=== PATIENT | male | born 1950 | race African-American/Black ===

== ENCOUNTER → 2016-10-07 | Outpatient (CLI) | payer MEDICARE, OTHER ==
[2016-10-07 08:43] LABS: Basophils % (A) 1 %; CH 31.9; CHCM 35.4; Eosinophils # (A) 0.2 k/uL (0-0.7); Eosinophils % (A) 3 %; HCT 42.9 % (39.0-53.0); HDW 2.84; Luc # (Auto) 0.21; Luc % (Auto) 4; Lymphocytes # (A) 1.1 k/uL (1.0-4.8); Lymphocytes % (A) 20 %; MCH 31.6 pg (25.0-35.0); MCHC 34.8 g/dL (31.0-37.0); MCV 90.7 fL (80.0-100.0); Mean Platelet Volume 7.1; Monocytes # (A) 0.3 k/uL (0-1.0); Monocytes % (A) 5 %; Neutrophils # (A) 3.7 k/uL (1.3-7.7); Neutrophils % (A) 68 %; RBC 4.73 m/uL (4.30-5.90); RDW 13.3 % (11.5-15.5); WBC 5.5 k/uL (3.8-10.6); WBC (Perox) 5.29
[2016-10-07 08:55] LABS: ALT 118 U/L (21-72); AST 96 U/L (17-59); Alkaline Phosphatase 87 U/L (38-126); Anion Gap 10 mmol/L; Bilirubin, Delta 0.3 mg/dL (0.0-0.2); Blood Urea Nitrogen 13 mg/dL (9-20); Calcium 9.6 mg/dL (8.4-10.2); Carbon Dioxide 25 mmol/L (22-30); Chloride 109 mmol/L (98-107); Glucose 99 mg/dL (74-99); Non-African American GFR(MDRD) >60 (>60 ml/min/1.73 sqM); Potassium 4.4 mmol/L (3.5-5.1); Sodium 144 mmol/L (137-145); Total Bilirubin 0.9 mg/dL (0.2-1.3); Total Protein 7.6 g/dL (6.3-8.2)
[2016-10-10 09:35] LABS: LOG HCV IU/mL 5.79 (<1.08)
== END | disposition home or self-care (01) ==
LOC: RADUSWWP 07:41
DX: B18.2 Chronic viral hepatitis C (principal)
CPT/HCPCS: 36415; 80053; 82105; 82248; 85025; 87522

== ENCOUNTER → 2016-10-27 | Outpatient (CLI) | payer MEDICARE, OTHER ==
--- NOTE | 2016-10-27 08:20 | US ---
EXAMINATION TYPE: US abdomen limited DATE OF EXAM: 10/27/2016 7:30 AM COMPARISON: 10/03/2014 CLINICAL HISTORY: B18.2 HEP C. NPO, no surgeries EXAM MEASUREMENTS: Liver Length: 13.6 cm Gallbladder Wall: 0.2 cm CHD: 0.3 cm Right Kidney: 11.3 x 5.5 x 4.7 cm Pancreas: Obscured by bowel gas Liver: Linear echogenic focus with shadowing in right lobe = 2.2 x 1.6 cm Gallbladder: Fundal echogenic foci seen at wall Evidence for sonographic Banks's sign: neg CHD: wnl Right Kidney: wnl IMPRESSION: 1. Stable linear calcification within the liver. 2. Gallbladder polyp versus adherent gallstone.
== END | disposition home or self-care (01) ==
LOC: RADUSWWP 07:02
DX: K76.89 Other specified diseases of liver (principal); B18.2 Chronic viral hepatitis C
CPT/HCPCS: 76705

== ENCOUNTER → 2016-11-28 | Outpatient (CLI) | payer MEDICARE, OTHER ==
[2016-11-28 16:28] LABS: Hepatitis B Surface Ag Index 0.07
[2016-11-28 16:34] LABS: Hepatitis B Core IgM Index 0.03
[2016-11-28 16:45] LABS: Hepatitis C Virus IgG Ab Reactive (Negative)
== END ==
LOC: LABWHC1 15:13
PROVIDERS: ATTEND Physician Assistant
DX: B18.2 Chronic viral hepatitis C (principal)
CPT/HCPCS: 36415; 80074

== ENCOUNTER → 2017-01-19 | Outpatient (CLI) | payer MEDICARE, OTHER ==
--- NOTE | 2017-01-19 09:24 | CT ---
EXAMINATION TYPE: CT brain wo con DATE OF EXAM: 01/19/2017 COMPARISON: NONE HISTORY: Loss of balance CT DLP: [address] of the brain was performed. The ventricles, basal cisterns and sulci overlying the cerebral convexities demonstrate mild enlargem ent. There is no evidence for intracranial hemorrhage or sulcal effacement. There is decreased attenuation about the periventricular white matter and deep white matter of both c erebral hemispheres, compatible with chronic small vessel ischemia. Differential diagnosis does inclu de demyelination. No mass effects are seen.No midline shift. Osseous calvarium is intact. If symptoms persist consider MRI. IMPRESSION: 1. Age related atrophic and chronic small vessel ischemic change without acute intracranial process s een at this time.
--- NOTE | 2017-01-19 09:36 | US ---
EXAMINATION TYPE: US carotid duplex BILAT DATE OF EXAM: 01/19/2017 COMPARISON: NONE CLINICAL HISTORY: R26.89 loss of balance. Loss of balance EXAM MEASUREMENTS: RIGHT: Peak Systolic Velocity (PSV) cm/sec ----- Right CCA: 73.2 ----- Right ICA: 75.6 ----- Right ECA: 66.0 ICA/CCA ratio: 1.0 RIGHT: End Diastole cm/sec ----- Right CCA: 18.2 ----- Right ICA: 23.2 ----- Right ECA: 8.4 LEFT: Peak Systolic Velocity (PSV) cm/sec ----- Left CCA: 94.7 ----- Left ICA: 97.3 ----- Left ECA: 78.7 ICA/CCA ratio: 1.0 LEFT: End Diastole cm/sec ----- Left CCA: 25.9 ----- Left ICA: 27.2 ----- Left ECA: 9.0 VERTEBRALS (direction of flow): Right Vertebral: Antegrade Left Vertebral: Antegrade Grayscale images show moderate to severe eccentric shadowing hyperechoic plaque at bilateral carotid bulbs. Velocity measurements and ratios however remain within normal limits bilaterally. IMPRESSION: Moderate to severe atherosclerotic change without hemodynamically significant stenosis s een in either internal carotid artery.
== END | disposition home or self-care (01) ==
LOC: RADUSMAIN 08:57
PROVIDERS: ATTEND Family Medicine
DX: I65.23 Occlusion and stenosis of bilateral carotid arteries (principal); G31.1 Senile degeneration of brain, not elsewhere classified; I67.82 Cerebral ischemia
CPT/HCPCS: 70450; 93880

== ENCOUNTER → 2017-02-06 | Outpatient (CLI) | payer MEDICARE, OTHER ==
[2017-02-06 15:35] LABS: Hepatitis B Surface Ag Index 0.06
[2017-02-06 15:41] LABS: Hepatitis B Core IgM Index 0.03
[2017-02-06 15:53] LABS: Hepatitis C Virus IgG Ab Reactive (Negative)
== END | disposition home or self-care (01) ==
LOC: LABWHC1 14:16
PROVIDERS: ATTEND Physician Assistant
DX: B18.2 Chronic viral hepatitis C (principal)
CPT/HCPCS: 36415; 80074

== ENCOUNTER → 2017-02-16 | Outpatient (CLI) | payer MEDICARE, OTHER ==
[2017-02-16 10:57] LABS: Bilirubin, Delta 0.2 mg/dL (0.0-0.2); Total Bilirubin 0.6 mg/dL (0.2-1.3); Total Protein 7.3 g/dL (6.3-8.2)
[2017-02-20 13:21] LABS: Hepatits C Virus RNA, Quant <12 IU/mL (<12); LOG HCV IU/mL <1.08 (<1.08)
== END | disposition home or self-care (01) ==
LOC: LABWHC1 09:56
PROVIDERS: ATTEND Physician Assistant
DX: B18.2 Chronic viral hepatitis C (principal)
CPT/HCPCS: 36415; 80076; 87522

== ENCOUNTER → 2017-09-14 | Outpatient (CLI) | payer MEDICARE, OTHER ==
[2017-09-14 10:16] LABS: Basophils % (A) 0 %; Eosinophils # (A) 0.1 k/uL (0-0.7); Eosinophils % (A) 2 %; HCT 42.6 % (39.0-53.0); HGB 14.9 gm/dL (13.0-17.5); Lymphocytes % (A) 16 %; MCH 30.6 pg (25.0-35.0); MCHC 35.1 g/dL (31.0-37.0); MCV 87.3 fL (80.0-100.0); Mean Platelet Volume 7.1; Monocytes # (A) 0.4 k/uL (0-1.0); Monocytes % (A) 7 %; Neutrophils # (A) 4.8 k/uL (1.3-7.7); Neutrophils % (A) 73 %; Platelet Count 150 k/uL (150-450); RBC 4.88 m/uL (4.30-5.90); RDW 13.2 % (11.5-15.5); WBC 6.6 k/uL (3.8-10.6)
[2017-09-14 10:22] LABS: INR 1.2 (<1.2); Prothrombin Time 11.4 sec (9.0-12.0)
[2017-09-14 10:29] LABS: Albumin 3.9 g/dL (3.5-5.0); Bilirubin, Delta 0.4 mg/dL (0.0-0.2); Bilirubin,Unconjugated 0.1 mg/dL (0.0-1.1); Total Bilirubin 0.5 mg/dL (0.2-1.3)
[2017-09-15 16:20] LABS: Hepatits C Virus RNA Not detected (Not detected); Hepatits C Virus RNA, Quant <12 IU/mL (<12); LOG HCV IU/mL <1.08 (<1.08)
== END | disposition home or self-care (01) ==
LOC: LABWHC1 09:35
PROVIDERS: ATTEND Physician Assistant
DX: B18.2 Chronic viral hepatitis C (principal)
CPT/HCPCS: 36415; 80076; 82105; 85025; 85610; 87522

== ENCOUNTER → 2018-02-14 | Outpatient (CLI) | payer MEDICARE, OTHER ==
[2018-02-14 15:56] LABS: HCT 43.5 % (39.0-53.0); HGB 15.1 gm/dL (13.0-17.5); MCH 30.5 pg (25.0-35.0); MCHC 34.6 g/dL (31.0-37.0); MCV 88.1 fL (80.0-100.0); Platelet Count 134 k/uL (150-450); RBC 4.94 m/uL (4.30-5.90); RDW 12.9 % (11.5-15.5); WBC 6.3 k/uL (3.8-10.6)
[2018-02-14 16:05] LABS: Potassium 4.3 mmol/L (3.5-5.1)
== END | disposition home or self-care (01) ==
LOC: LABPAT 15:28
PROVIDERS: ATTEND Internal Medicine Interventional Cardiology
DX: Z01.812 Encounter for preprocedural laboratory examination (principal); I25.10 Atherosclerotic heart disease of native coronary artery without angina pectoris; I70.213 Atherosclerosis of native arteries of extremities with intermittent claudication, bilateral legs
CPT/HCPCS: 36415; 80051; 82565; 84520; 85027

== ENCOUNTER → 2018-03-13 | Outpatient (CLI) | payer MEDICARE, OTHER ==
[2018-03-13 14:46] LABS: HCT 41.9 % (39.0-53.0); HGB 14.3 gm/dL (13.0-17.5); MCH 30.1 pg (25.0-35.0); MCHC 34.1 g/dL (31.0-37.0); Mean Platelet Volume 6.7; Platelet Count 125 k/uL (150-450); RBC 4.76 m/uL (4.30-5.90); RDW 12.8 % (11.5-15.5); WBC 5.9 k/uL (3.8-10.6)
[2018-03-13 15:08] LABS: Anion Gap 8 mmol/L; Blood Urea Nitrogen 12 mg/dL (9-20); Carbon Dioxide 24 mmol/L (22-30); Chloride 109 mmol/L (98-107); Potassium 3.9 mmol/L (3.5-5.1); Sodium 141 mmol/L (137-145)
== END ==
LOC: LABPAT 13:42
PROVIDERS: ATTEND Internal Medicine Interventional Cardiology
DX: Z01.812 Encounter for preprocedural laboratory examination (principal); I25.10 Atherosclerotic heart disease of native coronary artery without angina pectoris; E78.5 Hyperlipidemia, unspecified; Z95.1 Presence of aortocoronary bypass graft
CPT/HCPCS: 36415; 80051; 82565; 84520; 85027

== ENCOUNTER 2018-03-30 09:25 | Day surgery (SDC) | payer MEDICARE, OTHER ==
[2018-03-21 11:55] VITALS: BMI 25.7
[~2018-03-30 09:25] MED LIST: ALPRAZolam 0.25 MG TAB PO PRN; ASPIRIN 325 MG TAB PO STA; SODIUM CHLORIDE 0.9% 1,000 ML in EMPTY BAG 1 BAG IV ONE
[2018-03-30] MEDS ORDERED: MIDAZOLAM 2 MG/2 ML VIAL IVP ONE (11:17)
[2018-03-30] MEDS ORDERED: LIDOCAINE 1% INJ 10MG/ML (20 ML MDV) SQ ONE (11:18)
[2018-03-30] MEDS ORDERED: HEPARIN SODIUM 1,000 UN/ML (10ML VL) IV ONE (11:23)
[2018-03-30 11:25] LABS: Glucose,Whole Blood 90 mg/dL (75-99)
[2018-03-30 11:33] LABS: Basophils % (A) 1 %; Eosinophils # (A) 0.1 k/uL (0-0.7); Eosinophils % (A) 2 %; HCT 39.5 % (39.0-53.0); Lymphocytes # (A) 1.4 k/uL (1.0-4.8); Lymphocytes % (A) 22 %; MCH 30.7 pg (25.0-35.0); MCHC 35.5 g/dL (31.0-37.0); MCV 86.4 fL (80.0-100.0); Monocytes # (A) 0.3 k/uL (0-1.0); Monocytes % (A) 4 %; Neutrophils # (A) 4.4 k/uL (1.3-7.7); Neutrophils % (A) 69 %; Platelet Count 117 k/uL (150-450); RBC 4.57 m/uL (4.30-5.90); RDW 13.3 % (11.5-15.5); WBC 6.4 k/uL (3.8-10.6)
[2018-03-30 12:03] LABS: Anion Gap 6 mmol/L; Blood Urea Nitrogen 13 mg/dL (9-20); Calcium 9.2 mg/dL (8.4-10.2); Carbon Dioxide 25 mmol/L (22-30); Chloride 110 mmol/L (98-107); Glucose 92 mg/dL (74-99); Potassium 4.3 mmol/L (3.5-5.1); Sodium 141 mmol/L (137-145)
[2018-03-30] MEDS ORDERED: CLOPIDOGREL 75 MG TAB PO ONE (12:41)
[2018-03-30] MEDS ORDERED: [UNRECOGNIZED DRUG - OTHER] PO SCH (13:15)
[2018-03-30] MEDS ORDERED: SODIUM CHLORIDE 0.9% 1,000 ML IV SCH (13:15)
--- NOTE | 2018-03-30 15:05 | LTR ---
DATE OF SERVICE: March 30, 2018. Dear Dr. Hill: Mr. Patel Goodman underwent successful atherectomy and balloon angioplasty of the right common femoral artery as well as successful crossing of chronic total occlusion of the right popliteal with successful stenting of the right popliteal. The procedure was completed without any complication and with an excellent angiographic result by the end. I want to thank you for allowing us to participate with his care and please do not hesitate to call for any questions or concerns. Sincerely, MMGENET / IJN: [id number] /
--- NOTE | 2018-03-30 15:35 | AN ---
ANGIOGRAPHY REPORT DATE OF SERVICE: 03/30/2018. PERFORMING PHYSICIAN: Piyush Short M.D., leather production worker PROCEDURES PERFORMED: 1. Selective right osinu-yvn-fiiv angiogram. 2. Selective right SFA angiogram. 3. Selective right common femoral artery angiogram. 4. Selective left common femoral artery angiogram. 5. Balloon angioplasty and stenting of the right popliteal using a 6 x x 40 mm Zilver PTX drug-coated stent with reduction of stenosis from 100% to 0%. 6. Atherectomy of the right common femoral artery using the TurboHawk device with extraction of significant amount of plaque. 7. Successful balloon angioplasty of the right common femoral artery with reduction of stenosis from 90% to 30% with good flow by the end. INDICATION: This is a pleasant 68-year-old -[place] gentleman with known history of coronary artery disease coronary artery revascularization as well as diabetes, hypertension, dyslipidemia. He was experiencing bilateral lower extremity intermittent claudication. He underwent a peripheral angiogram a few months ago and that revealed occluded left SFA and occluded right popliteal with critical disease involving the right common femoral artery just above the bifurcation into SFA and profunda. He was brought today to undergo a SERVICE TRANSFORMER REPAIR SUPERVISOR of the right leg. APPROACH: Left common femoral artery. COMPLICATIONS: None. LEVEL OF SEDATION: Moderate. Sedation length of 1 hour and 40 minutes. PROCEDURE DESCRIPTION: After obtaining informed consent, the patient was brought to the cardiac lab courier. The left common femoral artery was cannulated using micropuncture technique, and the micropuncture wire passed easily. Then I placed an 11 cm 6-St Helenian sheath in the left common femoral artery. I did select the right SFA using a 5-St Helenian RIM catheter with .035 [place] Advantage wire. After that I exchanged my 11 cm 6-St Helenian for a 70 cm 7-St Helenian sheath using the [place] Advantage wire. The tip of the sheath was positioned in the right external iliac artery. At that point anticoagulation was initiated using heparin. The patient was given 8000 units of heparin IV. After that I did cross the chronic total occlusion of the right popliteal using an .[address] wire with a backup support of .018 CXI catheter. I did after that prove that I was in the true lumen by injecting through the CSI catheter. After that I put the wire back again and I did balloon angioplasty using a 4 mm Chocolate balloon and then a 4 mm drug-coated balloon. There was residual stenosis of about 60% to 70% in the proximal SYSTEM SOFTWARE DEVELOPER cap. Because of that, I decided to stent that. So I deployed a 6 x 40 mm Zilver PTX where the stent was positioned under fluoroscopy guidance and deployed under fluoroscopy guidance before I post dilated the stent using a 6 mm balloon. The following angiogram in the right popliteal showed excellent angiographic results. For the right common femoral artery, I did atherectomy using the TurboHawk device and I did extract significant amount of plaque. After that I did balloon angioplasty using a 6 mm Chocolate balloon which was inflated under 14 atmospheres for 1 minute. The following angiogram showed good results with reduction of stenosis from 90% to about 30% to 40%. At that point, the procedure was completed. I exchanged my 70 cm 7-St Helenian sheath for an 11 cm 7-St Helenian sheath using the .035 [place] Advantage wire. The procedure was completed without any complication after I did selective left common femoral artery angiogram. POST-PROCEDURE MANAGEMENT: 1. Dual anti-platelet therapy. 2. Risk factor modifications. 3. Follow up with the patient. MMODL / IJN: [id number] /
[2018-03-30] MEDS ORDERED: ACETAMINOPHEN TAB 325 MG TAB PO PRN (15:46)
[2018-03-30 17:15] LABS: Glucose,Whole Blood 145 mg/dL (75-99)
--- NOTE | 2018-03-30 17:16 | IR ---
Fluoroscopy HISTORY: Pain in right leg 23.4 minutes fluoroscopy time supplied to the referring clinician. 640 intraoperative C-arm images d ocument the procedure. See dictated report from cardiology.
[2018-03-30 18:38] VITALS: RESP 18
[2018-03-30] MEDS ORDERED: ATORVASTATIN 40 MG TAB PO SCH (21:00)
[2018-03-30] MEDS ORDERED: MELATONIN 5 MG TABLET PO SCH (21:00)
[2018-03-30 21:36] LABS: Glucose,Whole Blood 135 mg/dL (75-99)
[2018-03-30] MEDS: GABAPENTIN 300 MG CAP PO SCH (22:46)
[2018-03-31 04:21] LABS: Hemoglobin A1C 5.8 % (4.0-6.0)
[2018-03-31 06:18] LABS: Glucose,Whole Blood 98 mg/dL (75-99)
[2018-03-31 06:21] LABS: Basophils % (A) 1 %; Eosinophils # (A) 0.1 k/uL (0-0.7); Eosinophils % (A) 2 %; HCT 39.9 % (39.0-53.0); HGB 13.6 gm/dL (13.0-17.5); Lymphocytes # (A) 1.1 k/uL (1.0-4.8); Lymphocytes % (A) 20 %; MCH 30.3 pg (25.0-35.0); MCV 89.1 fL (80.0-100.0); Monocytes # (A) 0.3 k/uL (0-1.0); Monocytes % (A) 6 %; Neutrophils # (A) 3.8 k/uL (1.3-7.7); Neutrophils % (A) 69 %; Platelet Count 114 k/uL (150-450); RBC 4.48 m/uL (4.30-5.90); RDW 13.2 % (11.5-15.5); WBC 5.6 k/uL (3.8-10.6)
[2018-03-31 06:52] LABS: Anion Gap 6 mmol/L; Blood Urea Nitrogen 15 mg/dL (9-20); Calcium 8.8 mg/dL (8.4-10.2); Carbon Dioxide 22 mmol/L (22-30); Chloride 113 mmol/L (98-107); Glucose 94 mg/dL (74-99); Potassium 4.4 mmol/L (3.5-5.1); Sodium 141 mmol/L (137-145)
[2018-03-31] MEDS: GABAPENTIN 300 MG CAP PO SCH (08:54)
[2018-03-31] MEDS ORDERED: CLOPIDOGREL 75 MG TAB PO SCH (09:00)
[2018-03-31] MEDS ORDERED: ASPIRIN 81 MG PO SCH (09:00)
[2018-03-31 09:06] VITALS: BP 108/70; PULSE 77; TEMP 97.3
--- NOTE | 2018-03-31 22:41 | DS ---
DISCHARGE SUMMARY ADMISSION DATE: March 30, 2018 DISCHARGE DATE: March 31, 2018 BRIEF HISTORY: This is a pleasant 68-year-old gentleman who was admitted to the hospital yesterday and underwent successful crossing of chronic total occlusion of the right popliteal artery as well as successful atherectomy and balloon angioplasty of the right femoral artery. The procedure was performed from the left groin. The left groin is soft and nontender and without any bruises. The patient is going to be discharged home today on dual anti-platelet therapy and statin and I will follow up with the patient in a week in the office. MMGENET / IJN: [id number] /
[2018-04-08] MEDS ORDERED: ERGOCALCIFEROL 50,000 UNIT CAP PO SCH (09:00)
== END 2018-03-31 11:26 | disposition home or self-care (01) ==
LOC: CATHCVL 09:25 → 6SEL 13:08 → CATHCVL 03-31 11:26
PROVIDERS: ATTEND Internal Medicine Interventional Cardiology
DX: I70.213 Atherosclerosis of native arteries of extremities with intermittent claudication, bilateral legs (principal); I70.92 Chronic total occlusion of artery of the extremities; I25.10 Atherosclerotic heart disease of native coronary artery without angina pectoris; E11.9 Type 2 diabetes mellitus without complications; E78.5 Hyperlipidemia, unspecified; Z95.1 Presence of aortocoronary bypass graft; F17.210 Nicotine dependence, cigarettes, uncomplicated; Z82.49 Family history of ischemic heart disease and other diseases of the circulatory system; Z79.84 Long term (current) use of oral hypoglycemic drugs; Z79.82 Long term (current) use of aspirin; Z79.899 Other long term (current) drug therapy
CPT/HCPCS: 37227; 85347; 80048 ×2; 85025 ×2; 83036; C1894 ×2; C1725 ×3; C1769 ×4; C1714; C1753; C2623; C1874; J2250; J2001; J1644

== ENCOUNTER 2018-05-23 09:57 | Day surgery (SDC) | payer MEDICARE, OTHER ==
[~2018-05-23 09:57] MED LIST changes: -ALPRAZolam 0.25 MG TAB PO PRN; -ASPIRIN 325 MG TAB PO STA
[2018-05-23 10:50] LABS: Glucose,Whole Blood 100 mg/dL (75-99)
[2018-05-23] MEDS ORDERED: SODIUM CHLORIDE 0.9% 1,000 ML IV ONE (10:51)
[2018-05-23 11:21] LABS: Mean Platelet Volume 6.8; Platelet Count 128 k/uL (150-450)
[2018-05-23] MEDS ORDERED: HYDROcodone/APAP 10-325MG 1 EACH TAB PO ONE (15:47)
[2018-05-23] MEDS ORDERED: HYDROcodone/APAP 10-325MG 1 EACH TAB ONE (15:48)
[2018-05-23] MEDS: fentaNYL (PF) 50 MCG/ML 2 ML AMP IVP ONE ×2 (16:45→17:55)
[2018-05-23] MEDS: MIDAZOLAM 2 MG/2 ML VIAL IVP ONE ×2 (16:45→17:06)
[2018-05-23] MEDS ORDERED: LIDOCAINE 1% (PF) 10MG/ML VIAL SQ ONE (16:50)
[2018-05-23] MEDS ORDERED: HYDROcodone/APAP 10-325MG 1 EACH TAB PO PRN (18:53)
[2018-05-23] MEDS ORDERED: IOPAMIDOL-250 100ML BTL INTRAARTER ONE (18:56)
[2018-05-23] MEDS ORDERED: IOPAMIDOL-250 50ML BTL INTRAARTER ONE (18:57)
[2018-05-23] MEDS ORDERED: [UNRECOGNIZED DRUG - OTHER] PO SCH (19:00)
[2018-05-23] MEDS ORDERED: SODIUM CHLORIDE 0.9% 1,000 ML IV SCH (19:00)
--- NOTE | 2018-05-23 19:45 | LTR ---
May 23, [address] Hill: Mr. Patel Goodman underwent successful atherectomy and balloon angioplasty of the left femoral artery with good angiographic results and without any complication. Thank you again for allowing us to participate in his care and please do not hesitate to call if you have any question or concern. MMODL / IJN: [id number] /
[2018-05-23] MEDS ORDERED: ERGOCALCIFEROL 50,000 UNIT CAP PO SCH (20:00)
[2018-05-23] MEDS ORDERED: GABAPENTIN 300 MG CAP PO SCH (21:00)
[2018-05-23] MEDS ORDERED: MELATONIN 5 MG TABLET PO SCH (21:00)
[2018-05-23] MEDS ORDERED: ATORVASTATIN 40 MG TAB PO SCH (21:00)
[2018-05-23 22:01] VITALS: BMI 25.7
--- NOTE | 2018-05-23 23:06 | AN ---
ANGIOGRAPHY REPORT DATE OF SERVICE: 05/23/2018 PERFORMING PHYSICIAN: Piyush Short MD, supervisor [employer]. PROCEDURES PERFORMED: 1. Selective left tvcov-wgi-qawa angiogram. 2. Selective left popliteal/SFA angiogram. 3. Selective right common femoral artery angiogram. 4. Intravascular ultrasound (IVUS) of the left SFA. 5. Atherectomy of the left SFA using the orbital atherectomy device from [employer]. 6. Successful stenting of the left popliteal and left SFA using Zilver PTX 6.0 x 140 and 7.0 x 140 drug-coated stent with an excellent angiographic result. 7. Successful balloon angioplasty of the mid left SFA using 6 x 80 mm drug-coated balloon with an excellent angiographic result. 8. Gradient measurement across the proximal left SFA. INDICATION: This is a pleasant 68-year-old gentleman who is known to have peripheral arterial disease and was experiencing bilateral lower extremity intermittent claudication. He underwent a peripheral angiogram and that showed occluded bilateral SFA. He underwent a PAIRER INSPECTOR of the right SFA and was brought today to undergo a PAIRER INSPECTOR of the left SFA. APPROACH: Right common femoral artery. COMPLICATIONS: None. LEVEL OF SEDATION: Moderate. Sedation length of 120 minutes. PROCEDURE DESCRIPTION: After obtaining informed consent, the patient was brought to the cardiac labor representative. The right common femoral artery was cannulated using micropuncture technique. The micropuncture wire passed easily. Then I placed a 6-Divehi sheath in the right common femoral artery. After that, anticoagulation was initiated using heparin and the patient was given 8000 units of heparin with continuous ACT throughout the procedure. After that I did select the left SFA using a 5-Divehi RIM catheter with .035 [place] Advantage wire. After that, I did exchange my short sheath for a long sheath, 55 cm Raabe sheath using the .035 [place] Advantage wire. Subsequently I was able to cross the chronic total occlusion of the left SFA using .018 gold tip Glidewire with .018 CXI catheter. After that I did intravascular ultrasound of the left SFA and left popliteal and that showed that in the SFA segment I was in the true lumen and in the popliteal I was in sub space. Because of that, I did atherectomy of the right SFA using the orbital atherectomy device from [employer]. I did that after I exchanged my wire for an .018 ViperWire. After that I did balloon angioplasty using a 6 mm balloon. The following angiogram showed dissection involving the left popliteal and left SFA in the midportion. Because of that, I decided to cover that with a stent, so I deployed 2 Zilver PTX stents. The distal one was 6 x 140 and the proximal one was 7 x 140 mm. After that, for the area proximal to the stents, I did a drug-coated balloon which was 6 x 80 mm balloon. I post dilated the 2 stents using 6 mm balloon. After that, I did a gradient measurement across the proximal left SFA and that came in to be non-significant. The procedure was completed without any complication. After that I did exchange my long sheath for a short sheath and the procedure was completed without any complication. POST-PROCEDURE MANAGEMENT: 1. Dual anti-platelet therapy. 2. Risk factor modifications. 3. Surveillance duplex study. 4. Follow up with the patient. MMODL / IJN: [id number] /
[2018-05-24] MEDS ORDERED: ATROPINE SULFATE 0.1 MG/ML 10ML SYRINGE ONE (01:42)
[2018-05-24 06:02] LABS: Glucose,Whole Blood 91 mg/dL (75-99)
[2018-05-24 07:04] LABS: Basophils % (A) 0 %; Eosinophils # (A) 0.1 k/uL (0-0.7); Eosinophils % (A) 2 %; HCT 36.5 % (39.0-53.0); HGB 13.1 gm/dL (13.0-17.5); Lymphocytes % (A) 22 %; MCH 31.9 pg (25.0-35.0); MCHC 35.9 g/dL (31.0-37.0); MCV 88.7 fL (80.0-100.0); Mean Platelet Volume 7.1; Monocytes # (A) 0.3 k/uL (0-1.0); Monocytes % (A) 6 %; Neutrophils # (A) 3.3 k/uL (1.3-7.7); Neutrophils % (A) 69 %; RBC 4.12 m/uL (4.30-5.90); RDW 12.9 % (11.5-15.5); WBC 4.8 k/uL (3.8-10.6)
[2018-05-24 07:22] LABS: Anion Gap 4 mmol/L; Blood Urea Nitrogen 16 mg/dL (9-20); Calcium 8.4 mg/dL (8.4-10.2); Carbon Dioxide 23 mmol/L (22-30); Chloride 114 mmol/L (98-107); Glucose 85 mg/dL (74-99); Potassium 4.5 mmol/L (3.5-5.1); Sodium 141 mmol/L (137-145)
--- NOTE | 2018-05-24 07:34 | IR ---
EXAMINATION TYPE: IR patrol captain femoral popliteal DATE OF EXAM: 05/23/2018 CLINICAL HISTORY: Peripheral vascular disease TECHNIQUE: Fluoroscopy. COMPARISON: None. FINDINGS: Fluoroscopic guidance was provided during lower extremity angiogram procedure with intrava scular treatment performed by Dr. Short. A total of 39 minutes of fluoroscopic time was utilized duri ng the procedure and multiple cine runs are acquired before and after treatment. Please refer to proc edure note for further details as I was not present nor performed procedure. IMPRESSION: As Above.
[2018-05-24 08:04] LABS: Platelet Count 91 k/uL (150-450)
[2018-05-24 08:27] VITALS: BP 109/59; PULSE 65; RESP 16; TEMP 98.4
[2018-05-24] MEDS ORDERED: ASPIRIN 81 MG PO SCH (09:00)
[2018-05-24] MEDS ORDERED: CLOPIDOGREL 75 MG TAB PO SCH (09:00)
--- NOTE | 2018-05-24 09:10 | DS ---
DISCHARGE SUMMARY ADMISSION DATE: May 23, 2018 DISCHARGE DATE: May 24, 2018 BRIEF HISTORY: This is a pleasant 68-year-old gentleman who was experiencing bilateral lower extremities intermittent claudication and underwent a peripheral angiogram and that revealed occluded bilateral SFA. He underwent a ACTIVITY ASSISTANT of the right SFA a few weeks ago and was brought yesterday to undergo a ACTIVITY ASSISTANT of the left SFA. He underwent successful crossing of chronic total occlusion of the left superficial femoral artery with good angiographic results and without any complication from the right groin approach. The right groin is soft and nontender and without any bruises. The patient is going to be discharged on dual antiplatelet therapy and I will follow up with the patient in a week in the office. MMODL / IJN: [id number] /
== END 2018-05-24 09:35 | disposition home or self-care (01) ==
LOC: CATHCVL 09:57 → 3SCARD 19:07 → CATHCVL 05-24 09:35
PROVIDERS: ATTEND Internal Medicine Interventional Cardiology
DX: I70.213 Atherosclerosis of native arteries of extremities with intermittent claudication, bilateral legs (principal); I25.10 Atherosclerotic heart disease of native coronary artery without angina pectoris; E78.5 Hyperlipidemia, unspecified; Z95.1 Presence of aortocoronary bypass graft; F17.210 Nicotine dependence, cigarettes, uncomplicated; Z82.49 Family history of ischemic heart disease and other diseases of the circulatory system; E11.9 Type 2 diabetes mellitus without complications; Z79.84 Long term (current) use of oral hypoglycemic drugs; Z79.82 Long term (current) use of aspirin; Z79.899 Other long term (current) drug therapy
CPT/HCPCS: 37227; 37252; 80048; 85025; 85049; C1894 ×2; C1714; C1769 ×7; C1725 ×3; C1887; C1753; C2623; C1874; J2250; J3010; J2001; J1644; Q9966 ×2

== ENCOUNTER → 2019-01-21 | Outpatient (CLI) | payer MEDICARE, OTHER ==
--- NOTE | 2019-01-21 14:51 | XR ---
Lumbosacral spine HISTORY: Lumbar disc disease, low back pain 5 views of lumbosacral spine There is multilevel spondylosis. No evident spondylolysis or spondylolisthesis. Lumbar vertebral bodi es show preserved height and bone mineralization. There is loss of disc height especially at L4-5 and L5-S1 with associated vacuum phenomenon. Sclerosis present in the posterior elements. Vascular calci fications within the aorta and noted incidentally. IMPRESSION: Degenerative disc disease and facet arthropathy.
== END | disposition home or self-care (01) ==
LOC: LABWHC1 11:52
PROVIDERS: ATTEND Family Medicine
DX: M51.37 Other intervertebral disc degeneration, lumbosacral region (principal); M46.97 Unspecified inflammatory spondylopathy, lumbosacral region
CPT/HCPCS: 72110

== ENCOUNTER → 2019-03-07 | Outpatient (CLI) | payer MEDICARE, OTHER ==
[2019-03-07 13:15] LABS: African American GFR (CKD) >90 (>60 ml/min/1.73 sqM); Blood Urea Nitrogen 16 mg/dL (9-20)
--- NOTE | 2019-03-07 15:00 | CT ---
EXAMINATION TYPE: CT abdomen pelvis w con DATE OF EXAM: 03/07/2019 COMPARISON: October 25, 2014 HISTORY: 30lb weight loss and appetite loss CT DLP: 1000 mGycm CONTRAST: CT scan of the abdomen and pelvis is performed with Oral Contrast and with IV Contrast, patient injec paty with 100 mL of Isovue 300. FINDINGS: LUNG BASES-: No visible nodule. No infiltrate. Chronic nodular parenchymal scar left lower lobe margaux uring 7 mm unchanged from study. LIVER/GB: No calcified gallstones. No space occupying hepatic lesion. Biliary tree is of normal ca liber. Stable hepatic calcifications. PANCREAS: Pancreatic calcifications noted compatible with chronic pancreatitis. No inflammation. No distinct mass. SPLEEN: No splenic enlargement. No lesion seen. ADRENALS: No nodule. No thickening. KIDNEYS/BLADDER: No hydronephrosis. No nephrolithiasis. No distinct renal mass. Urinary bladder g rossly unremarkable. BOWEL: Normal appendix. Normal bowel caliber. No inflammation. GENITAL ORGANS: Prostate gland enlargement. LYMPH NODES: No greater than 1cm abdominal or pelvic lymph nodes are appreciated. AORTA: No significant abnormality. OSSEOUS STRUCTURES: No significant abnormality is seen. OTHER: No significant additional abnormality is seen. IMPRESSION: 1. Changes of chronic pancreatitis. 2. Mild prostate gland enlargement. 3. Nodular scarring left lung base stable since prior study.
== END | disposition home or self-care (01) ==
LOC: RADCTMAIN 12:23
PROVIDERS: ATTEND Family Medicine
DX: N40.0 Benign prostatic hyperplasia without lower urinary tract symptoms (principal); E11.65 Type 2 diabetes mellitus with hyperglycemia; F17.218 Nicotine dependence, cigarettes, with other nicotine-induced disorders; E78.2 Mixed hyperlipidemia; R63.4 Abnormal weight loss; Z86.19 Personal history of other infectious and parasitic diseases
CPT/HCPCS: 82565; 84520; 74177; 36415; Q9967

== ENCOUNTER 2019-11-28 08:50 | Emergency (ER) | payer MEDICARE, OTHER ==
[2019-11-28] MEDS ORDERED: FUROSEMIDE 10 MG/ML 2 ML VIAL IV STA (09:19)
--- NOTE | 2019-11-28 09:23 | ED ---
General Adult HPI - General Chief complaint: Extremity Problem,Nontraumatic Stated complaint: Swollen feet Time Seen by Provider: 11/28/19 09:00 Source: patient, RN notes reviewed, old records reviewed Mode of arrival: wheelchair Limitations: physical limitation - History of Present Illness Initial comments: This is a 69-year-old male who presents to the emergency department complaining of bilateral leg swelling. Patient states his legs started to swell about 3 weeks ago and they've slowly gotten worse. Patient states there is no calf tenderness. Patient denies any redness. Patient denies any difficulty breathing or shortness of breath. Patient denies any chest pain or palpitations. Patient states she does have a history of open-heart surgery. Patient also has diabetes and high cholesterol. Patient states lately she's been sitting around in a chair a lot more and has not been as mobile. Patient denies any lightheadedness or dizziness. Patient states his only symptom is swelling in the legs. - Related Data Home Medications Medication Instructions Recorded Confirmed Atorvastatin [Lipitor] 40 mg PO HS 10/24/14 11/28/19 Aspirin [Adult Low Dose Aspirin EC] 81 mg PO DAILY 03/21/18 11/28/19 Gabapentin [Neurontin] 300 mg PO BID 03/21/18 11/28/19 Clopidogrel [Plavix] 75 mg PO QAM 05/21/18 11/28/19 metFORMIN HCL [Glucophage] 500 mg PO QAM 05/21/18 11/28/19 HYDROcodone/APAP 10-325MG [[place] 1 tab PO Q6HR PRN 05/23/18 11/28/19 10-325] Tamsulosin HCl [Flomax] 0.4 mg PO HS 11/28/19 11/28/19 Previous Rx's Medication Instructions Recorded Furosemide [Lasix] 20 mg PO DAILY #7 tab 11/28/19 Allergies Allergy/AdvReac Type Severity Reaction Status Date / Time No Known Allergies Allergy Verified 11/28/19 09:59 Review of Systems ROS Statement: Those systems with pertinent positive or pertinent negative responses have been documented in the HPI. ROS Other: All systems not noted in ROS Statement are negative. Past Medical History Past Medical History: Diabetes Mellitus, Hyperlipidemia, Hypertension, Liver Disease Additional Past Medical History / Comment(s): hep C History of Any Multi-Drug Resistant Organisms: None Reported Past Surgical History: Coronary Bypass/CABG Additional Past Surgical History / Comment(s): cyst removed under arm, Past Anesthesia/Blood Transfusion Reactions: No Reported Reaction Past Psychological History: No Psychological Hx Reported Smoking Status: Current every day smoker Past Alcohol Use History: Occasional Past Drug Use History: Heroin, IV Drug Use - Past Family History Father Additional Family Medical History / Comment(s): sclorosis General Exam - General Exam Comments Initial Comments: GENERAL: Patient is well-developed and well-nourished. Patient is nontoxic and well- hydrated and is in no acute distress. ENT: Neck is soft and supple. No significant lymphadenopathy is noted. Oropharynx is clear. Moist mucous membranes. Neck has full range of motion without eliciting any pain. EYES: The sclera were anicteric and conjunctiva were pink and moist. Extraocular movements were intact and pupils were equal round and reactive to light. Eyelids were unremarkable. PULMONARY: Unlabored respirations. Good breath sounds bilaterally. No audible rales rhonchi or wheezing was noted. CARDIOVASCULAR: There is a regular rate and rhythm without any murmurs gallops or rubs. ABDOMEN: Soft and nontender with normal bowel sounds. SKIN: Skin is clear with no lesions or rashes and otherwise unremarkable. NEUROLOGIC: Patient is alert and oriented x3. Cranial nerves II through XII are grossly intact. Motor and sensory are also intact. Normal speech, volume and content. Symmetrical smile. MUSCULOSKELETAL: Normal extremities with adequate strength and full range of motion. Patient has 2+ edema bilaterally LYMPHATICS: No significant lymphadenopathy is noted PSYCHIATRIC: Normal psychiatric evaluation. Limitations: physical limitation Course Vital Signs 11/28/19 09:01 Temperature 98.6 F Pulse Rate 73 Respiratory 18 Rate Blood Pressure 118/80 O2 Sat by Pulse 95 Oximetry Medical Decision Making - Medical Decision Making EKG shows normal sinus rhythm at 65 bpm AK interval 142 QRS is 82 QT intervals 408 QTC is 424. Patient's EKG shows no ST segment elevation or depression. Chest x-ray shows no acute abnormality - Lab Data Result diagrams: 11/28/19 09:35 11/28/19 09:35 Lab Results 11/28/19 11/28/19 11/28/19 Range/Units 09:35 09:35 09:35 WBC 5.5 (3.8-10.6) k/uL RBC 4.72 (4.30-5.90) m/uL Hgb 15.2 (13.0-17.5) gm/dL Hct 44.0 (39.0-53.0) % MCV 93.2 (80.0-100.0) fL MCH 32.2 (25.0-35.0) pg MCHC 34.5 (31.0-37.0) g/dL RDW 12.3 (11.5-15.5) % Plt Count 149 L (150-450) k/uL Neutrophils % 66 % Lymphocytes % 21 % Monocytes % 7 % Eosinophils % 4 % Basophils % 1 % Neutrophils # 3.6 (1.3-7.7) k/uL Lymphocytes # 1.2 (1.0-4.8) k/uL Monocytes # 0.4 (0-1.0) k/uL Eosinophils # 0.2 (0-0.7) k/uL Basophils # 0.0 (0-0.2) k/uL PT 11.0 (9.0-12.0) sec INR 1.1 (<1.2) APTT 25.3 (22.0-30.0) sec Sodium 138 (137-145) mmol/L Potassium 4.1 (3.5-5.1) mmol/L Chloride 107 (98-107) mmol/L Carbon Dioxide 26 (22-30) mmol/L Anion Gap 5 mmol/L BUN 13 (9-20) mg/dL Creatinine 0.86 (0.66-1.25) mg/dL Est GFR (CKD-EPI)AfAm >90 (>60 ml/min/1.73 sqM) Est GFR (CKD-EPI)NonAf 89 (>60 ml/min/1.73 sqM) Glucose 134 H (74-99) mg/dL Calcium 9.2 (8.4-10.2) mg/dL Magnesium 1.8 (1.6-2.3) mg/dL Total Bilirubin 0.7 (0.2-1.3) mg/dL AST 74 H (17-59) U/L ALT 50 H (4-49) U/L Alkaline Phosphatase 108 (38-126) U/L Troponin I (0.000-0.034) ng/mL NT-Pro-B Natriuret Pep pg/mL Total Protein 7.1 (6.3-8.2) g/dL Albumin 3.8 (3.5-5.0) g/dL 11/28/19 11/28/19 Range/Units 09:35 09:35 WBC (3.8-10.6) k/uL RBC (4.30-5.90) m/uL Hgb (13.0-17.5) gm/dL Hct (39.0-53.0) % MCV (80.0-100.0) fL MCH (25.0-35.0) pg MCHC (31.0-37.0) g/dL RDW (11.5-15.5) % Plt Count (150-450) k/uL Neutrophils % % Lymphocytes % % Monocytes % % Eosinophils % % Basophils % % Neutrophils # (1.3-7.7) k/uL Lymphocytes # (1.0-4.8) k/uL Monocytes # (0-1.0) k/uL Eosinophils # (0-0.7) k/uL Basophils # (0-0.2) k/uL PT (9.0-12.0) sec INR (<1.2) APTT (22.0-30.0) sec Sodium (137-145) mmol/L Potassium (3.5-5.1) mmol/L Chloride (98-107) mmol/L Carbon Dioxide (22-30) mmol/L Anion Gap mmol/L BUN (9-20) mg/dL Creatinine (0.66-1.25) mg/dL Est GFR (CKD-EPI)AfAm (>60 ml/min/1.73 sqM) Est GFR (CKD-EPI)NonAf (>60 ml/min/1.73 sqM) Glucose (74-99) mg/dL Calcium (8.4-10.2) mg/dL Magnesium (1.6-2.3) mg/dL Total Bilirubin (0.2-1.3) mg/dL AST (17-59) U/L ALT (4-49) U/L Alkaline Phosphatase (38-126) U/L Troponin I <0.012 (0.000-0.034) ng/mL NT-Pro-B Natriuret Pep 145 pg/mL Total Protein (6.3-8.2) g/dL Albumin (3.5-5.0) g/dL Disposition Clinical Impression: Pedal edema Disposition: HOME SELF-CARE Condition: Good Instructions (If sedation given, give patient instructions): Leg Edema (ED) Additional Instructions: Patient should get some NIKHIL hose. Patient should reduce his salt intake. Patient should take Lasix as prescribed and follow up with primary medical care doctor. Patient returns as any new or worsening symptoms Prescriptions: Furosemide [Lasix] 20 mg PO DAILY #7 tab Is patient prescribed a controlled substance at d/c from ED?: No Referrals: Simran Hill MD [Primary Care Provider] - 1-2 days Time of Disposition: 11:07
[2019-11-28 09:48] LABS: Basophils % (A) 1 %; Eosinophils # (A) 0.2 k/uL (0-0.7); Eosinophils % (A) 4 %; HGB 15.2 gm/dL (13.0-17.5); Lymphocytes # (A) 1.2 k/uL (1.0-4.8); Lymphocytes % (A) 21 %; MCH 32.2 pg (25.0-35.0); MCHC 34.5 g/dL (31.0-37.0); MCV 93.2 fL (80.0-100.0); Mean Platelet Volume 7.4; Monocytes # (A) 0.4 k/uL (0-1.0); Monocytes % (A) 7 %; Neutrophils # (A) 3.6 k/uL (1.3-7.7); Neutrophils % (A) 66 %; Platelet Count 149 k/uL (150-450); RBC 4.72 m/uL (4.30-5.90); RDW 12.3 % (11.5-15.5); WBC 5.5 k/uL (3.8-10.6)
[2019-11-28 09:57] LABS: INR 1.1 (<1.2); Partial Thromboplastin Time 25.3 sec (22.0-30.0)
[2019-11-28 09:59] LABS: ALT 50 U/L (4-49); AST 74 U/L (17-59); African American GFR (CKD) >90 (>60 ml/min/1.73 sqM); Albumin 3.8 g/dL (3.5-5.0); Alkaline Phosphatase 108 U/L (38-126); Anion Gap 5 mmol/L; Blood Urea Nitrogen 13 mg/dL (9-20); Calcium 9.2 mg/dL (8.4-10.2); Carbon Dioxide 26 mmol/L (22-30); Chloride 107 mmol/L (98-107); Glucose 134 mg/dL (74-99); Magnesium 1.8 mg/dL (1.6-2.3); Non-African American GFR(CKD) 89 (>60 ml/min/1.73 sqM); Potassium 4.1 mmol/L (3.5-5.1); Sodium 138 mmol/L (137-145); Total Bilirubin 0.7 mg/dL (0.2-1.3); Total Protein 7.1 g/dL (6.3-8.2)
--- NOTE | 2019-11-28 10:42 | XR ---
EXAMINATION TYPE: XR chest 2V DATE OF EXAM: 11/28/2019 COMPARISON: 10/24/2014 HISTORY: Bilateral lower extremity and chest pain TECHNIQUE: Frontal and lateral views of the chest are obtained. FINDINGS: Biapical opacities are seen however advance costochondral osseous proliferative change is also seen at this location. Remainder the lungs are well aerated. The cardiac silhouette size is sta ble with post CABG change. The osseous structures are intact. IMPRESSION: Biapical opacities appear new from 2014 and most likely represents scarring and degenera tive change of the first ribs rather than pneumonia or atelectasis. Nonemergent follow-up chest CT re commended to exclude nodule.
[2019-11-28 11:34] VITALS: BP 130/76; PULSE 70; RESP 16; TEMP 97.6
== END 2019-11-28 11:34 | disposition home or self-care (01) ==
LOC: EC 08:50
DX: R60.0 Localized edema (principal); E11.9 Type 2 diabetes mellitus without complications; I10 Essential (primary) hypertension; E78.00 Pure hypercholesterolemia, unspecified; E78.5 Hyperlipidemia, unspecified; F17.200 Nicotine dependence, unspecified, uncomplicated; Z79.82 Long term (current) use of aspirin; Z79.02 Long term (current) use of antithrombotics/antiplatelets; Z79.84 Long term (current) use of oral hypoglycemic drugs; Z79.899 Other long term (current) drug therapy; Z95.1 Presence of aortocoronary bypass graft
CPT/HCPCS: 36415; 93005; 83880; 80053; 83735; 84484; 85025; 85610; 85730; 71046; 99284; 96374; J1940

== ENCOUNTER 2020-09-08 10:19 | Inpatient (IN) | payer MEDICARE, OTHER ==
[2020-09-08] MEDS ORDERED: FUROSEMIDE 10 MG/ML 4 ML VIAL IV STA (10:43)
--- NOTE | 2020-09-08 10:46 | ED ---
General Adult HPI - General Stated complaint: bilat lower leg swelling Time Seen by Provider: 09/08/20 10:35 Source: patient, family, EMS Mode of arrival: EMS Limitations: physical limitation - History of Present Illness Initial comments: Patient is a pleasant 70-year-old male presenting to the emergency Department with complaints of leg edema. Patient states symptoms have been occurring for months. Patient states he is supposed to take Lasix however he does not because it makes him urinate. Patient has diffuse chronic pain. Patient has some discomfort of his legs as well. Patient denies any redness. Patient states at times he gets short of breath. Patient is chronically fatigued and does not walk much. - Related Data Home Medications Medication Instructions Recorded Confirmed Aspirin [Adult Low Dose Aspirin EC] 81 mg PO DAILY 03/21/18 09/08/20 Gabapentin [Neurontin] 300 mg PO BID 03/21/18 09/08/20 HYDROcodone/APAP 10-325MG [[place] 1 tab PO Q6HR PRN 05/23/18 09/08/20 10-325] Ergocalciferol [Vitamin D2 (1250 1,250 mcg PO Q14D 09/08/20 09/08/20 Mcg = 31400 Iu)] Melatonin 5 mg PO HS 09/08/20 09/08/20 Allergies Allergy/AdvReac Type Severity Reaction Status Date / Time No Known Allergies Allergy Verified 09/08/20 12:36 Review of Systems ROS Statement: Those systems with pertinent positive or pertinent negative responses have been documented in the HPI. ROS Other: All systems not noted in ROS Statement are negative. Constitutional: Denies: fever Eyes: Denies: eye pain ENT: Denies: ear pain Respiratory: Reports: as per HPI. Denies: cough Cardiovascular: Reports: as per HPI Endocrine: Reports: fatigue Gastrointestinal: Denies: abdominal pain Genitourinary: Reports: other (Family has noticed heather urine). Denies: dysuria Musculoskeletal: Denies: back pain Skin: Denies: rash Neurological: Denies: headache Past Medical History Past Medical History: Heart Failure, Diabetes Mellitus, Hyperlipidemia, Hypertension, Liver Disease Additional Past Medical History / Comment(s): hep C History of Any Multi-Drug Resistant Organisms: None Reported Past Surgical History: Coronary Bypass/CABG Additional Past Surgical History / Comment(s): cyst removed under arm, Past Anesthesia/Blood Transfusion Reactions: No Reported Reaction Past Psychological History: No Psychological Hx Reported Smoking Status: Current every day smoker Past Alcohol Use History: Daily, Heavy Past Drug Use History: Heroin, IV Drug Use - Past Family History Father Additional Family Medical History / Comment(s): sclorosis General Exam Limitations: physical limitation General appearance: alert, in no apparent distress Head exam: Present: normocephalic Eye exam: Present: normal appearance Neck exam: Present: normal inspection Respiratory exam: Present: normal lung sounds bilaterally Cardiovascular Exam: Present: regular rate, normal rhythm GI/Abdominal exam: Present: soft. Absent: tenderness Extremities exam: Present: pedal edema (+3 bilateral). Absent: calf tenderness Neurological exam: Present: alert Psychiatric exam: Present: normal affect, normal mood Skin exam: Present: erythema (Trace erythema bilateral lower legs. No warmth or tenderness.) Course Vital Signs 09/08/20 09/08/20 09/08/20 10:34 11:00 11:20 Temperature 98.4 F Pulse Rate 87 89 76 Respiratory 18 18 18 Rate Blood Pressure 102/66 112/88 112/68 O2 Sat by Pulse 96 95 94 L Oximetry 09/08/20 12:34 Temperature Pulse Rate 96 Respiratory 19 Rate Blood Pressure 108/76 O2 Sat by Pulse 96 Oximetry EKG Findings - EKG Comments: EKG Findings:: Normal sinus rhythm at 85. VT 124. QRS 80. QT 380. QTC 461. Normal axis. Normal QRS. No acute ST change. Medical Decision Making - Medical Decision Making Patient reevaluated and updated. Patient states he was previously treated for hepatitis see several years ago. Case was discussed with Dr. ramirez, who will admit covering for Dr. Altman. - Lab Data Result diagrams: 09/08/20 10:59 09/08/20 10:59 Lab Results 09/08/20 09/08/20 09/08/20 Range/Units 10:59 10:59 10:59 WBC 3.6 L (3.8-10.6) k/uL RBC 3.55 L (4.30-5.90) m/uL Hgb 12.4 L (13.0-17.5) gm/dL Hct 36.3 L (39.0-53.0) % MCV 102.4 H (80.0-100.0) fL MCH 34.9 (25.0-35.0) pg MCHC 34.1 (31.0-37.0) g/dL RDW 16.2 H (11.5-15.5) % Plt Count 80 L (150-450) k/uL MPV 7.5 Neutrophils % 65 % Lymphocytes % 25 % Monocytes % 6 % Eosinophils % 2 % Basophils % 1 % Neutrophils # 2.3 (1.3-7.7) k/uL Lymphocytes # 0.9 L (1.0-4.8) k/uL Monocytes # 0.2 (0-1.0) k/uL Eosinophils # 0.1 (0-0.7) k/uL Basophils # 0.0 (0-0.2) k/uL Manual Slide Review Performed Poikilocytosis (manual Present Anisocytosis Slight Macrocytosis Moderate Target Cells Present PT 15.4 H (9.0-12.0) sec INR 1.5 H (<1.2) APTT 33.4 H (22.0-30.0) sec Sodium (137-145) mmol/L Potassium (3.5-5.1) mmol/L Chloride (98-107) mmol/L Carbon Dioxide (22-30) mmol/L Anion Gap mmol/L BUN (9-20) mg/dL Creatinine (0.66-1.25) mg/dL Est GFR (CKD-EPI)AfAm (>60 ml/min/1.73 sqM) Est GFR (CKD-EPI)NonAf (>60 ml/min/1.73 sqM) Glucose (74-99) mg/dL Plasma Lactic Acid Earl (0.7-2.0) mmol/L Calcium (8.4-10.2) mg/dL Magnesium (1.6-2.3) mg/dL Total Bilirubin (0.2-1.3) mg/dL AST (17-59) U/L ALT (4-49) U/L Alkaline Phosphatase (38-126) U/L Troponin I (0.000-0.034) ng/mL NT-Pro-B Natriuret Pep pg/mL Total Protein (6.3-8.2) g/dL Albumin (3.5-5.0) g/dL Urine Color Yellow Urine Appearance Clear (Clear) Urine pH 5.5 (5.0-8.0) Ur Specific [place] 1.014 (1.001-1.035) Urine Protein Negative (Negative) Urine Glucose (UA) Negative (Negative) Urine Ketones Negative (Negative) Urine Blood Negative (Negative) Urine Nitrite Negative (Negative) Urine Bilirubin 1+ H (Negative) Urine Urobilinogen 8.0 (<2.0) mg/dL Ur Leukocyte Esterase Negative (Negative) 09/08/20 09/08/20 09/08/20 Range/Units 10:59 10:59 10:59 WBC (3.8-10.6) k/uL RBC (4.30-5.90) m/uL Hgb (13.0-17.5) gm/dL Hct (39.0-53.0) % MCV (80.0-100.0) fL MCH (25.0-35.0) pg MCHC (31.0-37.0) g/dL RDW (11.5-15.5) % Plt Count (150-450) k/uL MPV Neutrophils % % Lymphocytes % % Monocytes % % Eosinophils % % Basophils % % Neutrophils # (1.3-7.7) k/uL Lymphocytes # (1.0-4.8) k/uL Monocytes # (0-1.0) k/uL Eosinophils # (0-0.7) k/uL Basophils # (0-0.2) k/uL Manual Slide Review Poikilocytosis (manual Anisocytosis Macrocytosis Target Cells PT (9.0-12.0) sec INR (<1.2) APTT (22.0-30.0) sec Sodium 138 (137-145) mmol/L Potassium 3.6 (3.5-5.1) mmol/L Chloride 105 (98-107) mmol/L Carbon Dioxide 25 (22-30) mmol/L Anion Gap 8 mmol/L BUN 11 (9-20) mg/dL Creatinine 0.81 (0.66-1.25) mg/dL Est GFR (CKD-EPI)AfAm >90 (>60 ml/min/1.73 sqM) Est GFR (CKD-EPI)NonAf >90 (>60 ml/min/1.73 sqM) Glucose 127 H (74-99) mg/dL Plasma Lactic Acid Earl 3.9 H* (0.7-2.0) mmol/L Calcium 8.3 L (8.4-10.2) mg/dL Magnesium 1.5 L (1.6-2.3) mg/dL Total Bilirubin 3.0 H (0.2-1.3) mg/dL AST 309 H (17-59) U/L ALT 136 H (4-49) U/L Alkaline Phosphatase 128 H (38-126) U/L Troponin I <0.012 (0.000-0.034) ng/mL NT-Pro-B Natriuret Pep pg/mL Total Protein 5.5 L (6.3-8.2) g/dL Albumin 2.4 L (3.5-5.0) g/dL Urine Color Urine Appearance (Clear) Urine pH (5.0-8.0) Ur Specific [place] (1.001-1.035) Urine Protein (Negative) Urine Glucose (UA) (Negative) Urine Ketones (Negative) Urine Blood (Negative) Urine Nitrite (Negative) Urine Bilirubin (Negative) Urine Urobilinogen (<2.0) mg/dL Ur Leukocyte Esterase (Negative) 09/08/20 Range/Units 10:59 WBC (3.8-10.6) k/uL RBC (4.30-5.90) m/uL Hgb (13.0-17.5) gm/dL Hct (39.0-53.0) % MCV (80.0-100.0) fL MCH (25.0-35.0) pg MCHC (31.0-37.0) g/dL RDW (11.5-15.5) % Plt Count (150-450) k/uL MPV Neutrophils % % Lymphocytes % % Monocytes % % Eosinophils % % Basophils % % Neutrophils # (1.3-7.7) k/uL Lymphocytes # (1.0-4.8) k/uL Monocytes # (0-1.0) k/uL Eosinophils # (0-0.7) k/uL Basophils # (0-0.2) k/uL Manual Slide Review Poikilocytosis (manual Anisocytosis Macrocytosis Target Cells PT (9.0-12.0) sec INR (<1.2) APTT (22.0-30.0) sec Sodium (137-145) mmol/L Potassium (3.5-5.1) mmol/L Chloride (98-107) mmol/L Carbon Dioxide (22-30) mmol/L Anion Gap mmol/L BUN (9-20) mg/dL Creatinine (0.66-1.25) mg/dL Est GFR (CKD-EPI)AfAm (>60 ml/min/1.73 sqM) Est GFR (CKD-EPI)NonAf (>60 ml/min/1.73 sqM) Glucose (74-99) mg/dL Plasma Lactic Acid Earl (0.7-2.0) mmol/L Calcium (8.4-10.2) mg/dL Magnesium (1.6-2.3) mg/dL Total Bilirubin (0.2-1.3) mg/dL AST (17-59) U/L ALT (4-49) U/L Alkaline Phosphatase (38-126) U/L Troponin I (0.000-0.034) ng/mL NT-Pro-B Natriuret Pep 363 pg/mL Total Protein (6.3-8.2) g/dL Albumin (3.5-5.0) g/dL Urine Color Urine Appearance (Clear) Urine pH (5.0-8.0) Ur Specific [place] (1.001-1.035) Urine Protein (Negative) Urine Glucose (UA) (Negative) Urine Ketones (Negative) Urine Blood (Negative) Urine Nitrite (Negative) Urine Bilirubin (Negative) Urine Urobilinogen (<2.0) mg/dL Ur Leukocyte Esterase (Negative) - Radiology Data Radiology results: report reviewed (Ultrasound negative for DVT. Superficial soft tissue swelling is present.), image reviewed (Two-view chest x-ray shows no acute process) Disposition Clinical Impression: Acute liver failure, Leg edema Disposition: ADMITTED IP TO THIS HOSP Is patient prescribed a controlled substance at d/c from ED?: No Referrals: Simran Hill MD [Primary Care Provider] - 1-2 days Decision Time: 13:06
[2020-09-08 11:14] LABS: Anisocytosis Slight; Basophils % (A) 1 %; Eosinophils # (A) 0.1 k/uL (0-0.7); Eosinophils % (A) 2 %; HCT 36.3 % (39.0-53.0); HGB 12.4 gm/dL (13.0-17.5); Lymphocytes # (A) 0.9 k/uL (1.0-4.8); Lymphocytes % (A) 25 %; MCH 34.9 pg (25.0-35.0); MCHC 34.1 g/dL (31.0-37.0); MCV 102.4 fL (80.0-100.0); Macrocytosis Moderate; Mean Platelet Volume 7.5; Monocytes # (A) 0.2 k/uL (0-1.0); Monocytes % (A) 6 %; Neutrophils # (A) 2.3 k/uL (1.3-7.7); Neutrophils % (A) 65 %; RBC 3.55 m/uL (4.30-5.90); RDW 16.2 % (11.5-15.5); WBC 3.6 k/uL (3.8-10.6)
[2020-09-08 11:18] LABS: ALT 136 U/L (4-49); AST 309 U/L (17-59); African American GFR (CKD) >90 (>60 ml/min/1.73 sqM); Albumin 2.4 g/dL (3.5-5.0); Alkaline Phosphatase 128 U/L (38-126); Anion Gap 8 mmol/L; Blood Urea Nitrogen 11 mg/dL (9-20); Calcium 8.3 mg/dL (8.4-10.2); Carbon Dioxide 25 mmol/L (22-30); Chloride 105 mmol/L (98-107); Glucose 127 mg/dL (74-99); Magnesium 1.5 mg/dL (1.6-2.3); Non-African American GFR(CKD) >90 (>60 ml/min/1.73 sqM); Potassium 3.6 mmol/L (3.5-5.1); Sodium 138 mmol/L (137-145); Total Protein 5.5 g/dL (6.3-8.2)
[2020-09-08 11:19] LABS: Appearance,Urine Clear (Clear); Bilirubin,Urine 1+ (Negative); Blood,Urine Negative (Negative); Color,Urine Yellow; Glucose,Urine (UA) Negative (Negative); Ketones,Urine Negative (Negative); Leukocyte Esterase,Urine Negative (Negative); Nitrite,Urine Negative (Negative); PH, Urine 5.5 (5.0-8.0); Protein,Urine Negative (Negative); Specific Gravity,Urine 1.014 (1.001-1.035)
--- NOTE | 2020-09-08 11:22 | XR ---
EXAMINATION TYPE: XR chest 2V DATE OF EXAM: 09/08/2020 COMPARISON: 11/28/2019 INDICATION: Weakness TECHNIQUE: Frontal and lateral views of the chest are obtained. FINDINGS: The heart size is normal. The pulmonary vasculature is normal. The lungs are clear. Sternotomy wires are present from prior CABG. IMPRESSION: 1. No acute pulmonary process.
[2020-09-08 11:24] LABS: INR 1.5 (<1.2); Partial Thromboplastin Time 33.4 sec (22.0-30.0); Prothrombin Time 15.4 sec (9.0-12.0)
[2020-09-08 11:36] LABS: Poikilocytosis (M) Present; Target Cells Present
[2020-09-08 11:37] LABS: Platelet Count 80 k/uL (150-450)
--- NOTE | 2020-09-08 12:31 | US ---
EXAMINATION TYPE: US venous doppler duplex LE BI DATE OF EXAM: 09/08/2020 12:21 PM COMPARISON: NONE CLINICAL HISTORY: swelling. SIDE PERFORMED: Bilateral TECHNIQUE: The lower extremity deep venous system is examined utilizing real time linear array sonog andi with graded compression, doppler sonography and color-flow sonography. VESSELS IMAGED: Common Femoral Vein Deep Femoral Vein Greater Saphenous Vein * Femoral Vein Popliteal Vein Small Saphenous Vein * Proximal Calf Veins-not seen (* superficial vessels) Excessive pitting edema. Right Leg: Negative for DVT Left Leg: Negative for DVT IMPRESSION: 1. Bilateral lower extremity ultrasound negative for deep venous thrombosis. 2. Superficial soft tissue swelling is evident during the exam. 3. Proximal calf veins were not visualized limiting that portion of the examination
[2020-09-08] MEDS ORDERED: NALOXONE 0.4 MG/ML 1 ML VIAL IV PRN (13:07)
[2020-09-08] MEDS ORDERED: MELATONIN 5 MG TABLET PO PRN (13:14)
[2020-09-08] MEDS: HYDROcodone/APAP 10-325MG 1 EACH TAB PO PRN ×2 (14:35→21:04)
--- NOTE | 2020-09-08 15:57 | CONS ---
CONSULTATION DATE OF DICTATION: 09/08/2020 REASON FOR CONSULTATION: Elevated LFTs, jaundice and lower extremity swelling. HISTORY OF PRESENT ILLNESS: The patient is a 70-year-old white male with history of chronic hepatitis C infection which was treated in the past with Harvoni two years ago and responded to the treatment and history of alcohol abuse, admitted to the hospital with lower extremity swelling for the last 2 months' duration. He states that for the last 2 months, swelling in the legs has been progressively getting worse, to the point that he is not able to walk well. He came into the emergency room and had labs done and was noted to have elevated LFTs as well as jaundice, and hence we are consulted because of this issue. On further questioning, patient states that he was diagnosed with chronic hepatitis C infection in the past because of history of intravenous drug abuse which he quit 7 years ago. He was treated with Harvoni 2 years ago and he responded to the treatment well. He was last seen in the office about a year ago. However, in the last 6 months he started drinking alcohol, almost a pint a day. In the ER labs showed elevated LFTs with an AST of 309, ALT of 136, T-bilirubin of 3 and alkaline phosphatase of 128. Ultrasound of the abdomen is still pending. He reports no abdominal pain. No nausea, no vomiting. No rectal bleeding or melena. PAST MEDICAL HISTORY: Significant for diabetes mellitus, hypertension, hyperlipidemia, cirrhosis of the liver, history of congestive heart failure and history of hepatitis C that was treated with Harvoni 2 years ago. PAST SURGICAL HISTORY: CABG and cyst removed under the arm. MEDICATIONS: Medications at home include aspirin, Neurontin, [place], vitamin D2 and melatonin. ALLERGIES: NONE. SOCIAL HISTORY: Chronic smoker. Alcohol use as mentioned above. Drinks about a pint a day for the last 6 months. FAMILY HISTORY: Father had cirrhosis of the liver. REVIEW OF SYSTEMS: CARDIOPULMONARY: He denies any chest pain or shortness of breath. GENITOURINARY: No dysuria or hematuria. MUSCULOSKELETAL: Chronic back pain and shoulder pain. NEUROLOGY: Unremarkable. PSYCHIATRIC: Unremarkable. ENT/VISION: Unremarkable. CONSTITUTIONAL: No recent weight loss. No fever, chills, night sweats. HEMATOLOGY: Unremarkable. ENDOCRINE: Diabetes mellitus. PHYSICAL EXAMINATION: He appears comfortable. No apparent distress. Vital signs are stable. Blood pressure is 110/67, pulse rate 89, temperature 98. HEENT examination unremarkable. Conjunctivae pink. Sclerae anicteric. Oral cavity no lesions. NECK: No JVD or lymph node enlargement. CHEST: Clear to auscultation. HEART: Regular rate and rhythm. ABDOMEN: Soft. It was non-tender, non-distended. Bowel sounds are positive. No organomegaly. EXTREMITIES: Three plus pedal edema with some blisters and hyperpigmentation of the skin noted on both lower extremities. NEUROLOGIC: Alert and oriented x3. No focal deficits. LABS: Labs done at the time of admission to the hospital: WBC 3.6, hemoglobin 12.4, platelets 80,000. INR is 1.5. T-bilirubin is 3, AST 309, ALT 136, alkaline phosphatase 128. Albumin 2.4. BUN 11, creatinine 0.81. Coronavirus PCR is negative. Plasma lactic acid is 3.9. IMPRESSION: 1. Elevated liver function tests and jaundice in this patient who has underlying chronic liver disease with cirrhosis of the liver diagnosed a few years ago from chronic hepatitis C infection. Currently he has been drinking alcohol heavily on a daily basis, and it appears that elevated LFTs are likely related to superimposed acute alcoholic hepatitis on underlying cirrhosis of the liver. Patient has history of chronic hepatitis C infection, treated in the past by Dr. Friedman with Jose 2 years ago and had sustained virological response. 2. Pancytopenia, probably related to portal hypertension from underlying cirrhosis of the liver. 3. Lower extremity swelling, presently on diuretics. 4. Mild coagulopathy secondary to chronic liver disease. RECOMMENDATIONS: 1. Agree with diuretics. 2. Low-salt diet. 3. Obtain ultrasound of the abdomen. 4. Hepatitis C viral RNA by PCR. 5. Monitor labs closely. 6. Will follow with you. Thank you for this consultation. MMODL / IJN: [id number] /
[2020-09-08] MEDS: NICOTINE 21MG/24HR PATCH TRANSDERM SCH (16:45)
[2020-09-08] MEDS: SODIUM CHLORIDE 0.9% 1,000 ML IV SCH (16:46)
[2020-09-08 20:17] LABS: Glucose,Whole Blood 133 mg/dL (75-99)
[2020-09-08] MEDS: GABAPENTIN 300 MG CAP PO SCH (21:04)
--- NOTE | 2020-09-08 21:29 | P.HPIM ---
History of Present Illness This is a pleasant 70 years old -[place] male with past medical history of chronic heart failure, diabetes mellitus, hyperlipidemia, hypertension, hepatitis C and liver disease, history of IV drug abuse and smoker. Also he has history of peripheral vascular disease status post femoral popliteal revascularization stent by Dr. Rios on 04/2018 at 3 years ago. Patient is somewhat poor historian and information was taken with the help of Daughter Jenise at bedside Patient presents because his daughter Jenise convinced him to come to the hospital after she noticed progressive leg swelling over several month but more pronounced over the last 2 months. 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 He smokes about more than one pack per day, he drinks liquor 1 pack per day. He has history of IV heroin drug abuse but last time was in 2012 Vitas looks stable and he is saturating 96% on room air. Labs showing leukopenia with WBC 3.6K, hemoglobin 12.4 and low platelet count and 18 K. INR is 1.5. Elevated lactic acid at 3.9. The MP is unremarkable. Total bilirubin is elevated at 3.0, AST is high at 309 and ALT is high at 136. Troponin less than 0.012. ProBNP is low at 363. Urine analysis is not suspicious of infection. Venous Doppler of the lower extremity is negative for DVT Chest x-ray: No acute process. EKG showed normal sinus rhythm at [address]-T changes. and emergency room patient received Lasix 40 mg 1. Ultrasound of the liver and acute hepatitis panel are ordered and GI team were consulted Review of Systems CONSTITUTIONAL: No fever, no malaise, no fatigue. HEENT: No recent visual problems or hearing problems. Denied any sore throat. CARDIOVASCULAR: No orthopnea, PND, no palpitations, no syncope. PULMONARY: No shortness of breath, no cough, no hemoptysis. GASTROINTESTINAL: No diarrhea, no nausea, no vomiting, no abdominal pain. Normoactive bowel sounds. NEUROLOGICAL: No headaches, no weakness, no numbness. HEMATOLOGICAL: Denies any bleeding or petechiae. GENITOURINARY: Denies any burning micturition, frequency, or urgency. MUSCULOSKELETAL/RHEUMATOLOGICAL: Denies any joint pain, swelling, or any muscle pain. ENDOCRINE: Denies any polyuria or polydipsia. Past Medical History Past Medical History: Heart Failure, Diabetes Mellitus, Hyperlipidemia, Hypertension, Liver Disease Additional Past Medical History / Comment(s): hep C History of Any Multi-Drug Resistant Organisms: None Reported Past Surgical History: Coronary Bypass/CABG Additional Past Surgical History / Comment(s): cyst removed under arm, Past Anesthesia/Blood Transfusion Reactions: No Reported Reaction Past Psychological History: No Psychological Hx Reported Smoking Status: Current every day smoker Past Alcohol Use History: Daily, Heavy Past Drug Use History: Heroin, IV Drug Use - Past Family History Father Additional Family Medical History / Comment(s): sclorosis Medications and Allergies Home Medications Medication Instructions Recorded Confirmed Type RX: Aspirin [Adult Low Dose 81 mg PO DAILY 03/21/18 09/08/20 History Aspirin EC] RX: Gabapentin [Neurontin] 300 mg PO BID 03/21/18 09/08/20 History RX: HYDROcodone/APAP 10-325MG 1 tab PO Q6HR PRN 05/23/18 09/08/20 History [[place] 10-325] Ergocalciferol [Vitamin D2 (1250 1,250 mcg PO Q14D 09/08/20 09/08/20 History Mcg = 74389 Iu)] Furosemide [Lasix] 20 mg PO DAILY 09/08/20 09/08/20 History RX: Melatonin 5 mg PO HS 09/08/20 09/08/20 History RX: metFORMIN HCL [Glucophage] 500 mg PO DAILY 09/08/20 09/08/20 History Allergies Allergy/AdvReac Type Severity Reaction Status Date / Time No Known Allergies Allergy Verified 09/08/20 12:36 Physical Exam Vitals: Vital Signs Temp Pulse Resp BP Pulse Ox 09/08/20 12:34 96 19 108/76 96 09/08/20 11:20 76 18 112/68 94 L 09/08/20 11:00 89 18 112/88 95 09/08/20 10:34 98.4 F 87 18 102/66 96 Intake and Output 09/07/20 09/08/20 09/08/20 22:59 06:59 14:59 Output Total 1300 Balance -1300 Output: Urine 1300 Other: Weight 95.254 kg GENERAL: The patient is alert and oriented x3, not in any acute distress. Well developed, well nourished. HEENT: Pupils are round and equally reacting to light. EOMI. No scleral icterus. No conjunctival pallor. Normocephalic, atraumatic. No pharyngeal erythema. No thyromegaly. CARDIOVASCULAR: S1 and S2 present. No murmurs, rubs, or gallops. PULMONARY: Chest is clear to auscultation, no wheezing or crackles. ABDOMEN: Soft, nontender, nondistended, normoactive bowel sounds. No palpable organomegaly. MUSCULOSKELETAL: No joint swelling or deformity. -EXTREMITIES: No cyanosis, clubbing, bilateral leg edema with induration -NEUROLOGICAL: Cranial nerves are grossly intact. strength in upper extremities 5/5 and sensation intact all lower extremity. Patient has difficulty flexing his both knees. Meningeal signs are absent SKIN: No rashes. No petechiae Results CBC & Chem 7: 09/08/20 10:59 09/08/20 10:59 Labs: Abnormal Lab Results - Last 24 Hours (Table) 09/08/20 09/08/20 09/08/20 Range/Units 10:59 10:59 10:59 WBC 3.6 L (3.8-10.6) k/uL RBC 3.55 L (4.30-5.90) m/uL Hgb 12.4 L (13.0-17.5) gm/dL Hct 36.3 L (39.0-53.0) % MCV 102.4 H (80.0-100.0) fL RDW 16.2 H (11.5-15.5) % Plt Count 80 L (150-450) k/uL Lymphocytes # 0.9 L (1.0-4.8) k/uL PT 15.4 H (9.0-12.0) sec INR 1.5 H (<1.2) APTT 33.4 H (22.0-30.0) sec Glucose (74-99) mg/dL Plasma Lactic Acid Earl (0.7-2.0) mmol/L Calcium (8.4-10.2) mg/dL Magnesium (1.6-2.3) mg/dL Total Bilirubin (0.2-1.3) mg/dL AST (17-59) U/L ALT (4-49) U/L Alkaline Phosphatase (38-126) U/L Total Protein (6.3-8.2) g/dL Albumin (3.5-5.0) g/dL Urine Bilirubin 1+ H (Negative) 09/08/20 09/08/20 Range/Units 10:59 10:59 WBC (3.8-10.6) k/uL RBC (4.30-5.90) m/uL Hgb (13.0-17.5) gm/dL Hct (39.0-53.0) % MCV (80.0-100.0) fL RDW (11.5-15.5) % Plt Count (150-450) k/uL Lymphocytes # (1.0-4.8) k/uL PT (9.0-12.0) sec INR (<1.2) APTT (22.0-30.0) sec Glucose 127 H (74-99) mg/dL Plasma Lactic Acid Earl 3.9 H* (0.7-2.0) mmol/L Calcium 8.3 L (8.4-10.2) mg/dL Magnesium 1.5 L (1.6-2.3) mg/dL Total Bilirubin 3.0 H (0.2-1.3) mg/dL AST 309 H (17-59) U/L ALT 136 H (4-49) U/L Alkaline Phosphatase 128 H (38-126) U/L Total Protein 5.5 L (6.3-8.2) g/dL Albumin 2.4 L (3.5-5.0) g/dL Urine Bilirubin (Negative) Assessment and Plan Assessment: acute on chronic Bilateral leg edema Frequent falling secondary to above mild pancytopenia Transaminitis with history of hepatitis C, Mostly secondary to alcoholic transam initis with AST more than ALT Cirrhosis of the liver secondary to chronic hepatitis C infection and superimposed alcoholic liver injury chronic gait abnormality With difficulty ambulation , mostly related to 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 Check a procalcitonin. Start the patient on Lasix 40 mg twice daily. Follow- up ultrasound of the liver and GI team recommendation . Follow-up acute hepatitis panel, hepatitis C RNA. put pt on ciwa protocol and thiamin check vitamin B-12 &folate, hemoglobin A1c, check procalcitonin and blood culture Labs and medication were reviewed.. Continue same treatment. Continue with symptomatic treatment. Resume home medication. Monitor lytes and vitals. DVT and GI prophylaxis. Further recommendations depends on the clinical course of the patient DVT prophylaxis: Subcutaneous heparin GI Prophylaxis: Pepcid PT/OT: Pending. as per daughter and pt they are willing for pt to go to rehab if qualify Prognosis is guarded
[2020-09-08] MEDS: HEPARIN SODIUM,PORCINE 5,000 UNIT/ML 1 ML VIAL SQ SCH (23:04)
[2020-09-08] MEDS: FUROSEMIDE 10 MG/ML 4 ML VIAL IV SCH (23:05)
[2020-09-08] MEDS: THIAMINE 100 MG/ML 2 ML VIAL IVP SCH (23:05)
[2020-09-09 05:05] LABS: Folate, Serum 3.1 ng/mL
[2020-09-09 05:17] LABS: Protein, Total 5.2 g/dL (6.2-8.2)
[2020-09-09 06:28] LABS: INR 1.5 (<1.2); Prothrombin Time 14.8 sec (9.0-12.0)
[2020-09-09 06:31] LABS: ALT 143 U/L (4-49); AST 357 U/L (17-59); African American GFR (CKD) >90 (>60 ml/min/1.73 sqM); Albumin 2.7 g/dL (3.5-5.0); Albumin/Globulin Ratio 0.8; Alkaline Phosphatase 141 U/L (38-126); Anion Gap 6 mmol/L; Blood Urea Nitrogen 10 mg/dL (9-20); Calcium 8.7 mg/dL (8.4-10.2); Carbon Dioxide 28 mmol/L (22-30); Chloride 103 mmol/L (98-107); Globulin 3.6 g/dL; Glucose 124 mg/dL (74-99); Non-African American GFR(CKD) >90 (>60 ml/min/1.73 sqM); Potassium 3.7 mmol/L (3.5-5.1); Sodium 137 mmol/L (137-145); Total Bilirubin 4.7 mg/dL (0.2-1.3); Total Protein 6.3 g/dL (6.3-8.2)
[2020-09-09 07:03] LABS: Glucose,Whole Blood 126 mg/dL (75-99)
[2020-09-09 07:11] LABS: Procalcitonin 0.45 ng/mL (0.02-0.09)
[2020-09-09] MEDS: INSULIN ASPART (NovoLOG) 100 UNIT/ML VIAL SQ SCH ×4 (07:36→20:32)
[2020-09-09] MEDS: ASPIRIN 81 MG PO SCH (07:47)
[2020-09-09] MEDS: HYDROcodone/APAP 10-325MG 1 EACH TAB PO PRN ×2 (07:47→16:56)
[2020-09-09] MEDS: GABAPENTIN 300 MG CAP PO SCH ×2 (07:47→20:32)
[2020-09-09] MEDS: THIAMINE 100 MG/ML 2 ML VIAL IVP SCH (07:47)
[2020-09-09] MEDS: FUROSEMIDE 10 MG/ML 4 ML VIAL IV SCH ×2 (07:50→20:26)
[2020-09-09] MEDS: HEPARIN SODIUM,PORCINE 5,000 UNIT/ML 1 ML VIAL SQ SCH ×2 (07:50→20:31)
[2020-09-09] MEDS: NICOTINE 21MG/24HR PATCH TRANSDERM SCH (07:51)
[2020-09-09] MEDS ORDERED: TAMSULOSIN 0.4 MG CAP.ER.24H PO STA (08:48)
[2020-09-09] MEDS ORDERED: FAMOTIDINE 20 MG/2 ML VIAL IV SCH (09:00)
--- NOTE | 2020-09-09 09:03 | US ---
EXAMINATION TYPE: US abdomen complete DATE OF EXAM: 09/09/2020 COMPARISON: NONE CLINICAL HISTORY: elevated LFTs, hx of hepatitis C. Elevated liver enzymes. Exam limitations due to b karson habitus and over lying bowel gas. EXAM MEASUREMENTS: Liver Length: 16.7 cm Gallbladder Wall: .2 cm CBD: 1.0 cm. Normal less than 0.7 cm. Spleen: 10.9 cm Right Kidney: 9.7 x 4.0 x 4.1 cm Left Kidney: 9.9 x 4.9 x 4.2 cm Pancreas: Obscured by bowel gas Liver: Increased attenuation Gallbladder: Folded no stones seen. Evidence for sonographic Banks's sign: No CBD: Dilated Spleen: wnl Right Kidney: No hydronephrosis or masses seen Left Kidney: No hydronephrosis or masses seen Upper IVC: Limited Abd Aorta: Limited IMPRESSION: 1. Dilated common bile duct. 2. Hepatomegaly
[2020-09-09 09:12] LABS: HCT 35.3 % (39.6-50.0); HGB 12.3 g/dL (13.0-17.0); MCHC 34.8 g/dL (32.0-37.0); MCV 97.5 fL (80.0-97.0); Mean Platelet Volume 10.7 fL (9.5-12.2); Platelet Count 82 X 10*3/uL (140-440); RBC 3.62 X 10*6/uL (4.40-5.60); RDW 16.2 % (11.5-14.5); WBC 4.38 X 10*3/uL (4.50-10.00)
[2020-09-09 09:30] LABS: Folate, Serum 7.2 ng/mL
[2020-09-09 11:24] LABS: Glucose,Whole Blood 214 mg/dL (75-99)
--- NOTE | 2020-09-09 13:43 | P.PN ---
Subjective Progress Note Date: 09/09/20 Principal diagnosis: Elevated LFTs, jaundice and lower extremity swelling This patient is a 70-year-old -[place]ames[place] male with a history of chronic hepatitis C infection which was treated in the past with Harvoni 2 years ago and stated responded to the treatment. He has a past history of heroin abuse, first used in several years. He currently has history of alcohol abuse, and admitted to drinking 1 pint per day. Over the last 2 months he's noticed increased swelling in his bilateral lower extremities which have been progressively getting worse to the point he could not walk so he came to the emergency department for further evaluation. Admitting labs were noted to have elevation in LFTs as well as jaundice. Patient was last seen in the gastroenterology office about a year ago. Today he has seen and evaluated, he denies any abdominal pain, nausea, or vomiting. He was started on Lasix 40 mg IV twice a day. Demerol ultrasound completed this morning with a CBD of 1.0 cm, noted is dilated common bile duct, and hepatomegaly. Objective - Vital Signs Vital signs: Vital Signs Temp 98.1 F 09/09/20 11:44 Pulse 87 09/09/20 11:44 Resp 17 09/09/20 11:44 BP 102/68 09/09/20 11:44 Pulse Ox 97 09/09/20 11:44 Intake & Output 09/08/20 09/09/20 09/09/20 18:59 06:59 18:59 Output Total 1800 Balance -1800 Weight 95.254 kg Output: Urine 1800 Other: Voiding Method Urinal # Voids 1 4 - Exam General appearance: The patient is alert, oriented, appears in no acute distress. HET: Head is normocephalic and atraumatic. Conjunctiva pink. Sclera anicteric. Neck: Supple without lymphadenopathy. Abdomen: Soft, nontender, nondistended with bowel sounds. No guarding or rigidity. Extremities: Normal skin color and turgor. Bilateral lower extremity edema with blisters and hypopigmentation Skin: No rashes, no jaundice Neurological: No focal deficits. Alert and oriented 3. - Labs CBC & Chem 7: 09/09/20 05:19 09/09/20 05:19 Labs: Abnormal Lab Results - Last 24 Hours (Table) 03/16/21 03/16/21 03/16/21 Range/Units 10:59 10:59 13:43 WBC (4.50-10.00) X 10*3/uL RBC (4.40-5.60) X 10*6/uL Hgb (13.0-17.0) g/dL Hct (39.6-50.0) % MCV (80.0-97.0) fL MCH (27.0-32.0) pg RDW (11.5-14.5) % Plt Count (140-440) X 10*3/uL Absolute Nucleated RBC (0.00-0.00) X 10*3/uL NRBC/100 WBC Diff (0.0-0.0) /100 WBCS PT (9.0-12.0) sec INR (<1.2) Glucose (74-99) mg/dL POC Glucose (mg/dL) (75-99) mg/dL Plasma Lactic Acid Earl 3.7 H* (0.7-2.0) mmol/L Total Bilirubin (0.2-1.3) mg/dL AST (17-59) U/L ALT (4-49) U/L Alkaline Phosphatase (38-126) U/L Total Protein (PEP) 5.2 L (6.2-8.2) g/dL Albumin (3.5-5.0) g/dL Vitamin B12 1409.0 H (200.0-944.0) pg/mL Procalcitonin 0.45 H (0.02-0.09) ng/mL 09/08/20 09/08/20 09/08/20 Range/Units 18:20 20:16 21:19 WBC (4.50-10.00) X 10*3/uL RBC (4.40-5.60) X 10*6/uL Hgb (13.0-17.0) g/dL Hct (39.6-50.0) % MCV (80.0-97.0) fL MCH (27.0-32.0) pg RDW (11.5-14.5) % Plt Count (140-440) X 10*3/uL Absolute Nucleated RBC (0.00-0.00) X 10*3/uL NRBC/100 WBC Diff (0.0-0.0) /100 WBCS PT (9.0-12.0) sec INR (<1.2) Glucose (74-99) mg/dL POC Glucose (mg/dL) 133 H (75-99) mg/dL Plasma Lactic Acid Earl 3.3 H* 2.8 H* (0.7-2.0) mmol/L Total Bilirubin (0.2-1.3) mg/dL AST (17-59) U/L ALT (4-49) U/L Alkaline Phosphatase (38-126) U/L Total Protein (PEP) (6.2-8.2) g/dL Albumin (3.5-5.0) g/dL Vitamin B12 (200.0-944.0) pg/mL Procalcitonin (0.02-0.09) ng/mL 09/09/20 09/09/20 09/09/20 Range/Units 05:19 05:19 05:19 WBC 4.38 L (4.50-10.00) X 10*3/uL RBC 3.62 L (4.40-5.60) X 10*6/uL Hgb 12.3 L (13.0-17.0) g/dL Hct 35.3 L (39.6-50.0) % MCV 97.5 H (80.0-97.0) fL MCH 34.0 H (27.0-32.0) pg RDW 16.2 H (11.5-14.5) % Plt Count 82 L (140-440) X 10*3/uL Absolute Nucleated RBC 0.02 H (0.00-0.00) X 10*3/uL NRBC/100 WBC Diff 0.5 H (0.0-0.0) /100 WBCS PT 14.8 H (9.0-12.0) sec INR 1.5 H (<1.2) Glucose 124 H (74-99) mg/dL POC Glucose (mg/dL) (75-99) mg/dL Plasma Lactic Acid Earl (0.7-2.0) mmol/L Total Bilirubin 4.7 H (0.2-1.3) mg/dL AST 357 H (17-59) U/L ALT 143 H (4-49) U/L Alkaline Phosphatase 141 H (38-126) U/L Total Protein (PEP) (6.2-8.2) g/dL Albumin 2.7 L (3.5-5.0) g/dL Vitamin B12 (200.0-944.0) pg/mL Procalcitonin (0.02-0.09) ng/mL 09/09/20 09/09/20 Range/Units 07:02 11:23 WBC (4.50-10.00) X 10*3/uL RBC (4.40-5.60) X 10*6/uL Hgb (13.0-17.0) g/dL Hct (39.6-50.0) % MCV (80.0-97.0) fL MCH (27.0-32.0) pg RDW (11.5-14.5) % Plt Count (140-440) X 10*3/uL Absolute Nucleated RBC (0.00-0.00) X 10*3/uL NRBC/100 WBC Diff (0.0-0.0) /100 WBCS PT (9.0-12.0) sec INR (<1.2) Glucose (74-99) mg/dL POC Glucose (mg/dL) 126 H 214 H (75-99) mg/dL Plasma Lactic Acid Earl (0.7-2.0) mmol/L Total Bilirubin (0.2-1.3) mg/dL AST (17-59) U/L ALT (4-49) U/L Alkaline Phosphatase (38-126) U/L Total Protein (PEP) (6.2-8.2) g/dL Albumin (3.5-5.0) g/dL Vitamin B12 (200.0-944.0) pg/mL Procalcitonin (0.02-0.09) ng/mL Assessment and Plan (1) Elevated liver function tests Narrative/Plan: This is 70-year-old gentleman who presented with elevated liver function tests and jaundice with underlying chronic liver disease with cirrhosis of the liver diagnosed a few years ago from chronic hepatitis C infection. He is also currently been drinking a pint a day. Likely elevated LFTs are related to superimposed acute alcoholic hepatitis on underlying cirrhosis of liver. Patient has a history of chronic hepatitis C infection, treated in the past by Dr. Friedman with Har[facility] 2 years ago and sustained virological response. Current Visit: Yes Status: Acute Code(s): R79.89 - OTHER SPECIFIED ABNORMAL FINDINGS OF BLOOD CHEMISTRY SNOMED Code(s): 396477769 (2) Pancytopenia Narrative/Plan: Pancytopenia likely related to portal hypertension from underlying cirrhosis of the liver Current Visit: Yes Status: Acute Code(s): D61.818 - OTHER PANCYTOPENIA SNOMED Code(s): 053721900 (3) Leg edema Narrative/Plan: Lower extremity swelling, patient was started on diuretics. He is currently on Lasix 40 mg IV twice a day Current Visit: Yes Status: Acute Code(s): R60.0 - LOCALIZED EDEMA SNOMED Code(s): 601059810 Plan: 1. Supportive care 2. Continue with IV Lasix as ordered 3. Low-sodium diet 4. Abdominal ultrasound ordered and reviewed 5. Hepatitis C viral RNA by PCR ordered, pending results 6. Continue to monitor labs this closely 7. Discussed with patient importance of alcohol cessation Thank you for this consultation, we will continue to follow Dr. Glenroy Gonzalez I agree with the dictator's note, documented as a scribe by Gaviota Lane.
[2020-09-09 15:35] LABS: Albumin 2.39 g/dL (3.80-4.90); Gamma Globulin 1.45 g/dL (0.70-1.50)
--- NOTE | 2020-09-09 16:20 | P.PN ---
Subjective This is a pleasant 70 years old -[place] male with past medical history of chronic heart failure, diabetes mellitus, hyperlipidemia, hypertension, hepatitis C and liver disease, history of IV drug abuse and smoker. Also he has history of peripheral vascular disease status post femoral popliteal revascularization stent by Dr. Rios on 04/2018 at 3 years ago. Patient is somewhat poor historian and information was taken with the help of Daughter Jenise at bedside Patient presents because his daughter Jenise convinced him to come to the [facility] after she noticed progressive leg swelling over several month but more pronounced over the last 2 months. 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 He smokes about more than one pack per day, he drinks liquor 1 pack per day. He has history of IV heroin drug abuse but last time was in 2012 Vitas looks stable and he is saturating 96% on room air. Labs showing leukopenia with WBC 3.6K, hemoglobin 12.4 and low platelet count and 18 K. INR is 1.5. Elevated lactic acid at 3.9. The MP is unremarkable. Total bilirubin is elevated at 3.0, AST is high at 309 and ALT is high at 136. Troponin less than 0.012. ProBNP is low at 363. Urine analysis is not suspicious of infection. Venous Doppler of the lower extremity is negative for DVT Chest x-ray: No acute process. EKG showed normal sinus rhythm at [address]-T changes. and emergency room patient received Lasix 40 mg 1. Ultrasound of the liver and acute hepatitis panel are ordered and GI team were consulted 09/09/2020 Patient today has less leg swelling, he is happy with the improvement in his legs although they are still significantly swollen he can move his legs more today and they are less indurated. No other complaints like no chest pain or dyspnea, no abdominal pain CBC is a stable with stable pancytopenia. BMP is a stable as well. Liver enzymes slightly elevated. A procalcitonin is elevated at 0.45. Vitamin B12 is high at 1409, low folate at 3.1 his been replaced We will add Unasyn for possible cellulitis of the lower extremities . Abdominal ultrasound showing dilated common bile duct and hepatomegaly. Hep C virus RNA is not detected. Hepatitis panel was pending Review of Systems CONSTITUTIONAL: No fever, no malaise, no fatigue. HEENT: No recent visual problems or hearing problems. Denied any sore throat. CARDIOVASCULAR: No orthopnea, PND, no palpitations, no syncope. PULMONARY: No shortness of breath, no cough, no hemoptysis. GASTROINTESTINAL: No diarrhea, no nausea, no vomiting, no abdominal pain. Normoactive bowel sounds. NEUROLOGICAL: No headaches, no weakness, no numbness. Active Medications Generic Name Dose Route Start Last Admin Trade Name Freq PRN Reason Stop Dose Admin Hydrocodone Bitart/Acetaminophen 1 each 09/08/20 13:14 09/09/20 07:47 Hydrocodone/Apap 10-325mg 1 Each Tab PO 1 each Q6HR PRN Administration Pain Aspirin 81 mg 09/09/20 09:00 09/09/20 07:47 Aspirin 81 Mg PO 81 mg DAILY VALERIE Administration Ergocalciferol 1,250 mcg 09/17/20 09:00 Ergocalciferol 1,250 Mcg (50,000 Iu) Capsule PO Q14D VALERIE Famotidine 20 mg 09/09/20 21:00 Famotidine 20 Mg Tab PO Q12HR VALERIE Furosemide 40 mg 09/08/20 21:15 09/09/20 07:50 Furosemide 10 Mg/Ml 4 Ml Vial IV 40 mg Q12HR VALERIE Administration Gabapentin 300 mg 09/08/20 21:00 09/09/20 07:47 Gabapentin 300 Mg Cap PO 300 mg BID VALERIE Administration Heparin Sodium (Porcine) 5,000 unit 09/08/20 21:30 09/09/20 07:50 Heparin Sodium,Porcine 5,000 Unit/Ml 1 Ml Vial SQ 5,000 unit Q12HR VALERIE Administration Sodium Chloride 1,000 mls @ 20 mls/hr 09/08/20 13:15 09/08/20 16:46 Saline 0.9% IV 20 mls/hr .Q24H VALERIE Administration Insulin Aspart 0 unit 09/09/20 07:30 09/09/20 11:52 Insulin Aspart (Novolog) 100 Unit/Ml Vial SQ 3 unit ACHS VALERIE Administration Protocol Melatonin 5 mg 09/08/20 13:14 09/08/20 21:05 Melatonin 5 Mg Tablet PO 5 mg HS PRN Administration Insomnia Naloxone HCl 0.2 mg 09/08/20 13:07 Naloxone 0.4 Mg/Ml 1 Ml Vial IV Q2M PRN Opioid Reversal Nicotine 1 patch 09/08/20 16:15 09/09/20 07:51 Nicotine 21mg/24hr Patch TRANSDERM 1 patch DAILY VALERIE Administration Tamsulosin HCl 0.8 mg 09/10/20 21:00 Tamsulosin 0.4 Mg Cap.Er.24h PO HS VALERIE Thiamine HCl 100 mg 09/08/20 21:30 09/09/20 07:47 Thiamine 100 Mg/Ml 2 Ml Vial IVP 100 mg DAILY VALERIE Administration Objective - Vital Signs Vital signs: Vital Signs Temp 98.1 F 09/09/20 11:44 Pulse 87 09/09/20 11:44 Resp 17 09/09/20 11:44 BP 102/68 09/09/20 11:44 Pulse Ox 97 09/09/20 11:44 Intake & Output 09/08/20 09/09/20 09/09/20 18:59 06:59 18:59 Output Total 1800 Balance -1800 Weight 95.254 kg Output: Urine 1800 Other: Voiding Method Urinal Urinal # Voids 1 4 - Exam GENERAL: The patient is alert and oriented x3, not in any acute distress. Well developed, well nourished. HEENT: Pupils are round and equally reacting to light. EOMI. No scleral icterus. No conjunctival pallor. Normocephalic, atraumatic. No pharyngeal erythema. No thyromegaly. CARDIOVASCULAR: S1 and S2 present. No murmurs, rubs, or gallops. PULMONARY: Chest is clear to auscultation, no wheezing or crackles. ABDOMEN: Soft, nontender, nondistended, normoactive bowel sounds. No palpable organomegaly. MUSCULOSKELETAL: No joint swelling or deformity. -EXTREMITIES: No cyanosis, clubbing, improving bilateral leg pitting edema with significantly less induration -NEUROLOGICAL: Cranial nerves are grossly intact. strength in upper extremities 5/5 and sensation intact all lower extremity. Patient has difficulty flexing his both knees. Meningeal signs are absent SKIN: No rashes. No petechiae - Labs CBC & Chem 7: 09/09/20 05:19 09/09/20 05:19 Labs: Abnormal Lab Results - Last 24 Hours (Table) 09/08/20 09/08/20 09/08/20 Range/Units 10:59 10:59 18:20 WBC (4.50-10.00) X 10*3/uL RBC (4.40-5.60) X 10*6/uL Hgb (13.0-17.0) g/dL Hct (39.6-50.0) % MCV (80.0-97.0) fL MCH (27.0-32.0) pg RDW (11.5-14.5) % Plt Count (140-440) X 10*3/uL Absolute Nucleated RBC (0.00-0.00) X 10*3/uL NRBC/100 WBC Diff (0.0-0.0) /100 WBCS PT (9.0-12.0) sec INR (<1.2) Glucose (74-99) mg/dL POC Glucose (mg/dL) (75-99) mg/dL Plasma Lactic Acid Earl 3.3 H* (0.7-2.0) mmol/L Total Bilirubin (0.2-1.3) mg/dL AST (17-59) U/L ALT (4-49) U/L Alkaline Phosphatase (38-126) U/L Total Protein (PEP) 5.2 L (6.2-8.2) g/dL Albumin (3.5-5.0) g/dL Albumin (PEP) 2.39 L (3.80-4.90) g/dL Brugk-5-Xxglqiybo 0.50 L (0.60-1.00) g/dL Beta Globulins 0.57 L (0.60-1.30) g/dL Vitamin B12 1409.0 H (200.0-944.0) pg/mL Procalcitonin 0.45 H (0.02-0.09) ng/mL 09/08/20 09/08/20 09/09/20 Range/Units 20:16 21:19 05:19 WBC 4.38 L (4.50-10.00) X 10*3/uL RBC 3.62 L (4.40-5.60) X 10*6/uL Hgb 12.3 L (13.0-17.0) g/dL Hct 35.3 L (39.6-50.0) % MCV 97.5 H (80.0-97.0) fL MCH 34.0 H (27.0-32.0) pg RDW 16.2 H (11.5-14.5) % Plt Count 82 L (140-440) X 10*3/uL Absolute Nucleated RBC 0.02 H (0.00-0.00) X 10*3/uL NRBC/100 WBC Diff 0.5 H (0.0-0.0) /100 WBCS PT (9.0-12.0) sec INR (<1.2) Glucose (74-99) mg/dL POC Glucose (mg/dL) 133 H (75-99) mg/dL Plasma Lactic Acid Earl 2.8 H* (0.7-2.0) mmol/L Total Bilirubin (0.2-1.3) mg/dL AST (17-59) U/L ALT (4-49) U/L Alkaline Phosphatase (38-126) U/L Total Protein (PEP) (6.2-8.2) g/dL Albumin (3.5-5.0) g/dL Albumin (PEP) (3.80-4.90) g/dL Eeqli-4-Afkjtjoxg (0.60-1.00) g/dL Beta Globulins (0.60-1.30) g/dL Vitamin B12 (200.0-944.0) pg/mL Procalcitonin (0.02-0.09) ng/mL 09/09/20 09/09/20 09/09/20 Range/Units 05:19 05:19 07:02 WBC (4.50-10.00) X 10*3/uL RBC (4.40-5.60) X 10*6/uL Hgb (13.0-17.0) g/dL Hct (39.6-50.0) % MCV (80.0-97.0) fL MCH (27.0-32.0) pg RDW (11.5-14.5) % Plt Count (140-440) X 10*3/uL Absolute Nucleated RBC (0.00-0.00) X 10*3/uL NRBC/100 WBC Diff (0.0-0.0) /100 WBCS PT 14.8 H (9.0-12.0) sec INR 1.5 H (<1.2) Glucose 124 H (74-99) mg/dL POC Glucose (mg/dL) 126 H (75-99) mg/dL Plasma Lactic Acid Earl (0.7-2.0) mmol/L Total Bilirubin 4.7 H (0.2-1.3) mg/dL AST 357 H (17-59) U/L ALT 143 H (4-49) U/L Alkaline Phosphatase 141 H (38-126) U/L Total Protein (PEP) (6.2-8.2) g/dL Albumin 2.7 L (3.5-5.0) g/dL Albumin (PEP) (3.80-4.90) g/dL Rmrbu-3-Wsqfviigv (0.60-1.00) g/dL Beta Globulins (0.60-1.30) g/dL Vitamin B12 (200.0-944.0) pg/mL Procalcitonin (0.02-0.09) ng/mL 09/09/20 Range/Units 11:23 WBC (4.50-10.00) X 10*3/uL RBC (4.40-5.60) X 10*6/uL Hgb (13.0-17.0) g/dL Hct (39.6-50.0) % MCV (80.0-97.0) fL MCH (27.0-32.0) pg RDW (11.5-14.5) % Plt Count (140-440) X 10*3/uL Absolute Nucleated RBC (0.00-0.00) X 10*3/uL NRBC/100 WBC Diff (0.0-0.0) /100 WBCS PT (9.0-12.0) sec INR (<1.2) Glucose (74-99) mg/dL POC Glucose (mg/dL) 214 H (75-99) mg/dL Plasma Lactic Acid Earl (0.7-2.0) mmol/L Total Bilirubin (0.2-1.3) mg/dL AST (17-59) U/L ALT (4-49) U/L Alkaline Phosphatase (38-126) U/L Total Protein (PEP) (6.2-8.2) g/dL Albumin (3.5-5.0) g/dL Albumin (PEP) (3.80-4.90) g/dL Cvbfe-8-Riienlnrx (0.60-1.00) g/dL Beta Globulins (0.60-1.30) g/dL Vitamin B12 (200.0-944.0) pg/mL Procalcitonin (0.02-0.09) ng/mL Microbiology - Last 24 Hours (Table) 09/08/20 12:25 Blood Culture - Preliminary Blood No Growth after 24 hours 09/08/20 11:35 Blood Culture - Preliminary Blood No Growth after 24 hours Assessment and Plan Assessment: acute on chronic Bilateral leg edema possible bilateral lower extremity cellulitis Frequent falling secondary to above mild pancytopenia Transaminitis with history of hepatitis C, Mostly secondary to alcoholic transaminitis with AST more than ALT Cirrhosis of the liver secondary to chronic hepatitis C infection and superimposed alcoholic liver injury chronic gait abnormality With difficulty ambulation , mostly related to alcohol neuropathy . Improving Mostly alcoholic and diabetic peripheral neuropathy Peripheral vascular disease Elevated lactic acid Noncompliant with lasix treatment Nicotine dependence Alcohol abuse at-risk of alcohol withdrawal Type 2 diabetes mellitus Hyperlipidemia Hypertension Chronic heart failure chronic back pain for many years with no recent worsening Plan: This is a pleasant 70 years old male who presents with bilateral leg swelling . Continue with on Lasix 40 mg twice daily. Follow-up GI team recommendation . Continue with Unasyn, start folate put pt on ciwa protocol and thiamin Labs and medication were reviewed.. Continue same treatment. Continue with symptomatic treatment. Resume home medication. Monitor lytes and vitals. DVT and GI prophylaxis. Further recommendations depends on the clinical course of the patient DVT prophylaxis: Subcutaneous heparin GI Prophylaxis: Pepcid PT/OT: Pending. as per daughter and pt they are willing for pt to go to rehab if qualify Prognosis is guarded
[2020-09-09] MEDS: FOLIC ACID 1 MG TAB PO SCH (16:53)
[2020-09-09] MEDS: AMPICILLIN-SULBACTAM 3 GM in SODIUM CHLORIDE 0.9% 100 ML IVPB SCH ×2 (16:54→23:16)
[2020-09-09 17:01] LABS: Glucose,Whole Blood 147 mg/dL (75-99)
[2020-09-09] MEDS: SODIUM CHLORIDE 0.9% 1,000 ML IV SCH (17:17)
[2020-09-09 19:51] LABS: Glucose,Whole Blood 165 mg/dL (75-99)
[2020-09-09] MEDS: FAMOTIDINE 20 MG TAB PO SCH (20:31)
[2020-09-10] MEDS: HYDROcodone/APAP 10-325MG 1 EACH TAB PO PRN ×4 (04:58→23:14)
[2020-09-10 07:29] LABS: Glucose,Whole Blood 133 mg/dL (75-99)
[2020-09-10] MEDS: FAMOTIDINE 20 MG TAB PO SCH ×2 (07:48→20:46)
[2020-09-10] MEDS: THIAMINE 100 MG/ML 2 ML VIAL IVP SCH (07:48)
[2020-09-10] MEDS: HEPARIN SODIUM,PORCINE 5,000 UNIT/ML 1 ML VIAL SQ SCH ×2 (07:48→20:46)
[2020-09-10] MEDS: FOLIC ACID 1 MG TAB PO SCH (07:48)
[2020-09-10] MEDS: AMPICILLIN-SULBACTAM 3 GM in SODIUM CHLORIDE 0.9% 100 ML IVPB SCH ×3 (07:48→23:14)
[2020-09-10] MEDS: ASPIRIN 81 MG PO SCH (07:48)
[2020-09-10] MEDS: NICOTINE 21MG/24HR PATCH TRANSDERM SCH (07:48)
[2020-09-10] MEDS: INSULIN ASPART (NovoLOG) 100 UNIT/ML VIAL SQ SCH ×4 (07:49→20:47)
[2020-09-10] MEDS: FUROSEMIDE 10 MG/ML 4 ML VIAL IV SCH ×2 (07:49→20:47)
[2020-09-10] MEDS: GABAPENTIN 300 MG CAP PO SCH ×2 (08:00→20:46)
--- NOTE | 2020-09-10 10:26 | P.PN ---
Subjective Progress Note Date: 09/10/20 Principal diagnosis: Elevated LFTs, jaundice and lower extremity swelling This patient is a 70-year-old -[place] male with a history of chronic hepatitis C infection which was treated in the past with [facility] 2 years ago and stated responded to the treatment. He has a past history of heroin abuse, first used in several years. He currently has history of alcohol abuse, and admitted to drinking 1 pint per day. Over the last 2 months he's noticed increased swelling in his bilateral lower extremities which have been progressively getting worse to the point he could not walk so he came to the emergency department for further evaluation. Admitting labs were noted to have elevation in LFTs as well as jaundice. Patient was last seen in the gastroenterology office about a year ago. Today he has seen and evaluated, he denies any abdominal pain, nausea, or vomiting. He was started on Lasix 40 mg IV twice a day with notable decrease in lower extremity swelling. Objective - Vital Signs Vital signs: Vital Signs Temp 98.4 F 09/10/20 05:00 Pulse 89 09/10/20 07:46 Resp 16 09/10/20 05:00 BP 117/69 09/10/20 07:46 Pulse Ox 97 09/10/20 07:46 Intake & Output 09/09/20 09/10/20 09/10/20 18:59 06:59 18:59 Intake Total 100 590 Output Total 300 Balance 100 290 Weight 91.5 kg Intake: Intake, IV Titration 100 Amount Ampicillin-Sulbactam 3 gm 100 In Sodium Chloride 0.9% 100 ml @ 200 mls/hr IVPB Q8HR [facility] Rx#:[id number] Oral 590 Output: Urine 300 Other: Voiding Method Urinal Urinal Urinal - Exam General appearance: The patient is alert, oriented, appears in no acute distress. HET: Head is normocephalic and atraumatic. Conjunctiva pink. Sclera anicteric. Neck: Supple without lymphadenopathy. Abdomen: Soft, nontender, nondistended with bowel sounds. No guarding or rigidity. Extremities: Normal skin color and turgor. Bilateral lower extremity edema with blisters and hypopigmentation Skin: No rashes, no jaundice Neurological: No focal deficits. Alert and oriented 3. - Labs CBC & Chem 7: 09/09/20 05:19 03/17/21 05:19 Labs: Abnormal Lab Results - Last 24 Hours (Table) 09/08/20 09/09/20 09/09/20 Range/Units 10:59 11:23 16:59 POC Glucose (mg/dL) 214 H 147 H (75-99) mg/dL Albumin (PEP) 2.39 L (3.80-4.90) g/dL Yudvw-0-Qidvsyssr 0.50 L (0.60-1.00) g/dL Beta Globulins 0.57 L (0.60-1.30) g/dL 09/09/20 09/10/20 Range/Units 19:50 07:28 POC Glucose (mg/dL) 165 H 133 H (75-99) mg/dL Albumin (PEP) (3.80-4.90) g/dL Qvstx-2-Pnwmbvodj (0.60-1.00) g/dL Beta Globulins (0.60-1.30) g/dL Microbiology - Last 24 Hours (Table) 09/08/20 12:25 Blood Culture - Preliminary Blood No Growth after 24 hours 09/08/20 11:35 Blood Culture - Preliminary Blood No Growth after 24 hours Assessment and Plan (1) Elevated liver function tests Narrative/Plan: This is 70-year-old gentleman who presented with elevated liver function tests and jaundice with underlying chronic liver disease with cirrhosis of the liver diagnosed a few years ago from chronic hepatitis C infection. He is also currently been drinking a pint a day. Likely elevated LFTs are related to superimposed acute alcoholic hepatitis on underlying cirrhosis of liver. Patient has a history of chronic hepatitis C infection, treated in the past by Dr. Friedman with [facility] 2 years ago and sustained virological response. Current Visit: Yes Status: Acute Code(s): R79.89 - OTHER SPECIFIED ABNORMAL FINDINGS OF BLOOD CHEMISTRY SNOMED Code(s): 233112790 (2) Pancytopenia Narrative/Plan: Pancytopenia likely related to portal hypertension from underlying cirrhosis of the liver Current Visit: Yes Status: Acute Code(s): D61.818 - OTHER PANCYTOPENIA SNOMED Code(s): 320868407 (3) Leg edema Narrative/Plan: Lower extremity swelling, patient was started on diuretics. He is currently on Lasix 40 mg IV twice a day Current Visit: Yes Status: Acute Code(s): R60.0 - LOCALIZED EDEMA SNOMED Code(s): 899082656 Plan: 1. Supportive care 2. Continue with IV Lasix as ordered 3. Low-sodium diet 4. Abdominal ultrasound ordered and reviewed 5. Hepatitis C viral RNA by PCR ordered, not detected 6. Continue to monitor labs this closely 7. Discussed with patient importance of alcohol cessation Thank you for this consultation, patient may discharged home with close follow- up with gastroenterology once medically cleared Dr. Glenroy Gonzalez I agree with the dictator's note, documented as a scribe by Gaviota Lane.
--- NOTE | 2020-09-10 11:43 | P.PN ---
Subjective This is a pleasant 70 years old -[place] male with past medical history of chronic heart failure, diabetes mellitus, hyperlipidemia, hypertension, hepatitis C and liver disease, history of IV drug abuse and smoker. Also he has history of peripheral vascular disease status post femoral popliteal revascularization stent by Dr. Rios on 04/2018 at 3 years ago. Patient is somewhat poor historian and information was taken with the help of Daughter Jenise at bedside Patient presents because his daughter Jenise convinced him to come to the [facility] after she noticed progressive leg swelling over several month but more pronounced over the last 2 months. 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 He smokes about more than one pack per day, he drinks liquor 1 pack per day. He has history of IV heroin drug abuse but last time was in 2012 Vitas looks stable and he is saturating 96% on room air. Labs showing leukopenia with WBC 3.6K, hemoglobin 12.4 and low platelet count and 18 K. INR is 1.5. Elevated lactic acid at 3.9. The MP is unremarkable. Total bilirubin is elevated at 3.0, AST is high at 309 and ALT is high at 136. Troponin less than 0.012. ProBNP is low at 363. Urine analysis is not suspicious of infection. Venous Doppler of the lower extremity is negative for DVT Chest x-ray: No acute process. EKG showed normal sinus rhythm at [address]-T changes. and emergency room patient received Lasix 40 mg 1. Ultrasound of the liver and acute hepatitis panel are ordered and GI team were consulted 09/09/2020 Patient today has less leg swelling, he is happy with the improvement in his legs although they are still significantly swollen he can move his legs more today and they are less indurated. No other complaints like no chest pain or dyspnea, no abdominal pain CBC is a stable with stable pancytopenia. BMP is a stable as well. Liver enzymes slightly elevated. A procalcitonin is elevated at 0.45. Vitamin B12 is high at 1409, low folate at 3.1 his been replaced We will add Unasyn for possible cellulitis of the lower extremities . Abdominal ultrasound showing dilated common bile duct and hepatomegaly. Hep C virus RNA is not detected. Hepatitis panel was pending 09/10/2020 Patient was alcoholic liver cirrhosis, alcohol abuse and smoker presents with bilateral leg swelling and redness especially on the right lower leg, was treated with IV Lasix and antibiotic Unasyn, his leg swelling is improving s ignificantly, no leg pain, he has weakness mostly related to his diabetic and alcoholic peripheral neuropathy complicated by leg swelling and infection, its improving and patient is happy with the progress he is making, states that his weakness is back to his baseline, today he was able to use a walker to go to the restroom with the help of aides. Physical therapy is ordered and is pending. Patient denies headache, no acute back pain, he has chronic low back pain for many years which is stable. No urine or bowel incontinence, no saddle anesthesia. No signs of active peripheral vascular disease Low folate is replaced Hemoglobin A1c is ordered and is pending, acute hepatitis panel is ordered and is pending as well He has mild pancytopenia, but with nucleated RBCs, and abdominal protein el ectrophoresis. 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 Consult hematologic disease He is also on CIWA protocol and vitamin. Objective - Vital Signs Vital signs: Vital Signs Temp 98.4 F 09/10/20 05:00 Pulse 89 09/10/20 07:46 Resp 16 09/10/20 05:00 BP 117/69 09/10/20 07:46 Pulse Ox 97 09/10/20 07:46 Intake & Output 09/09/20 09/10/20 09/10/20 18:59 06:59 18:59 Intake Total 100 590 Output Total 300 Balance 100 290 Weight 91.5 kg Intake: Intake, IV Titration 100 Amount Ampicillin-Sulbactam 3 gm 100 In Sodium Chloride 0.9% 100 ml @ 200 mls/hr IVPB Q8HR [facility] Rx#:[id number] Oral 590 Output: Urine 300 Other: Voiding Method Urinal Urinal Urinal - Exam GENERAL: The patient is alert and oriented x3, not in any acute distress. Well developed, well nourished. HEENT: Pupils are round and equally reacting to light. EOMI. No scleral icterus. No conjunctival pallor. Normocephalic, atraumatic. No pharyngeal erythema. No thyromegaly. CARDIOVASCULAR: S1 and S2 present. No murmurs, rubs, or gallops. PULMONARY: Chest is clear to auscultation, no wheezing or crackles. ABDOMEN: Soft, nontender, nondistended, normoactive bowel sounds. No palpable organomegaly. MUSCULOSKELETAL: No joint swelling or deformity. -EXTREMITIES: No cyanosis, clubbing, improving bilateral leg pitting edema with significantly less induration -NEUROLOGICAL: Cranial nerves are grossly intact. strength in upper extremities 5/5 and sensation intact all lower extremity. Patient has difficulty flexing h is both knees. Meningeal signs are absent SKIN: No rashes. No petechiae - Labs CBC & Chem 7: 09/09/20 05:19 09/09/20 05:19 Labs: Abnormal Lab Results - Last 24 Hours (Table) 09/08/20 09/09/20 09/09/20 Range/Units 10:59 16:59 19:50 POC Glucose (mg/dL) 147 H 165 H (75-99) mg/dL Albumin (PEP) 2.39 L (3.80-4.90) g/dL Gwcnc-0-Snjmghrsh 0.50 L (0.60-1.00) g/dL Beta Globulins 0.57 L (0.60-1.30) g/dL 09/10/20 Range/Units 07:28 POC Glucose (mg/dL) 133 H (75-99) mg/dL Albumin (PEP) (3.80-4.90) g/dL Mowjq-0-Qgnexhutx (0.60-1.00) g/dL Beta Globulins (0.60-1.30) g/dL Microbiology - Last 24 Hours (Table) 09/08/20 12:25 Blood Culture - Preliminary Blood No Growth after 24 hours 09/08/20 11:35 Blood Culture - Preliminary Blood No Growth after 24 hours Assessment and Plan Assessment: acute on chronic Bilateral leg edema possible bilateral lower extremity cellulitis Mild pancytopenia with nucleated RBCs Frequent falling secondary to above Transaminitis with history of hepatitis C, Mostly secondary to alcoholic transaminitis with AST more than ALT Cirrhosis of the liver secondary to chronic hepatitis C infection and superimposed alcoholic liver injury chronic gait abnormality With difficulty ambulation , mostly related to alcohol neuropathy . Improving Mostly alcoholic and diabetic peripheral neuropathy Peripheral vascular disease Elevated lactic acid Noncompliant with lasix treatment Nicotine dependence Alcohol abuse at-risk of alcohol withdrawal Type 2 diabetes mellitus Hyperlipidemia Hypertension Chronic heart failure chronic back pain for many years with no recent worsening Plan: This is a pleasant 70 years old male who presents with bilateral leg swelling . Continue with on Lasix 40 mg twice daily. Follow-up GI team recommendation . Continue with Unasyn, start folate put pt on ciwa protocol and thiamin Consult hematology service for mild pancytopenia and abnormal protein electrophoresis Labs and medication were reviewed.. Continue same treatment. Continue with symptomatic treatment. Resume home medication. Monitor lytes and vitals. DVT and GI prophylaxis. Further recommendations depends on the clinical course of the patient DVT prophylaxis: Subcutaneous heparin GI Prophylaxis: Pepcid PT/OT: Pending. as per daughter and pt they are willing for pt to go to rehab if qualify Prognosis is guarded
[2020-09-10 11:55] LABS: Glucose,Whole Blood 240 mg/dL (75-99)
[2020-09-10 12:16] LABS: African American GFR (CKD) 100.6 (60.0-200.0); Albumin/Globulin Ratio 0.94 (1.60-3.17); Anion Gap 9.2 mmol/L (4.00-12.00); BUN/Creat Ratio 12.22 Ratio (12.00-20.00); Calcium 9.1 mg/dL (8.7-10.3); Carbon Dioxide 28.8 mmol/L (21.6-31.8); Globulin 3.2 g/dL (1.6-3.3); Non-African American GFR(CKD) 86.8 (60.0-200.0); Potassium 3.4 mmol/L (3.5-5.5); Total Bilirubin 3.4 mg/dL (0.2-1.2); Total Protein 6.2 g/dL (6.2-8.2)
[2020-09-10 13:01] LABS: Basophils # (A) 0.02 X 10*3/uL (0.00-0.10); Basophils % (A) 0.5 %; Eosinophils # (A) 0.09 X 10*3/uL (0.04-0.35); Eosinophils % (A) 2.4 %; HCT 36.8 % (39.6-50.0); HGB 12.6 g/dL (13.0-17.0); Lymphocytes # (A) 1.03 X 10*3/uL (0.90-5.00); Lymphocytes % (A) 27.5 %; MCH 34.1 pg (27.0-32.0); MCHC 34.2 g/dL (32.0-37.0); MCV 99.5 fL (80.0-97.0); Monocytes # (A) 0.34 X 10*3/uL (0.20-1.00); Monocytes % (A) 9.1 %; Neutrophils # (A) 2.24 X 10*3/uL (1.80-7.70); Platelet Count 85 X 10*3/uL (140-440); RDW 16.3 % (11.5-14.5); Target Cells 2+; WBC 3.74 X 10*3/uL (4.50-10.00)
[2020-09-10] MEDS ORDERED: Potassium Replacement Protocol 1 EACH MISC MISCELLANE PRN (14:15)
[2020-09-10] MEDS: POTASSIUM CHLORIDE ER 20 MEQ TAB.ER PO SCH (15:13)
[2020-09-10] MEDS: SODIUM CHLORIDE 0.9% 1,000 ML IV SCH (16:59)
[2020-09-10 17:01] LABS: Glucose,Whole Blood 130 mg/dL (75-99)
[2020-09-10 17:20] LABS: Hemoglobin A1C 5.3 % (4.0-6.0)
[2020-09-10 20:05] LABS: Glucose,Whole Blood 152 mg/dL (75-99)
[2020-09-10] MEDS ORDERED: TAMSULOSIN 0.4 MG CAP.ER.24H PO SCH (21:00)
--- NOTE | 2020-09-10 23:14 | P.CONS ---
History of Present Illness - Reason for Consult Consult date: 09/10/20 Pancytopenia - History of Present Illness The pt is a 70 yr old AAM, with multiple medical problems, including regular ETOH use, h/o Hep C, liver cirrhosis. The patient was brought into the hospital at the urging of his daughter, because of progressive lower extremity swelling over the past 2-3 weeks. Patient had not been taking his Lasix, because of frequent urination. On admission he was noted to have marked elevation of liver enzymes. Patient also had mild pancytopenia, With hemoglobin of the 12 range, WBC 3.74 with normal differential, and platelets in the 80,000 range. Consult was therefore placed for further evaluation and recommendations. Patient denied any obvious bleeding (Other than mild, transient small amounts of red blood in the stool, Post constipation,consistent with hemorrhoids) or frequent infections. Review of his labs indicate presence of mild cytopenias, at least intermittently, since 2017. Plt counts were in the low 100 range previously, though He has a known history of hepatitis C, and states that he had a full course of Harvoni completing that about 3+ years ago. He states that he was in complete remission on follow-up. However he has not had follow-up now for 2 years plus. He states that his last colonoscopy was also about 3 or 4 years ago. Last EGD was more than 10 years ago. He denied any knowledge of having esophageal varices. He continues to drink alcohol regularly, at least a 6 pack per day Review of Systems Constitutional: Reports chronic pain, Reports fatigue, Reports weakness Eyes: denies blurred vision, denies pain Ears: deny: decreased hearing, ear discharge, earache, tinnitus Ears, nose, mouth and throat: Denies headache, Denies sore throat Cardiovascular: Reports dyspnea on exertion, Reports leg edema Respiratory: Denies cough Gastrointestinal: Reports bloating, Reports constipation Genitourinary: Reports as per HPI Musculoskeletal: Reports as per HPI, Reports muscle weakness Integumentary: Reports foot/leg ulcers (Scattered mild blisters and superficial ulcers on both lower extremities) Neurological: Reports memory loss, Reports paresthesias (Bilateral distal lower extremities), Reports weakness Psychiatric: Reports difficulty concentrating, Reports memory loss Endocrine: Reports fatigue Hematologic/Lymphatic: Reports as per HPI Past Medical History Past Medical History: Heart Failure, Diabetes Mellitus, Hyperlipidemia, Hypertension, Liver Disease Additional Past Medical History / Comment(s): hep C History of Any Multi-Drug Resistant Organisms: None Reported Past Surgical History: Coronary Bypass/CABG Additional Past Surgical History / Comment(s): cyst removed under arm, Past Anesthesia/Blood Transfusion Reactions: No Reported Reaction Past Psychological History: No Psychological Hx Reported Smoking Status: Current every day smoker Past Alcohol Use History: Daily, Heavy Past Drug Use History: Heroin, IV Drug Use - Past Family History Father Additional Family Medical History / Comment(s): sclorosis Medications and Allergies Home Medications Medication Instructions Recorded Confirmed Type Aspirin [Adult Low Dose Aspirin EC] 81 mg PO DAILY 03/21/18 09/08/20 History Gabapentin [Neurontin] 300 mg PO BID 03/21/18 09/08/20 History HYDROcodone/APAP 10-325MG [[place] 1 tab PO Q6HR PRN 05/23/18 09/08/20 History 10-325] Ergocalciferol [Vitamin D2 (1250 1,250 mcg PO Q14D 09/08/20 09/08/20 History Mcg = [id number] Iu)] Furosemide [Lasix] 20 mg PO DAILY 09/08/20 09/08/20 History Melatonin 5 mg PO HS 09/08/20 09/08/20 History metFORMIN HCL [Glucophage] 500 mg PO DAILY 09/08/20 09/08/20 History Allergies Allergy/AdvReac Type Severity Reaction Status Date / Time No Known Allergies Allergy Verified 09/08/20 12:36 Physical Exam Vitals: Vital Signs Temp Pulse Resp BP Pulse Ox 09/10/20 20:34 98.4 F 76 18 106/66 96 09/10/20 12:05 98 F 79 17 111/64 96 09/10/20 07:46 89 117/69 97 09/10/20 05:00 98.4 F 79 16 109/70 94 L Intake and Output 09/10/20 09/10/20 09/10/20 06:59 14:59 22:59 Intake Total 590 540 Output Total 300 1400 Balance 290 -860 Intake: Oral 590 540 Output: Urine 300 1400 Other: Voiding Method Urinal Weight 91.5 kg - Constitutional General appearance: no acute distress - EENT Eyes: EOMI, PERRLA ENT: hearing grossly normal, normal oropharynx - Neck Neck: no lymphadenopathy Thyroid: bilateral: normal size - Respiratory Respiratory: bilateral: CTA - Cardiovascular Rhythm: regular Heart sounds: normal: S1, S2 - Gastrointestinal General gastrointestinal: normal bowel sounds, soft - Integumentary Scattered small blisters and a few shallow ulcers bilateral distal lower extremities - Neurologic Neurologic: CNII-XII intact - Musculoskeletal Bilateral to-3+ lower extremity edema below-knee Musculoskeletal: generalized weakness, strength equal bilaterally - Psychiatric Diminished recall Psychiatric: A&O x's 3, appropriate affect Results CBC & Chem 7: 09/10/20 06:01 09/10/20 06:01 Labs: Abnormal Lab Results - Last 24 Hours (Table) 09/10/20 09/10/20 09/10/20 Range/Units 06:01 06:01 07:28 WBC 3.74 L (4.50-10.00) X 10*3/uL RBC 3.70 L (4.40-5.60) X 10*6/uL Hgb 12.6 L (13.0-17.0) g/dL Hct 36.8 L (39.6-50.0) % MCV 99.5 H (80.0-97.0) fL MCH 34.1 H (27.0-32.0) pg RDW 16.3 H (11.5-14.5) % Plt Count 85 L (140-440) X 10*3/uL Plt Count Comment DECREASED A Absolute Nucleated RBC 0.02 H (0.00-0.00) X 10*3/uL NRBC/100 WBC Diff 0.5 H (0.0-0.0) /100 WBCS Potassium 3.4 L (3.5-5.5) mmol/L Glucose 117 H (70-110) mg/dL POC Glucose (mg/dL) 133 H (75-99) mg/dL Total Bilirubin 3.4 H (0.2-1.2) mg/dL AST 277 H (14-35) U/L ALT 138 H (10-49) U/L Alkaline Phosphatase 157 H (41-126) U/L Albumin 3.00 L (3.80-4.90) g/dL Albumin/Globulin Ratio 0.94 L (1.60-3.17) g/dL 09/10/20 09/10/20 09/10/20 Range/Units 11:54 17:00 20:04 WBC (4.50-10.00) X 10*3/uL RBC (4.40-5.60) X 10*6/uL Hgb (13.0-17.0) g/dL Hct (39.6-50.0) % MCV (80.0-97.0) fL MCH (27.0-32.0) pg RDW (11.5-14.5) % Plt Count (140-440) X 10*3/uL Plt Count Comment Absolute Nucleated RBC (0.00-0.00) X 10*3/uL NRBC/100 WBC Diff (0.0-0.0) /100 WBCS Potassium (3.5-5.5) mmol/L Glucose (70-110) mg/dL POC Glucose (mg/dL) 240 H 130 H 152 H (75-99) mg/dL Total Bilirubin (0.2-1.2) mg/dL AST (14-35) U/L ALT (10-49) U/L Alkaline Phosphatase (41-126) U/L Albumin (3.80-4.90) g/dL Albumin/Globulin Ratio (1.60-3.17) g/dL Microbiology - Last 24 Hours (Table) 09/08/20 12:25 Blood Culture - Preliminary Blood No Growth after 48 hours 09/08/20 11:35 Blood Culture - Preliminary Blood No Growth after 48 hours Chest x-ray: report reviewed CT scan - abdomen: report reviewed CT scan - pelvis: report reviewed US - abdomen: report reviewed Venous US: report reviewed Assessment and Plan (1) Pancytopenia Narrative/Plan: The patient has mild pancytopenia, and is chronic and has been present mostly the same degree, since at least 2016. Counts are well within a safe range, and hemoglobin and WBC are mostly stable. Platelet counts are somewhat lower than baseline, but still well within a safe range at 80-90,000. - Cause for this mild persistent pancytopenia is most likely chronic ongoing alcohol use causing marrow suppression, as well as history of chronic liver disease with known cirrhosis documented on CT scan in 03/14. In addition to di minished marrow function, there may also be an element of Splenic sequestration from portal hypertension. - Progressive drop in platelet counts could be to to ongoing alcohol use and/or progressive cirrhosis. Increased splenic congestion from fluid retention is also possibility - Check labs rule out other etiologies, especially deficiency states. If this workup is negative, patient can be followed with observation, as counts are well within a safe range. Current Visit: Yes Status: Acute Code(s): D61.818 - OTHER PANCYTOPENIA SNOMED Code(s): 886954132 Plan: Defer to the admitting service for management of his other medical problems
[2020-09-11 05:03] VITALS: RESP 16
[2020-09-11 07:10] LABS: Glucose,Whole Blood 137 mg/dL (75-99)
[2020-09-11] MEDS: AMPICILLIN-SULBACTAM 3 GM in SODIUM CHLORIDE 0.9% 100 ML IVPB SCH (08:09)
[2020-09-11] MEDS: ASPIRIN 81 MG PO SCH (08:10)
[2020-09-11] MEDS: FUROSEMIDE 10 MG/ML 4 ML VIAL IV SCH (08:10)
[2020-09-11] MEDS: HEPARIN SODIUM,PORCINE 5,000 UNIT/ML 1 ML VIAL SQ SCH (08:10)
[2020-09-11] MEDS: GABAPENTIN 300 MG CAP PO SCH (08:10)
[2020-09-11] MEDS: FOLIC ACID 1 MG TAB PO SCH (08:10)
[2020-09-11] MEDS: FAMOTIDINE 20 MG TAB PO SCH (08:10)
[2020-09-11] MEDS: THIAMINE 100 MG/ML 2 ML VIAL IVP SCH (08:10)
[2020-09-11] MEDS: NICOTINE 21MG/24HR PATCH TRANSDERM SCH (08:10)
[2020-09-11] MEDS: INSULIN ASPART (NovoLOG) 100 UNIT/ML VIAL SQ SCH ×2 (08:11→13:01)
[2020-09-11] MEDS: HYDROcodone/APAP 10-325MG 1 EACH TAB PO PRN (08:14)
[2020-09-11 11:26] LABS: Anisocytosis Slight; Basophils % (A) 1 %; Eosinophils # (A) 0.1 k/uL (0-0.7); Eosinophils % (A) 2 %; HCT 38.8 % (39.0-53.0); HGB 12.8 gm/dL (13.0-17.5); Lymphocytes % (A) 24 %; MCHC 32.9 g/dL (31.0-37.0); MCV 103.3 fL (80.0-100.0); Macrocytosis Moderate; Mean Platelet Volume 8.5; Monocytes # (A) 0.3 k/uL (0-1.0); Monocytes % (A) 7 %; Neutrophils # (A) 2.5 k/uL (1.3-7.7); Neutrophils % (A) 63 %; RBC 3.76 m/uL (4.30-5.90); RDW 16.8 % (11.5-15.5)
[2020-09-11 11:39] LABS: Platelet Count 89 k/uL (150-450)
[2020-09-11 11:41] LABS: Glucose,Whole Blood 170 mg/dL (75-99)
[2020-09-11 11:41] LABS: ALT 108 U/L (4-49); AST 218 U/L (17-59); African American GFR (CKD) >90 (>60 ml/min/1.73 sqM); Albumin/Globulin Ratio 0.8; Alkaline Phosphatase 137 U/L (38-126); Anion Gap 5 mmol/L; Blood Urea Nitrogen 10 mg/dL (9-20); Calcium 8.8 mg/dL (8.4-10.2); Carbon Dioxide 29 mmol/L (22-30); Chloride 102 mmol/L (98-107); Globulin 3.6 g/dL; Glucose 160 mg/dL (74-99); Non-African American GFR(CKD) 89 (>60 ml/min/1.73 sqM); Sodium 136 mmol/L (137-145); Total Bilirubin 2.8 mg/dL (0.2-1.3); Total Protein 6.6 g/dL (6.3-8.2)
[2020-09-11 11:55] LABS: Potassium 3.3 mmol/L (3.5-5.1)
[2020-09-11 11:59] VITALS: BP 115/74; PULSE 77; TEMP 97.7
[2020-09-11] MEDS: POTASSIUM CHLORIDE ER 20 MEQ TAB.ER PO SCH ×2 (13:01→14:04)
--- NOTE | 2020-09-11 13:20 | P.PN ---
Subjective Progress Note Date: 09/11/20 Principal diagnosis: Elevated LFTs, jaundice and lower extremity swelling This patient is a 70-year-old -Citizen Of [place] male with a history of chronic hepatitis C infection which was treated in the past with Harvoni 2 years ago and stated responded to the treatment. He has a past history of heroin abuse, first used in several years. He currently has history of alcohol abuse, and admitted to drinking 1 pint per day. Over the last 2 months he's noticed increased swelling in his bilateral lower extremities which have been progressively getting worse to the point he could not walk so he came to the emergency department for further evaluation. Admitting labs were noted to have elevation in LFTs as well as jaundice. Patient was last seen in the gastroenterology office about a year ago. He is seen and examined In his recliner. He still has lower extremity edema, b ut slightly improved. Hematology is now on consult. He denies any changes through the night. He denies any abdominal pain, nausea, or vomiting. Objective - Vital Signs Vital signs: Vital Signs Temp 98.2 F 09/11/20 05:00 Pulse 82 09/11/20 05:00 Resp 16 09/11/20 05:00 BP 142/82 09/11/20 05:00 Pulse Ox 96 09/11/20 05:00 Intake & Output 09/10/20 09/11/20 09/11/20 18:59 06:59 18:59 Intake Total 540 Output Total 1400 900 Balance -860 -900 Weight 93.1 kg Intake: Oral 540 Output: Urine 1400 900 Other: Voiding Method Urinal Urinal Urinal - Exam General appearance: The patient is alert, oriented, appears in no acute distress. HET: Head is normocephalic and atraumatic. Conjunctiva pink. Sclera anicteric. Neck: Supple without lymphadenopathy. Abdomen: Soft, nontender, nondistended with bowel sounds. No guarding or rigidity. Extremities: Normal skin color and turgor. Bilateral lower extremity edema with blisters and hypopigmentation Skin: No rashes, no jaundice Neurological: No focal deficits. Alert and oriented 3. - Labs CBC & Chem 7: 09/11/20 10:37 09/11/20 10:37 Labs: Abnormal Lab Results - Last 24 Hours (Table) 09/10/20 09/10/20 09/10/20 Range/Units 06:01 06:01 11:54 WBC 3.74 L (4.50-10.00) X 10*3/uL RBC 3.70 L (4.40-5.60) X 10*6/uL Hgb 12.6 L (13.0-17.0) g/dL Hct 36.8 L (39.6-50.0) % MCV 99.5 H (80.0-97.0) fL MCH 34.1 H (27.0-32.0) pg RDW 16.3 H (11.5-14.5) % Plt Count 85 L (140-440) X 10*3/uL Plt Count Comment DECREASED A Absolute Nucleated RBC 0.02 H (0.00-0.00) X 10*3/uL NRBC/100 WBC Diff 0.5 H (0.0-0.0) /100 WBCS Potassium 3.4 L (3.5-5.5) mmol/L Glucose 117 H (70-110) mg/dL POC Glucose (mg/dL) 240 H (75-99) mg/dL Total Bilirubin 3.4 H (0.2-1.2) mg/dL AST 277 H (14-35) U/L ALT 138 H (10-49) U/L Alkaline Phosphatase 157 H (41-126) U/L Albumin 3.00 L (3.80-4.90) g/dL Albumin/Globulin Ratio 0.94 L (1.60-3.17) g/dL 09/10/20 09/10/20 09/11/20 Range/Units 17:00 20:04 07:02 WBC (4.50-10.00) X 10*3/uL RBC (4.40-5.60) X 10*6/uL Hgb (13.0-17.0) g/dL Hct (39.6-50.0) % MCV (80.0-97.0) fL MCH (27.0-32.0) pg RDW (11.5-14.5) % Plt Count (140-440) X 10*3/uL Plt Count Comment Absolute Nucleated RBC (0.00-0.00) X 10*3/uL NRBC/100 WBC Diff (0.0-0.0) /100 WBCS Potassium (3.5-5.5) mmol/L Glucose (70-110) mg/dL POC Glucose (mg/dL) 130 H 152 H 137 H (75-99) mg/dL Total Bilirubin (0.2-1.2) mg/dL AST (14-35) U/L ALT (10-49) U/L Alkaline Phosphatase (41-126) U/L Albumin (3.80-4.90) g/dL Albumin/Globulin Ratio (1.60-3.17) g/dL Microbiology - Last 24 Hours (Table) 09/08/20 12:25 Blood Culture - Preliminary Blood No Growth after 48 hours 09/08/20 11:35 Blood Culture - Preliminary Blood No Growth after 48 hours Assessment and Plan (1) Elevated liver function tests Narrative/Plan: This is 70-year-old gentleman who presented with elevated liver function tests and jaundice with underlying chronic liver disease with cirrhosis of the liver diagnosed a few years ago from chronic hepatitis C infection. He is also currently been drinking a pint a day. Likely elevated LFTs are related to superimposed acute alcoholic hepatitis on underlying cirrhosis of liver. Patient has a history of chronic hepatitis C infection, treated in the past by Dr. Friedman with Jose 2 years ago and sustained virological response. Repeat LFTs are trending down Current Visit: Yes Status: Acute Code(s): R79.89 - OTHER SPECIFIED ABNORMAL FINDINGS OF BLOOD CHEMISTRY SNOMED Code(s): 699266022 (2) Pancytopenia Narrative/Plan: Pancytopenia likely related to portal hypertension from underlying cirrhosis of the liver Current Visit: Yes Status: Acute Code(s): D61.818 - OTHER PANCYTOPENIA SNOMED Code(s): 774154547 (3) Leg edema Narrative/Plan: Lower extremity swelling, patient was started on diuretics. He is currently on Lasix 40 mg IV twice a day Current Visit: Yes Status: Acute Code(s): R60.0 - LOCALIZED EDEMA SNOMED Code(s): 592872229 Plan: 1. Supportive care 2. Continue with IV Lasix as ordered 3. Low-sodium diet 4. Abdominal ultrasound ordered and reviewed 5. Hepatitis C viral RNA by PCR ordered, not detected 6. Continue to monitor labs this closely 7. Discussed with patient importance of alcohol cessation Thank you for this consultation, patient may discharged home with close follow- up with gastroenterology once medically cleared Dr. Glenroy Gonzalez I agree with the dictator's note, documented as a scribe by Gaviota Lane.
[2020-09-11 16:38] LABS: Ferritin 1506.5 ng/mL (22.0-322.0)
--- NOTE | 2020-09-11 18:15 | P.PN ---
Subjective Progress Note Date: 09/11/20 Dr. Laguerre has seen and evaluated and feeling ok, plan for discharge today Objective - Vital Signs Vital signs: Vital Signs Temp 97.7 F 09/11/20 11:25 Pulse 77 09/11/20 11:25 Resp 16 09/11/20 11:25 BP 115/74 09/11/20 11:25 Pulse Ox 94 L 09/11/20 11:25 Intake & Output 09/10/20 09/11/20 09/11/20 18:59 06:59 18:59 Intake Total 540 660 Output Total 1400 900 650 Balance -860 -900 10 Weight 93.1 kg Intake: Oral 540 660 Output: Urine 1400 900 650 Other: Voiding Method Urinal Urinal Urinal - Exam - Constitutional General appearance: no acute distress - EENT Eyes: EOMI, PERRLA ENT: hearing grossly normal, normal oropharynx - Neck Neck: no lymphadenopathy Thyroid: bilateral: normal size - Respiratory Respiratory: bilateral: CTA - Cardiovascular Rhythm: regular Heart sounds: normal: S1, S2 - Gastrointestinal General gastrointestinal: normal bowel sounds, soft - Integumentary Scattered small blisters and a few shallow ulcers bilateral distal lower extremities - Neurologic Neurologic: CNII-XII intact - Musculoskeletal Bilateral to-3+ lower extremity edema below-knee Musculoskeletal: generalized weakness, strength equal bilaterally - Psychiatric Diminished recall Psychiatric: A&O x's 3, appropriate affect - Labs CBC & Chem 7: 09/11/20 10:37 09/11/20 10:37 Labs: Abnormal Lab Results - Last 24 Hours (Table) 09/10/20 09/11/20 09/11/20 Range/Units 20:04 07:02 10:37 RBC (4.30-5.90) m/uL Hgb (13.0-17.5) gm/dL Hct (39.0-53.0) % MCV (80.0-100.0) fL RDW (11.5-15.5) % Plt Count (150-450) k/uL Retic Count 4.0 H (0.5-2.0) % Sodium (137-145) mmol/L Potassium (3.5-5.1) mmol/L Glucose (74-99) mg/dL POC Glucose (mg/dL) 152 H 137 H (75-99) mg/dL Ferritin (22.0-322.0) ng/mL Total Bilirubin (0.2-1.3) mg/dL AST (17-59) U/L ALT (4-49) U/L Alkaline Phosphatase (38-126) U/L Albumin (3.5-5.0) g/dL Vitamin B12 (200.0-944.0) pg/mL 09/11/20 09/11/20 09/11/20 Range/Units 10:37 10:37 10:37 RBC 3.76 L (4.30-5.90) m/uL Hgb 12.8 L (13.0-17.5) gm/dL Hct 38.8 L (39.0-53.0) % MCV 103.3 H (80.0-100.0) fL RDW 16.8 H (11.5-15.5) % Plt Count 89 L (150-450) k/uL Retic Count (0.5-2.0) % Sodium 136 L (137-145) mmol/L Potassium 3.3 L (3.5-5.1) mmol/L Glucose 160 H (74-99) mg/dL POC Glucose (mg/dL) (75-99) mg/dL Ferritin 1506.5 H (22.0-322.0) ng/mL Total Bilirubin 2.8 H (0.2-1.3) mg/dL AST 218 H (17-59) U/L ALT 108 H (4-49) U/L Alkaline Phosphatase 137 H (38-126) U/L Albumin 3.0 L (3.5-5.0) g/dL Vitamin B12 1505.0 H (200.0-944.0) pg/mL 09/11/20 Range/Units 11:28 RBC (4.30-5.90) m/uL Hgb (13.0-17.5) gm/dL Hct (39.0-53.0) % MCV (80.0-100.0) fL RDW (11.5-15.5) % Plt Count (150-450) k/uL Retic Count (0.5-2.0) % Sodium (137-145) mmol/L Potassium (3.5-5.1) mmol/L Glucose (74-99) mg/dL POC Glucose (mg/dL) 170 H (75-99) mg/dL Ferritin (22.0-322.0) ng/mL Total Bilirubin (0.2-1.3) mg/dL AST (17-59) U/L ALT (4-49) U/L Alkaline Phosphatase (38-126) U/L Albumin (3.5-5.0) g/dL Vitamin B12 (200.0-944.0) pg/mL Microbiology - Last 24 Hours (Table) 09/08/20 12:25 Blood Culture - Preliminary Blood No Growth after 72 hours 09/08/20 11:35 Blood Culture - Preliminary Blood No Growth after 72 hours Assessment and Plan Plan: Chest x-ray: report reviewed CT scan - abdomen: report reviewed CT scan - pelvis: report reviewed US - abdomen: report reviewed Venous US: report reviewed Assessment and Plan (1) Pancytopenia Narrative/Plan: The patient has mild pancytopenia, and is chronic and has been present mostly the same degree, since at least 2016. Counts are well within a safe range, and hemoglobin and WBC are mostly stable. Platelet counts are somewhat lower than b aseline, but still well within a safe range at 80-90,000. - Cause for this mild persistent pancytopenia is most likely chronic ongoing alcohol use causing marrow suppression, as well as history of chronic liver disease with known cirrhosis documented on CT scan in 03/14. In addition to diminished marrow function, there may also be an element of Splenic sequestration from portal hypertension. - Progressive drop in platelet counts could be to to ongoing alcohol use and/or progressive cirrhosis. Increased splenic congestion from fluid retention is also possibility - Check labs rule out other etiologies, especially deficiency states. If this workup is negative, patient can be followed with observation, as counts are well within a safe range. Current Visit: Yes Status: Acute Code(s): D61.818 - OTHER PANCYTOPENIA SNOMED Code(s): 038228718 Plan: follow-up in office to monitor counts Physician attest: I have completed the full histpory and physical and agree with above dictation, dictated as a scribe
[2020-09-11 19:19] LABS: % Iron Saturation 71.14 (15.00-50.00)
[2020-09-11 20:41] LABS: Protein, Total 6.3 g/dL (6.2-8.2)
[2020-09-14 12:18] LABS: Free Kappa Lt Chain Qnt, Serum 3.85 mg/dL (0.33-1.94)
[2020-09-14 13:20] LABS: Albumin 2.86 g/dL (3.80-4.90); Gamma Globulin 1.66 g/dL (0.70-1.50)
[2020-09-15 06:40] LABS: Methylmalonic Acid 0.18 umol/L (<0.40)
[2020-09-17] MEDS ORDERED: ERGOCALCIFEROL 1,250 MCG (50,000 IU) CAPSULE PO SCH (09:00)
== END 2020-09-11 16:45 | disposition home health service (06) | DRG 442 ==
LOC: EC 10:19 → 5NMEDONC 13:07
PROVIDERS: ADMIT Internal Medicine; ATTEND Internal Medicine
DX: K72.00 Acute and subacute hepatic failure without coma (principal); K76.6 Portal hypertension; L03.116 Cellulitis of left lower limb; L03.115 Cellulitis of right lower limb; D61.818 Other pancytopenia; D68.4 Acquired coagulation factor deficiency; K70.30 Alcoholic cirrhosis of liver without ascites; K83.8 Other specified diseases of biliary tract; R29.6 Repeated falls; Z86.19 Personal history of other infectious and parasitic diseases; E11.42 Type 2 diabetes mellitus with diabetic polyneuropathy; E11.51 Type 2 diabetes mellitus with diabetic peripheral angiopathy without gangrene; E78.5 Hyperlipidemia, unspecified; F10.10 Alcohol abuse, uncomplicated; F11.11 Opioid abuse, in remission; F17.210 Nicotine dependence, cigarettes, uncomplicated; G62.1 Alcoholic polyneuropathy; R26.9 Unspecified abnormalities of gait and mobility; G89.29 Other chronic pain; I11.0 Hypertensive heart disease with heart failure; I25.10 Atherosclerotic heart disease of native coronary artery without angina pectoris; I50.9 Heart failure, unspecified; K59.00 Constipation, unspecified; K64.9 Unspecified hemorrhoids; K70.10 Alcoholic hepatitis without ascites; Z79.82 Long term (current) use of aspirin; Z79.84 Long term (current) use of oral hypoglycemic drugs; Z79.899 Other long term (current) drug therapy; T50.1X6A Underdosing of loop [high-ceiling] diuretics, initial encounter; Z91.128 Patient's intentional underdosing of medication regimen for other reason; Z95.1 Presence of aortocoronary bypass graft; Z20.822 Contact with and (suspected) exposure to COVID-19
CPT/HCPCS: 36415; 71046; 76700; 80053; 81003; 82607; 82728; 82746; 82747; 83036; 83540; 83550; 83605; 83735; 83880; 83883; 83921; 84145; 84165; 84484; 85025; 85027; 85045; 85610; 85730; 86038; 86334; 86431; 87040; 87522; 87635; 93005; 93970; 99285

== ENCOUNTER 2020-11-07 22:08 | Inpatient (IN) | payer MEDICARE, OTHER ==
[2020-11-07 23:40] LABS: Basophils % (A) 0 %; Eosinophils # (A) 0.1 k/uL (0-0.7); Eosinophils % (A) 2 %; HCT 40.8 % (39.0-53.0); HGB 14.4 gm/dL (13.0-17.5); Lymphocytes % (A) 23 %; MCH 33.3 pg (25.0-35.0); MCHC 35.4 g/dL (31.0-37.0); Monocytes # (A) 0.3 k/uL (0-1.0); Monocytes % (A) 6 %; Neutrophils # (A) 2.8 k/uL (1.3-7.7); Neutrophils % (A) 67 %; Platelet Count 115 k/uL (150-450); RBC 4.33 m/uL (4.30-5.90); RDW 13.1 % (11.5-15.5); WBC 4.3 k/uL (3.8-10.6)
[2020-11-07 23:48] LABS: MCV 94.2 fL (80.0-100.0)
[2020-11-07 23:53] LABS: INR 1.4 (<1.2); Partial Thromboplastin Time 30.2 sec (22.0-30.0); Prothrombin Time 13.8 sec (9.0-12.0)
--- NOTE | 2020-11-08 | CT ---
EXAMINATION TYPE: CT brain wo con DATE OF EXAM: 11/07/2020 COMPARISON: 01/19/2017 HISTORY: Weakness CT DLP: 1099.4 mGycm Automated exposure control for dose reduction was used. Ventricles have normal size. There is no mass effect nor midline shift. There is no sign of intracran ial hemorrhage. The calvarium is intact. There is no evidence of cerebral edema. Skull base is intact . IMPRESSION: Negative unenhanced head CT scan. No change.
--- NOTE | 2020-11-08 00:01 | XR ---
EXAMINATION TYPE: XR KUB DATE OF EXAM: 11/07/2020 COMPARISON: NONE HISTORY: Constipation TECHNIQUE: 2 views supine FINDINGS: There is no sign of intestinal obstruction or pneumoperitoneum. Fecal pattern is normal. Soraya ng bases appear clear. There are no definite calcifications over the kidneys. There is some vascular calcification. IMPRESSION: Nonacute abdomen.
[2020-11-08 00:02] LABS: ALT 143 U/L (4-49); AST 302 U/L (17-59); African American GFR (CKD) >90 (>60 ml/min/1.73 sqM); Albumin 3.9 g/dL (3.5-5.0); Alkaline Phosphatase 146 U/L (38-126); Anion Gap 11 mmol/L; Blood Urea Nitrogen 14 mg/dL (9-20); Calcium 9.2 mg/dL (8.4-10.2); Carbon Dioxide 24 mmol/L (22-30); Chloride 106 mmol/L (98-107); Glucose 136 mg/dL (74-99); Magnesium 1.7 mg/dL (1.6-2.3); Non-African American GFR(CKD) >90 (>60 ml/min/1.73 sqM); Sodium 141 mmol/L (137-145); Total Bilirubin 0.8 mg/dL (0.2-1.3); Total Protein 7.6 g/dL (6.3-8.2)
--- NOTE | 2020-11-08 00:03 | XR ---
EXAMINATION TYPE: XR chest 2V DATE OF EXAM: 11/07/2020 COMPARISON: 09/08/2020 HISTORY: Weakness TECHNIQUE: Single view FINDINGS: Heart size is normal. There are sternal wires. There are chest leads. There is no gross hea rt failure. There is some coarsening of interstitial markings. I see no pleural effusion. IMPRESSION: Mild pulmonary fibrosis. No heart failure seen. No change compared to old exam.
[2020-11-08 00:06] LABS: Alcohol 197 mg/dL
[2020-11-08] MEDS ORDERED: SODIUM CHLORIDE 0.9% 500 ML 500 ML IV ONE (00:20)
[2020-11-08] MEDS ORDERED: SODIUM CHLORIDE 0.9% 1,000 ML IV ONE (00:38)
--- NOTE | 2020-11-08 01:00 | ED ---
Weakness HPI - General Chief complaint: Weakness Stated complaint: Constipation, cellulitis Time Seen by Provider: 11/07/20 22:13 Source: patient, EMS Mode of arrival: EMS Limitations: altered mental status, physical limitation - History of Present Illness Initial comments: 70-year-old male with extensive past medical history presenting today for chief complaint of bilateral lower extremity redness and swelling, generalized weakness, constipation and alcohol intoxication. Patient states he's felt weak for the past few days he states his nose is legs are red and swollen. He denies fevers chills general malaise. Patient states he feels slightly weak he was unable to get off the toilet today. Patient states he has been going to the bathroom a lot and attempt to have a bowel movement he states he is very cost pain with hard stools he states he noticed a slight amount of bright red blood on the toilet paper after straining to have a bowel movement. He denies dark bloody stools or large amounts of blood in the stools. Patient denies any blo karson vomit nausea vomiting diarrhea. Patient states that he has been passing gas. Patient states he decided to drink small cough is coming to the hospital. Patient denies any chest pain shortness of breath fevers cough congestion headaches vision changes localized weakness or sensation deficits. Upon arrival patient appears nontoxic in no acute distress, smells of alcohol - Related Data Home Medications Medication Instructions Recorded Confirmed Aspirin [Adult Low Dose Aspirin EC] 81 mg PO DAILY 03/21/18 09/08/20 Gabapentin [Neurontin] 300 mg PO BID 03/21/18 09/08/20 HYDROcodone/APAP 10-325MG [[place] 1 tab PO Q6HR PRN 05/23/18 09/08/20 10-325] Ergocalciferol [Vitamin D2 (1250 1,250 mcg PO Q14D 09/08/20 09/08/20 Mcg = [id number] Iu)] Melatonin 5 mg PO HS 09/08/20 09/08/20 metFORMIN HCL [Glucophage] 500 mg PO DAILY 09/08/20 09/08/20 Previous Rx's Medication Instructions Recorded Amoxicillin/Potassium Clav 1 tab PO Q12HR 1 Days #14 tab 09/11/20 [Augmentin 875-125 Tablet] Folic Acid 1 mg PO DAILY tab 09/11/20 Furosemide [Lasix] 40 mg PO BID #60 tablet 09/11/20 Tamsulosin [Flomax] 0.8 mg PO HS #30 cap.er.24h 09/11/20 Thiamine [Vitamin B-1] 100 mg PO DAILY #30 tablet 09/11/20 Allergies Allergy/AdvReac Type Severity Reaction Status Date / Time No Known Allergies Allergy Verified 11/07/20 22:29 Review of Systems ROS Statement: Those systems with pertinent positive or pertinent negative responses have been documented in the HPI. ROS Other: All systems not noted in ROS Statement are negative. Past Medical History Past Medical History: Heart Failure, Diabetes Mellitus, Hyperlipidemia, Hypertension, Liver Disease Additional Past Medical History / Comment(s): hep C History of Any Multi-Drug Resistant Organisms: None Reported Past Surgical History: Coronary Bypass/CABG Additional Past Surgical History / Comment(s): cyst removed under arm, Past Anesthesia/Blood Transfusion Reactions: No Reported Reaction Past Psychological History: No Psychological Hx Reported Smoking Status: Current every day smoker Past Alcohol Use History: Daily, Heavy Past Drug Use History: Heroin, IV Drug Use - Past Family History Father Additional Family Medical History / Comment(s): sclorosis General Exam - General Exam Comments Initial Comments: General: The patient is awake and alert, in no distress, and does not appear acutely ill. Eye: Pupils are equal, round and reactive to light, extra-ocular movements are intact. No nystagmus. There is normal conjunctiva bilaterally. No signs of icterus. Ears, nose, mouth and throat: There are moist mucous membranes and no oral lesions. Neck: The neck is supple, there is no tenderness or JVD. Cardiovascular: There is a regular rate and rhythm. No murmur, rub or gallop is appreciated. Respiratory: Lungs are clear to auscultation, respirations are non-labored, breath sounds are equal. No wheezes, stridor, rales, or rhonchi. Gastrointestinal: Soft, non-distended, non-tender abdomen without masses or organomegaly noted. There is no rebound or guarding present. : there is hard stool in rectum, no bright red stool or dark stool, scant blood on rectal Musculoskeletal: Normal ROM, no tenderness. Strength 5/5. Sensation intact. Radial and DP pulses equal bilaterally 2+. Neurological: A&O x 3. CN II-XII intact, There are no obvious motor or sensory deficits. Coordination appears grossly intact. Speech is normal. Skin: Skin is warm and dry and no rashes. Scaling of LE anteriorly b/l, there is redness and warmth to palpation b/l. No drainage/crepitus. Psychiatric: Cooperative, appropriate mood & affect, normal judgment. Limitations: altered mental status, physical limitation Course Vital Signs 11/07/20 11/08/20 22:26 00:00 Temperature 98.2 F Pulse Rate 106 H 78 Respiratory 18 18 Rate Blood Pressure 155/93 131/81 O2 Sat by Pulse 97 95 Oximetry Medical Decision Making - Medical Decision Making Lab reveal alcohol intoxication, lactic acidosis. clinically pt has cellulitis. overall pt is failing to thrive--not very mobile. legs swollen making it difficult for patient to ambulate. CT/CXR within acceptable lmits. pt treated with iv ABX. placed on CIWA will be admitted for iv abx and hopefully social work consultation/PT. [employer] [facility] accepted the admission on behalf of the [facility] group. Dr Linn agreeable to care plan. - Lab Data Result diagrams: 11/07/20 23:30 11/07/20 23:30 Lab Results 11/07/20 11/07/20 11/07/20 Range/Units 23:30 23:30 23:30 WBC 4.3 (3.8-10.6) k/uL RBC 4.33 (4.30-5.90) m/uL Hgb 14.4 (13.0-17.5) gm/dL Hct 40.8 (39.0-53.0) % MCV 94.2 D (80.0-100.0) fL MCH 33.3 (25.0-35.0) pg MCHC 35.4 (31.0-37.0) g/dL RDW 13.1 (11.5-15.5) % Plt Count 115 L (150-450) k/uL MPV 7.0 Neutrophils % 67 % Lymphocytes % 23 % Monocytes % 6 % Eosinophils % 2 % Basophils % 0 % Neutrophils # 2.8 (1.3-7.7) k/uL Lymphocytes # 1.0 (1.0-4.8) k/uL Monocytes # 0.3 (0-1.0) k/uL Eosinophils # 0.1 (0-0.7) k/uL Basophils # 0.0 (0-0.2) k/uL PT 13.8 H (9.0-12.0) sec INR 1.4 H (<1.2) APTT 30.2 H (22.0-30.0) sec Sodium 141 (137-145) mmol/L Chloride 106 (98-107) mmol/L Carbon Dioxide 24 (22-30) mmol/L Anion Gap 11 mmol/L BUN 14 (9-20) mg/dL Creatinine 0.59 L (0.66-1.25) mg/dL Est GFR (CKD-EPI)AfAm >90 (>60 ml/min/1.73 sqM) Est GFR (CKD-EPI)NonAf >90 (>60 ml/min/1.73 sqM) Glucose 136 H (74-99) mg/dL Plasma Lactic Acid Earl (0.7-2.0) mmol/L Calcium 9.2 (8.4-10.2) mg/dL Magnesium 1.7 (1.6-2.3) mg/dL Total Bilirubin 0.8 (0.2-1.3) mg/dL AST 302 H (17-59) U/L ALT 143 H (4-49) U/L Alkaline Phosphatase 146 H (38-126) U/L Troponin I (0.000-0.034) ng/mL NT-Pro-B Natriuret Pep pg/mL Total Protein 7.6 (6.3-8.2) g/dL Albumin 3.9 (3.5-5.0) g/dL TSH 1.440 (0.465-4.680) mIU/L Serum Alcohol 197 mg/dL 11/07/20 11/07/20 11/07/20 Range/Units 23:30 23:30 23:30 WBC (3.8-10.6) k/uL RBC (4.30-5.90) m/uL Hgb (13.0-17.5) gm/dL Hct (39.0-53.0) % MCV (80.0-100.0) fL MCH (25.0-35.0) pg MCHC (31.0-37.0) g/dL RDW (11.5-15.5) % Plt Count (150-450) k/uL MPV Neutrophils % % Lymphocytes % % Monocytes % % Eosinophils % % Basophils % % Neutrophils # (1.3-7.7) k/uL Lymphocytes # (1.0-4.8) k/uL Monocytes # (0-1.0) k/uL Eosinophils # (0-0.7) k/uL Basophils # (0-0.2) k/uL PT (9.0-12.0) sec INR (<1.2) APTT (22.0-30.0) sec Sodium (137-145) mmol/L Chloride (98-107) mmol/L Carbon Dioxide (22-30) mmol/L Anion Gap mmol/L BUN (9-20) mg/dL Creatinine (0.66-1.25) mg/dL Est GFR (CKD-EPI)AfAm (>60 ml/min/1.73 sqM) Est GFR (CKD-EPI)NonAf (>60 ml/min/1.73 sqM) Glucose (74-99) mg/dL Plasma Lactic Acid Earl 3.8 H* (0.7-2.0) mmol/L Calcium (8.4-10.2) mg/dL Magnesium (1.6-2.3) mg/dL Total Bilirubin (0.2-1.3) mg/dL AST (17-59) U/L ALT (4-49) U/L Alkaline Phosphatase (38-126) U/L Troponin I <0.012 (0.000-0.034) ng/mL NT-Pro-B Natriuret Pep 92 pg/mL Total Protein (6.3-8.2) g/dL Albumin (3.5-5.0) g/dL TSH (0.465-4.680) mIU/L Serum Alcohol mg/dL Disposition Clinical Impression: Weakness, Lower extremity cellulitis, Constipation, Alcohol intoxication Disposition: ADMITTED IP TO THIS [facility] Condition: Stable Is patient prescribed a controlled substance at d/c from ED?: No Referrals: Simran Hill MD [Primary Care Provider] - 1-2 days Time of Disposition: 01:13 Decision to Admit Reason: Admit from EC Decision Date: 11/08/20 Decision Time: 01:13
[2020-11-08] MEDS ORDERED: LORazepam 2 MG/ML INJ IV PRN ×2 (01:05)
[2020-11-08] MEDS ORDERED: THIAMINE 100 MG/ML 2 ML VIAL IM STA (01:05)
[2020-11-08] MEDS ORDERED: NALOXONE 0.4 MG/ML 1 ML VIAL IV PRN (01:13)
[2020-11-08 02:05] LABS: Appearance,Urine Clear (Clear); Bilirubin,Urine 1+ (Negative); Blood,Urine Negative (Negative); Color,Urine Yellow; Glucose,Urine (UA) Negative (Negative); Ketones,Urine Trace (Negative); Leukocyte Esterase,Urine Negative (Negative); Mucus,Urine Rare /hpf; Nitrite,Urine Negative (Negative); Protein,Urine 1+ (Negative); RBC,Urine <1 /hpf (0-5); Specific Gravity,Urine 1.035 (1.001-1.035); WBC,Urine <1 /hpf (0-5)
[2020-11-08 02:30] LABS: Potassium 3.7 mmol/L (3.5-5.1)
[2020-11-08] MEDS: SODIUM CHLORIDE 0.9% 1,000 ML IV SCH ×3 (04:00→16:44)
[2020-11-08] MEDS: GABAPENTIN 300 MG CAP PO SCH ×2 (11:55→20:12)
[2020-11-08] MEDS: HYDROcodone/APAP 10-325MG 1 EACH TAB PO PRN (11:55)
[2020-11-08] MEDS: POTASSIUM CHLORIDE ER 10 MEQ TAB.ER.PRT PO SCH (11:56)
[2020-11-08] MEDS ORDERED: ERGOCALCIFEROL 1,250 MCG (50,000 IU) CAPSULE PO SCH (12:00)
[2020-11-08] MEDS: LORazepam 2 MG/ML INJ IV PRN ×2 (12:20→18:13)
[2020-11-08] MEDS ORDERED: TEMAZEPAM 15 MG CAP PO PRN (13:54)
--- NOTE | 2020-11-08 14:40 | HP ---
HISTORY AND PHYSICAL DATE OF SERVICE: 11/08/2020. CHIEF COMPLAINT: Weakness, change in mental status, constipation, cellulitis. HISTORY OF PRESENT ILLNESS: This 70-year-old gentleman with a past medical history of multiple medical problems including CHF, diabetes, hypertension, hyperlipidemia, hepatitis C, history of CAD, CABG being followed by Dr. Simran Hill in the outpatient setting was admitted to [facility] with multiple complaints. The patient has some constipation, abdominal distention. The patient was apparently mildly confused. The patient had been taking 1 pint of alcohol a day. The patient was feeling weak for the past few days and appears to be swollen at this time. Because of multiple complex medical issues, the patient admitted for further evaluation and treatment. There is no history of fever, rigors, chills at this time. Lactic acid was found to be elevated up to 2.8 and INR was 1.4, glucose 136. AST was 302 and ALT was 143. UA was noted. Serum alcohol was 197, Covid-[address] of the brain which I reviewed personally showed no acute changes. The chest x-ray showed mild pulmonary fibrosis, interstitial shadows. KUB showed nonacute abdomen. Patient being closely monitored at this time. PAST MEDICAL HISTORY: History of CHF, diabetes type 2, hypertension, hyperlipidemia, history of liver disease, hepatitis. MEDICATIONS: Prior to admission, home medications are: Flomax, K-Dur, melatonin, [place] 10 mg, Neurontin, Lasix and vitamin D2. ALLERGIES: None. FAMILY HISTORY: History of scoliosis in the family. SOCIAL HISTORY: History of smoking and alcohol intake. REVIEW OF SYSTEMS: ENT: Diminished vision. Diminished hearing. CARDIOVASCULAR as mentioned earlier. RESPIRATORY: As mentioned earlier. GI: No nausea or vomiting. : No dysuria. NERVOUS SYSTEM: As mentioned earlier. ALLERGY/IMMUNOLOGY: As mentioned earlier. MUSCULOSKELETAL: As mentioned earlier. HEMATOLOGY/ONCOLOGY: No history of anemia. ENDOCRINE: No history of diabetes or hypothyroidism. CONSTITUTIONAL: As mentioned earlier. DERMATOLOGY: Negative. RHEUMATOLOGY: Negative. PSYCHIATRY: As mentioned earlier. PHYSICAL EXAMINATION: Alert and oriented times three. Pulse 76, blood pressure 150/96, respirations 16, temperature 98.1, pulse ox 95 percent on room air. HEENT: Conjunctivae normal. Oral mucosa moist. NECK is no jugular venous distention. No carotid bruit. No lymph node enlargement. CARDIOVASCULAR: S1, S2 muffled. RESPIRATION: Breath sounds diminished in the bases. A few scattered rhonchi. No crackles. ABDOMEN: Soft, nontender. LEGS: Some erythema present. NERVOUS SYSTEM: Higher functions as mentioned earlier. Moves all four limbs. No focal deficits. LYMPHATICS: No lymph nodes palpable in the neck, axillae or groin. SKIN: No ulcer, no rash and no bleeding. JOINTS: No active deforming arthropathy. LABS: WBC 4.3, platelets 159. INR is 1.4 and lactic acid is 3.8 and 2.8. AST and ALT noted. ASSESSMENT: 1. Acute alcohol intoxication and acute withdrawal and delirium tremens. 2. Rule out congestive heart failure, or pneumonia. 3. Cellulitis possibly. 4. Elevated lactic acid, possibly secondary to alcohol intoxication, rule out sepsis. 5. Elevated AST/ALT, alcoholic hepatitis. 6. Thrombocytopenia. 7. History of congestive heart failure. 8. Diabetes mellitus type 2. 9. Hypertension. 10.Hyperlipidemia. 11.History of chronic liver disease. 12.History of hepatitis C. 13.History of coronary artery disease/ coronary artery bypass grafting. 14.History of nicotine dependence. 15.History of IV heroin abuse. 16.History of ETOH. 17.FULL CODE. RECOMMENDATIONS AND DISCUSSION: In this 70-year-old gentleman who presented with multiple complex medical issues, we will monitor the patient closely, continue the current medications, management and symptomatic treatment. Otherwise, recommend empiric antibiotics also to be added to the current regimen. The patient is started on Rocephin. I would also recommend cultures, 2D echo with Doppler, cardiac workup. DVT prophylaxis. Ativan protocol for alcohol cessation. Resume the home medications. Guarded prognosis because of multiple complex medical issues. Further recommendations to follow. A copy of dictation being forwarded to Dr. Simran Hill who is the primary physician. MMODL / IJN: [id number] / [facility]
[2020-11-08 14:49] LABS: ALT 113 U/L (4-49); AST 263 U/L (17-59); African American GFR (CKD) >90 (>60 ml/min/1.73 sqM); Albumin 3.5 g/dL (3.5-5.0); Albumin/Globulin Ratio 1.2; Alkaline Phosphatase 116 U/L (38-126); Anion Gap 40 mmol/L; Blood Urea Nitrogen 7 mg/dL (9-20); C Reactive Protein 0.8 mg/dL (<1.0); Carbon Dioxide 17 mmol/L (22-30); Chloride 89 mmol/L (98-107); Glucose 112 mg/dL (74-99); Non-African American GFR(CKD) >90 (>60 ml/min/1.73 sqM); Potassium 3.6 mmol/L (3.5-5.1); Sodium 146 mmol/L (137-145); Total Bilirubin 1.3 mg/dL (0.2-1.3); Total Protein 6.5 g/dL (6.3-8.2)
[2020-11-08 14:51] LABS: Calcium 5.2 mg/dL (8.4-10.2)
[2020-11-08] MEDS: PANTOPRAZOLE 40 MG/10 ML VIAL IVP SCH (15:16)
[2020-11-08] MEDS: FUROSEMIDE 20 MG TAB PO SCH (15:17)
[2020-11-08 16:06] LABS: African American GFR (CKD) >90 (>60 ml/min/1.73 sqM); Anion Gap 5 mmol/L; Blood Urea Nitrogen 9 mg/dL (9-20); Calcium 8.9 mg/dL (8.4-10.2); Carbon Dioxide 28 mmol/L (22-30); Chloride 105 mmol/L (98-107); Glucose 154 mg/dL (74-99); Non-African American GFR(CKD) >90 (>60 ml/min/1.73 sqM); Potassium 3.6 mmol/L (3.5-5.1); Sodium 138 mmol/L (137-145)
--- NOTE | 2020-11-08 17:21 | CT ---
EXAMINATION TYPE: CT angio chest DATE OF EXAM: 11/08/2020 COMPARISON: None HISTORY: Patient poor historian. CT DLP: 330.4 mGycm Automated exposure control for dose reduction was used. CONTRAST: Performed with IV Contrast, patient injected with 100 mL of Isovue 370. There are 3-D post processed images. Images obtained from the thoracic inlet to the diaphragm with IV contrast. There is bullous pulmonary emphysema. There is bilateral bronchiectasis. There is peribronchial thick ening. There is some mild increased interstitial density in the posterior right upper lobe. There is no pleural effusion. There is no pericardial effusion. Heart size is normal. There are sternal wires. There is fatty infiltration of the liver. There is no mediastinal adenopathy. There are no hilar masses. The thoracic aorta is intact. There is no aneurysm or dissection. The ascending aorta measures 3.5 cm. There is some coronary artery calcif ication. There is normal contrast opacification of the pulmonary arteries. There are no filling defects. Bony thorax is intact. There is no compression fracture. IMPRESSION: No evidence of pulmonary embolism. Pulmonary emphysema. Bronchiectasis and peribronchial thickening consistent with chronic bronchitis. No suspicious pulmonary mass. Fatty infiltration of the liver.
[2020-11-08] MEDS: THIAMINE 100 MG TAB PO SCH (18:13)
[2020-11-08] MEDS: MELATONIN 5 MG TABLET PO SCH (20:12)
[2020-11-08] MEDS: TAMSULOSIN 0.4 MG CAP.ER.24H PO SCH (20:12)
[2020-11-09] MEDS: SODIUM CHLORIDE 0.9% 1,000 ML IV SCH ×2 (01:48→08:13)
[2020-11-09 04:12] LABS: Appearance,Urine Clear (Clear); Bilirubin,Urine Negative (Negative); Blood,Urine Negative (Negative); Color,Urine Yellow; Glucose,Urine (UA) Negative (Negative); Ketones,Urine Negative (Negative); Leukocyte Esterase,Urine Negative (Negative); Nitrite,Urine Negative (Negative); Protein,Urine Negative (Negative)
[2020-11-09 04:24] LABS: Specific Gravity,Urine 1.046 (1.001-1.035)
[2020-11-09 04:25] LABS: Amphetamine Screen,Urine Not Detected (NotDetected); Barbiturate Screen,Urine Not Detected (NotDetected); Benzodiazepines Screen,Urine Detected (NotDetected); Cocaine Screen,Urine Not Detected (NotDetected); Methadone Screen, Urine Not Detected (NotDetected); Opiate Screen,Urine Detected (NotDetected); Oxycodone Screen, Urine Not Detected (NotDetected); Phencyclidine Screen,Urine Not Detected (NotDetected); Tricyclic Antidepressant,Urine Not Detected (NotDetected); Urn Cannabinoid Scrn Not Detected (NotDetected)
[2020-11-09] MEDS: POTASSIUM CHLORIDE ER 10 MEQ TAB.ER.PRT PO SCH (08:13)
[2020-11-09] MEDS: FUROSEMIDE 20 MG TAB PO SCH (08:13)
[2020-11-09] MEDS: PANTOPRAZOLE 40 MG/10 ML VIAL IVP SCH (08:13)
[2020-11-09] MEDS: GABAPENTIN 300 MG CAP PO SCH ×2 (08:13→20:04)
[2020-11-09] MEDS: THIAMINE 100 MG TAB PO SCH ×2 (08:13→17:02)
[2020-11-09 08:52] LABS: Basophils # (A) 0.03 X 10*3/uL (0.00-0.10); Basophils % (A) 0.7 %; Eosinophils # (A) 0.13 X 10*3/uL (0.04-0.35); Eosinophils % (A) 2.8 %; HCT 39.9 % (39.6-50.0); HGB 13.7 g/dL (13.0-17.0); Lymphocytes # (A) 1.22 X 10*3/uL (0.90-5.00); Lymphocytes % (A) 26.6 %; MCH 32.6 pg (27.0-32.0); MCHC 34.3 g/dL (32.0-37.0); Mean Platelet Volume 10.5 fL (9.5-12.2); Monocytes # (A) 0.32 X 10*3/uL (0.20-1.00); Neutrophils # (A) 2.87 X 10*3/uL (1.80-7.70); Neutrophils % (A) 62.7 %; Platelet Count 104 X 10*3/uL (140-440); RDW 12.9 % (11.5-14.5); WBC 4.58 X 10*3/uL (4.50-10.00)
[2020-11-09] MEDS: ASPIRIN 81 MG PO SCH (09:12)
[2020-11-09] MEDS: ATORVASTATIN 40 MG TAB PO SCH (09:12)
[2020-11-09] MEDS: METOPROLOL TARTRATE 25 MG TAB PO SCH (09:12)
[2020-11-09] MEDS: metOLazone 2.5 MG TAB PO SCH (09:12)
--- NOTE | 2020-11-09 09:45 | P.CRDCN ---
History of Present Illness History of present illness: HISTORY OF PRESENTING ILLNESS This is a pleasant 70-year-old male past medical history significant for peripheral artery disease status post stenting, coronary artery disease status post CABG, hypertension, dyslipidemia, nicotine dependence, alcohol dependence. He used to follow in the office with Dr. Short, last seen in 2018. We have been asked to see in consultation for concern for congestive heart failure. Patient presents to the emergency department with complaints of constipation, abdominal distention, right lower extremity redness and swelling. Patient does drink 1 pint of alcohol a day. He also complains of left foot pain that makes it difficult to walk. On admission, patient was confused. Ethanol level CXCVII. CT brain was negative for any acute intracranial abnormality. KUB revealed no acute findings. Chest x-ray revealed mild pulmonary fibrosis, heart size is n ormal and stable. Chest CT negative for PE, revealed pulmonary emphysema, bilateral bronchial ectasis, mild increased interstitial density in the posterior right upper lobe, fatty infiltration of the liver. EKG revealed sinus rhythm, heart rate 83 no significant STT wave abnormalities. Most recent echocardiogram 10/2017- in the office revealed EF is 55%, no wall motion abnormalities. In 10/2017 Lexiscan stress test was normal. Patient seen and examined at bedside, denies chest pain, palpitations, shortness of breath, dizziness, lightheadedness. Patient's constipation is resolved, and is having bowel movements. He does complain of left foot pain with ambulation. He has not been taking his Lasix at home as prescribed. Laboratory reviewed, sodium 138, potassium 3.6, serum creatinine 0.53, BUNs 9, troponin negative 1, BNP 92, TSH within normal limits, WBC 4.8, hemoglobin 13.7, platelets 104, urine tox screen positive for opiates and benzos. COVID-19 was negative. Current home cardiac medications include Lasix 20 mg daily, potassium chloride 10 mEq daily. Denies history of diabetes (Patient has hade normal hemoglobin A1C documented in the chart). REVIEW OF SYSTEMS At the time of my exam: CONSTITUTIONAL: Denies fever or chills. CARDIOVASCULAR: +bilateral lower extremity edema Denies chest pain, shortness of breath, orthopnea, PND or palpitations. RESPIRATORY: Denies cough. GASTROINTESTINAL: + abdominal pain, + constipation, Denies nausea or vomiting. MUSCULOSKELETAL: Denies myalgias. NEUROLOGIC: Denies numbness, tingling, headacbe or weakness. ENDOCRINE: Denies fatigue, weight change, polydipsia or polyurina. GENITOURINARY: Denies burning, hematuria or urgency with micturation. HEMATOLOGIC: Denies history of anemia or bleeding. PHYSICAL EXAMINATION Blood pressure 132/83 heart rate 85 afebrile and maintaining oxygen saturation 95% on room air CONSTITUTIONAL: No apparent distress. HEENT: Head is normocephalic. Pupils are equal, round. Sclerae anicteric. Mucous membranes of the mouth are moist. No JVD. No carotid bruit. CHEST EXAMINATION: Lungs are clear to auscultation. No chest wall tenderness is noted on palpation or with deep breathing. HEART EXAMINATION: Regular rate and rhythm. S1, S2 heard. No murmurs, gallops or rub. ABDOMEN: Soft, nontender. Positive bowel sounds. EXTREMITIES: Right [place] with open wound, Redness, 2+ Bilateral lower extremity swelling, 2+ peripheral pulses NEUROLOGIC EXAMINATION: Patient is awake, alert and oriented x3. ASSESSMENT Constipation, resolved Bilateral lower extremity swelling and redness, Patient has been non-compliant with his lasix and is currently being treated for cellulitis. Patient does not appear to be in heart failure. Peripheral artery disease status post stenting Coronary artery disease status post CABG Hypertension Dyslipidemia Polysubstance abuse- prior Heroin use Nicotine dependence Current ever day drinker PLAN -2D echocardiogram ordered and reviewed- EF 50-55%, basal inferior septal LV wall motion is hypokinetic, trace mitral regurgitation, no pericardial effusion. -Recommend increasing patient's Lasix to 40mg daily, and add metolazone -Start aspirin 81mg daily, and statin -From cardiology perspective no further cardiac testing or workup indicated. We will follow the patient as needed. -When medically stable for discharge patient should follow up with Dr. Short Nurse Practitioner note has been reviewed, I agree with a documented findings and plan of care. Patient was seen and examined. Past Medical History Past Medical History: Heart Failure, Diabetes Mellitus, Hyperlipidemia, Hypertension, Liver Disease Additional Past Medical History / Comment(s): hep C History of Any Multi-Drug Resistant Organisms: None Reported Past Surgical History: Coronary Bypass/CABG Additional Past Surgical History / Comment(s): cyst removed under arm, Past Anesthesia/Blood Transfusion Reactions: No Reported Reaction Past Psychological History: No Psychological Hx Reported Smoking Status: Current every day smoker Past Alcohol Use History: Daily, Heavy Past Drug Use History: Heroin, IV Drug Use - Past Family History Father Additional Family Medical History / Comment(s): sclorosis Medications and Allergies Home Medications Medication Instructions Recorded Confirmed Type Gabapentin [Neurontin] 300 mg PO BID 03/21/18 11/08/20 History HYDROcodone/APAP 10-325MG [[place]ion 1 tab PO Q6H PRN 05/23/18 11/08/20 History 10-325] Ergocalciferol [Vitamin D2 (1250 1,250 mcg PO Q14D 09/08/20 11/08/20 History Mcg = 77060 Iu)] Melatonin 5 mg PO HS 09/08/20 11/08/20 History Tamsulosin [Flomax] 0.8 mg PO HS #30 cap.er.24h 09/11/20 11/08/20 Rx Furosemide [Lasix] 20 mg PO DAILY 11/08/20 11/08/20 History Potassium Chloride ER [K-Dur 10] 10 meq PO DAILY 11/08/20 11/08/20 History Allergies Allergy/AdvReac Type Severity Reaction Status Date / Time No Known Allergies Allergy Verified 11/08/20 09:34 Physical Exam Vitals: Vital Signs Temp Pulse Resp BP Pulse Ox 11/09/20 07:54 95 11/09/20 07:00 98.3 F 85 16 132/83 95 11/09/20 01:56 98.5 F 75 18 114/73 98 11/08/20 20:12 93 18 11/08/20 19:22 98.6 F 93 18 117/80 96 11/08/20 15:00 98.4 F 78 16 151/68 94 L Intake and Output 11/08/20 11/09/20 11/09/20 22:59 06:59 14:59 Output Total 100 300 Balance -100 -300 Output: Urine 100 300 Other: Voiding Method Urinal Urinal Diaper Diaper # Voids 1 1 # Bowel Movements 2 Results 11/09/20 04:36 11/08/20 15:44 Cardiac Enzymes 11/08/20 Range/Units 14:01 AST 263 H (17-59) U/L CBC 11/09/20 Range/Units 04:36 WBC 4.58 (4.50-10.00) X 10*3/uL RBC 4.20 L (4.40-5.60) X 10*6/uL Hgb 13.7 (13.0-17.0) g/dL Hct 39.9 (39.6-50.0) % Plt Count 104 L (140-440) X 10*3/uL Comprehensive Metabolic Panel 11/08/20 11/08/20 Range/Units 14:01 15:44 Sodium 146 H 138 (137-145) mmol/L Potassium 3.6 3.6 (3.5-5.1) mmol/L Chloride 89 L 105 (98-107) mmol/L Carbon Dioxide 17 L 28 (22-30) mmol/L BUN 7 L 9 (9-20) mg/dL Creatinine 0.38 L 0.53 L (0.66-1.25) mg/dL Glucose 112 H 154 H (74-99) mg/dL Calcium 5.2 L* 8.9 (8.4-10.2) mg/dL AST 263 H (17-59) U/L ALT 113 H (4-49) U/L Alkaline Phosphatase 116 (38-126) U/L Total Protein 6.5 (6.3-8.2) g/dL Albumin 3.5 (3.5-5.0) g/dL Current Medications Generic Name Dose Route Start Last Admin Trade Name Freq PRN Reason Stop Dose Admin Hydrocodone Bitart/Acetaminophen 1 each 11/08/20 11:12 11/08/20 11:55 Hydrocodone/Apap 10-325mg 1 Each Tab PO 1 each Q6H PRN Administration Pain Aspirin 81 mg 11/09/20 09:00 11/09/20 09:12 Aspirin 81 Mg PO 81 mg DAILY VALERIE Administration Atorvastatin Calcium 40 mg 11/09/20 09:00 11/09/20 09:12 Atorvastatin 40 Mg Tab PO 40 mg DAILY VALERIE Administration Ergocalciferol 1,250 mcg 11/08/20 12:00 11/08/20 15:17 Ergocalciferol 1,250 Mcg (50,000 Iu) Capsule PO 1,250 mcg Q14D VALERIE Administration Furosemide 40 mg 11/10/20 09:00 Furosemide 40 Mg Tab PO DAILY VALERIE Gabapentin 300 mg 11/08/20 11:30 11/09/20 08:13 Gabapentin 300 Mg Cap PO 300 mg BID VALERIE Administration Sodium Chloride 1,000 mls @ 130 mls/hr 11/08/20 00:45 11/09/20 08:13 Saline 0.9% IV 20 mls/hr .Q7H42M VALERIE Administration Lorazepam 1 mg 11/08/20 01:05 11/08/20 18:13 Lorazepam 2 Mg/Ml Inj IV 1 mg Q2HR PRN Administration CIWA 8 or 9 Lorazepam 1 mg 11/08/20 01:05 Lorazepam 2 Mg/Ml Inj IV Q1HR PRN CIWA 10 to 15 Lorazepam 2 mg 11/08/20 01:05 Lorazepam 2 Mg/Ml Inj IV 11/10/20 01:05 Q10M PRN CIWA 16 or higher Melatonin 5 mg 11/08/20 21:00 11/08/20 20:12 Melatonin 5 Mg Tablet PO 5 mg HS VALERIE Administration Metolazone 2.5 mg 11/09/20 09:00 11/09/20 09:12 Metolazone 2.5 Mg Tab PO 2.5 mg DAILY VALERIE Administration Metoprolol Tartrate 25 mg 11/09/20 09:00 11/09/20 09:12 Metoprolol Tartrate 25 Mg Tab PO 25 mg DAILY VALERIE Administration Naloxone HCl 0.2 mg 11/08/20 01:13 Naloxone 0.4 Mg/Ml 1 Ml Vial IV Q2M PRN Opioid Reversal Pantoprazole Sodium 40 mg 11/08/20 14:15 11/09/20 08:13 Pantoprazole 40 Mg/10 Ml Vial IVP 40 mg DAILY VALERIE Administration Potassium Chloride 10 meq 11/08/20 11:30 11/09/20 08:13 Potassium Chloride Er 10 Meq Tab.Er.Prt PO 10 meq DAILY VALERIE Administration Tamsulosin HCl 0.8 mg 11/08/20 21:00 11/08/20 20:12 Tamsulosin 0.4 Mg Cap.Er.24h PO 0.8 mg HS VALERIE Administration Temazepam 15 mg 11/08/20 13:54 Temazepam 15 Mg Cap PO HS PRN Insomnia Thiamine HCl 100 mg 11/08/20 17:30 11/09/20 08:13 Thiamine 100 Mg Tab PO 100 mg BID-W/MEALS VALERIE Administration Intake and Output 11/08/20 11/09/20 11/09/20 22:59 06:59 14:59 Output Total 100 300 Balance -100 -300 Output: Urine 100 300 Other: Voiding Method Urinal Urinal Diaper Diaper # Voids 1 1 # Bowel Movements 2 11/09/20 04:36 11/08/20 15:44
--- NOTE | 2020-11-09 12:45 | ECHOF ---
Referral Reason:chf MEASUREMENTS -------- HEIGHT: 182.9 cm WEIGHT: 108.9 kg BP: 114/73 RVIDd: 3.2 cm (< 3.3) IVSd: 1.2 cm (0.6 - 1.1) LVIDd: 3.9 cm (3.9 - 5.3) LVPWd: 1.2 cm (0.6 - 1.1) IVSs: 1.8 cm LVIDs: 2.7 cm LVPWs: 1.5 cm LA Diam: 3.5 cm (2.7 - 3.8) Ao Diam: 3.3 cm (2.0 - 3.7) AV Cusp: 2.0 cm (1.5 - 2.6) MV EXCURSION: 18.395 mm (> 18.000) MV EF SLOPE: 74 mm/s (70 - 150) EPSS: 0.4 cm MV E Nathaniel: 0.82 m/s MV DecT: 275 ms MV A Nathaniel: 0.81 m/s MV E/A Ratio: 1.01 FINDINGS -------- Sinus rhythm. This was a technically adequate study. The left ventricular size is normal. There is borderline concentric left ventricular hypertrophy. Overall left ventricular systolic function is low-normal with, an EF between 50 - 55 %. Basal infe roseptal LV wall motion is hypokinetic. The right ventricle is normal in size. The left atrium is normal in size. The right atrium is normal in size. Aortic valve is trileaflet and is mildly thickened. Mild mitral annular calcification present. There is trace mitral regurgitation. The tricuspid valve appears structurally normal. Unable to estimate RVSP due to inadequate TR jet s pectral doppler profile. The pulmonic valve was not well visualized. The aortic root size is normal. There is no pericardial effusion. CONCLUSIONS -------- 1. The left ventricular size is normal. 2. There is borderline concentric left ventricular hypertrophy. 3. Overall left ventricular systolic function is low-normal with, an EF between 50 - 55 %. 4. Basal inferoseptal LV wall motion is hypokinetic. 5. Aortic valve is trileaflet and is mildly thickened. 6. Mild mitral annular calcification present. 7. There is trace mitral regurgitation. 8. There is no pericardial effusion. CART PUSHER: Iqra Rae RDCS
[2020-11-09] MEDS: HYDROcodone/APAP 10-325MG 1 EACH TAB PO PRN ×2 (13:06→20:04)
--- NOTE | 2020-11-09 15:46 | PN ---
PROGRESS NOTE DATE OF SERVICE: 11/09/2020 This 70-year-old gentleman admitted with weakness, change in mental status, constipation and bilateral leg cellulitis. The patient has acute alcohol intoxication. Patient also had history of CHF. The D-dimer was elevated to 1.79 and CTA was done yesterday which was personally reviewed by me showed no evidence of pulmonary embolism and emphysema and bronchiectasis also noted. No suspicious pulmonary masses noted. Cardiology seen the patient. Two-D echo with Doppler was reported as showing ejection fraction about 50% to 55% with minimal basal inferoseptal wall motion hypokinesis. Medication being adjusted at this time. The patient is complaining of generalized tiredness, weakness. PAST MEDICAL HISTORY: Reviewed. REVIEW OF SYSTEMS: CARDIOVASCULAR SYSTEM: As mentioned earlier. RESPIRATORY SYSTEM: As mentioned earlier. GI: As mentioned earlier. : No dysuria. NERVOUS SYSTEM: Diffuse weakness. CURRENT MEDICATIONS: Current medications are reviewed and include [place], aspirin, Lipitor, cefazolin, Lasix Neurontin, Ativan, Protonix. Doses are reviewed. PHYSICAL EXAMINATION: Patient is alert and oriented x3. Pulse 85, blood pressure 132/83, respiration 16, temperature 98.2, pulse ox 95% on room air. HEENT: Conjunctivae normal. NECK: No jugular venous distention. CARDIOVASCULAR: S1, S2 muffled. RESPIRATORY: Breath sounds diminished at the bases. A few scattered rhonchi. ABDOMEN: Soft, nontender. LEGS: Bilateral leg edema and bilateral leg cellulitis also present. NERVOUS SYSTEM: No focal deficits. LABS: WBC 4.58, hemoglobin 13.7. Sodium 146. Calcium is improved 8.9. Lactic acid is 1.7. UA noted. Drug screen is opiates. COVID-19 is negative. ASSESSMENT: 1. Acute alcohol intoxication, acute withdrawal and delirium tremens. 2. Congestive heart failure with chronic systolic dysfunction, ejection fraction 50% to 55%. with mild systolic dysfunction. 3. Bilateral leg cellulitis. 4. Elevated lactic acid, possibly secondary to alcohol intoxication. 5. Elevated AST, alcoholic hepatitis. 6. Change in mental status, metabolic encephalopathy secondary to delirium tremens. 7. Thrombocytopenia. 8. History of congestive heart failure. 9. Diabetes mellitus type 2. 10.Hypertension. 11.Hyperlipidemia. 12.History of chronic liver disease. 13.History of hepatitis C. 14.History of coronary artery disease, coronary artery bypass grafting. 15.History of nicotine dependence. 16.History of IV heroin abuse. 17.History of EtOH. 18.FULL CODE. RECOMMENDATIONS AND DISCUSSION: In this 70-year-old gentleman with presented with multiple complex medical issues, we will monitor the patient closely. Continue the current medications and symptomatic treatment. Otherwise at this time I recommend to add Kefzol IV to the current regimen. Follow the cultures. Otherwise WA protocol. Vitamin supplementation. Repeat labs. PT/OT evaluation. Evaluate for possible ECF rehab. The patient is complaining of extreme weakness and shakiness and features of DTs. Lactic acid has normalized. Prognosis guarded because of the multiple complex medical issues. Further recommendations to follow. This patient requires more than 48 hours hospital admission to diagnose, elucidate and treat the above mentioned multiple complex medical issues. The prognosis extremely guarded. Further recommendations to follow. MMHALLIEL / PETEYN: [id number] /
[2020-11-09] MEDS: MELATONIN 5 MG TABLET PO SCH (20:04)
[2020-11-09] MEDS: TAMSULOSIN 0.4 MG CAP.ER.24H PO SCH (20:04)
[2020-11-09] MEDS: IBUPROFEN 400 MG TAB PO PRN (23:27)
[2020-11-09] MEDS: NICOTINE 14MG/24HR PATCH TRANSDERM SCH (23:28)
[2020-11-10] MEDS: FUROSEMIDE 40 MG TAB PO SCH (08:24)
[2020-11-10] MEDS: THIAMINE 100 MG TAB PO SCH ×2 (08:24→17:54)
[2020-11-10] MEDS: GABAPENTIN 300 MG CAP PO SCH ×2 (08:24→20:31)
[2020-11-10] MEDS: PANTOPRAZOLE 40 MG TABLET PO SCH (08:24)
[2020-11-10] MEDS: METOPROLOL TARTRATE 25 MG TAB PO SCH (08:24)
[2020-11-10] MEDS: POTASSIUM CHLORIDE ER 10 MEQ TAB.ER.PRT PO SCH (08:24)
[2020-11-10] MEDS: metOLazone 2.5 MG TAB PO SCH (08:25)
[2020-11-10] MEDS: NICOTINE 14MG/24HR PATCH TRANSDERM SCH (08:25)
[2020-11-10] MEDS: HYDROcodone/APAP 10-325MG 1 EACH TAB PO PRN ×3 (08:33→20:32)
[2020-11-10] MEDS: ATORVASTATIN 40 MG TAB PO SCH (08:34)
[2020-11-10] MEDS: ASPIRIN 81 MG PO SCH (08:34)
[2020-11-10 09:43] LABS: Basophils # (A) 0.02 X 10*3/uL (0.00-0.10); Basophils % (A) 0.5 %; Eosinophils # (A) 0.18 X 10*3/uL (0.04-0.35); Eosinophils % (A) 4.5 %; HGB 13.1 g/dL (13.0-17.0); Lymphocytes # (A) 1.33 X 10*3/uL (0.90-5.00); Lymphocytes % (A) 33.1 %; MCHC 33.6 g/dL (32.0-37.0); MCV 95.1 fL (80.0-97.0); Mean Platelet Volume 10.3 fL (9.5-12.2); Monocytes # (A) 0.33 X 10*3/uL (0.20-1.00); Monocytes % (A) 8.2 %; Neutrophils # (A) 2.14 X 10*3/uL (1.80-7.70); Neutrophils % (A) 53.2 %; Platelet Count 98 X 10*3/uL (140-440); RDW 12.7 % (11.5-14.5); WBC 4.02 X 10*3/uL (4.50-10.00)
[2020-11-10 13:31] LABS: African American GFR (CKD) 105.6 (60.0-200.0); Anion Gap 8.1 mmol/L (4.00-12.00); BUN/Creat Ratio 13.75 Ratio (12.00-20.00); Calcium 9.6 mg/dL (8.7-10.3); Carbon Dioxide 25.9 mmol/L (21.6-31.8); Non-African American GFR(CKD) 91.1 (60.0-200.0); Potassium 3.2 mmol/L (3.5-5.5)
[2020-11-10] MEDS ORDERED: POTASSIUM CHLORIDE ER 20 MEQ TAB.ER PO STA (16:38)
--- NOTE | 2020-11-10 19:04 | P.PN ---
Subjective This is a pleasant 70 years old -[place] male with alcohol abuse was admitted for bilateral leg weakness, generalized weakness bilateral leg swelling, his altered mental status on admission is improved currently, he drinks about 1 pint of liquor every day, however his CIWA score is 1 persistently. Patient denies chest pain or dyspnea, no GI or urinary symptoms. He denies fever. However he looks complaining of from weak lower extremities. Also complaining of from back pain and he follows up with pain clinic, and short of her recent worsening. Patient admits to occasional feeling sadness but he denies hopelessness/hopelessness, he denies overt signs symptoms of depression. He denies suicidal ideation. Vitals are stable. Platelets slightly low at 98, liver enzymes slightly elevated. Patient was on cefazolin, however because with no fever or leukocytosis were going to switch him to Keflex. Both legs look swollen, somewhat indurated and thick skin in the distal part of both legs symmetrically. They looked darker than the upper part however there is no warmth. Cardiology team evaluated the patient and the recommended continue current management. Objective - Vital Signs Vital signs: Vital Signs Temp 97.6 F 11/10/20 07:00 Pulse 66 11/10/20 07:00 Resp 16 11/10/20 08:00 BP 147/82 11/10/20 07:00 Pulse Ox 96 11/10/20 07:53 Intake & Output 11/09/20 11/10/20 11/10/20 18:59 06:59 18:59 Intake Total 120 Output Total 301 200 540 Balance -181 -200 -540 Intake: IV 120 Sodium Chloride 0.9% 1, 120 000 ml @ 130 mls/hr IV . Q7H42M [facility] Rx#:[id number] Output: Urine 300 200 540 Stool 1 Other: Voiding Method Urinal Urinal Urinal Diaper Diaper Diaper Incontinent # Voids 1 3 2 - Exam GENERAL: The patient is alert and oriented x3, not in any acute distress. Well developed, well nourished. HEENT: Pupils are round and equally reacting to light. EOMI. No scleral icterus. No conjunctival pallor. Normocephalic, atraumatic. No pharyngeal erythema. No thyromegaly. CARDIOVASCULAR: S1 and S2 present. No murmurs, rubs, or gallops. PULMONARY: Chest is clear to auscultation, no wheezing or crackles. ABDOMEN: Soft, nontender, nondistended, normoactive bowel sounds. No palpable organomegaly. MUSCULOSKELETAL: No joint swelling or deformity. EXTREMITIES: No cyanosis, clubbing, or pedal edema. -NEUROLOGICAL: Gross neurological examination did not reveal any focal deficits. Weakness in both legs SKIN: No rashes. no petechiae. 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 Alcohol abuse with minimal alcohol withdrawal Possible bilateral leg cellulitis, mild Significant chronic lower back pain, r orthopedic team consulted Plan: This is a pleasant 70 years old male with bilateral leg cellulitis/weakness. He is alcoholic with mildly elevated liver enzymes. Continue with CIWA score and thiamine. Continue with antibiotics as well as to oral Keflex. Cardiology team recommended medical management and outpatient follow-up With the consult orthopedics for significant low back pain. And neurology service for bilateral leg weakness Labs and medication were reviewed.. Continue same treatment. Continue with symptomatic treatment. Resume home medication. Monitor lytes and vitals. DVT and GI prophylaxis. Further recommendationsas per clinical course of the patient DVT prophylaxis: Subcutaneous heparin GI Prophylaxis: Ppi PT/OT: Subacute rehab Prognosis is guarded
[2020-11-10] MEDS: TAMSULOSIN 0.4 MG CAP.ER.24H PO SCH (20:31)
[2020-11-10] MEDS: MELATONIN 5 MG TABLET PO SCH (20:31)
[2020-11-10] MEDS: IBUPROFEN 400 MG TAB PO PRN (20:32)
[2020-11-10] MEDS: HEPARIN SODIUM,PORCINE/PF 5,000 UNIT/0.5 ML SYRINGE SQ SCH (20:33)
[2020-11-10] MEDS ORDERED: CEPHALEXIN 500 MG CAP PO SCH (21:00)
--- NOTE | 2020-11-10 22:00 | US ---
EXAMINATION TYPE: US venous doppler duplex LE DATE OF EXAM: 11/10/2020 9:02 PM COMPARISON: US CLINICAL HISTORY: Rule out DVT. R/O DVT. Patient on Heparin. SIDE PERFORMED: Bilateral TECHNIQUE: The lower extremity deep venous system is examined utilizing real time linear array sonog andi with graded compression, doppler sonography and color-flow sonography. VESSELS IMAGED: Common Femoral Vein Deep Femoral Vein Greater Saphenous Vein * Femoral Vein Popliteal Vein Small Saphenous Vein * Proximal Calf Veins (* superficial vessels) Limited due to edema. Right Leg: No evidence of DVT in veins imaged at this time. Left Leg: No evidence of DVT in veins imaged at this time. Hypoechoic area with hyperechoic center s een within the left groin: 2.4 x 2.1 x 0.7, consistent with lymph node and likely reactive. IMPRESSION: No acute bilateral lower extremity DVT.
[2020-11-11] MEDS: IBUPROFEN 400 MG TAB PO PRN ×3 (03:29→19:43)
[2020-11-11] MEDS: AMPICILLIN-SULBACTAM 3 GM in SODIUM CHLORIDE 0.9% 100 ML IVPB SCH ×3 (08:16→23:47)
[2020-11-11] MEDS: THIAMINE 100 MG TAB PO SCH ×2 (08:17→17:47)
[2020-11-11] MEDS: POTASSIUM CHLORIDE ER 10 MEQ TAB.ER.PRT PO SCH (08:17)
[2020-11-11] MEDS: PANTOPRAZOLE 40 MG TABLET PO SCH (08:17)
[2020-11-11] MEDS: METOPROLOL TARTRATE 25 MG TAB PO SCH (08:17)
[2020-11-11] MEDS: GABAPENTIN 300 MG CAP PO SCH ×2 (08:17→19:43)
[2020-11-11] MEDS: HEPARIN SODIUM,PORCINE/PF 5,000 UNIT/0.5 ML SYRINGE SQ SCH ×2 (08:17→19:43)
[2020-11-11] MEDS: ASPIRIN 81 MG PO SCH (08:17)
[2020-11-11] MEDS: FUROSEMIDE 40 MG TAB PO SCH (08:17)
[2020-11-11] MEDS: ATORVASTATIN 40 MG TAB PO SCH (08:17)
[2020-11-11] MEDS: NICOTINE 14MG/24HR PATCH TRANSDERM SCH (08:18)
[2020-11-11] MEDS: metOLazone 2.5 MG TAB PO SCH (08:18)
--- NOTE | 2020-11-11 08:44 | P.CNOR ---
History of Present Illness - [facility] Consult date: 11/11/20 Consult reason: low back pain History of present illness: Patient is 70-year-old male who is admitted in regards to EtOH history and leg swelling. He has a long history of chronic low back pain. He is complaining of back pain and leg pain yesterday and we are counseled in this regard. This morning he says that his back pain has been present for years and years and he sees pain management for this. He denies any new change in his low back. He says that his legs feel very swollen for him and this is difficult for him in terms of his legs. He denies any new numbness or tingling in his lower extremities denies any new weakness or changes in his lower extremity is. He denies any new injury to his low back. The patient has long history of degenerative disc disease and low back pain and denies any new change. Review of Systems Denies new back pain. Admits to chronic low back pain. Denies any changes lower extremities denies any new weakness in his lower extremity. Denies any changes in bowel bladder function. He admits to significant increase in swelling in his bilateral lower extremities particularly on the right side. He says he has chronic problems with his circulation his lower extremity. Past Medical History Past Medical History: Heart Failure, Diabetes Mellitus, Hyperlipidemia, Hypertension, Liver Disease Additional Past Medical History / Comment(s): Chronic low back pain, history of alcohol abuse, hep C History of Any Multi-Drug Resistant Organisms: None Reported Past Surgical History: Coronary Bypass/CABG Additional Past Surgical History / Comment(s): cyst removed under arm, Past Anesthesia/Blood Transfusion Reactions: No Reported Reaction Past Psychological History: No Psychological Hx Reported Smoking Status: Current every day smoker Past Alcohol Use History: Daily, Heavy Past Drug Use History: Heroin, IV Drug Use - Past Family History Father Additional Family Medical History / Comment(s): sclorosis Medications and Allergies Home Medications Medication Instructions Recorded Confirmed Type Gabapentin [Neurontin] 300 mg PO BID 03/21/18 11/08/20 History HYDROcodone/APAP 10-325MG [[place] 1 tab PO Q6H PRN 05/23/18 11/08/20 History 10-325] Ergocalciferol [Vitamin D2 (1250 1,250 mcg PO Q14D 09/08/20 11/08/20 History Mcg = 17160 Iu)] Melatonin 5 mg PO HS 09/08/20 11/08/20 History Tamsulosin [Flomax] 0.8 mg PO HS #30 cap.er.24h 09/11/20 11/08/20 Rx Furosemide [Lasix] 20 mg PO DAILY 11/08/20 11/08/20 History Potassium Chloride ER [K-Dur 10] 10 meq PO DAILY 11/08/20 11/08/20 History Allergies Allergy/AdvReac Type Severity Reaction Status Date / Time No Known Allergies Allergy Verified 11/08/20 09:34 Physical Examination Osteopathic Statement: *. No significant issues noted on an osteopathic structural exam other than those noted in the History and Physical/Consult. - L Spine: dermatomal strength & reflexes bilateral Strength: hip flexion: 5/5 (His back is nontender to palpation. He has some mild paravertebral spasm but he needs adequately. He has no tenderness to percussion. His lower extremities have good strength with hip flexion the extension dorsal flexion plantarflexion. He has significant swelling of the bilateral lower extremit) Strength: hip extension: 5/5 (He has chronic swelling in his bilateral lower extremity is with skin changes from chronic vascular insufficiency.) Results - Labs Labs: Abnormal Lab Results - Last 24 Hours (Table) 11/10/20 11/10/20 Range/Units 05:30 05:30 WBC 4.02 L (4.50-10.00) X 10*3/uL RBC 4.10 L (4.40-5.60) X 10*6/uL Hct 39.0 L (39.6-50.0) % Plt Count 98 L (140-440) X 10*3/uL Potassium 3.2 L (3.5-5.5) mmol/L Glucose 135 H (70-110) mg/dL Microbiology - Last 24 Hours (Table) 11/09/20 10:59 Blood Culture - Preliminary Blood No Growth after 24 hours H & H 11/07/20 11/09/20 11/10/20 Range/Units 23:30 04:36 05:30 Hgb 14.4 13.7 13.1 (13.0-17.5) gm/dL Hct 40.8 39.9 39.0 L (39.0-53.0) % Coagulation 11/07/20 Range/Units 23:30 INR 1.4 H (<1.2) Result Diagrams: 11/10/20 05:30 11/10/20 05:30 Assessment and Plan Assessment: Chronic low back pain without new acute change Lower extremity swelling without neurologic loss Plan: Chronic low back pain without new acute change Lower extremity swelling without neurologic loss The patient does not appear to have new changes lumbar spine. I discussed this with him and he has no interest in pursuing any new treatment for his low back. He has a chronic pain management physician and he will continue with them. He is not complaining of any new pain in his low back today and is not if she didn't further imaging in his low back area I think that is okay as he does not have any new or logic changes lower extremity is. His prior imaging from 2019 is reviewed and this shows some spondylosis and degenerative disc disease at L4 5 and L5-S1 with some chronic changes particularly at the lower lumbar spine. He has occasional flareups of his lower back which would be expected with given his degenerative change and should continue management conservative with his pain management physician. I do not have plans for further intervention or imaging for his lumbar spine at this point. He can follow-up on an as-needed basis.
[2020-11-11 10:23] LABS: African American GFR (CKD) 105.6 (60.0-200.0); Anion Gap 6.6 mmol/L (4.00-12.00); Calcium 9.4 mg/dL (8.7-10.3); Carbon Dioxide 29.4 mmol/L (21.6-31.8); Magnesium 1.5 mg/dL (1.5-2.4); Non-African American GFR(CKD) 91.1 (60.0-200.0); Potassium 3.5 mmol/L (3.5-5.5)
[2020-11-11] MEDS: HYDROcodone/APAP 10-325MG 1 EACH TAB PO PRN ×2 (10:34→19:44)
[2020-11-11] MEDS ORDERED: SENNOSIDES 8.6 MG TAB PO PRN (14:18)
[2020-11-11] MEDS ORDERED: POTASSIUM CHLORIDE ER 20 MEQ TAB.ER PO STA (14:55)
[2020-11-11] MEDS ORDERED: MAGNESIUM SULFATE-D5W PMX 1 GM in DEXTROSE/WATER 1 100ML.BAG IVPB ONE (14:55)
[2020-11-11] MEDS ORDERED: FUROSEMIDE 10 MG/ML 4 ML VIAL IV STA (14:58)
--- NOTE | 2020-11-11 15:04 | P.PN ---
Subjective This is a pleasant 70 years old -Gabones[place] male with alcohol abuse was admitted for bilateral leg weakness, generalized weakness bilateral leg swelling, his altered mental status on admission is improved currently, he drinks about 1 pint of liquor every day, however his CIWA score is 1 persistently. Patient denies chest pain or dyspnea, no GI or urinary symptoms. He denies fever. However he looks complaining of from weak lower extremities. Also complaining of from back pain and he follows up with pain clinic, and short of her recent worsening. Patient admits to occasional feeling sadness but he denies hopelessness/hopelessness, he denies overt signs symptoms of depression. He denies suicidal ideation. Vitals are stable. Platelets slightly low at 98, liver enzymes slightly elevated. Patient was on cefazolin, however because with no fever or leukocytosis were going to switch him to Keflex. Both legs look swollen, somewhat indurated and thick skin in the distal part of both legs symmetrically. They looked darker than the upper part however there is no warmth. Cardiology team evaluated the patient and the recommended continue current management. 11/11/2020 Patient still complaining of from significant feet pain especially on the left side, bilateral leg swelling and induration especially in the distal part. Most likely his symptoms are due to fluid overload and cellulitis, which changed his antibiotics from cefazolin to Unasyn, we sent culture from superficial wound in his right anterior leg. We gave 1 dose of IV Lasix 40 mg. Echocardiogram showed ejection fraction of 50-55% however patient alcoholic with t hrombocytopenia which might contribute to alcoholic liver disease and fluid overload blood secondary to his illness. Also we will put the patient on fluid restriction. Neurology consult for his bilateral leg weakness. Objective - Vital Signs Vital signs: Vital Signs Temp 97.8 F 11/11/20 14:55 Pulse 76 11/11/20 14:55 Resp 16 11/11/20 14:55 BP 124/72 11/11/20 14:55 Pulse Ox 98 11/11/20 14:55 Intake & Output 11/10/20 11/11/20 11/11/20 18:59 06:59 18:59 Intake Total 100 200 Output Total 1100 500 601 Balance -1000 -500 -401 Intake: IV 100 ceFAZolin 1,000 mg In 100 Sodium Chloride 0.9% 50 ml @ 100 mls/hr IVPB Q8HR [facility] Rx#:[id number] Oral 200 Output: Urine 1100 500 600 Stool 1 Other: Voiding Method Urinal Urinal Urinal Diaper Diaper Diaper Incontinent Incontinent Incontinent # Voids 2 1 1 - Exam GENERAL: The patient is alert and oriented x3, not in any acute distress. Well d eveloped, well nourished. HEENT: Pupils are round and equally reacting to light. EOMI. No scleral icterus. No conjunctival pallor. Normocephalic, atraumatic. No pharyngeal erythema. No thyromegaly. CARDIOVASCULAR: S1 and S2 present. No murmurs, rubs, or gallops. PULMONARY: Chest is clear to auscultation, no wheezing or crackles. ABDOMEN: Soft, nontender, nondistended, normoactive bowel sounds. No palpable organomegaly. MUSCULOSKELETAL: No joint swelling or deformity. EXTREMITIES: No cyanosis, clubbing, or pedal edema. -NEUROLOGICAL: Gross neurological examination did not reveal any focal deficits. Weakness in both legs SKIN: No rashes. no petechiae. 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 Bilateral leg swelling with negative DVT. Most likely secondary to cellulitis and possible fluid overload secondary to alcoholic liver disease Alcohol abuse with minimal alcohol withdrawal Possible bilateral leg cellulitis, mild chronic lower back pain Plan: This is a pleasant 70 years old male with bilateral leg cellulitis/weakness. He is alcoholic with mildly elevated liver enzymes. Continue with CIWA score and thiamine. Continue with antibiotics as well as to Unasyn. Cardiology team recommended medical management and outpatient follow-up. Follow-up neurology and infectious disease. Follow-up wound culture Labs and medication were reviewed.. Continue same treatment. Continue with symptomatic treatment. Resume home medication. Monitor lytes and vitals. DVT and GI prophylaxis. Further recommendationsas per clinical course of the patient DVT prophylaxis: Subcutaneous heparin GI Prophylaxis: Ppi PT/OT: Subacute rehab Prognosis is guarded
[2020-11-11] MEDS: TAMSULOSIN 0.4 MG CAP.ER.24H PO SCH (19:43)
[2020-11-11] MEDS: MELATONIN 5 MG TABLET PO SCH (19:43)
[2020-11-12] MEDS: HYDROcodone/APAP 10-325MG 1 EACH TAB PO PRN (01:48)
[2020-11-12 07:38] VITALS: RESP 16
[2020-11-12] MEDS: HEPARIN SODIUM,PORCINE/PF 5,000 UNIT/0.5 ML SYRINGE SQ SCH (07:48)
[2020-11-12] MEDS: POTASSIUM CHLORIDE ER 10 MEQ TAB.ER.PRT PO SCH (07:48)
[2020-11-12] MEDS: METOPROLOL TARTRATE 25 MG TAB PO SCH (07:48)
[2020-11-12] MEDS: AMPICILLIN-SULBACTAM 3 GM in SODIUM CHLORIDE 0.9% 100 ML IVPB SCH (07:48)
[2020-11-12] MEDS: metOLazone 2.5 MG TAB PO SCH (07:48)
[2020-11-12] MEDS: FUROSEMIDE 40 MG TAB PO SCH (07:49)
[2020-11-12] MEDS: THIAMINE 100 MG TAB PO SCH (07:49)
[2020-11-12] MEDS: PANTOPRAZOLE 40 MG TABLET PO SCH (07:49)
[2020-11-12] MEDS: ATORVASTATIN 40 MG TAB PO SCH (07:49)
[2020-11-12] MEDS: ASPIRIN 81 MG PO SCH (07:49)
[2020-11-12] MEDS: GABAPENTIN 300 MG CAP PO SCH (07:49)
--- NOTE | 2020-11-12 08:43 | US ---
EXAMINATION TYPE: US liver DATE OF EXAM: 11/12/2020 COMPARISON: CT03/07/2019 ultrasound abdomen 09/09/2020 CLINICAL HISTORY: possible cirrhosis. No pain. NPO. EXAM MEASUREMENTS: Liver Length: 16.0 cm Gallbladder Wall: 0.1 cm CBD: 1.6 cm Right Kidney: 10.9 x 4.9 x 4.3 cm Pancreas: Obscured by bowel gas Liver: Diffuse parenchymal heterogeneity. There is a echogenic structure suggestive of calcification within the right lobe liver measuring 1.6 cm. There is contour irregularity to the surface contour o f the liver which may represent an element of cirrhosis. A CT or MRI using liver protocol would be he lpful for further evaluation. There is mild central intrahepatic biliary dilatation. Gallbladder: The gallbladder appears mildly distended measuring up to 10.5 cm in length with a fold. Gallbladder wall measures 1.4 mm without thickening or pericholecystic fluid Evidence for sonographic Banks's sign: Negative CBD: Dilated, measuring up to 1.6 cm, which is enlarged. Limited due to overlying bowel gas Right Kidney: No hydronephrosis or masses seen IMPRESSION: 1. Contour irregularity and heterogeneity of the liver. Consider cirrhosis. A CT or MRI using liver p rotocol is recommended. 2. Mild central intrahepatic biliary dilatation as well as 1.6 cm dilated common duct. MRCP may be he lpful for further evaluation. Obstructing lesion or calculus is not excluded. 3. The gallbladder is mildly distended measuring up to 10.5 cm in length. 4. The pancreas is obscured by overlying bowel gas.
[2020-11-12] MEDS ORDERED: SPIRONOLACTONE 25 MG TAB PO STA (10:37)
[2020-11-12] MEDS ORDERED: FUROSEMIDE 10 MG/ML 4 ML VIAL IV SCH (10:45)
--- NOTE | 2020-11-12 10:47 | P.CNNES ---
History of Present Illness Consult date: 11/11/20 Requesting physician: Ronnie E Sheet Reason for Consult: Leg weakness, alcoholism History of Present Illness: Patient is a 70-year-old male came to the hospital by ambulance on 11/07/2020 came to the hospital for bilateral lower ex mainly redness and swelling, generalized weakness, constipation and alcohol intoxication. He has been feeling weak for the past few days. He denies any fever or chills. He was unable to get off the toilet. Patient states that he is living in a senior housing facility, and he believes that it isn't listed by bed bugs. He points to the blisters on his legs and believes it from the bed bugs. He is noticing increasing swelling in the legs for last 20 half to 3 months. He also complains of weakness in the legs, complains of gout in the bottom of the feet. He feels better when he is sitting in the chair as compared to when he is laying in the bed. Patient does have history of chronic low back pain. It is mainly localized, severe for which he see in follow-up with the pain management. It hurts and it has compromise his walking ability. He has been suffering from the back pain for last 20 years. He was recommended surgery but he has declined, as his 10 years younger brother had a back surgery and he cannot walk after the surgery, very painful and is worse than how he is. Patient states that if he is not taking medication the low back pain is > 10. However with medication it is down to 6-7/10. The low back pain sometimes radiates to the right knee and the calf but does not remember if it goes down to the foot. He has urgency of urination, but also attributes to prostate issues for which he takes tamsulosin. He admits to having some numbness in the left lateral side of the leg but is intermittent. CT head negative, chest x-ray showed mild pulmonary fibrosis. No heart failure. KUB negative. CTA of the chest negative for pulmonary embolism. 2-D echo showed normal left-ventricular size. Borderline concentric LVH. EF is 50-55%. Basal inferior septal LV wall motion is hypokinetic. Aortic valve is trileaflet and is mildly thickened. Mild mitral annular calcification. EKG shows normal sinus rhythm, possible left atrial enlargement. Venous Doppler no acute bilateral lower ex symmetry DVT. Patient's initial CBC was normal, PTT 30.2, INR 1.4, electrolytes normal, renal functions normal. AST 302, ALT 143. Troponin negative. TSH normal UA negative, blood alcohol level was 197. Meléndez virus PCR negative. Urine drug screen was positive for opiate and benzodiazepine. Rheumatoid factor negative, SILAS negative. Immune fixation revealed difficult to exclude from artifact a Triplett paraprotein in the gamma region. Patient's blood test with WBC 4.0, hemoglobin 13.1, platelets 98. B12 1505, methylmalonic acid 0.18, folate is borderline 7.2. RBC folate normal. TSH normal. Patient had an MRI of lumbar spine on 08/07/2014 which revealed fairly marked multilevel central canal stenosis with multilevel lateral recess and foraminal stenosis. On my review, there is severe spinal stenosis at L3 4 and L4 5 and mo derate at L2-3 levels. Patient has history of diabetes since 2010. He has smoked more than one pack per day since out of long-term in 2013. He has been smoking since age 15 years of age. He was in long-term for 8 months. He has done cocaine, heroine since 89, quit in 2013. Patient also has history of hepatitis C, for which she was treated with Harvoni. Review of Systems As mentioned above in detail in HPI. All other review of systems noncontributory. Past Medical History Past Medical History: Heart Failure, Diabetes Mellitus, Hyperlipidemia, Hypertension, Liver Disease Additional Past Medical History / Comment(s): Chronic low back pain, history of alcohol abuse, hep C History of Any Multi-Drug Resistant Organisms: None Reported Past Surgical History: Coronary Bypass/CABG Additional Past Surgical History / Comment(s): cyst removed under arm, Past Anesthesia/Blood Transfusion Reactions: No Reported Reaction Past Psychological History: No Psychological Hx Reported Smoking Status: Current every day smoker Past Alcohol Use History: Daily, Heavy Past Drug Use History: Heroin, IV Drug Use - Past Family History Father Additional Family Medical History / Comment(s): sclorosis Medications and Allergies Home Medications Medication Instructions Recorded Confirmed Type Gabapentin [Neurontin] 300 mg PO BID 03/21/18 11/08/20 History HYDROcodone/APAP 10-325MG [[place] 1 tab PO Q6H PRN 05/23/18 11/08/20 History 10-325] Ergocalciferol [Vitamin D2 (1250 1,250 mcg PO Q14D 09/08/20 11/08/20 History Mcg = 47213 Iu)] Melatonin 5 mg PO HS 09/08/20 11/08/20 History Tamsulosin [Flomax] 0.8 mg PO HS #30 cap.er.24h 09/11/20 11/08/20 Rx Furosemide [Lasix] 20 mg PO DAILY 11/08/20 11/08/20 History Potassium Chloride ER [K-Dur 10] 10 meq PO DAILY 11/08/20 11/08/20 History Allergies Allergy/AdvReac Type Severity Reaction Status Date / Time No Known Allergies Allergy Verified 11/08/20 09:34 Physical Examination - Vital Signs Vital Signs: Vital Signs Temp Pulse Resp BP Pulse Ox 11/11/20 08:00 76 16 11/11/20 07:00 97.8 F 76 16 124/72 11/11/20 02:00 98.3 F 66 17 109/67 98 11/10/20 20:00 97.8 F 71 17 157/52 98 11/10/20 15:00 98.1 F 63 18 115/82 98 11/10/20 14:00 18 Intake and Output 11/10/20 11/11/20 11/11/20 22:59 06:59 14:59 Intake Total 100 Output Total 600 100 601 Balance -500 -100 -601 Intake: IV 100 ceFAZolin 1,000 mg In 100 Sodium Chloride 0.9% 50 ml @ 100 mls/hr IVPB Q8HR [facility] Rx#:[id number] Output: Urine 600 100 600 Stool 1 Other: Voiding Method Urinal Urinal Diaper Diaper Incontinent Incontinent # Voids 2 1 1 Patient is an elderly Afro-[place] male, very pleasant, in no acute distress. Patient is alert awake oriented to time place and person. Speech and language functions are normal. Attention, concentration and fund of knowledge is adequate. On cranial examination, pupils are equal, round and reacting to light, visual mckinley are full on confrontation, extraocular muscles are intact with no nystagmus. Face is symmetric, tongue protrudes to the midline. Palatal elevation and sensation normal, hearing and shoulder shrug normal, facial sensation normal. Shoulder shrug normal. On muscle strength testing, the strength is normal in both upper limbs. In the lower limbs hip flexion is 5, hip adduction 5, hip abduction 4+, knee extension 5, ankle dorsiflexion 4. There is no pronator drift. Deep tendon reflexes are 2+ to 3 in the upper extremities, 3 at both knees, 0 ankles and plantar is up on the right, flat on the left. Sensory to touch is equal with no neglect. Cerebellar function showed ataxia for [id number] testing bilaterally, left more than right. No dysdiadochokinesia. [id number] cannot be tested because of edema. Tone and bulk of muscles normal. Gait deferred. On general examination, there is no carotid bruit or murmur, S1-S2 audible. Abdomen is soft nontender. Chest is clear. Peripheral pulses are not palpable due to edema. Patient has at least moderate peripheral edema bilaterally. He has chronic skin changes with some blisters in the distal lower extremities. Results - Laboratory Findings CBC and BMP: 11/10/20 05:30 11/11/20 05:44 Abnormal Lab Findings: Abnormal Labs 11/07/20 11/07/20 11/07/20 23:30 23:30 23:30 WBC RBC Hct MCH Plt Count 115 L PT 13.8 H INR 1.4 H APTT 30.2 H D-Dimer Sodium Potassium Chloride Carbon Dioxide BUN Creatinine 0.59 L Glucose 136 H Plasma Lactic Acid Earl Calcium AST 302 H ALT 143 H Alkaline Phosphatase 146 H Ur Specific [place] Urine Protein Urine Ketones Urine Bilirubin Urine Mucus Urine Opiates Screen U Benzodiazepines Scrn 11/07/20 11/08/20 11/08/20 23:30 01:54 02:47 WBC RBC Hct MCH Plt Count PT INR APTT D-Dimer Sodium Potassium Chloride Carbon Dioxide BUN Creatinine Glucose Plasma Lactic Acid Earl 3.8 H* 2.9 H* Calcium AST ALT Alkaline Phosphatase Ur Specific [place] Urine Protein 1+ H Urine Ketones Trace H Urine Bilirubin 1+ H Urine Mucus Rare H Urine Opiates Screen U Benzodiazepines Scrn 11/08/20 11/08/20 11/08/20 05:56 09:50 12:40 WBC RBC Hct MCH Plt Count PT INR APTT D-Dimer Sodium Potassium Chloride Carbon Dioxide BUN Creatinine Glucose Plasma Lactic Acid Earl 3.1 H* 3.6 H* 2.8 H* Calcium AST ALT Alkaline Phosphatase Ur Specific [place] Urine Protein Urine Ketones Urine Bilirubin Urine Mucus Urine Opiates Screen U Benzodiazepines Scrn 0511/08/20 11/08/20 14:01 14:53 15:44 WBC RBC Hct MCH Plt Count PT INR APTT D-Dimer 1.79 H Sodium 146 H Potassium Chloride 89 L Carbon Dioxide 17 L BUN 7 L Creatinine 0.38 L 0.53 L Glucose 112 H 154 H Plasma Lactic Acid Earl Calcium 5.2 L* AST 263 H ALT 113 H Alkaline Phosphatase Ur Specific [place] Urine Protein Urine Ketones Urine Bilirubin Urine Mucus Urine Opiates Screen U Benzodiazepines Scrn 11/09/20 11/09/20 11/10/20 03:45 04:36 05:30 WBC 4.02 L RBC 4.20 L 4.10 L Hct 39.0 L MCH 32.6 H Plt Count 104 L 98 L PT INR APTT D-Dimer Sodium Potassium Chloride Carbon Dioxide BUN Creatinine Glucose Plasma Lactic Acid Earl Calcium AST ALT Alkaline Phosphatase Ur Specific [place] 1.046 H Urine Protein Urine Ketones Urine Bilirubin Urine Mucus Urine Opiates Screen Detected H U Benzodiazepines Scrn Detected H 11/10/20 11/11/20 05:30 05:44 WBC RBC Hct MCH Plt Count PT INR APTT D-Dimer Sodium Potassium 3.2 L Chloride Carbon Dioxide BUN Creatinine Glucose 135 H 174 H Plasma Lactic Acid Earl Calcium AST ALT Alkaline Phosphatase Ur Specific [place] Urine Protein Urine Ketones Urine Bilirubin Urine Mucus Urine Opiates Screen U Benzodiazepines Scrn Assessment and Plan Assessment: * Chronic back pain, severe, with evidence of severe spinal stenosis particularly at L3-4 and L4-5 levels, with moderate stenosis at L2-3 (as per MRI from 08/07/2014). Patient has declined lumbar surgery in the past. * Severe peripheral edema, with secondary skin changes in the lower legs, possible cellulitis * Diabetes * Alcoholism * History of substance use * Tobacco use * History of hepatitis C treated with Harvoni. Plan: * Patient has chronic low back pain, with some radicular symptoms intermittently to the right leg. Patient's previous MRI of the lumbar spine from 08/07/2014 revealed severe spinal stenosis at multiple levels. Over time I suspect it may have further progressed. Patient is however completely declining any surgery at this time. He follows up with the pain specialist. Orthopedic spi ne also has seen the patient, input appreciated. * Suggest continued medical management as per patient request. Patient follows up with pain management. * Patient's B12 is 530, methylmalonic acid 0.18, folate is slightly low 7.2 Will start replacement. TSH normal. Hemoglobin A1c is normal 5.0. * Immunofixation electrophoresis revealed difficult to exclude from artifact a Triplett Paraprotein in the gamma region. Suggest hematology consultation to rule out paraproteinemia, if not performed in the recent past (or outpatient). * Patient is currently on gabapentin 300 mg twice a day. We further increase the dose as tolerated. Alternatively Lyrica could also be considered although slight risk of peripheral edema from Lyrica as well. * Please feel free to contact neurology if any other further concerns.
[2020-11-12] MEDS: NICOTINE 14MG/24HR PATCH TRANSDERM SCH (11:13)
[2020-11-12] MEDS: IBUPROFEN 400 MG TAB PO PRN (11:19)
--- NOTE | 2020-11-12 15:09 | P.DS ---
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 Bilateral leg swelling with negative DVT. Most likely secondary to cellulitis and possible fluid overload secondary to alcoholic liver disease Alcohol abuse with minimal alcohol withdrawal Possible bilateral leg cellulitis, mild chronic lower back pain Discharge disposition Patient is being discharged in a stable condition with guarded prognosis to [facility]. Patient will follow-up with Dr. Hill in the outpatient setting upon discharge. Patient is to also follow-up with GI and pain management outpatient as scheduled. Total time taken is greater than 35 minutes. Hospital course This is a pleasant 70 years old -[place]yp[place] male with alcohol abuse was admitted for bilateral leg weakness, generalized weakness bilateral leg swelling, his altered mental status on admission is improved currently, he drinks about 1 pint of liquor every day, however his CIWA score is 1 persistently. Patient denies chest pain or dyspnea, no GI or urinary symptoms. He denies fever. However he looks complaining of from weak lower extremities. Also complaining of from back pain and he follows up with pain clinic, and short of her recent worsening. Patient admits to occasional feeling sadness but he denies hopelessness/hopelessness, he denies overt signs symptoms of depression. He denies suicidal ideation. Vitals are stable. Platelets slightly low at 98, liver enzymes slightly elevated. Patient was on cefazolin, however because with no fever or leukocytosis were going to switch him to Keflex. Both legs look swollen, somewhat indurated and thick skin in the distal part of both legs symmetrically. They looked darker than the upper part however there is no warmth. Cardiology team evaluated the patient and the recommended continue current management. 11/11/2020 Patient still complaining of from significant feet pain especially on the left side, bilateral leg swelling and induration especially in the distal part. Most likely his symptoms are due to fluid overload and cellulitis, which changed his antibiotics from cefazolin to Unasyn, we sent culture from superficial wound in his right anterior leg. We gave 1 dose of IV Lasix 40 mg. Echocardiogram showed ejection fraction of 50-55% however patient alcoholic with thrombocytop enia which might contribute to alcoholic liver disease and fluid overload blood secondary to his illness. Also we will put the patient on fluid restriction. Neurology consult for his bilateral leg weakness. 11/12/2020 Patient was seen and evaluated and follow-up and was being followed by multiple medical consultations. Infectious disease recommending no further antibiotics on discharge. Patient also to follow-up with Dr. Beth along with orthopedics outpatient. Patient did have an ultrasound of the liver during hospitalization and recommending CT/MRI of the liver and will follow-up closely with GI in the outpatient setting along with primary care provider to have further testing done. Patient's Lasix was increased to 40 mg twice daily and Aldactone added and recommending close monitoring and repeat electrolytes every 2-3 days while on diuretics. Currently no reports of chest pain, shortness of breath, or palpitations. Patient is afebrile. No reports of nausea or vomiting and pat ient is tolerating diet. Patient will be going to [facility] on the [place] today On exam vital signs are stable. Cardio S1, S2 are muffled. Respiratory system shows diminished breath sounds at the bases with no wheezing or rhonchi noted. Abdomen is soft and obese, and nontender. Nervous system shows diffuse weakness. Please refer to medication reconciliation sheet for a list of medications. Patient Condition at Discharge: Stable Plan - Discharge Summary Discharge Rx Participant: No New Discharge Prescriptions: New Atorvastatin [Lipitor] 40 mg PO DAILY tab Metoprolol Tartrate [Lopressor] 25 mg PO DAILY tab Ibuprofen [Motrin] 400 mg PO TID PRN 3 Days tab PRN Reason: pain Sennosides [Senokot] 8.6 mg PO BID PRN tab PRN Reason: Constipation Thiamine [Vitamin B-1] 100 mg PO BID-W/MEALS tab Spironolactone [Aldactone] 25 mg PO DAILY #30 tablet Aspirin 81 mg PO DAILY chew Nicotine 14Mg/24Hr Patch [Habitrol] 1 patch TRANSDERM DAILY patch Heparin Sodium,Porcine [Heparin Sodium] 5,000 unit SQ Q12HR #1 vial Furosemide [Lasix] 40 mg PO BID #60 tablet Continue Ergocalciferol [Vitamin D2 (1250 Mcg = 99112 Iu)] 1,250 mcg PO Q14D Melatonin 5 mg PO HS Tamsulosin [Flomax] 0.8 mg PO HS #30 cap.er.24h Potassium Chloride ER [K-Dur 10] 10 meq PO DAILY Changed Gabapentin [Neurontin] 300 mg PO TID #0 HYDROcodone/APAP 10-325MG [[place] 10-325] 1 tab PO Q8H PRN 2 Days #6 PRN Reason: Pain Discontinued Furosemide [Lasix] 20 mg PO DAILY Discharge Medication List Ergocalciferol [Vitamin D2 (1250 Mcg = 13511 Iu)] 1,250 mcg PO Q14D 09/08/20 [History] Melatonin 5 mg PO HS 09/08/20 [History] Tamsulosin [Flomax] 0.8 mg PO HS #30 cap.er.24h 09/11/20 [Rx] Potassium Chloride ER [K-Dur 10] 10 meq PO DAILY 11/08/20 [History] Aspirin 81 mg PO DAILY chew 11/12/20 [Rx] Atorvastatin [Lipitor] 40 mg PO DAILY tab 11/12/20 [Rx] Furosemide [Lasix] 40 mg PO BID #60 tablet 11/12/20 [Rx] Gabapentin [Neurontin] 300 mg PO TID #0 11/12/20 [Rx] HYDROcodone/APAP 10-325MG [Par[place]ise 10-325] 1 tab PO Q8H PRN 2 Days #6 11/12/20 [Rx] Heparin Sodium,Porcine [Heparin Sodium] 5,000 unit SQ Q12HR #1 vial 11/12/20 [Rx] Ibuprofen [Motrin] 400 mg PO TID PRN 3 Days tab 11/12/20 [Rx] Metoprolol Tartrate [Lopressor] 25 mg PO DAILY tab 11/12/20 [Rx] Nicotine 14Mg/24Hr Patch [Habitrol] 1 patch TRANSDERM DAILY patch 11/12/20 [Rx] Sennosides [Senokot] 8.6 mg PO BID PRN tab 11/12/20 [Rx] Spironolactone [Aldactone] 25 mg PO DAILY #30 tablet 11/12/20 [Rx] Thiamine [Vitamin B-1] 100 mg PO BID-W/MEALS tab 11/12/20 [Rx] Follow up Appointment(s)/Referral(s): Royce Laguerre MD [STAFF PHYSICIAN] - 3 Weeks (to rule out paraproteinemia) Piyush Short MD [STAFF PHYSICIAN] - 2 Weeks Eliana Gonzalez MD [STAFF PHYSICIAN] - 11/18/20 2:45 pm (Liver cirrhosis, we recommend MRI/CAT scan with liver protocol as an outpatient) Simran Hill MD [Primary Care Provider] - 11/24/20 11:00 am Activity/Diet/Wound Care/Special Instructions: Patient needs appointments made with GI prior to discharge Patient is going to [facility] Activity as tolerated Continue current diet Will need outpatient follow-up of CT/MRI of the liver along with close follow-up with GI and primary care provider Please continue to monitor electrolytes closely every 2-3 days while on diuretics Recommended BMP every 2-3 days Patient will also follow-up with Dr. Beth outpatient Discharge Disposition: TRANSFER TO SNF/ECF <Asha,Ronnie E - Last Filed: 11/13/20 00:43> Providers Date of admission: 11/09/20 10:13 Attending physician: Raciel Genao Consults: 11/08/20 13:53 Consult Physician Routine Consulting Provider: Elena Plunkett Consult Reason/Comments: chf Do you want consulting provider notified?: Yes 11/10/20 13:24 Consult Physician Urgent Consulting Provider: Jalyn Frankel Consult Reason/Comments: back pain, leg pain Do you want consulting provider notified?: Yes 11/10/20 18:55 Consult Physician Routine Consulting Provider: Carloz Arguello Consult Reason/Comments: leg weaknessin alcoholic pt Do you want consulting provider notified?: Yes 11/11/20 10:29 Consult Physician Urgent Consulting Provider: Jeyson Coulter Consult Reason/Comments: b/l leg cellulitis Do you want consulting provider notified?: Yes Primary care physician: Simran Hill [facility] Course: I have discussed the plan and I have reviewed the notes with BISI Blackwell and I agree with it except was mentioned below Patient is seen and examined by me at bedside Patient was admitted initially for bilateral lower extremity cellulitis, however his symptoms does not improve with antibiotic and upon consulted infectious disease, antibiotics can be safely discontinued Because cellulitis has been efficiently treated or patient did not have cellulitis. When examined the patient he has no acute tenderness, warmth, redness however his legs are significantly swollen and indurated and he has chronic feet pain and numbness secondary to alcoholic neuropathy and gabapentin was increased for him. After starting IV diuretics his leg swelling started coming down with induration improving, his Lasix increased from 20 mg by mouth d aily up to 40 mg by mouth twice daily and Aldactone was added as well as fluid restriction 4032-5810 mL per day, patient informed and agrees. Also recommended to check BMP every 2-3 days while on diuretics. Doppler ultrasound showing nodularity suspicious for cirrhosis however computed tomography scan and MRI of the liver protocol is recommended, patient was referred for GI and PCP close follow-up as an outpatient, appointments were made for the patient with GI, Dr. Gonzalez on 11/[address] jha on 11/24 and patient agrees. Also I called Dr. jha and I discussed the case with her included the flaquita mmendation to do CT/MRI liver protocol as an outpatient and she kindly took note of these. Patient is aware for the need to do further imaging of the liver with CT/MRI. Minimal alcohol withdrawal upon discharge, CIWA score is 1 Problems and management plan were discussed with the patient and he verbalized understanding and acceptance Time spent more than 35 minutes
[2020-11-12 15:12] VITALS: BP 125/74; PULSE 68; TEMP 97.6
--- NOTE | 2020-11-12 15:42 | P.PN ---
Subjective Progress Note Date: 11/12/20 Patient offers no new complaints. Patient states both feet hurt bad. He rates 02/02. He also has low back pain but states is used to that, 12/03 now. Objective - Vital Signs Vital signs: Vital Signs Temp 97.6 F 11/12/20 15:00 Pulse 68 11/12/20 15:00 Resp 16 11/12/20 15:00 BP 125/74 11/12/20 15:00 Pulse Ox 97 11/12/20 15:00 Intake & Output 11/11/20 11/12/20 11/12/20 18:59 06:59 18:59 Intake Total 500 918 Output Total 6276 082 4793 Balance -1101 -825 -507 Intake: Oral 500 918 Output: Urine 8945 029 8100 Stool 1 Other: Voiding Method Urinal Urinal Urinal Diaper Diaper Diaper Incontinent # Voids 1 - Exam Patient's mental status, speech and language functions are normal. Cranial nerves are normal. - Labs CBC & Chem 7: 11/10/20 05:30 11/11/20 05:44 Labs: Microbiology - Last 24 Hours (Table) 11/09/20 10:59 Blood Culture - Preliminary Blood No Growth after 72 hours 11/11/20 11:16 Gram Stain - Preliminary Leg - Right Wound Culture - Preliminary 11/11/20 11:16 Anaerobic Culture - Preliminary Leg - Right Assessment and Plan Assessment: * Chronic back pain, severe, with evidence of severe spinal stenosis particularly at L3-4 and L4-5 levels, with moderate stenosis at L2-3 (as per MRI from 08/07/2014). Patient has declined lumbar surgery in the past. * Severe peripheral edema, with secondary skin changes in the lower legs, possible cellulitis * Diabetes * Alcoholism * History of substance use * Tobacco use * History of hepatitis C treated with Harvoni. Plan: * Patient has chronic low back pain, with some radicular symptoms intermittently to the right leg. Patient's previous MRI of the lumbar spine from 08/07/2014 revealed severe spinal stenosis at multiple levels. Over time I suspect it may have further progressed. Patient is however completely declining any surgery at this time. He follows up with the pain specialist. Orthopedic spine also has seen the patient, input appreciated. * Suggest continued medical management as per patient request. Patient follows up with pain management. * Patient's B12 is 530, methylmalonic acid 0.18, folate is slightly low 7.2 Will start replacement. TSH normal. Hemoglobin A1c is normal 5.0. * Immunofixation electrophoresis revealed difficult to exclude from artifact a [place] Paraprotein in the gamma region. Suggest hematology consultation to rule out paraproteinemia, if not performed in the recent past (or outpatient). * Patient is currently on gabapentin 300 mg twice a day. We further increase gabapentin to 300 mg 3 times a day. May further increase the dose as tolerated. Alternatively Lyrica could also be considered although slight risk of peripheral edema from Lyrica as well. * Please feel free to contact neurology if any other further concerns.
[2020-11-12] MEDS ORDERED: FOLIC ACID 1 MG TAB PO SCH (15:45)
[2020-11-12] MEDS ORDERED: GABAPENTIN 300 MG CAP PO SCH (16:00)
--- NOTE | 2020-11-12 20:40 | CONS ---
CONSULTATION DATE OF SERVICE: 11/12/2020 REASON FOR CONSULTATION: Bilateral lower extremity swelling and a question of cellulitis. HISTORY OF PRESENT ILLNESS: The patient is a 70-year-old -[place]og[place] male presenting to the ER at [facility] about 5 days ago on November 07. This patient did have symptoms of bilateral lower extremity redness and swelling, generalized weakness, constipation and alcohol intoxication. The patient has been complaining of significant swelling to the lower extremities. The patient was complaining of feeling weak, unable to get off the toilet today. He noticed having significant pain when he was having a bowel movement, and the patient did have hard stools and noticed some blood on the toilet paper. With these symptoms, the patient was evaluated by the ER physician. On arrival in the ER, the patient was afebrile, and no fever has been recorded during this hospital stay. The patient did have a normal white count. His hemoglobin has been stable. Creatinine was normal. Procalcitonin is 0.16. The patient did have a CT angiogram of the chest that was negative for PE but did show pulmonary emphysema and peribronchial thickening consistent with bronchitis. No suspicious pulmonary mass. The patient has been treated with Unasyn that was started yesterday. With concern for possible lower extremity cellulitis, Infectious Disease was consulted for further management of antibiotic therapy. Patient has been on Lasix for his underlying congestive heart failure, managed by cardiology team. REVIEW OF SYSTEMS: Positive points have been mentioned in the HPI. Rest of the systems are negative. PAST MEDICAL HISTORY: Heart failure, diabetes mellitus, hypertension, hyperlipidemia, chronic hepatitis C. PAST SURGICAL HISTORY: Coronary artery bypass grafting. SOCIAL HISTORY: Current everyday smoker. Did have heavy drinking. Did have a history of IV drug use. FAMILY HISTORY: Father with history of sclerosis. ALLERGIES: NO KNOWN DRUG ALLERGIES. MEDICATIONS: The patient is currently on Restoril, Flomax, Senokot, K-Dur, Protonix, nicotine patch, Narcan, Lopressor, Zaroxolyn, Ativan, heparin subcutaneously, Lasix, Lipitor, aspirin, Unasyn and [place]. PHYSICAL EXAMINATION: Blood pressure 120/77 with a pulse of 76, temperature 98. He is 98% on room air. General description is an elderly male up in the chair in no distress. No tachypnea or accessory muscle of respiration use. HEENT: Examination shows no pallor or scleral icterus. Oral mucous membrane is dry. NECK: Trachea is central. No thyromegaly. LUNGS: Unlabored breathing. Decreased intensity of breath sounds. No wheeze. HEART: S1, S2. Regular rate and rhythm. ABDOMEN: Soft. No tenderness. EXTREMITIES: Diffuse swelling in bilateral lower extremities. There is no warmth. No significant ulceration or abscess formation. No redness or any drainage. Neurologically the patient is awake, alert, oriented x3. Mood and affect normal. LABS: Hemoglobin 13.1, white count 4.02. BUN of 12, creatinine 0.8. Electrolytes have been normal. DIAGNOSTIC IMPRESSION AND PLAN: Patient with bilateral lower extremity swelling in this patient who does have a history of chronic hepatitis C, also with history of congestive heart failure, likely secondary to fluid overload. The patient clinically is not behaving as cellulitis, with no fever or elevated white count, and there was no evidence of any redness to the legs. PLAN: 1. Antibiotic can be safely discontinued. 2. Continue with diuretics. Patient may benefit from Espinoza wrap to the legs from below the knees. 3. Will follow clinical condition and adjust medication further if needed. Thank you for this consultation. Will follow this patient along with you. MMODL / IJN: [id number] /
== END 2020-11-12 16:21 | DRG 602 ==
LOC: EC 22:08 → 6NMEDSUR 11-08 00:54 → OBSVTOIN 11-09 10:13
PROVIDERS: ADMIT Hospitalist; ATTEND Hospitalist
DX: L03.116 Cellulitis of left lower limb (principal); G93.41 Metabolic encephalopathy; F10.221 Alcohol dependence with intoxication delirium; F10.231 Alcohol dependence with withdrawal delirium; E87.2 Acidosis; I50.22 Chronic systolic (congestive) heart failure; D69.6 Thrombocytopenia, unspecified; R62.7 Adult failure to thrive; G62.1 Alcoholic polyneuropathy; E11.51 Type 2 diabetes mellitus with diabetic peripheral angiopathy without gangrene; I11.0 Hypertensive heart disease with heart failure; K74.60 Unspecified cirrhosis of liver; L03.115 Cellulitis of right lower limb; J43.9 Emphysema, unspecified; B18.2 Chronic viral hepatitis C; Z20.822 Contact with and (suspected) exposure to COVID-19; K70.10 Alcoholic hepatitis without ascites; I25.10 Atherosclerotic heart disease of native coronary artery without angina pectoris; E78.5 Hyperlipidemia, unspecified; M48.061 Spinal stenosis, lumbar region without neurogenic claudication; M10.9 Gout, unspecified; G89.29 Other chronic pain; K59.00 Constipation, unspecified; Y90.6 Blood alcohol level of 120-199 mg/100 ml; T50.1X6A Underdosing of loop [high-ceiling] diuretics, initial encounter; R32 Unspecified urinary incontinence; F17.210 Nicotine dependence, cigarettes, uncomplicated; Z71.6 Tobacco abuse counseling; E66.9 Obesity, unspecified; Z68.32 Body mass index [BMI] 32.0-32.9, adult; Z79.84 Long term (current) use of oral hypoglycemic drugs; Z79.899 Other long term (current) drug therapy; Z95.1 Presence of aortocoronary bypass graft; Z87.2 Personal history of diseases of the skin and subcutaneous tissue; Z98.890 Other specified postprocedural states
CPT/HCPCS: 36415; 70450; 71046; 71275; 74018; 76705; 80048; 80053; 80306; 80320; 81001; 81003; 82607; 83036; 83605; 83735; 83880; 84145; 84443; 84484; 85025; 85379; 85610; 85730; 86140; 87040; 87070; 87075; 87077; 87186; 87205; 87635; 93005; 93306; 93970; 94760; 99285

== ENCOUNTER 2020-12-30 10:33 | Inpatient (IN) | payer MEDICARE, OTHER ==
[2020-12-30] MEDS ORDERED: SODIUM CHLORIDE 0.9% 500 ML 500 ML IV STA (10:56)
--- NOTE | 2020-12-30 11:14 | ED ---
Weakness HPI <Gurdeep Cruz - Last Filed: 12/30/20 13:04> - General Source: patient, EMS Mode of arrival: EMS Limitations: no limitations <Rachel Bahena - Last Filed: 12/30/20 13:31> - General Chief complaint: Weakness Stated complaint: Weakness Time Seen by Provider: 12/30/20 10:36 - History of Present Illness Initial comments: Patient is a 70-year-old male with history of heart failure, hypertension, diabetes, alcohol abuse, presenting to the emergency department via EMS with increased weakness over the last 1-2 weeks. Per EMS, he lives with his brothers who normally help him get around the house. His brother has been gone over the past weeks patient has been laying in bed most the time, not eating or drinking. He is an alcohol abuser, he has been drinking a lot eaten every day including today. He states he's also been using cocaine, last use was yesterday. He states he can't even get up to walk anymore today. Other than feeling extreme weakness, he has no complaints of pain, no chest pain or shortness of breath, no abdominal pain. He is having some soreness on his bottom secondary to be in bed all week. He denies any recent fever or chills. No recent falls. He has no further complaints at this time. Upon arrival to the ER, his vital signs are stable. (Rachel Bahena) - Related Data Previous Rx's Medication Instructions Recorded Tamsulosin [Flomax] 0.8 mg PO HS #30 cap.er.24h 09/11/20 Aspirin 81 mg PO DAILY chew 11/12/20 Gabapentin [Neurontin] 300 mg PO TID #0 11/12/20 HYDROcodone/APAP 10-325MG [[place] 1 tab PO Q8H PRN 2 Days #6 11/12/20 10-325] Allergies Allergy/AdvReac Type Severity Reaction Status Date / Time No Known Allergies Allergy Verified 12/30/20 12:25 Review of Systems ROS Other: All systems not noted in ROS Statement are negative. <Gurdeep Cruz - Last Filed: 12/30/20 13:04> ROS Other: All systems not noted in ROS Statement are negative. <Rachel Bahena - Last Filed: 12/30/20 13:31> ROS Statement: Those systems with pertinent positive or pertinent negative responses have been documented in the HPI. Past Medical History Past Medical History: Heart Failure, Diabetes Mellitus, Hyperlipidemia, Hypertension, Liver Disease Additional Past Medical History / Comment(s): Chronic low back pain, history of alcohol abuse, hep C History of Any Multi-Drug Resistant Organisms: None Reported Past Surgical History: Coronary Bypass/CABG Additional Past Surgical History / Comment(s): cyst removed under arm, Past Anesthesia/Blood Transfusion Reactions: No Reported Reaction Past Psychological History: No Psychological Hx Reported Smoking Status: Current every day smoker Past Alcohol Use History: Daily, Heavy Past Drug Use History: Cocaine, Heroin, IV Drug Use - Past Family History Father Additional Family Medical History / Comment(s): sclorosis <Rachel Bahena - Last Filed: 12/30/20 13:31> General Exam Limitations: no limitations <Rachel Bahena - Last Filed: 12/30/20 13:31> - General Exam Comments Initial Comments: GENERAL: Patient is nontoxic and in no acute distress, smells of alcohol. HEAD: Atraumatic, normocephalic. There are no hematoma. EYES: Pupils equal round and reactive to light, extraocular movements intact, sclera anicteric, conjunctiva are normal. Eyelids were unremarkable. ENT: TMs normal, nares patent, oropharynx clear without exudates. Dry mucous membranes. NECK: Normal range of motion, supple without lymphadenopathy or JVD. LUNGS: Unlabored respirations. Breath sounds clear to auscultation bilaterally and equal. No wheezes rales or rhonchi. HEART: Regular rate and rhythm without murmurs, rubs or gallops. ABDOMEN: Soft, nontender, normoactive bowel sounds. No guarding, no rebound. No masses appreciated. : Deferred MUSCULOSKELETAL: Patient has normal range of motion of extremities however he is having a hard time lifting his legs off the bed bilaterally, secondary to weakness. No pitting or edema. No clubbing or cyanosis. NEUROLOGICAL: Patient is alert and oriented x 3. Motor and sensory are also intact. Cranial nerves II through XII grossly intact. Symmetrical smile. Normal speech. PSYCH: Normal mood, normal affect. SKIN: Warm, Dry, normal turgor. Patient has superficial decubitus ulcers on the buttocks, just breaking through the skin. (Rachel Bahena) Course <Gurdeep Cruz - Last Filed: 12/30/20 13:04> Vital Signs 12/30/20 10:47 Temperature 98.6 F Pulse Rate 93 Respiratory 18 Rate Blood Pressure 109/79 O2 Sat by Pulse 95 Oximetry - Reevaluation(s) Reevaluation #1: 12/30/20 13:04 ERMELINDA supervision: I personally evaluate this case patient does present with complaints of generalized weakness he has a history of alcoholism he is going to thrive. He does demonstrate poor decision-making capacity. He will be admitted for inpatient evaluation treatment I do agree with the assessment and plan. (AnthonyGurdeep) EKG Findings - EKG Comments: EKG Findings:: Normal sinus rhythm, possible left atrial Marge Mente, similar to previous EKG on 11/07/2020. No signs of acute ST segment elevation. Ventricular rate 91, NM interval 120, QTC 384. <Rachel Bahena - Last Filed: 12/30/20 13:31> Medical Decision Making - Lab Data Result diagrams: 12/30/20 11:32 12/30/20 11:32 <AnthonyGurdeep - Last Filed: 12/30/20 13:04> - Lab Data Result diagrams: 12/30/20 11:32 12/30/20 11:32 <Rachel Bahena - Last Filed: 12/30/20 13:31> - Medical Decision Making Patient is a 70-year-old male with history of alcohol abuse, hypertension, presenting via EMS for weakness over the past week. He has no specific complaints of pain just generalized weakness, can no longer ambulate. He does smell of alcohol today, admits to cocaine use yesterday. His vital signs are stable upon arrival, EKG shows no acute process. CBC is within normal limits, lactic acid is 3.6, kidney function is stable, slight elevation in liver enzymes, troponin 0.016, serum alcohol is 88 today. Urinalysis and urine drug screen are pending. Chest x-ray shows severe emphysematous changes, there may be superimposed infectious inflammatory process. Patient's vital signs remained stable here in the ER. He was given a total of 2 L of fluids here in the ER. Patient will be admitted for weakness, unable to ambulate, chronic alcohol abuse, bedsores. Patient accepted by Dr. quinteros, with consult to wound care and social work. Patient discussed with Dr. Cruz (Rachel Bahena) - Lab Data Lab Results 12/30/20 12/30/20 12/30/20 Range/Units 11:32 11:32 11:32 WBC 8.5 (3.8-10.6) k/uL RBC 5.09 (4.30-5.90) m/uL Hgb 15.8 (13.0-17.5) gm/dL Hct 46.1 (39.0-53.0) % MCV 90.5 (80.0-100.0) fL MCH 31.1 (25.0-35.0) pg MCHC 34.4 (31.0-37.0) g/dL RDW 15.3 (11.5-15.5) % Plt Count 168 (150-450) k/uL MPV 7.2 Neutrophils % 78 % Lymphocytes % 12 % Monocytes % 6 % Eosinophils % 1 % Basophils % 1 % Neutrophils # 6.6 (1.3-7.7) k/uL Lymphocytes # 1.0 (1.0-4.8) k/uL Monocytes # 0.5 (0-1.0) k/uL Eosinophils # 0.1 (0-0.7) k/uL Basophils # 0.1 (0-0.2) k/uL PT 11.0 (9.0-12.0) sec INR 1.0 (<1.2) APTT 22.7 (22.0-30.0) sec Sodium 143 (137-145) mmol/L Potassium 3.4 L (3.5-5.1) mmol/L Chloride 106 (98-107) mmol/L Carbon Dioxide 20 L (22-30) mmol/L Anion Gap 17 mmol/L BUN 16 (9-20) mg/dL Creatinine 0.69 (0.66-1.25) mg/dL Est GFR (CKD-EPI)AfAm >90 (>60 ml/min/1.73 sqM) Est GFR (CKD-EPI)NonAf >90 (>60 ml/min/1.73 sqM) Glucose 112 H (74-99) mg/dL Plasma Lactic Acid Earl (0.7-2.0) mmol/L Calcium 9.4 (8.4-10.2) mg/dL Phosphorus 3.8 (2.5-4.5) mg/dL Magnesium 1.7 (1.6-2.3) mg/dL Total Bilirubin 1.1 (0.2-1.3) mg/dL AST 132 H (17-59) U/L ALT 91 H (4-49) U/L Alkaline Phosphatase 113 (38-126) U/L Creatine Kinase 100 (55-170) U/L Troponin I (0.000-0.034) ng/mL NT-Pro-B Natriuret Pep pg/mL Total Protein 7.0 (6.3-8.2) g/dL Albumin 3.8 (3.5-5.0) g/dL Serum Alcohol 88 mg/dL 12/30/20 12/30/20 12/30/20 Range/Units 11:32 11:32 11:32 WBC (3.8-10.6) k/uL RBC (4.30-5.90) m/uL Hgb (13.0-17.5) gm/dL Hct (39.0-53.0) % MCV (80.0-100.0) fL MCH (25.0-35.0) pg MCHC (31.0-37.0) g/dL RDW (11.5-15.5) % Plt Count (150-450) k/uL MPV Neutrophils % % Lymphocytes % % Monocytes % % Eosinophils % % Basophils % % Neutrophils # (1.3-7.7) k/uL Lymphocytes # (1.0-4.8) k/uL Monocytes # (0-1.0) k/uL Eosinophils # (0-0.7) k/uL Basophils # (0-0.2) k/uL PT (9.0-12.0) sec INR (<1.2) APTT (22.0-30.0) sec Sodium (137-145) mmol/L Potassium (3.5-5.1) mmol/L Chloride (98-107) mmol/L Carbon Dioxide (22-30) mmol/L Anion Gap mmol/L BUN (9-20) mg/dL Creatinine (0.66-1.25) mg/dL Est GFR (CKD-EPI)AfAm (>60 ml/min/1.73 sqM) Est GFR (CKD-EPI)NonAf (>60 ml/min/1.73 sqM) Glucose (74-99) mg/dL Plasma Lactic Acid Earl 3.6 H* (0.7-2.0) mmol/L Calcium (8.4-10.2) mg/dL Phosphorus (2.5-4.5) mg/dL Magnesium (1.6-2.3) mg/dL Total Bilirubin (0.2-1.3) mg/dL AST (17-59) U/L ALT (4-49) U/L Alkaline Phosphatase (38-126) U/L Creatine Kinase (55-170) U/L Troponin I 0.016 (0.000-0.034) ng/mL NT-Pro-B Natriuret Pep 67 pg/mL Total Protein (6.3-8.2) g/dL Albumin (3.5-5.0) g/dL Serum Alcohol mg/dL Disposition <Gurdeep Cruz - Last Filed: 12/30/20 13:04> Decision Date: 12/30/20 Decision Time: 13:30 <Rachel Bahena - Last Filed: 12/30/20 13:31> Clinical Impression: Weakness, Unable to ambulate, Decubitus ulcer, Alcohol abuse Disposition: ADMITTED IP TO THIS HOSP Condition: Stable Referrals: Simran Hill MD [Primary Care Provider] - 1-2 days
--- NOTE | 2020-12-30 11:40 | XR ---
EXAMINATION TYPE: XR chest 2V DATE OF EXAM: 12/30/2020 COMPARISON: 11/07/2020 HISTORY: Complaints of weakness. Patient is easily winded TECHNIQUE: Frontal and lateral views of the chest are obtained. FINDINGS: Status post median sternotomy with multiple surgical clips. Multiple overlying leads. Hear t size is within normal limits. Atherosclerotic aorta. Emphysematous changes. Hyperaeration of the holly ngs and flattening of the diaphragms. Patchy airspace opacity left upper lobe may represent superimpo sed infectious/inflammatory processes. No pleural effusion or pneumothorax. Osteopenia and degenerati ve changes of the thoracic spine. IMPRESSION: 1. Severe emphysematous changes. Coarse interstitial markings at the upper lobes are chronic. There m ay be mild superimposed infectious/inflammatory processes. Continued follow-up is recommended.
[2020-12-30 12:06] LABS: ALT 91 U/L (4-49); AST 132 U/L (17-59); African American GFR (CKD) >90 (>60 ml/min/1.73 sqM); Albumin 3.8 g/dL (3.5-5.0); Alkaline Phosphatase 113 U/L (38-126); Anion Gap 17 mmol/L; Blood Urea Nitrogen 16 mg/dL (9-20); Calcium 9.4 mg/dL (8.4-10.2); Carbon Dioxide 20 mmol/L (22-30); Chloride 106 mmol/L (98-107); Creatine Kinase 100 U/L (55-170); Glucose 112 mg/dL (74-99); Magnesium 1.7 mg/dL (1.6-2.3); Non-African American GFR(CKD) >90 (>60 ml/min/1.73 sqM); Phosphorus 3.8 mg/dL (2.5-4.5); Potassium 3.4 mmol/L (3.5-5.1); Sodium 143 mmol/L (137-145); Total Bilirubin 1.1 mg/dL (0.2-1.3)
[2020-12-30 12:13] LABS: Basophils # (A) 0.1 k/uL (0-0.2); Basophils % (A) 1 %; Eosinophils # (A) 0.1 k/uL (0-0.7); Eosinophils % (A) 1 %; HCT 46.1 % (39.0-53.0); HGB 15.8 gm/dL (13.0-17.5); Lymphocytes % (A) 12 %; MCH 31.1 pg (25.0-35.0); MCHC 34.4 g/dL (31.0-37.0); MCV 90.5 fL (80.0-100.0); Mean Platelet Volume 7.2; Monocytes # (A) 0.5 k/uL (0-1.0); Monocytes % (A) 6 %; Neutrophils # (A) 6.6 k/uL (1.3-7.7); Neutrophils % (A) 78 %; Platelet Count 168 k/uL (150-450); RBC 5.09 m/uL (4.30-5.90); RDW 15.3 % (11.5-15.5); WBC 8.5 k/uL (3.8-10.6)
[2020-12-30 12:14] LABS: Alcohol 88 mg/dL
[2020-12-30 12:16] LABS: Partial Thromboplastin Time 22.7 sec (22.0-30.0)
[2020-12-30] MEDS ORDERED: SODIUM CHLORIDE 0.9% 1,000 ML IV STA (12:24)
[2020-12-30] MEDS ORDERED: ONDANSETRON 4 MG/2 ML VIAL IVP PRN (13:23)
[2020-12-30] MEDS ORDERED: NALOXONE 0.4 MG/ML 1 ML VIAL IV PRN (13:23)
[2020-12-30] MEDS ORDERED: LORazepam 2 MG/ML INJ IV PRN ×3 (13:24)
[2020-12-30] MEDS ORDERED: THIAMINE 100 MG/ML 2 ML VIAL IM STA (13:24)
[2020-12-30 13:54] LABS: Appearance,Urine Cloudy (Clear); Bacteria,Urine Many /hpf; Bilirubin,Urine Negative (Negative); Blood,Urine Large (Negative); Color,Urine Light Orange; Glucose,Urine (UA) Negative (Negative); Ketones,Urine 2+ (Negative); Leukocyte Esterase,Urine Large (Negative); Mucus,Urine Many /hpf; Nitrite,Urine Positive (Negative); Protein,Urine 1+ (Negative); RBC,Urine 67 /hpf (0-5); Specific Gravity,Urine 1.027 (1.001-1.035); WBC,Urine 153 /hpf (0-5)
[2020-12-30 14:02] LABS: Amphetamine Screen,Urine Not Detected (NotDetected); Barbiturate Screen,Urine Not Detected (NotDetected); Benzodiazepines Screen,Urine Not Detected (NotDetected); Cocaine Screen,Urine Detected (NotDetected); Methadone Screen, Urine Not Detected (NotDetected); Opiate Screen,Urine Not Detected (NotDetected); Oxycodone Screen, Urine Not Detected (NotDetected); Phencyclidine Screen,Urine Not Detected (NotDetected); Tricyclic Antidepressant,Urine Not Detected (NotDetected); Urn Cannabinoid Scrn Not Detected (NotDetected)
[2020-12-30] MEDS: SODIUM CHLORIDE 0.9% 1,000 ML IV SCH (16:58)
[2020-12-30] MEDS: ACETAMINOPHEN TAB 325 MG TAB PO PRN (19:30)
[2020-12-30] MEDS: THIAMINE 100 MG TAB PO SCH (20:41)
[2020-12-30] MEDS: NICOTINE 14MG/24HR PATCH TRANSDERM SCH (21:35)
[2020-12-30] MEDS: TAMSULOSIN 0.4 MG CAP.ER.24H PO SCH (21:35)
[2020-12-30] MEDS: GABAPENTIN 300 MG CAP PO SCH (21:36)
[2020-12-30] MEDS: MELATONIN 5 MG TABLET PO SCH (21:36)
[2020-12-30] MEDS: HEPARIN SODIUM,PORCINE/PF 5,000 UNIT/0.5 ML SYRINGE SQ SCH (23:05)
--- NOTE | 2020-12-30 23:15 | P.HPIM ---
History of Present Illness H&P Date: 12/30/20 Patient is a 70-year-old male with a known history of hypertension, hyperlipidemia, diabetes type 2 currently not on any medications, history of CABG, daily alcohol use and cocaine heroine and IV drug abuse and history of hepatitis C presents to ER with complaints of generalized weakness for the past 1 to 2 weeks. Patient is apparently lives with his brothers who normally help him around the house. His brother has been gone over the past few weeks and the patient has been laying in bed most of the time. Has not been eating well. He continues to be drinking every day. Patient is also using cocaine last night. Patient also feeling weak and unable to walk anymore. He started having bedso res. Patient states that he stopped drinking alcohol yesterday and was planning to come to hospital today. Patient states that he did drink this morning to get cardiac to come to the hospital. Denies any complaints of chest pain or shortness of breath. Patient does have nausea. No episodes of vomiting. No diarrhea. No fever no chills. No cough or sputum production. Chest x-ray showed severe emphysematous changes. Coarse interstitial markings at the lung upper lobes are chronic. There will be superoinferior infectious inflammatory process. EKG showed normal sinus rhythm Laboratory data showed WBC 8.5 hemoglobin 15.8 and platelets 168 Sodium 143 potassium 3.4 chloride 106 bicarb is 20 BUN 16 and creatinine 0.69 and lactic acid 3.6 AST 132 ALT 91 alk phos 113 proBNP 67 urinalysis showed 2+ glucose large blood nitrite positive and large leukocyte esterase with elevated RBCs and WBCs. UDS is positive for cocaine. Serum alcohol level 88 Review of Systems Complete review of systems could not be obtained from the patient except as per HPI. Past Medical History Past Medical History: Heart Failure, Diabetes Mellitus, Hyperlipidemia, Hypertension, Liver Disease Additional Past Medical History / Comment(s): Chronic low back pain, history of alcohol abuse, hep C History of Any Multi-Drug Resistant Organisms: None Reported Past Surgical History: Coronary Bypass/CABG Additional Past Surgical History / Comment(s): cyst removed under arm, Past Anesthesia/Blood Transfusion Reactions: No Reported Reaction Past Psychological History: No Psychological Hx Reported Smoking Status: Current every day smoker Past Alcohol Use History: Daily, Heavy Past Drug Use History: Cocaine, Heroin, IV Drug Use - Past Family History Father Additional Family Medical History / Comment(s): sclorosis Medications and Allergies Home Medications Medication Instructions Recorded Confirmed Type Tamsulosin [Flomax] 0.8 mg PO HS #30 cap.er.24h 09/11/20 12/30/20 Rx Aspirin 81 mg PO DAILY chew 11/12/20 12/30/20 Rx Gabapentin [Neurontin] 300 mg PO TID #0 11/12/20 12/30/20 Rx HYDROcodone/APAP 10-325MG [[place] 1 tab PO Q8H PRN 2 Days #6 11/12/20 12/30/20 Rx 10-325] Allergies Allergy/AdvReac Type Severity Reaction Status Date / Time No Known Allergies Allergy Verified 12/30/20 12:25 Physical Exam Vitals: Vital Signs Temp Pulse Resp BP Pulse Ox 12/30/20 13:49 98.8 F 73 16 156/80 96 12/30/20 10:47 98.6 F 93 18 109/79 95 Intake and Output 12/30/20 12/30/20 12/30/20 06:59 14:59 22:59 Other: Weight 83.915 kg PHYSICAL EXAMINATION: Patient is lying in the bed comfortably, no acute distress, awake alert and oriented. anxious. HEENT: Normocephalic. Neck is supple. Pupils reactive. Nostrils clear. Oral cavity is moist. Ears reveal no drainage. Neck reveals no JVD, carotid bruits, or thyromegaly. CHEST EXAMINATION: Trachea is central. Symmetrical expansion. Lung mckinley clear to auscultation and percussion. CARDIAC: Normal S1, S2 with no gallops. No murmurs ABDOMEN: Soft. Bowel sounds normal. No organomegaly. No abdominal bruits. Stage I sacral decubitus ulcers. Extremities: reveal no edema. No clubbing or cyanosis Neurologically awake, alert, oriented x3 with well-coordinated movements. No focal deficits noted Skin: No rash or skin lesions. Psychiatric: Coperative. Nonsuicidal Musculoskeletal: No joint swelling or deformity. Normal range of motion. Results CBC & Chem 7: 12/30/20 11:32 12/30/20 11:32 Labs: Abnormal Lab Results - Last 24 Hours (Table) 12/30/20 12/30/20 12/30/20 Range/Units 11:32 11:32 11:32 Potassium 3.4 L (3.5-5.1) mmol/L Carbon Dioxide 20 L (22-30) mmol/L Glucose 112 H (74-99) mg/dL Plasma Lactic Acid Earl 3.6 H* (0.7-2.0) mmol/L AST 132 H (17-59) U/L ALT 91 H (4-49) U/L Urine Protein 1+ H (Negative) Urine Ketones 2+ H (Negative) Urine Blood Large H (Negative) Ur Leukocyte Esterase Large H (Negative) Urine RBC 67 H (0-5) /hpf Urine WBC 153 H (0-5) /hpf Urine Bacteria Many H (None) /hpf Urine Mucus Many H (None) /hpf Urine Cocaine Screen (NotDetected) 12/30/20 Range/Units 11:32 Potassium (3.5-5.1) mmol/L Carbon Dioxide (22-30) mmol/L Glucose (74-99) mg/dL Plasma Lactic Acid Earl (0.7-2.0) mmol/L AST (17-59) U/L ALT (4-49) U/L Urine Protein (Negative) Urine Ketones (Negative) Urine Blood (Negative) Ur Leukocyte Esterase (Negative) Urine RBC (0-5) /hpf Urine WBC (0-5) /hpf Urine Bacteria (None) /hpf Urine Mucus (None) /hpf Urine Cocaine Screen Detected H (NotDetected) Thrombosis Risk Factor Assmnt - DVT/VTE Prophylaxis DVT/VTE Prophylaxis: Pharmacologic Prophylaxis ordered Assessment and Plan Assessment: Acute alcohol intoxication Acute urinary tract infection Severe alcohol abuse Generalized weakness due to poor oral intake and volume depletion Lactic acidosis likely due to volume depletion Hypokalemia DVT prophylaxis with heparin subcu Plan: Patient will be continued IV hydration with normal saline. Antibiotics in the form of ceftriaxone and follow-up urine culture report. Continue with thiamine multivitamins and GI prophylaxis. Monitor for alcohol withdrawal symptoms. Replace electrolytes. Frequent change of position due to bedsores. Continue to follow closely. Time with Patient: Greater than 30
[2020-12-31] MEDS: SODIUM CHLORIDE 0.9% 1,000 ML IV SCH ×3 (03:32→20:27)
[2020-12-31] MEDS: ASPIRIN 81 MG PO SCH (08:46)
[2020-12-31] MEDS: NICOTINE 14MG/24HR PATCH TRANSDERM SCH (08:46)
[2020-12-31] MEDS: GABAPENTIN 300 MG CAP PO SCH ×3 (08:46→20:26)
[2020-12-31] MEDS: HEPARIN SODIUM,PORCINE/PF 5,000 UNIT/0.5 ML SYRINGE SQ SCH ×3 (08:46→23:01)
[2020-12-31] MEDS: THIAMINE 100 MG TAB PO SCH ×2 (08:46→16:57)
[2020-12-31 09:45] LABS: African American GFR (CKD) 111.6 (60.0-200.0); Albumin 3.4 g/dL (3.80-4.90); Albumin/Globulin Ratio 1.36 (1.60-3.17); Calcium 8.8 mg/dL (8.7-10.3); Globulin 2.5 g/dL (1.6-3.3); Non-African American GFR(CKD) 96.3 (60.0-200.0); Potassium 3.4 mmol/L (3.5-5.5); Total Protein 5.9 g/dL (6.2-8.2)
--- NOTE | 2020-12-31 10:12 | P.CONS ---
History of Present Illness - Reason for Consult Consult date: 12/31/20 wound care - History of Present Illness this is a 70-year-old -[place] patient being seen by the wound cer on [address]. for a nonhealing ulceration to the sacrum. Patient states that the ulceration has been there for a few months now. He states that it was getting better however over the last few weeks as progressively got worse. Patient spends the majority of his time lying in bed. He has history of EtOH and drug abuse. patient's past medical history significant for heart failure, diabetes, hyperlipidemia, hypertension, hepatitis C, and liver disease. ulceration to the right buttocks is a cluster of 2 ulcerations measuring approximately 2 x 2 x 0.1 cm metasis granulation seen within the wound bed with Sl and nonviable tissue. The periw. The left gluteus is a cluster of 2 ulcerations with Limited to skin breakdown measuring approximately 1 x 1 x 0.1 cm granulation and slough noted within the wound bed. There is no tunneling or undermining noted. Wound edges are attached to the wound base. The area wound shows maceration. Review Of Systems: Constitutional: No fever, no chills, no night sweats. No weight change. No weakness, fatigue or lethargy. No daytime sleepiness. Integumentary:reports wounds, no lesions. No rash or pruritus. No unusual bruising. No change in hair or nails. Physical exam: General Appearance: Alert, cooperative, no distress, appears stated age. Skin: See HPI all other Skin color, texture, tugor normal, no rashes or lesions. Neurologic: Alert oriented x3 Assessment/plan: 1. Stage II pressure ulcer sacrum. Apply zinc barrier cream to the site and a sacral border foam to the site. Change daily. Utilizing a air-filled wall focal cushn while sitting. Turn patient every 2 hours. Patient to continue with dressings upon discharge. 2. Diabetes with skin ulceration 3. Nicotine dependence Thank you for the consultation any questions please contact the wound care center. DNP note has been reviewed and discussed with Dr. Petersen and the impression and plan of care has been directed as dictated. Past Medical History Past Medical History: Heart Failure, Diabetes Mellitus, Hyperlipidemia, Hypertension, Liver Disease Additional Past Medical History / Comment(s): Chronic low back pain, history of alcohol abuse, hep C History of Any Multi-Drug Resistant Organisms: None Reported Past Surgical History: Coronary Bypass/CABG Additional Past Surgical History / Comment(s): cyst removed under arm, Past Anesthesia/Blood Transfusion Reactions: No Reported Reaction Past Psychological History: No Psychological Hx Reported Smoking Status: Current every day smoker Past Alcohol Use History: Daily, Heavy Past Drug Use History: Cocaine, Heroin, IV Drug Use - Past Family History Father Additional Family Medical History / Comment(s): sclorosis Medications and Allergies Home Medications Medication Instructions Recorded Confirmed Type Tamsulosin [Flomax] 0.8 mg PO HS #30 cap.er.24h 09/11/20 12/30/20 Rx Aspirin 81 mg PO DAILY chew 11/12/20 12/30/20 Rx Gabapentin [Neurontin] 300 mg PO TID #0 11/12/20 12/30/20 Rx HYDROcodone/APAP 10-325MG [[place] 1 tab PO Q8H PRN 2 Days #6 11/12/20 12/30/20 Rx 10-325] Allergies Allergy/AdvReac Type Severity Reaction Status Date / Time No Known Allergies Allergy Verified 12/30/20 12:25 Physical Exam Vitals: Vital Signs Temp Pulse Pulse Resp BP BP Pulse Ox 12/31/20 04:38 97.5 F L 80 16 135/75 96 12/30/20 19:46 98.6 F 82 16 125/79 99 12/30/20 18:00 98.4 F 82 16 138/82 94 L 12/30/20 13:49 98.8 F 73 16 156/80 96 12/30/20 10:47 98.6 F 93 18 109/79 95 Intake and Output 12/30/20 12/31/20 12/31/20 22:59 06:59 14:59 Other: Voiding Method Diaper Incontinent # Voids 1 3 Results CBC & Chem 7: 12/30/20 11:32 12/31/20 04:56 Labs: Abnormal Lab Results - Last 24 Hours (Table) 12/30/20 12/30/20 12/30/20 Range/Units 11:32 11:32 11:32 Potassium 3.4 L (3.5-5.1) mmol/L Chloride (96-109) mmol/L Carbon Dioxide 20 L (22-30) mmol/L Glucose 112 H (74-99) mg/dL Plasma Lactic Acid Earl 3.6 H* (0.7-2.0) mmol/L AST 132 H (17-59) U/L ALT 91 H (4-49) U/L Total Protein (6.2-8.2) g/dL Albumin (3.80-4.90) g/dL Albumin/Globulin Ratio (1.60-3.17) g/dL Urine Protein 1+ H (Negative) Urine Ketones 2+ H (Negative) Urine Blood Large H (Negative) Ur Leukocyte Esterase Large H (Negative) Urine RBC 67 H (0-5) /hpf Urine WBC 153 H (0-5) /hpf Urine Bacteria Many H (None) /hpf Urine Mucus Many H (None) /hpf Urine Cocaine Screen (NotDetected) 12/30/20 12/31/20 Range/Units 11:32 04:56 Potassium 3.4 L (3.5-5.1) mmol/L Chloride 111 H (96-109) mmol/L Carbon Dioxide (22-30) mmol/L Glucose 183 H (74-99) mg/dL Plasma Lactic Acid Earl (0.7-2.0) mmol/L AST 86 H (17-59) U/L ALT 73 H (4-49) U/L Total Protein 5.9 L (6.2-8.2) g/dL Albumin 3.40 L (3.80-4.90) g/dL Albumin/Globulin Ratio 1.36 L (1.60-3.17) g/dL Urine Protein (Negative) Urine Ketones (Negative) Urine Blood (Negative) Ur Leukocyte Esterase (Negative) Urine RBC (0-5) /hpf Urine WBC (0-5) /hpf Urine Bacteria (None) /hpf Urine Mucus (None) /hpf Urine Cocaine Screen Detected H (NotDetected) Microbiology - Last 24 Hours (Table) 12/30/20 11:32 Urine Culture - Preliminary Urine,Voided Assessment and Plan (1) Pressure ulcer of left buttock, stage 2 Current Visit: Yes Status: Acute Code(s): L89.322 - PRESSURE ULCER OF LEFT BUTTOCK, STAGE 2 SNOMED Code(s): 11132009806163311 (2) Pressure ulcer of right buttock, stage 2 Current Visit: Yes Status: Acute Code(s): L89.312 - PRESSURE ULCER OF RIGHT BUTTOCK, STAGE 2 SNOMED Code(s): 77223788354677934 (3) Diabetes with skin ulcer Current Visit: Yes Status: Acute Code(s): E11.622 - TYPE 2 DIABETES MELLITUS WITH OTHER SKIN ULCER; L98.499 - NON-PRESSURE CHRONIC ULCER OF SKIN OF SITES W UNSP SEVERITY SNOMED Code(s): 42369898 (4) Nicotine dependence Current Visit: Yes Status: Acute Code(s): F17.200 - NICOTINE DEPENDENCE, UNSPECIFIED, UNCOMPLICATED SNOMED Code(s): 60289830
[2020-12-31] MEDS: MAGNESIUM SULFATE-D5W PMX 1 GM in DEXTROSE/WATER 1 100ML.BAG IVPB SCH ×2 (12:07→13:22)
[2020-12-31] MEDS: POTASSIUM CHLORIDE ER 20 MEQ TAB.ER PO SCH ×2 (12:08→20:26)
[2020-12-31] MEDS: ACETAMINOPHEN TAB 325 MG TAB PO PRN (14:23)
[2020-12-31 15:03] VITALS: BMI 25.7
[2020-12-31] MEDS: HYDROcodone/APAP 10-325MG 1 EACH TAB PO PRN (16:59)
[2020-12-31] MEDS: TAMSULOSIN 0.4 MG CAP.ER.24H PO SCH (20:22)
[2020-12-31] MEDS: MELATONIN 5 MG TABLET PO SCH (20:22)
--- NOTE | 2021-01-01 00:33 | P.PN ---
Subjective Progress Note Date: 12/31/20 Patient is a 70-year-old male with a known history of hypertension, hyperlipidemia, diabetes type 2 currently not on any medications, history of CABG, daily alcohol use and cocaine heroine and IV drug abuse and history of hepatitis C presents to ER with complaints of generalized weakness for the past 1 to 2 weeks. Patient is apparently lives with his brothers who normally help him around the house. His brother has been gone over the past few weeks and the patient has been laying in bed most of the time. Has not been eating well. He continues to be drinking every day. Patient is also using cocaine last night. Patient also feeling weak and unable to walk anymore. He started having bedsores. Patient states that he stopped drinking alcohol yesterday and was planning to come to hospital today. Patient states that he did drink this morning to get cardiac to come to the hospital. Denies any complaints of chest pain or shortness of breath. Patient does have nausea. No episodes of vomiting. No diarrhea. No fever no chills. No cough or sputum production. Chest x-ray showed severe emphysematous changes. Coarse interstitial markings at the lung upper lobes are chronic. There will be superoinferior infectious inflammatory process. EKG showed normal sinus rhythm Laboratory data showed WBC 8.5 hemoglobin 15.8 and platelets 168 Sodium 143 potassium 3.4 chloride 106 bicarb is 20 BUN 16 and creatinine 0.69 and lactic acid 3.6 AST 132 ALT 91 alk phos 113 proBNP 67 urinalysis showed 2+ glucose large blood nitrite positive and large leukocyte esterase with elevated RBCs and WBCs. UDS is positive for cocaine. Serum alcohol level 88 12/31/2020 Patient is currently resting in the bed comfortably. Awake alert. Anxious and slightly confused. No complaints of chest pain or shortness of breath. Patient has been afebrile. And saturating at 97% on room air. Patient was seen by wound care for decub ulcers. Continued on alcohol withdrawal symptoms protocol. Laboratory data showed sodium 144 potassium 3.4 BUN 14 and creatinine 0.7 liver enzymes trending down slowly. Urine culture showed gram-negative bacilli Patient has been afebrile. Tolerating oral diet. Denied any abdominal pain. No nausea vomiting or diarrhea. PT OT was consulted. Current medications reviewed. Objective - Vital Signs Vital signs: Vital Signs Temp 98.2 F 12/31/20 12:03 Pulse 67 12/31/20 12:03 Resp 17 12/31/20 12:03 BP 171/91 12/31/20 12:03 Pulse Ox 97 12/31/20 12:03 Intake & Output 12/30/20 12/31/20 12/31/20 18:59 06:59 18:59 Weight 83.915 kg 83.915 kg Other: Voiding Method Diaper Urinal Incontinent # Voids 3 - Exam PHYSICAL EXAMINATION: Patient is lying in the bed comfortably, no acute distress, awake alert and oriented. anxious. HEENT: Normocephalic. Neck is supple. Pupils reactive. Nostrils clear. Oral cavity is moist. Ears reveal no drainage. Neck reveals no JVD, carotid bruits, or thyromegaly. CHEST EXAMINATION: Trachea is central. Symmetrical expansion. Lung mckinley clear to auscultation and percussion. CARDIAC: Normal S1, S2 with no gallops. No murmurs ABDOMEN: Soft. Bowel sounds normal. No organomegaly. No abdominal bruits. Stage Ii sacral decubitus ulcers. Extremities: reveal no edema. No clubbing or cyanosis Neurologically awake, alert, oriented x3 with well-coordinated movements. No focal deficits noted Skin: No rash or skin lesions. Psychiatric: Coperative. Nonsuicidal Musculoskeletal: No joint swelling or deformity. Normal range of motion. - Labs CBC & Chem 7: 12/30/20 11:32 12/31/20 04:56 Labs: Abnormal Lab Results - Last 24 Hours (Table) 12/31/20 Range/Units 04:56 Potassium 3.4 L (3.5-5.5) mmol/L Chloride 111 H (96-109) mmol/L Glucose 183 H (70-110) mg/dL AST 86 H (14-35) U/L ALT 73 H (10-49) U/L Total Protein 5.9 L (6.2-8.2) g/dL Albumin 3.40 L (3.80-4.90) g/dL Albumin/Globulin Ratio 1.36 L (1.60-3.17) g/dL Microbiology - Last 24 Hours (Table) 12/30/20 11:32 Urine Culture - Preliminary Urine,Voided Gram Neg Bacilli Assessment and Plan Assessment: Acute alcohol intoxication Acute urinary tract infection Severe alcohol abuse Generalized weakness due to poor oral intake and volume depletion Lactic acidosis likely due to volume depletion Hypokalemia DVT prophylaxis with heparin subcu Plan: Patient will be continued IV hydration with normal saline. Antibiotics in the form of ceftriaxone and follow-up urine culture report. Continue with thiamine multivitamins and GI prophylaxis. Monitor for alcohol withdrawal symptoms. Replace electrolytes. Frequent change of position due to bedsores. Continue to follow closely. Time with Patient: Greater than 30
[2021-01-01] MEDS: HYDROcodone/APAP 10-325MG 1 EACH TAB PO PRN ×3 (04:14→22:58)
[2021-01-01] MEDS: SODIUM CHLORIDE 0.9% 1,000 ML IV SCH ×3 (04:15→22:58)
[2021-01-01 05:06] LABS: Basophils % (A) 1 %; Eosinophils # (A) 0.1 k/uL (0-0.7); Eosinophils % (A) 2 %; HCT 41.9 % (39.0-53.0); HGB 14.8 gm/dL (13.0-17.5); Lymphocytes # (A) 1.1 k/uL (1.0-4.8); Lymphocytes % (A) 18 %; MCH 31.5 pg (25.0-35.0); MCHC 35.2 g/dL (31.0-37.0); MCV 89.4 fL (80.0-100.0); Mean Platelet Volume 7.3; Monocytes # (A) 0.3 k/uL (0-1.0); Monocytes % (A) 5 %; Neutrophils # (A) 4.4 k/uL (1.3-7.7); Neutrophils % (A) 74 %; Platelet Count 121 k/uL (150-450); RBC 4.69 m/uL (4.30-5.90); RDW 14.6 % (11.5-15.5)
[2021-01-01] MEDS: GABAPENTIN 300 MG CAP PO SCH ×3 (09:13→22:58)
[2021-01-01] MEDS: ASPIRIN 81 MG PO SCH (09:13)
[2021-01-01] MEDS: THIAMINE 100 MG TAB PO SCH ×2 (09:13→16:13)
[2021-01-01] MEDS: HEPARIN SODIUM,PORCINE/PF 5,000 UNIT/0.5 ML SYRINGE SQ SCH ×3 (09:14→22:59)
[2021-01-01] MEDS: NICOTINE 14MG/24HR PATCH TRANSDERM SCH (09:14)
[2021-01-01 10:14] LABS: African American GFR (CKD) 111.6 (60.0-200.0); Anion Gap 10.5 mmol/L (4.00-12.00); BUN/Creat Ratio 15.71 Ratio (12.00-20.00); Calcium 8.6 mg/dL (8.7-10.3); Carbon Dioxide 21.5 mmol/L (21.6-31.8); Non-African American GFR(CKD) 96.3 (60.0-200.0); Potassium 3.6 mmol/L (3.5-5.5)
[2021-01-01] MEDS: ACETAMINOPHEN TAB 325 MG TAB PO PRN (10:38)
[2021-01-01] MEDS: MELATONIN 5 MG TABLET PO SCH (22:58)
[2021-01-01] MEDS: TAMSULOSIN 0.4 MG CAP.ER.24H PO SCH (22:59)
[2021-01-02] MEDS: NICOTINE 14MG/24HR PATCH TRANSDERM SCH (09:06)
[2021-01-02] MEDS: THIAMINE 100 MG TAB PO SCH ×2 (09:06→17:14)
[2021-01-02] MEDS: HEPARIN SODIUM,PORCINE/PF 5,000 UNIT/0.5 ML SYRINGE SQ SCH ×3 (09:06→21:44)
[2021-01-02] MEDS: ASPIRIN 81 MG PO SCH (09:06)
[2021-01-02] MEDS: GABAPENTIN 300 MG CAP PO SCH ×3 (09:06→21:44)
[2021-01-02] MEDS: HYDROcodone/APAP 10-325MG 1 EACH TAB PO PRN ×2 (09:25→21:44)
[2021-01-02] MEDS: SODIUM CHLORIDE 0.9% 1,000 ML IV SCH ×3 (15:30→21:43)
[2021-01-02 20:42] LABS: Glucose,Whole Blood 170 mg/dL (75-99)
[2021-01-02] MEDS: TAMSULOSIN 0.4 MG CAP.ER.24H PO SCH (21:44)
[2021-01-02] MEDS: MELATONIN 5 MG TABLET PO SCH (21:44)
[2021-01-03 07:03] LABS: Glucose,Whole Blood 132 mg/dL (75-99)
[2021-01-03] MEDS: THIAMINE 100 MG TAB PO SCH ×2 (08:51→17:25)
[2021-01-03] MEDS: GABAPENTIN 300 MG CAP PO SCH ×3 (08:51→20:56)
[2021-01-03] MEDS: NICOTINE 14MG/24HR PATCH TRANSDERM SCH (08:52)
[2021-01-03] MEDS: HEPARIN SODIUM,PORCINE/PF 5,000 UNIT/0.5 ML SYRINGE SQ SCH ×2 (08:52→17:26)
[2021-01-03] MEDS: HYDROcodone/APAP 10-325MG 1 EACH TAB PO PRN ×2 (08:52→17:25)
[2021-01-03] MEDS: ASPIRIN 81 MG PO SCH (08:52)
[2021-01-03 11:26] LABS: Glucose,Whole Blood 152 mg/dL (75-99)
[2021-01-03] MEDS: SODIUM CHLORIDE 0.9% 1,000 ML IV SCH ×2 (17:26→17:31)
[2021-01-03 17:32] LABS: Glucose,Whole Blood 109 mg/dL (75-99)
--- NOTE | 2021-01-03 19:35 | P.PN ---
Subjective Progress Note Date: 01/01/21 Principal diagnosis: Acute alcohol intoxication Acute urinary tract infection Severe alcohol abuse Generalized weakness due to poor oral intake and volume depletion 70-year-old male with a known history of hypertension, hyperlipidemia, diabetes type 2 currently not on any medications, history of CABG, daily alcohol use and cocaine heroine and IV drug abuse and history of hepatitis C presents to ER with complaints of generalized weakness for the past 1 to 2 weeks. Patient is apparently lives with his brothers who normally help him around the house. His brother has been gone over the past few weeks and the patient has been laying in bed most of the time. Has not been eating well. He continues to be drinking every day. Patient is also using cocaine last night. Patient also feeling weak and unable to walk anymore. He started having bedsores. Patient states that he stopped drinking alcohol yesterday and was planning to come to hospital today. Patient states that he did drink this morning to get cardiac to come to the hospital. Denies any complaints of chest pain or shortness of breath. Patient does have nausea. No episodes of vomiting. No diarrhea. No fever no chills. No cough or sputum production. Chest x-ray showed severe emphysematous changes. Coarse interstitial markings at the lung upper lobes are chronic. There will be superoinferior infectious inflammatory process. EKG showed normal sinus rhythm Objective - Vital Signs Vital signs: Vital Signs Temp 97.7 F 01/01/21 13:00 Pulse 76 01/01/21 13:00 Resp 17 01/01/21 13:00 BP 159/92 01/01/21 13:00 Pulse Ox 98 01/01/21 13:00 Intake & Output 12/31/20 01/01/21 01/01/21 18:59 06:59 18:59 Intake Total 1350 Output Total 200 Balance -200 1350 Weight 83.915 kg 83.915 kg Intake: Intake, IV Titration 1000 Amount Sodium Chloride 0.9% 1, 1000 000 ml @ 100 mls/hr IV . Q10H [facility] Rx#:[id number] Oral 350 Output: Urine 200 Other: Voiding Method Urinal Urinal - Exam Patient is lying in the bed comfortably, no acute distress, awake alert and oriented. anxious. HEENT: Normocephalic. Neck is supple. Pupils reactive. Nostrils clear. Oral cavity is moist. Ears reveal no drainage. Neck reveals no JVD, carotid bruits, or thyromegaly. CHEST EXAMINATION: Trachea is central. Symmetrical expansion. Lung mckinley clear to auscultation and percussion. CARDIAC: Normal S1, S2 with no gallops. No murmurs ABDOMEN: Soft. Bowel sounds normal. No organomegaly. No abdominal bruits. Stage Ii sacral decubitus ulcers. Extremities: reveal no edema. No clubbing or cyanosis Neurologically awake, alert, oriented x3 with well-coordinated movements. No f ocal deficits noted Skin: No rash or skin lesions. Psychiatric: Coperative. Nonsuicidal Musculoskeletal: No joint swelling or deformity. Normal range of motion. - Labs CBC & Chem 7: 01/01/21 04:30 01/01/21 04:30 Labs: Abnormal Lab Results - Last 24 Hours (Table) 01/01/21 01/01/21 Range/Units 04:30 04:30 Plt Count 121 L (150-450) k/uL Chloride 110 H (96-109) mmol/L Carbon Dioxide 21.5 L (21.6-31.8) mmol/L Glucose 132 H (70-110) mg/dL Calcium 8.6 L (8.7-10.3) mg/dL Microbiology - Last 24 Hours (Table) 12/30/20 11:32 Urine Culture - Final Urine,Voided Escherichia coli Assessment and Plan Assessment: Acute alcohol intoxication Acute urinary tract infection Severe alcohol abuse Generalized weakness due to poor oral intake and volume depletion Lactic acidosis likely due to volume depletion Hypokalemia DVT prophylaxis with heparin subcu Plan: Patient will be continued IV hydration with normal saline. Antibiotics in the form of ceftriaxone and follow-up urine culture report. Continue with thiamine multivitamins and GI prophylaxis. Monitor for alcohol withdrawal symptoms. Replace electrolytes. Frequent change of position due to bedsores. Continue to follow closely.
--- NOTE | 2021-01-03 19:40 | P.PN ---
Subjective Progress Note Date: 01/02/21 Principal diagnosis: Acute alcohol intoxication Acute urinary tract infection Severe alcohol abuse Generalized weakness due to poor oral intake and volume depletion 70-year-old male with a known history of hypertension, hyperlipidemia, diabetes type 2 currently not on any medications, history of CABG, daily alcohol use and cocaine heroine and IV drug abuse and history of hepatitis C presents to ER with complaints of generalized weakness for the past 1 to 2 weeks. Patient is apparently lives with his brothers who normally help him around the house. His brother has been gone over the past few weeks and the patient has been laying in bed most of the time. Has not been eating well. He continues to be drinking every day. Patient is also using cocaine last night. Patient also feeling weak and unable to walk anymore. He started having bedsores. Patient states that he stopped drinking alcohol yesterday and was planning to come to hospital today. Patient states that he did drink this morning to get cardiac to come to the hospital. Denies any complaints of chest pain or shortness of breath. Patient does have nausea. No episodes of vomiting. No diarrhea. No fever no chills. No cough or sputum production. Chest x-ray showed severe emphysematous changes. Coarse interstitial markings at the lung upper lobes are chronic. There will be superoinferior infectious inflammatory process. EKG showed normal sinus rhythm 01/02/2021 Patient is seen and evaluated sitting up in bedside chair; continues to be somewhat weak and shaky Vital signs are reviewed and reveal temperature of 98.4, pulse 61, respirations 16 and blood pressure 150/83 and SpO2 of 96% on room air Patient remains on IV fluid hydration and IV antibiotics in form of ceftriaxone 1 g IV daily Wound care on board for his stage II sacral pressure ulcer; continue with zinc barrier cream with daily dressing changes Objective - Vital Signs Vital signs: Vital Signs Temp 97.6 F 01/02/21 11:37 Pulse 85 01/02/21 11:37 Resp 16 01/02/21 11:37 BP 107/82 01/02/21 11:37 Pulse Ox 97 01/02/21 11:37 Intake & Output 01/01/21 01/02/21 01/02/21 18:59 06:59 18:59 Intake Total 2290 Output Total 800 Balance 2290 -800 Weight 83.915 kg Intake: Intake, IV Titration 850 Amount Sodium Chloride 0.9% 1, 800 000 ml @ 100 mls/hr IV . Q10H [facility] Rx#:[id number] cefTRIAXone 1 gm In 50 Sodium Chloride 0.9% 50 ml @ 100 mls/hr IVPB Q24H [facility] Rx#:[id number] Oral 1440 Output: Urine 800 Other: Voiding Method Urinal Urinal Diaper Diaper Incontinent # Voids 5 3 - Exam Patient is lying in the bed comfortably, no acute distress, awake alert and oriented. anxious. HEENT: Normocephalic. Neck is supple. Pupils reactive. Nostrils clear. Oral cavity is moist. Ears reveal no drainage. Neck reveals no JVD, carotid bruits, or thyromegaly. CHEST EXAMINATION: Trachea is central. Symmetrical expansion. Lung mckinley clear to auscultation and percussion. CARDIAC: Normal S1, S2 with no gallops. No murmurs ABDOMEN: Soft. Bowel sounds normal. No organomegaly. No abdominal bruits. Stage Ii sacral decubitus ulcers. Extremities: reveal no edema. No clubbing or cyanosis Neurologically awake, alert, oriented x3 with well-coordinated movements. No focal deficits noted Skin: No rash or skin lesions. Psychiatric: Coperative. Nonsuicidal Musculoskeletal: No joint swelling or deformity. Normal range of motion. - Labs CBC & Chem 7: 01/01/21 04:30 01/01/21 04:30 Assessment and Plan Assessment: Acute alcohol intoxication Acute urinary tract infection Severe alcohol abuse Generalized weakness due to poor oral intake and volume depletion Lactic acidosis likely due to volume depletion Hypokalemia DVT prophylaxis with heparin subcu Plan: Patient will be continued IV hydration with normal saline. Antibiotics in the form of ceftriaxone and follow-up urine culture report. Continue with thiamine multivitamins and GI prophylaxis. Monitor for alcohol withdrawal symptoms. Replace electrolytes. Frequent change of position due to bedsores. Continue to follow closely.
--- NOTE | 2021-01-03 19:44 | P.PN ---
Subjective Progress Note Date: 01/03/21 Principal diagnosis: Acute alcohol intoxication Acute urinary tract infection Severe alcohol abuse Generalized weakness due to poor oral intake and volume depletion 70-year-old male with a known history of hypertension, hyperlipidemia, diabetes type 2 currently not on any medications, history of CABG, daily alcohol use and cocaine heroine and IV drug abuse and history of hepatitis C presents to ER with complaints of generalized weakness for the past 1 to 2 weeks. Patient is apparently lives with his brothers who normally help him around the house. His brother has been gone over the past few weeks and the patient has been laying in bed most of the time. Has not been eating well. He continues to be drinking every day. Patient is also using cocaine last night. Patient also feeling weak and unable to walk anymore. He started having bedsores. Patient states that he stopped drinking alcohol yesterday and was planning to come to hospital today. Patient states that he did drink this morning to get cardiac to come to the hospital. Denies any complaints of chest pain or shortness of breath. Patient does have nausea. No episodes of vomiting. No diarrhea. No fever no chills. No cough or sputum production. Chest x-ray showed severe emphysematous changes. Coarse interstitial markings at the lung upper lobes are chronic. There will be superoinferior infectious inflammatory process. EKG showed normal sinus rhythm 01/02/2021 Patient is seen and evaluated sitting up in bedside chair; continues to be somewhat weak and shaky Vital signs are reviewed and reveal temperature of 98.4, pulse 61, respirations 16 and blood pressure 150/83 and SpO2 of 96% on room air Patient remains on IV fluid hydration and IV antibiotics in form of ceftriaxone 1 g IV daily Wound care on board for his stage II sacral pressure ulcer; continue with zinc barrier cream with daily dressing changes 01/03/2021 Patient is seen and evaluated sitting up in bedside chair; wants pain medication increased; does not seem to be in any distress; vital signs are reviewed and stable with a temperature of 97.6, pulse 60, respirations 16 and blood pressure 156/88 and SpO2 of 96% on room air Wound care remains on board for ulceration to the right buttocks is a cluster of 2 ulcerations measuring approximately 2 x 2 x 0.1 cm metasis granulation seen within the wound bed with Sl and nonviable tissue. The periw. The left gluteus is a cluster of 2 ulcerations with Limited to skin breakdown measuring approxima tely 1 x 1 x 0.1 cm granulation and slough noted within the wound bed. There is no tunneling or undermining noted. Wound edges are attached to the wound base. Urine culture growing greater than 100,000 E. coli which is sensitive to Rocephin; we will monitor CBC and pro-calcitonin with plans to switch to oral antibiotics if stable; patient to be transferred to skilled rehab once arrangements are made; possible discharge 01/04/2021 Objective - Vital Signs Vital signs: Vital Signs Temp 97.6 F 01/03/21 11:08 Pulse 60 01/03/21 11:08 Resp 16 01/03/21 11:08 BP 156/88 01/03/21 11:08 Pulse Ox 96 01/03/21 11:08 Intake & Output 01/02/21 01/03/21 01/03/21 18:59 06:59 18:59 Intake Total 240 Output Total 600 Balance -360 Intake: Oral 240 Output: Urine 600 Other: Voiding Method Diaper Diaper Diaper Incontinent Incontinent Incontinent - Exam Patient is lying in the bed comfortably, no acute distress, awake alert and orie nted. anxious. HEENT: Normocephalic. Neck is supple. Pupils reactive. Nostrils clear. Oral cavity is moist. Ears reveal no drainage. Neck reveals no JVD, carotid bruits, or thyromegaly. CHEST EXAMINATION: Trachea is central. Symmetrical expansion. Lung mckinley clear to auscultation and percussion. CARDIAC: Normal S1, S2 with no gallops. No murmurs ABDOMEN: Soft. Bowel sounds normal. No organomegaly. No abdominal bruits. Stage Ii sacral decubitus ulcers. Extremities: reveal no edema. No clubbing or cyanosis Neurologically awake, alert, oriented x3 with well-coordinated movements. No focal deficits noted Skin: No rash or skin lesions. Psychiatric: Coperative. Nonsuicidal Musculoskeletal: No joint swelling or deformity. Normal range of motion. - Labs CBC & Chem 7: 01/01/21 04:30 01/01/21 04:30 Labs: Abnormal Lab Results - Last 24 Hours (Table) 01/02/21 01/03/21 01/03/21 Range/Units 20:41 07:01 11:10 POC Glucose (mg/dL) 170 H 132 H 152 H (75-99) mg/dL Assessment and Plan Assessment: Acute alcohol intoxication Acute urinary tract infection Severe alcohol abuse Generalized weakness due to poor oral intake and volume depletion Lactic acidosis likely due to volume depletion Hypokalemia DVT prophylaxis with heparin subcu Plan: Patient will be continued IV hydration with normal saline. Antibiotics in the form of ceftriaxone and follow-up urine culture report. Continue with thiamine multivitamins and GI prophylaxis. Monitor for alcohol withdrawal symptoms. Replace electrolytes. Frequent change of position due to bedsores. Continue to follow closely.
[2021-01-03 20:53] LABS: Glucose,Whole Blood 154 mg/dL (75-99)
[2021-01-03] MEDS: MELATONIN 5 MG TABLET PO SCH (20:56)
[2021-01-03] MEDS: TAMSULOSIN 0.4 MG CAP.ER.24H PO SCH (20:56)
[2021-01-04] MEDS: HEPARIN SODIUM,PORCINE/PF 5,000 UNIT/0.5 ML SYRINGE SQ SCH ×2 (01:22→09:18)
[2021-01-04] MEDS: HYDROcodone/APAP 10-325MG 1 EACH TAB PO PRN ×2 (06:11→13:29)
[2021-01-04 07:10] LABS: Basophils % (A) 1 %; Eosinophils # (A) 0.1 k/uL (0-0.7); Eosinophils % (A) 2 %; HCT 42.6 % (39.0-53.0); HGB 14.8 gm/dL (13.0-17.5); Lymphocytes # (A) 1.2 k/uL (1.0-4.8); Lymphocytes % (A) 22 %; MCH 31.4 pg (25.0-35.0); MCHC 34.8 g/dL (31.0-37.0); MCV 90.3 fL (80.0-100.0); Mean Platelet Volume 8.3; Monocytes # (A) 0.3 k/uL (0-1.0); Monocytes % (A) 6 %; Neutrophils # (A) 3.9 k/uL (1.3-7.7); Neutrophils % (A) 69 %; Platelet Count 124 k/uL (150-450); RBC 4.71 m/uL (4.30-5.90); RDW 14.9 % (11.5-15.5); WBC 5.7 k/uL (3.8-10.6)
[2021-01-04 07:12] LABS: Glucose,Whole Blood 139 mg/dL (75-99)
[2021-01-04 07:38] LABS: African American GFR (CKD) >90 (>60 ml/min/1.73 sqM); Anion Gap 7 mmol/L; Blood Urea Nitrogen 11 mg/dL (9-20); Calcium 9.5 mg/dL (8.4-10.2); Carbon Dioxide 25 mmol/L (22-30); Chloride 109 mmol/L (98-107); Glucose 135 mg/dL (74-99); Non-African American GFR(CKD) >90 (>60 ml/min/1.73 sqM); Potassium 3.8 mmol/L (3.5-5.1); Sodium 141 mmol/L (137-145)
[2021-01-04] MEDS: ASPIRIN 81 MG PO SCH (09:18)
[2021-01-04] MEDS: GABAPENTIN 300 MG CAP PO SCH ×2 (09:18→14:44)
[2021-01-04] MEDS: NICOTINE 14MG/24HR PATCH TRANSDERM SCH (09:18)
[2021-01-04] MEDS: THIAMINE 100 MG TAB PO SCH (09:18)
[2021-01-04 12:15] VITALS: BP 168/87; PULSE 69; RESP 14; TEMP 97.7
--- NOTE | 2021-01-04 12:15 | CT ---
EXAMINATION TYPE: CT brain wo con DATE OF EXAM: 01/04/2021 COMPARISON: None HISTORY: weakness CT DLP: 988.[address] of the brain was performed. The ventricles, basal cisterns and sulci overlying the cerebral convexities demonstrate mild enlargem ent. There is no evidence for intracranial hemorrhage or sulcal effacement. There is decreased attenuation about the periventricular white matter and deep white matter of both c erebral hemispheres, compatible with chronic small vessel ischemia. Differential diagnosis does inclu de demyelination. No mass effects are seen.No midline shift. Osseous calvarium is intact. If symptoms persist consider MRI. IMPRESSION: 1. Age related atrophic and chronic small vessel ischemic change without acute intracranial process s een at this time.
[2021-01-04 12:34] LABS: Glucose,Whole Blood 121 mg/dL (75-99)
--- NOTE | 2021-01-04 12:44 | P.DS ---
Providers Date of admission: 12/31/20 16:45 Expected date of discharge: 01/04/21 Attending physician: Lilian Sousa Primary care physician: Simran Hill Hospital Course: Final diagnosis Acute alcohol intoxication Acute urinary tract infection with culture showing E. coli Severe alcohol abuse Generalized weakness due to poor oral intake and volume depletion Lactic acidosis likely due to volume depletion Hypokalemia DVT prophylaxis Full code Discharge disposition Patient is being discharged in a stable condition with guarded prognosis to [facility] for continued PT/OT therapy. Patient will follow-up with Dr. Hill in the outpatient setting upon discharge. Patient is to continue with oral antibiotics in the form of Ceftin 500 mg twice daily for the next 4 days and then may discontinue. Total time taken is greater than 35 minutes. Hospital course This is a 71-year-old male who was recently admitted with generalized weakness that had been worsening over the last 1-2 weeks and was being closely monitored. She was found to have an acute urinary tract infection with acute alcohol intoxication and generalized weakness with poor oral intake. Patient also found to have bedsores to the coccyx sacral area and will continue with local wound care as instructed. Patient needs physical therapy as he was evaluated recommending subacute rehab for PT/OT therapy and strengthen mobility. Patient was started on IV antibiotics in the form of ceftriaxone and urine cultures finalized showing E. coli and we'll transition to Ceftin 500 mg twice daily for the next 4 days and then may discontinue. Patient states he did receive 1 dose of COVID-19 vaccine and discuss with him about asking for his second dose or also possibly following up with primary care provider to discuss this. Patient had CT of the brain done which shows age-related atrophic and chronic small vessel ischemic changes without any acute intracranial process seen. Currently no reports of chest pain, shortness of breath, or palpitations. Patient is afebrile. No reports of nausea or vomiting and patient is tolerating diet. Patient will be going to [facility] today. On exam vital signs are stable. Cardio S1, S2 are muffled. Respiratory system shows diminished breath sounds at the bases with no wheezing or rhonchi noted. Abdomen is soft and obese, and nontender. Nervous system shows diffuse weakness. Please refer to medication reconciliation sheet for a list of medications. Patient Condition at Discharge: Stable Plan - Discharge Summary New Discharge Prescriptions: New Acetaminophen Tab [Tylenol] 650 mg PO Q6HR PRN tab PRN Reason: Mild Pain Or Fever > 100.5 Cefuroxime Axetil [Ceftin] 500 mg PO BID 4 Days #8 tab Nicotine 14Mg/24Hr Patch [Habitrol] 1 patch TRANSDERM DAILY patch Melatonin 5 mg PO HS tablet Thiamine [Vitamin B-1] 100 mg PO BID-W/MEALS tab Continue Tamsulosin [Flomax] 0.8 mg PO HS #30 cap.er.24h Aspirin 81 mg PO DAILY chew Gabapentin [Neurontin] 300 mg PO TID #12 cap HYDROcodone/APAP 10-325MG [[place] 10-325] 1 tab PO Q8H PRN 2 Days #6 tab PRN Reason: Pain Discharge Medication List Tamsulosin [Flomax] 0.8 mg PO HS #30 cap.er.24h 09/11/20 [Rx] Aspirin 81 mg PO DAILY chew 11/12/20 [Rx] Acetaminophen Tab [Tylenol] 650 mg PO Q6HR PRN tab 01/04/21 [Rx] Cefuroxime Axetil [Ceftin] 500 mg PO BID 4 Days #8 tab 01/04/21 [Rx] Gabapentin [Neurontin] 300 mg PO TID #12 cap 01/04/21 [Rx] HYDROcodone/APAP 10-325MG [[place] 10-325] 1 tab PO Q8H PRN 2 Days #6 tab 01/04/21 [Rx] Melatonin 5 mg PO HS tablet 01/04/21 [Rx] Nicotine 14Mg/24Hr Patch [Habitrol] 1 patch TRANSDERM DAILY patch 01/04/21 [Rx] Thiamine [Vitamin B-1] 100 mg PO BID-W/MEALS tab 01/04/21 [Rx] Follow up Appointment(s)/Referral(s): Simran Hill MD [Primary Care Provider] - 1-2 days Activity/Diet/Wound Care/Special Instructions: Awaiting CT brain with results prior to discharge Patient is going to [facility] Activity as tolerated continue antibiotics for the next 4 days and then may discontinue Continue with consistent carb dysphasia chopped level III diet Continue with local wound care daily to the coccyx sacrum area by applying zinc barrier cream and sacrum border foam daily and as needed if area becomes soiled Inquire with ECF about receiving second dose of Covid vaccine follow up with primary care provider upon discharge Discharge Disposition: TRANSFER TO SNF/ECF
== END 2021-01-04 15:26 | DRG 897 ==
LOC: EC 10:33 → 4SSUR 13:02 → 5NMEDONC 17:31 → OBSVTOIN 12-31 16:45 → 5NMEDONC 01-03 22:41
PROVIDERS: ADMIT Internal Medicine; ATTEND Internal Medicine
DX: F10.129 Alcohol abuse with intoxication, unspecified (principal); E87.2 Acidosis; N39.0 Urinary tract infection, site not specified; F11.20 Opioid dependence, uncomplicated; F14.20 Cocaine dependence, uncomplicated; E66.9 Obesity, unspecified; E78.5 Hyperlipidemia, unspecified; E86.9 Volume depletion, unspecified; E87.6 Hypokalemia; F17.210 Nicotine dependence, cigarettes, uncomplicated; R53.1 Weakness; I11.0 Hypertensive heart disease with heart failure; E11.622 Type 2 diabetes mellitus with other skin ulcer; Z68.25 Body mass index [BMI] 25.0-25.9, adult; G31.89 Other specified degenerative diseases of nervous system; B96.20 Unspecified Escherichia coli [E. coli] as the cause of diseases classified elsewhere; B18.2 Chronic viral hepatitis C; G89.29 Other chronic pain; M54.5 Low back pain; K76.9 Liver disease, unspecified; I50.9 Heart failure, unspecified; L89.152 Pressure ulcer of sacral region, stage 2; L89.322 Pressure ulcer of left buttock, stage 2; L89.312 Pressure ulcer of right buttock, stage 2; Y90.4 Blood alcohol level of 80-99 mg/100 ml; Z79.82 Long term (current) use of aspirin; Z79.899 Other long term (current) drug therapy; Z95.1 Presence of aortocoronary bypass graft; Z79.891 Long term (current) use of opiate analgesic; Z79.84 Long term (current) use of oral hypoglycemic drugs; Z86.19 Personal history of other infectious and parasitic diseases
CPT/HCPCS: 36415; 70450; 71046; 80048; 80053; 80306; 80320; 81001; 82550; 83605; 83735; 83880; 84100; 84484; 85025; 85610; 85730; 87077; 87086; 87186; 93005; 96372; 99285

== ENCOUNTER 2021-05-06 07:06 | Inpatient (IN) | payer MEDICARE, MEDICAID ==
--- NOTE | 2021-05-06 07:35 | ED ---
General Adult HPI - General Chief complaint: Psychiatric Symptoms Stated complaint: Cellulitis Left Foot Time Seen by Provider: 05/06/21 07:10 Source: patient, RN notes reviewed, old records reviewed Mode of arrival: wheelchair Limitations: no limitations - History of Present Illness Initial comments: This is a 71-year-old male who presents emergency department with past medical history significant for diabetes and alcoholism and drug abuse high cholesterol and bypass surgery in the past. Patient comes in today because he states he has chronic leg problems he can barely walk and he has severe neuropathy. Patient states he can't deal with it and so he has become suicidal. Patient states he did use crack cocaine last night about 9:00. Patient states he told his brother that he wanted to kill himself. His brother brought him to the emergency department. Patient states he hasn't drank since last night about 9:00. Patient denies any chest pain difficult breathing shortest breath fever chills or cough. Patient denies headache patient has numbness weakness. Patient denies lightheadedness or dizziness. Patient denies abdominal pain patient denies nausea vomiting diarrhea. - Related Data Home Medications Medication Instructions Recorded Confirmed Acetaminophen [Tylenol 8 Hour] 650 mg PO Q8H PRN 05/06/21 05/06/21 Atorvastatin [Lipitor] 40 mg PO HS 05/06/21 05/06/21 Clopidogrel [Plavix] 75 mg PO DAILY 05/06/21 05/06/21 Cyanocobalamin [Vitamin B-12] 500 mcg PO DAILY 05/06/21 05/06/21 Finasteride [Proscar] 5 mg PO DAILY 05/06/21 05/06/21 Folic Acid 1 mg PO DAILY 05/06/21 05/06/21 HYDROcodone/APAP 10-325MG [[place] 1 tab PO Q6H PRN 05/06/21 05/06/21 10-325] Melatonin 3 mg PO HS PRN 05/06/21 05/06/21 Sennosides [Senna] 8.6 mg PO BID PRN 05/06/21 05/06/21 Tamsulosin [Flomax] 0.4 mg PO DAILY 05/06/21 05/06/21 Thiamine [Vitamin B-1] 100 mg PO DAILY 05/06/21 05/06/21 metFORMIN HCL 500 mg PO W/BRKFST 05/06/21 05/06/21 traMADol HCL 50 mg PO Q6H PRN 05/06/21 05/06/21 Previous Rx's Medication Instructions Recorded Aspirin 81 mg PO DAILY chew 11/12/20 Gabapentin [Neurontin] 300 mg PO TID #12 cap 01/04/21 Allergies Allergy/AdvReac Type Severity Reaction Status Date / Time No Known Allergies Allergy Verified 05/06/21 09:36 Review of Systems ROS Statement: Those systems with pertinent positive or pertinent negative responses have been documented in the HPI. ROS Other: All systems not noted in ROS Statement are negative. Past Medical History Past Medical History: Heart Failure, Diabetes Mellitus, Hyperlipidemia, Hypertension, Liver Disease Additional Past Medical History / Comment(s): Chronic low back pain, history of alcohol abuse, hep C History of Any Multi-Drug Resistant Organisms: None Reported Past Surgical History: Coronary Bypass/CABG Additional Past Surgical History / Comment(s): cyst removed under arm, Past Anesthesia/Blood Transfusion Reactions: No Reported Reaction Past Psychological History: No Psychological Hx Reported Smoking Status: Current every day smoker Past Alcohol Use History: Daily, Heavy Past Drug Use History: Cocaine, Heroin, IV Drug Use - Past Family History Father Additional Family Medical History / Comment(s): sclorosis General Exam - General Exam Comments Initial Comments: GENERAL: Patient is well-developed and well-nourished. Patient is nontoxic and well- hydrated and is in no acute distress. ENT: Neck is soft and supple. No significant lymphadenopathy is noted. Oropharynx is clear. Moist mucous membranes. Neck has full range of motion without eliciting any pain. EYES: The sclera were anicteric and conjunctiva were pink and moist. Extraocular movements were intact and pupils were equal round and reactive to light. Eyelids were unremarkable. PULMONARY: Unlabored respirations. Good breath sounds bilaterally. No audible rales rhonchi or wheezing was noted. CARDIOVASCULAR: There is a regular rate and rhythm without any murmurs gallops or rubs. ABDOMEN: Soft and nontender with normal bowel sounds. SKIN: Skin is clear with no lesions or rashes and otherwise unremarkable. NEUROLOGIC: Patient is alert and oriented x3. Cranial nerves II through XII are grossly intact. Motor and sensory are also intact. Normal speech, volume and content. Symmetrical smile. MUSCULOSKELETAL: Patient has significant weakness of his legs bilaterally he is able to move them equally but very weak. Patient states this is CHRONIC.. No lower extremity swelling or edema. No calf tenderness. LYMPHATICS: No significant lymphadenopathy is noted PSYCHIATRIC: Patient states he is suicidal. Patient has no specific plan. Limitations: no limitations Course Vital Signs 05/06/21 07:15 Temperature 98.8 F Pulse Rate 103 H Respiratory 20 Rate Blood Pressure 158/89 O2 Sat by Pulse 100 Oximetry Medical Decision Making - Medical Decision Making EKG shows normal sinus rhythm at 92 bpm VT interval 218 QRS is 80 QT interval 360 QTC is 455 per patient's EKG shows no ST segment elevation or depression. EPS evaluated the patient and determined the patient needed to be admitted. - Lab Data Result diagrams: 05/06/21 07:57 05/06/21 07:57 Lab Results 05/06/21 05/06/21 05/06/21 Range/Units 07:57 07:57 07:57 WBC 7.1 (3.8-10.6) k/uL RBC 4.87 (4.30-5.90) m/uL Hgb 15.4 (13.0-17.5) gm/dL Hct 43.7 (39.0-53.0) % MCV 89.7 (80.0-100.0) fL MCH 31.6 (25.0-35.0) pg MCHC 35.2 (31.0-37.0) g/dL RDW 12.2 (11.5-15.5) % Plt Count 170 (150-450) k/uL MPV 7.0 Neutrophils % 76 % Lymphocytes % 15 % Monocytes % 5 % Eosinophils % 3 % Basophils % 1 % Neutrophils # 5.4 (1.3-7.7) k/uL Lymphocytes # 1.0 (1.0-4.8) k/uL Monocytes # 0.3 (0-1.0) k/uL Eosinophils # 0.2 (0-0.7) k/uL Basophils # 0.1 (0-0.2) k/uL Sodium 141 (137-145) mmol/L Potassium 4.0 (3.5-5.1) mmol/L Chloride 105 (98-107) mmol/L Carbon Dioxide 27 (22-30) mmol/L Anion Gap 9 mmol/L BUN 12 (9-20) mg/dL Creatinine 0.62 L (0.66-1.25) mg/dL Est GFR (CKD-EPI)AfAm >90 (>60 ml/min/1.73 sqM) Est GFR (CKD-EPI)NonAf >90 (>60 ml/min/1.73 sqM) Glucose 123 H (74-99) mg/dL Calcium 10.3 H (8.4-10.2) mg/dL Magnesium 1.7 (1.6-2.3) mg/dL Total Bilirubin 1.1 (0.2-1.3) mg/dL AST 34 (17-59) U/L ALT 36 (4-49) U/L Alkaline Phosphatase 126 (38-126) U/L Troponin I <0.012 (0.000-0.034) ng/mL Total Protein 8.0 (6.3-8.2) g/dL Albumin 4.2 (3.5-5.0) g/dL Disposition Clinical Impression: Depression, Suicidal ideation, Cocaine abuse Disposition: ADMITTED IP TO THIS HOSP Referrals: Simran Hill MD [Primary Care Provider] - 1-2 days Time of Disposition: 10:29
[2021-05-06] MEDS ORDERED: GABAPENTIN 300 MG CAP PO STA (08:07)
[2021-05-06 08:09] LABS: Basophils # (A) 0.1 k/uL (0-0.2); Basophils % (A) 1 %; Eosinophils # (A) 0.2 k/uL (0-0.7); Eosinophils % (A) 3 %; HCT 43.7 % (39.0-53.0); HGB 15.4 gm/dL (13.0-17.5); Lymphocytes % (A) 15 %; MCH 31.6 pg (25.0-35.0); MCHC 35.2 g/dL (31.0-37.0); MCV 89.7 fL (80.0-100.0); Monocytes # (A) 0.3 k/uL (0-1.0); Monocytes % (A) 5 %; Neutrophils # (A) 5.4 k/uL (1.3-7.7); Neutrophils % (A) 76 %; Platelet Count 170 k/uL (150-450); RBC 4.87 m/uL (4.30-5.90); RDW 12.2 % (11.5-15.5); WBC 7.1 k/uL (3.8-10.6)
[2021-05-06 08:22] LABS: ALT 36 U/L (4-49); AST 34 U/L (17-59); African American GFR (CKD) >90 (>60 ml/min/1.73 sqM); Albumin 4.2 g/dL (3.5-5.0); Alkaline Phosphatase 126 U/L (38-126); Anion Gap 9 mmol/L; Blood Urea Nitrogen 12 mg/dL (9-20); Calcium 10.3 mg/dL (8.4-10.2); Carbon Dioxide 27 mmol/L (22-30); Chloride 105 mmol/L (98-107); Glucose 123 mg/dL (74-99); Magnesium 1.7 mg/dL (1.6-2.3); Non-African American GFR(CKD) >90 (>60 ml/min/1.73 sqM); Sodium 141 mmol/L (137-145); Total Bilirubin 1.1 mg/dL (0.2-1.3)
--- NOTE | 2021-05-06 08:25 | XR ---
EXAMINATION TYPE: XR chest 1V portable DATE OF EXAM: 05/06/2021 COMPARISON: 12/30/2020 INDICATION: Short of breath TECHNIQUE: Single frontal view of the chest is obtained. FINDINGS: The heart size is normal. There is a prior CABG. The pulmonary vasculature is normal. Appearance to the lungs appears stable. Subtle basilar infiltrate may be developing. IMPRESSION: 1. There is some minimal subtle basilar infiltrate developing. Continued follow-up is recommended.
[2021-05-06] MEDS ORDERED: MAGNESIUM HYDROXIDE 2,400 MG/10 ML CUP PO PRN (14:31)
[2021-05-06] MEDS ORDERED: MAG HYDROX/AL HYDROX/SIMETH 30 ML CUP PO PRN (14:31)
[2021-05-06] MEDS ORDERED: ACETAMINOPHEN TAB 325 MG TAB PO PRN (14:31)
[2021-05-06] MEDS ORDERED: MELATONIN 3 MG TABLET PO PRN (14:41)
[2021-05-06] MEDS ORDERED: haloperidoL 1 MG TAB PO PRN (14:49)
[2021-05-06] MEDS ORDERED: hydrOXYzine pamoate 25 MG CAP PO PRN (14:51)
[2021-05-06] MEDS ORDERED: HYDROcodone/APAP 5-325MG 1 EACH TAB PO PRN (14:52)
[2021-05-06] MEDS: GABAPENTIN 300 MG CAP PO SCH ×2 (16:07→20:44)
[2021-05-06 17:40] LABS: Glucose,Whole Blood 122 mg/dL (75-99)
[2021-05-06 20:42] LABS: Glucose,Whole Blood 113 mg/dL (75-99)
[2021-05-06] MEDS ORDERED: MELATONIN 5 MG TABLET PO PRN (20:50)
[2021-05-06] MEDS ORDERED: traZODone HCL 50 MG TAB PO PRN (20:50)
[2021-05-06] MEDS ORDERED: ATORVASTATIN 40 MG TAB PO SCH (21:00)
[2021-05-07 02:56] VITALS: TEMP 97.2
[2021-05-07] MEDS ORDERED: metFORMIN 500 MG TAB PO SCH (07:30)
[2021-05-07 07:58] LABS: Glucose,Whole Blood 127 mg/dL (75-99)
[2021-05-07] MEDS: GABAPENTIN 300 MG CAP PO SCH (07:59)
[2021-05-07 08:11] VITALS: BP 114/65; PULSE 76; RESP 20
[2021-05-07] MEDS ORDERED: NICOTINE 14MG/24HR PATCH TRANSDERM SCH (09:00)
[2021-05-07] MEDS ORDERED: ASPIRIN 81 MG PO SCH (09:00)
[2021-05-07] MEDS ORDERED: THIAMINE 100 MG TAB PO SCH (09:00)
[2021-05-07] MEDS ORDERED: CYANOCOBALAMIN 500 MCG TAB PO SCH (09:00)
[2021-05-07] MEDS ORDERED: FOLIC ACID 1 MG TAB PO SCH (09:00)
[2021-05-07] MEDS ORDERED: CLOPIDOGREL 75 MG TAB PO SCH (09:00)
[2021-05-07] MEDS ORDERED: TAMSULOSIN 0.4 MG CAP.ER.24H PO SCH (09:00)
[2021-05-07] MEDS ORDERED: FINASTERIDE 5 MG TAB PO SCH (09:00)
--- NOTE | 2021-05-07 12:17 | P.HP ---
Psychiatric H&P - . H&P Date: 05/07/21 History & Physical: Allergies Allergy/AdvReac Type Severity Reaction Status Date / Time No Known Allergies Allergy Verified 05/06/21 09:36 Vital Signs Temp 97.2 F L 05/07/21 02:55 Pulse 76 05/07/21 08:10 Resp 20 05/07/21 08:10 BP 114/65 05/07/21 08:10 Pulse Ox 95 05/07/21 02:55 Intake & Output 05/06/21 05/07/21 05/07/21 18:59 06:59 18:59 Weight 83.915 kg Other: Voiding Method Bedside Commode Diaper Laboratory Last Values WBC 7.1 k/uL (3.8-10.6) 05/06/21 07:57 RBC 4.87 m/uL (4.30-5.90) 05/06/21 07:57 Hgb 15.4 gm/dL (13.0-17.5) 05/06/21 07:57 Hct 43.7 % (39.0-53.0) 05/06/21 07:57 MCV 89.7 fL (80.0-100.0) 05/06/21 07:57 MCH 31.6 pg (25.0-35.0) 05/06/21 07:57 MCHC 35.2 g/dL (31.0-37.0) 05/06/21 07:57 RDW 12.2 % (11.5-15.5) 05/06/21 07:57 Plt Count 170 k/uL (150-450) 05/06/21 07:57 MPV 7.0 05/06/21 07:57 Neutrophils % 76 % 05/06/21 07:57 Lymphocytes % 15 % 05/06/21 07:57 Monocytes % 5 % 05/06/21 07:57 Eosinophils % 3 % 05/06/21 07:57 Basophils % 1 % 05/06/21 07:57 Neutrophils # 5.4 k/uL (1.3-7.7) 05/06/21 07:57 Lymphocytes # 1.0 k/uL (1.0-4.8) 05/06/21 07:57 Monocytes # 0.3 k/uL (0-1.0) 05/06/21 07:57 Eosinophils # 0.2 k/uL (0-0.7) 05/06/21 07:57 Basophils # 0.1 k/uL (0-0.2) 05/06/21 07:57 Sodium 141 mmol/L (137-145) 05/06/21 07:57 Potassium 4.0 mmol/L (3.5-5.1) 05/06/21 07:57 Chloride 105 mmol/L (98-107) 05/06/21 07:57 Carbon Dioxide 27 mmol/L (22-30) 05/06/21 07:57 Anion Gap 9 mmol/L 05/06/21 07:57 BUN 12 mg/dL (9-20) 05/06/21 07:57 Creatinine 0.62 mg/dL (0.66-1.25) L 05/06/21 07:57 Est GFR (CKD-EPI)AfAm >90 (>60 ml/min/1.73 sqM) 05/06/21 07:57 Est GFR (CKD-EPI)NonAf >90 (>60 ml/min/1.73 sqM) 05/06/21 07:57 Glucose 123 mg/dL (74-99) H 05/06/21 07:57 POC Glucose (mg/dL) 127 mg/dL (75-99) H 05/07/21 07:56 POC Glu Client Application Support Engineer Iglesia Stout 05/07/21 07:56 Calcium 10.3 mg/dL (8.4-10.2) H 05/06/21 07:57 Magnesium 1.7 mg/dL (1.6-2.3) 05/06/21 07:57 Total Bilirubin 1.1 mg/dL (0.2-1.3) 05/06/21 07:57 AST 34 U/L (17-59) 05/06/21 07:57 ALT 36 U/L (4-49) 05/06/21 07:57 Alkaline Phosphatase 126 U/L (38-126) 05/06/21 07:57 Troponin I <0.012 ng/mL (0.000-0.034) 05/06/21 07:57 Total Protein 8.0 g/dL (6.3-8.2) 05/06/21 07:57 Albumin 4.2 g/dL (3.5-5.0) 05/06/21 07:57 Coronavirus (PCR) Not Detected (Not Detectd) 05/06/21 11:02 05/07/21 12:17 IDENTIFYING DATA: Patient is a , on Social Security, 71-year-old -[place] male who presented to the emergency department for suicidal ideation HPI: Patient presented to the hospital on 05/06/2021, brought into the emergency department by his brother after endorsing suicidal ideation after relapsing and using crack cocaine and alcohol. The patient informed the EPS nurse that he was sober from drugs when he was released from [facility] in 2012. He began using crack cocaine this past Monday and again used it on Monday. The patient then reported he began feeling frustrated and had thoughts of being hit by a semi truck while in his wheelchair. He reported having these thoughts 3-4 times this past week. Upon evaluation on the psychiatric unit, the patient is currently not reporting any suicidal or homicidal ideation, intention, and/or plan. He is currently not reporting any significant symptoms of depression at this time. He denies any anhedonia, changes in sleep, changes in appetite, or hopelessness or helplessness. The patient stresses that he is just feeling extreme guilt from his relapse into substance use. He reports that he just did not want to go home because of his substance use and that is why he contact his brother to bring him to the hospital. He states that "I said what I needed to say in order to not go home." He states he has never attempted suicide before. He expresses a strong desire to live. He reports no auditory or visual hallucinations. He reports no significant history of psychosis or bruno. The patient does admit that he has been increasingly frustrated with his living situation and that he does not like where he is living. He currently lives with a manager android named Kamini. PAST PSYCHIATRIC HISTORY: Patient states that he has never been treated for or diagnosed with any mental illness in the past. The patient denies being on any psychiatric medications. Patient denies any previous psychiatric hospitalizations. Patient denies any psychiatric outpatient follow-up. Patient denies any history of suicide attempts in the past. PMH: Past Medical History: Heart Failure, Diabetes Mellitus, Hyperlipidemia, Hypertension, Liver Disease Additional Past Medical History / Comment(s): Chronic low back pain, history of alcohol abuse, hep C History of Any Multi-Drug Resistant Organisms: None Reported Past Surgical History: Coronary Bypass/CABG Additional Past Surgical History / Comment(s): cyst removed under arm, Past Anesthesia/Blood Transfusion Reactions: No Reported Reaction Past Psychological History: No Psychological Hx Reported Smoking Status: Current every day smoker Past Alcohol Use History: Daily, Heavy Past Drug Use History: Cocaine, Heroin, IV Drug Use ALLERGIES: NO KNOWN DRUG ALLERGIES CHEMICAL DEPENDENCY HISTORY: Patient reports a history of cocaine, heroin, and IV drug use. He reports that he last used crack cocaine this past Monday. He reports he was also drinking heavily at the time. He does report he drinks approximately 2 shots of liquor per day. He reports 1 PPD of tobacco. Prior to relapsing, the patient reports he was not using substances since he was released from [facility] in 2012. FAMILY PSYCHIATRIC/SUBSTANCE USE HISTORY: Patient reports his "whole family uses something, drugs, alcohol, marijuana." SOCIAL HISTORY: Patient was born and raised in [place], [place]. He reports he lives with his manager android Kamini. He states he is close with his family. He has been from his since 2006. He has 2 adult children. He reports he has spent a total of 17 years in incarceration. He states he was last released from [facility] in after spending 8 months incarecerated. He reports no current legal problems. He reports a [employer]. MENTAL STATUS EXAM: General Appearance: Patient appears to be stated age is alert, directable, and attempts to cooperate. Patient appears to have fair hygiene and grooming. Behavior: Patient is seated without any agitated behavior. Eye contact is appropriate. Patient has significant weakness and is unable to ambulate without assistance. Speech: Patient's speech is fluent and nonpressured. Mood/Affect: Patient reports their mood is "I just feel guilty." affect is constricted but euthymic. Suicidality/Homicidality: Patient denies having any homicidal ideation intent or plan. Denies any suicidal ideations intent or plan Perceptions: Patient denies any visual hallucinations and denies any auditory hallucinations Though content/process: There is no evidence of any delusional thought content and thought process is linear and goal-directed. Memory and concentration: AOX3, grossly intact for the purposes of this session. Can spell "WORLD" backwards Judgment and insight: poor STRENGTHS/WEAKNESSES: Strength is that the patient reports numerous social supports. Weakness is the patient's polysubstance abuse. INTELLECT: average IMPRESSIONS: Depressive Disorder, secondary to general medical condition and substance abuse Cocaine Use Disorder Nicotine Dependence Alcohol Use Disorder PLAN: -Patient is admitted under voluntary status to [facility]HU for stabilization of psychiatric symptoms and safety. Patient signed adult voluntary form and medication consent and is placed in patient's chart. -Medications : We will not start any medications at this time. The patient is not presenting with any acute psychiatric pathology and reports endorsing suicidal ideation due to his feeling of guilt of relapse and his desire not to return home. He is vehemently denying any suicidal or homicidal ideation, intention, and/or plan. -Patient was counselled on substance abuse and desired to cut back on use. He is not open to going to inpatient rehabilitation at this time. -As patient is not presenting with criteria for inpatient psychiatric hospitalization, the patient is subsequently discharged. 05/07/21 12:17
--- NOTE | 2021-05-07 12:24 | P.DS ---
Providers Date of admission: 05/06/21 13:27 Expected date of discharge: 05/07/21 Attending physician: Anthony Sands MD Consults: 05/06/21 14:31 Consult Physician Routine Consulting Provider: Raciel Genao Consult Reason/Comments: H & P Do you want consulting provider notified?: Yes Primary care physician: Simran Hill - Discharge Diagnosis(es) (1) Depression Current Visit: Yes Status: Acute Priority: High (2) Cocaine use disorder Current Visit: Yes Status: Chronic Priority: Medium (3) Alcohol use disorder Current Visit: Yes Status: Chronic Priority: Medium (4) Nicotine dependence Current Visit: No Status: Chronic Priority: Medium Hospital Course: Admission HPI: Patient is a , on Social Security, 71-year-old -Martiniquais male who presented to the emergency department for suicidal ideation Patient presented to the hospital on 05/06/2021, brought into the emergency department by his brother after endorsing suicidal ideation after relapsing and using crack cocaine and alcohol. The patient informed the EPS nurse that he was sober from drugs when he was released from detention in 2012. He began using crack cocaine this past Monday and again used it on Monday. The patient then reported he began feeling frustrated and had thoughts of being hit by a semi truck while in his wheelchair. He reported having these thoughts 3-4 times this past week. Upon evaluation on the psychiatric unit, the patient is currently not reporting any suicidal or homicidal ideation, intention, and/or plan. He is currently not reporting any significant symptoms of depression at this time. He denies any anhedonia, changes in sleep, changes in appetite, or hopelessness or helplessness. The patient stresses that he is just feeling extreme guilt from his relapse into substance use. He reports that he just did not want to go home because of his substance use and that is why he contact his brother to bring him to the hospital. He states that "I said what I needed to say in order to not go home." He states he has never attempted suicide before. He expresses a strong desire to live. He reports no auditory or visual hallucinations. He reports no significant history of psychosis or bruno. The patient does admit that he has been increasingly frustrated with his living situation and that he does not like where he is living. He currently lives with a operating room assistant named Kamini. Patient states that he has never been treated for or diagnosed with any mental illness in the past. The patient denies being on any psychiatric medications. Patient denies any previous psychiatric hospitalizations. Patient denies any psychiatric outpatient follow-up. Patient denies any history of suicide attempts in the past. Hospital course: Upon admission to the unit patient was initially presenting well with no endorsement of depression, bipolar disorder, or psychosis. He initially reported to the EPS nurse suicidal ideation with a plan but upon presentation to the psychiatric unit, the patient expresses no suicidal ideation and reports no prior attempts at suicide. He informs this provider, "I said what I had to say in order to not go home." The patient was evaluated by PT/OT due to his lack of ability to address his ADLs and they recommended subacute rehabilitation. Social work contacted the patient's home supports who confirm that the patient is safe to return home. As the patient has displayed no criteria for inpatient hospitalization, he is subsequently discharged. This provider discussed at length with the patient on the importance of abstaining from drugs of abuse as they negatively impact his mental health, his relationships, and his general health. Patient acknowledged understanding however declined inpatient rehabilitation for substance abuse. Mental status exam: General Appearance: Patient appears to be stated age is alert, directable, and attempts to cooperate. Patient appears to have fair hygiene and grooming. Behavior: Patient is seated without any agitated behavior. Eye contact is appropriate. Patient has significant weakness and is unable to ambulate without assistance. Speech: Patient's speech is fluent and nonpressured. Mood/Affect: Patient reports their mood is "I just feel guilty." affect is constricted but euthymic. Suicidality/Homicidality: Patient denies having any homicidal ideation intent or plan. Denies any suicidal ideations intent or plan Perceptions: Patient denies any visual hallucinations and denies any auditory hallucinations Though content/process: There is no evidence of any delusional thought content and thought process is linear and goal-directed. Memory and concentration: AOX3, grossly intact for the purposes of this session. Can spell "WORLD" backwards Judgment and insight: poor at baseline. Vital Signs Temp 97.2 F L 05/07/21 02:55 Pulse 76 05/07/21 08:10 Resp 20 05/07/21 08:10 BP 114/65 05/07/21 08:10 Pulse Ox 95 05/07/21 02:55 Intake & Output 05/06/21 05/07/21 05/07/21 18:59 06:59 18:59 Weight 83.915 kg Other: Voiding Method Bedside Commode Diaper Impression: Depressive Disorder, secondary to general medical condition and substance abuse Cocaine Use Disorder Nicotine Dependence Alcohol Use Disorder Plan: -Continue with discharge today as patient has improved and stabilized psychiatrically and is not currently an imminent threat to himself and/or others. Patient will remain at chronically elevated risk for self harm compared to the general population due to his substance abuse. -We will discharge with no medications added. Recommend limiting tramadol given that the patient does abuse cocaine placing him at increased risk for psychosis. -Order placed for PT/OT evaluation in the outpatient setting to assess for subacute rehabilitation. -Safety planning including discussion on utilizing crisis numbers, going to the hospital were discussed with the patient. Laboratory Results WBC 7.1 k/uL (3.8-10.6) 05/06/21 07:57 RBC 4.87 m/uL (4.30-5.90) 05/06/21 07:57 Hgb 15.4 gm/dL (13.0-17.5) 05/06/21 07:57 Hct 43.7 % (39.0-53.0) 05/06/21 07:57 MCV 89.7 fL (80.0-100.0) 05/06/21 07:57 MCH 31.6 pg (25.0-35.0) 05/06/21 07:57 MCHC 35.2 g/dL (31.0-37.0) 05/06/21 07:57 RDW 12.2 % (11.5-15.5) 05/06/21 07:57 Plt Count 170 k/uL (150-450) 05/06/21 07:57 MPV 7.0 05/06/21 07:57 Neutrophils % 76 % 05/06/21 07:57 Lymphocytes % 15 % 05/06/21 07:57 Monocytes % 5 % 05/06/21 07:57 Eosinophils % 3 % 05/06/21 07:57 Basophils % 1 % 05/06/21 07:57 Neutrophils # 5.4 k/uL (1.3-7.7) 05/06/21 07:57 Lymphocytes # 1.0 k/uL (1.0-4.8) 05/06/21 07:57 Monocytes # 0.3 k/uL (0-1.0) 05/06/21 07:57 Eosinophils # 0.2 k/uL (0-0.7) 05/06/21 07:57 Basophils # 0.1 k/uL (0-0.2) 05/06/21 07:57 Sodium 141 mmol/L (137-145) 05/06/21 07:57 Potassium 4.0 mmol/L (3.5-5.1) 05/06/21 07:57 Chloride 105 mmol/L (98-107) 05/06/21 07:57 Carbon Dioxide 27 mmol/L (22-30) 05/06/21 07:57 Anion Gap 9 mmol/L 05/06/21 07:57 BUN 12 mg/dL (9-20) 05/06/21 07:57 Creatinine 0.62 mg/dL (0.66-1.25) L 05/06/21 07:57 Est GFR (CKD-EPI)AfAm >90 (>60 ml/min/1.73 sqM) 05/06/21 07:57 Est GFR (CKD-EPI)NonAf >90 (>60 ml/min/1.73 sqM) 05/06/21 07:57 Glucose 123 mg/dL (74-99) H 05/06/21 07:57 POC Glucose (mg/dL) 127 mg/dL (75-99) H 05/07/21 07:56 POC Glu Security Analyst ID Walker, Iglesia 05/07/21 07:56 Calcium 10.3 mg/dL (8.4-10.2) H 05/06/21 07:57 Magnesium 1.7 mg/dL (1.6-2.3) 05/06/21 07:57 Total Bilirubin 1.1 mg/dL (0.2-1.3) 05/06/21 07:57 AST 34 U/L (17-59) 05/06/21 07:57 ALT 36 U/L (4-49) 05/06/21 07:57 Alkaline Phosphatase 126 U/L (38-126) 05/06/21 07:57 Troponin I <0.012 ng/mL (0.000-0.034) 05/06/21 07:57 Total Protein 8.0 g/dL (6.3-8.2) 05/06/21 07:57 Albumin 4.2 g/dL (3.5-5.0) 05/06/21 07:57 Coronavirus (PCR) Not Detected (Not Detectd) 05/06/21 11:02 Laboratory Results - Last 24 Hours 05/06/21 05/06/21 05/07/21 17:37 20:41 07:56 POC Glucose (mg/dL) 122 H 113 H 127 H POC Glu Security Analyst JOSEPH Robison, Meron Reed, Noelle Walker, Iglesia Allergies Allergy/AdvReac Type Severity Reaction Status Date / Time No Known Allergies Allergy Verified 05/06/21 09:36 Patient Condition at Discharge: Stable Plan - Discharge Summary Discharge Rx Participant: No New Discharge Prescriptions: Continue Cyanocobalamin [Vitamin B-12] 500 mcg PO DAILY Finasteride [Proscar] 5 mg PO DAILY Thiamine [Vitamin B-1] 100 mg PO DAILY HYDROcodone/APAP 10-325MG [[place] 10-325] 1 tab PO Q6H PRN PRN Reason: Pain Aspirin 81 mg PO DAILY chew Gabapentin [Neurontin] 300 mg PO TID #12 cap Melatonin 3 mg PO HS PRN PRN Reason: Insomnia metFORMIN HCL 500 mg PO W/BRKFST Folic Acid 1 mg PO DAILY Clopidogrel [Plavix] 75 mg PO DAILY Atorvastatin [Lipitor] 40 mg PO HS Acetaminophen [Tylenol 8 Hour] 650 mg PO Q8H PRN PRN Reason: Pain Tamsulosin [Flomax] 0.4 mg PO DAILY Sennosides [Senna] 8.6 mg PO BID PRN PRN Reason: Constipation Discontinued traMADol HCL 50 mg PO Q6H PRN PRN Reason: Moderate Pain Discharge Medication List Aspirin 81 mg PO DAILY chew 11/12/20 [Rx] Gabapentin [Neurontin] 300 mg PO TID #12 cap 01/04/21 [Rx] Acetaminophen [Tylenol 8 Hour] 650 mg PO Q8H PRN 05/06/21 [History] Atorvastatin [Lipitor] 40 mg PO HS 05/06/21 [History] Clopidogrel [Plavix] 75 mg PO DAILY 05/06/21 [History] Cyanocobalamin [Vitamin B-12] 500 mcg PO DAILY 05/06/21 [History] Finasteride [Proscar] 5 mg PO DAILY 05/06/21 [History] Folic Acid 1 mg PO DAILY 05/06/21 [History] HYDROcodone/APAP 10-325MG [[place] 10-325] 1 tab PO Q6H PRN 05/06/21 [History] Melatonin 3 mg PO HS PRN 05/06/21 [History] Sennosides [Senna] 8.6 mg PO BID PRN 05/06/21 [History] Tamsulosin [Flomax] 0.4 mg PO DAILY 05/06/21 [History] Thiamine [Vitamin B-1] 100 mg PO DAILY 05/06/21 [History] metFORMIN HCL 500 mg PO W/BRKFST 05/06/21 [History] Follow up Appointment(s)/Referral(s): Simran Hill MD [Primary Care Provider] - 1-2 days Ambulatory/Diagnostic Orders: Ambulatory Occupational Therapy Order [THER.AMB] Location: None Selected Ambulatory Physical Therapy Order [THER.AMB] Location: None Selected Patient Instructions/Handouts: Cocaine Abuse (DC), Depression (DC) Activity/Diet/Wound Care/Special Instructions: Activity and diet as tolerated. Avoid the use of street drugs and alcohol. Take all medications as prescribed. When you are in need of refills on your medications please contact your medical provider and/or outpatient psychiatrist to have this done. Please go to scheduled outpatient appointment for aftercare treatment. If symptoms return or become worse, call the crisis line at and/or go to the nearest emergency room for evaluation. Discharge Disposition: HOME SELF-CARE
[2021-05-07 12:39] LABS: Glucose,Whole Blood 110 mg/dL (75-99)
[2021-05-07 14:05] LABS: Chol/HDL Ratio 2.36 Ratio; LDL Cholesterol,Calculated 59.8 mg/dL (0.0-131.0); VLDL Calculation 19.08 mg/dL (5.00-40.00)
[2021-05-07 14:35] VITALS: BMI 25.7
--- NOTE | 2021-05-08 10:39 | P.CONS ---
History of Present Illness - Reason for Consult Consult date: 05/07/21 Medical management - Chief Complaint Suicidal ideation - History of Present Illness 71-year-old male who presents emergency department with past medical history significant for diabetes and alcoholism and drug abuse high cholesterol and bypass surgery in the past. Patient comes in today because he states he has chronic leg problems he can barely walk and he has severe neuropathy. Patient states he can't deal with it and so he has become suicidal. Patient states he did use crack cocaine last night about 9:00. Patient states he told his brother that he wanted to kill himself. His brother brought him to the emergency department. Patient states he hasn't drank since last night about 9:00. Patient denies any chest pain difficult breathing shortest breath fever chills or cough. Patient denies headache patient has numbness weakness. Patient denies lightheadedness or dizziness. Patient denies abdominal pain patient denies nausea vomiting diarrhea. Review of Systems REVIEW OF SYSTEMS: CONSTITUTIONAL: No fever, no malaise, no fatigue. HEENT: No recent visual problems or hearing problems. Denied any sore throat. CARDIOVASCULAR: No chest pain, orthopnea, PND, no palpitations, no syncope. PULMONARY: No shortness of breath, no cough, no hemoptysis. GASTROINTESTINAL: No diarrhea, no nausea, no vomiting, no abdominal pain. NEUROLOGICAL: No headaches, no weakness, no numbness. HEMATOLOGICAL: Denies any bleeding or petechiae. GENITOURINARY: Denies any burning micturition, frequency, or urgency. MUSCULOSKELETAL/RHEUMATOLOGICAL: Denies any joint pain, swelling, or any muscle pain. ENDOCRINE: Denies any polyuria or polydipsia. The rest of the 14-point review of systems is negative. Past Medical History Past Medical History: Heart Failure, Diabetes Mellitus, Hyperlipidemia, Hypertension, Liver Disease Additional Past Medical History / Comment(s): Chronic low back pain, history of alcohol abuse, hep C History of Any Multi-Drug Resistant Organisms: None Reported Past Surgical History: Coronary Bypass/CABG Additional Past Surgical History / Comment(s): cyst removed under arm, Past Anesthesia/Blood Transfusion Reactions: No Reported Reaction Smoking Status: Current every day smoker - Past Family History Father Additional Family Medical History / Comment(s): sclorosis Medications and Allergies Home Medications Medication Instructions Recorded Confirmed Type Aspirin 81 mg PO DAILY chew 11/12/20 05/07/21 Rx Gabapentin [Neurontin] 300 mg PO TID #12 cap 01/04/21 05/07/21 Rx Acetaminophen [Tylenol 8 Hour] 650 mg PO Q8H PRN 05/06/21 05/07/21 History Atorvastatin [Lipitor] 40 mg PO HS 05/06/21 05/07/21 History Clopidogrel [Plavix] 75 mg PO DAILY 05/06/21 05/07/21 History Cyanocobalamin [Vitamin B-12] 500 mcg PO DAILY 05/06/21 05/07/21 History Finasteride [Proscar] 5 mg PO DAILY 05/06/21 05/07/21 History Folic Acid 1 mg PO DAILY 05/06/21 05/07/21 History HYDROcodone/APAP 10-325MG [[place] 1 tab PO Q6H PRN 05/06/21 05/07/21 History 10-325] Melatonin 3 mg PO HS PRN 05/06/21 05/07/21 History Sennosides [Senna] 8.6 mg PO BID PRN 05/06/21 05/07/21 History Tamsulosin [Flomax] 0.4 mg PO DAILY 05/06/21 05/07/21 History Thiamine [Vitamin B-1] 100 mg PO DAILY 05/06/21 05/07/21 History metFORMIN HCL 500 mg PO W/BRKFST 05/06/21 05/07/21 History Allergies Allergy/AdvReac Type Severity Reaction Status Date / Time No Known Allergies Allergy Verified 05/06/21 09:36 Physical Exam Vitals: Vital Signs Temp Pulse Pulse Pulse Resp BP BP 05/07/21 08:10 76 20 114/65 05/07/21 02:55 97.2 F L 81 16 116/71 05/06/21 14:50 99 20 140/87 05/06/21 14:48 87 16 141/79 Pulse Ox 05/07/21 08:10 05/07/21 02:55 95 05/06/21 14:50 100 05/06/21 14:48 96 PHYSICAL EXAMINATION: GENERAL: The patient is alert and oriented x3, not in any acute distress. Well developed, well nourished. HEENT: Pupils are round and equally reacting to light. EOMI. No scleral icterus. No conjunctival pallor. Normocephalic, atraumatic. No pharyngeal erythema. No thyromegaly. CARDIOVASCULAR: S1 and S2 present. No murmurs, rubs, or gallops. PULMONARY: Chest is clear to auscultation, no wheezing or crackles. ABDOMEN: Soft, nontender, nondistended, normoactive bowel sounds. No palpable organomegaly. MUSCULOSKELETAL: No joint swelling or deformity. EXTREMITIES: No cyanosis, clubbing, or pedal edema. NEUROLOGICAL: Gross neurological examination did not reveal any focal deficits. SKIN: No rashes. Results CBC & Chem 7: 05/06/21 07:57 05/06/21 07:57 Labs: Abnormal Lab Results - Last 24 Hours (Table) 05/06/21 05/06/21 05/07/21 Range/Units 17:37 20:41 07:56 POC Glucose (mg/dL) 122 H 113 H 127 H (75-99) mg/dL Assessment and Plan Assessment: 1. Suicidal ideation; your management 2. Hypertension; currently not on antihypertensive therapy; we will monitor blood pressure closely and make further recommendations 3. Hyperlipidemia; Lipitor 40 mg by mouth daily at bedtime 4. Diabetes mellitus; we will monitor Accu-Cheks every his images with insulin sliding scale; metformin 500 mg by mouth before meals breakfast 5. CAD/CHF; continue with home dose of Plavix 75 mg daily, Lipitor 40 mg by mouth daily at bedtime DVT prophylaxis; early ambulation CODE STATUS; full code
== END 2021-05-07 13:47 | disposition home or self-care (01) | DRG 881 ==
LOC: EC 07:06 → 3MHU 13:27
PROVIDERS: ADMIT Psychiatry & Neurology Psychiatry; ATTEND Psychiatry & Neurology Psychiatry
DX: F32.9 Major depressive disorder, single episode, unspecified (principal); R45.851 Suicidal ideations; I11.0 Hypertensive heart disease with heart failure; I50.9 Heart failure, unspecified; Z20.822 Contact with and (suspected) exposure to COVID-19; B18.2 Chronic viral hepatitis C; G89.29 Other chronic pain; Z71.41 Alcohol abuse counseling and surveillance of alcoholic; Z71.51 Drug abuse counseling and surveillance of drug abuser; M54.9 Dorsalgia, unspecified; I25.10 Atherosclerotic heart disease of native coronary artery without angina pectoris; F17.210 Nicotine dependence, cigarettes, uncomplicated; F14.10 Cocaine abuse, uncomplicated; F10.10 Alcohol abuse, uncomplicated; E78.00 Pure hypercholesterolemia, unspecified; E78.5 Hyperlipidemia, unspecified; E11.42 Type 2 diabetes mellitus with diabetic polyneuropathy; Z95.1 Presence of aortocoronary bypass graft; Z79.899 Other long term (current) drug therapy; Z79.84 Long term (current) use of oral hypoglycemic drugs; Z79.82 Long term (current) use of aspirin; Z79.02 Long term (current) use of antithrombotics/antiplatelets
CPT/HCPCS: 36415; 71045; 80053; 80061; 82075; 83036; 83735; 84443; 84484; 85025; 87635; 93005; 99285

== ENCOUNTER → 2021-08-18 | Outpatient (CLI) | payer MEDICARE, OTHER ==
--- NOTE | 2021-08-18 18:40 | CT ---
EXAMINATION TYPE: CT lumbar spine wo con DATE OF EXAM: 08/18/2021 12:08 PM COMPARISON: CT dated 03/07/2019 HISTORY: low back pain CT DLP: 626.4 mGycm Automated exposure control for dose reduction was used. Technique: Unenhanced CT of the lumbar spine was performed. Bone and soft tissue window settings are submitted as well as coronal and sagittal reconstructions. FINDINGS: Moderate retrolisthesis of L5 over S1. No definite vertebral body collapse or acute displaced fractur e. Congenital spinal canal stenosis is seen from L2 down to L5-S1 level most evident at L3 level with the spinal canal measures 8.5 mm. Advanced degenerative changes of the lumbar spine with multilevel opposing endplate osteophytosis, ma rkedly degenerated L4-5 and L5-S1 discs and multilevel facet osteoarthropathy. Subchondral sclerotic changes and subchondral cyst formation is also seen at L4-5 and L5-S1 levels. At L1-2 level: Mild posterior disc bulge associated with mild congenital spinal canal stenosis with n o significant neuroforaminal stenosis. At L2-3 level: Diffuse posterior disc bulge associated with posterior osteophytosis, facet osteoarthr opathy, ligamentum flavum hypertrophy and congenital spinal canal narrowing, causing severe central s yessenia canal stenosis without significant neuroforaminal stenosis. At L3-4 level: Diffuse posterior disc bulge more inclined to the right side, associated with bilatera l facet osteoarthropathy, marked ligamentum flavum hypertrophy and congenital spinal canal stenosis, causing severe central spinal canal stenosis, moderate right and severe left neuroforaminal stenosis, compressing the left L3 nerve root. At L4-5 level: Degenerated disc with diffuse posterior disc bulge, severe ligamentum flavum hypertrop hy, posterior osteophytosis and focal left paracentral disc protrusion, causing severe central spinal canal stenosis and suspected severe cauda equina nerve root compression, with moderate right neurofo raminal stenosis. At L5-S1 level: Severe disc degeneration with posterior disc osteophyte complex and bilateral facet o steoarthropathy associated with mild ligamentum flavum hypertrophy, causing moderate to severe centra l spinal canal stenosis, moderate right and [id number] left neuroforaminal stenosis. Suspecte d compression of L5 nerve roots in the extraforaminal location by adjacent osteophytosis. Tiny pancreatic calcifications likely related to sequela of previous pancreatitis. Scattered arterial atherosclerotic calcifications. Dense atheromatous calcification is seen at the origin of the superi or mesenteric artery. No paraspinal lesion. IMPRESSION: Advanced degenerative changes of the lumbar spine with multilevel DDD (most evident at L4-5 and L5-S1 levels), central spinal canal stenosis and neuroforaminal stenosis, augmented by congenital factors as detailed above. Recommend spine surgery/intervention consultation. Other incidental findings as de scribed above.
== END | disposition home or self-care (01) ==
LOC: RADCTMAIN 11:52
PROVIDERS: ATTEND Family Medicine
DX: M47.816 Spondylosis without myelopathy or radiculopathy, lumbar region (principal); M51.37 Other intervertebral disc degeneration, lumbosacral region; M48.07 Spinal stenosis, lumbosacral region
CPT/HCPCS: 72131

== ENCOUNTER → 2021-09-09 | Outpatient (CLI) | payer MEDICARE, OTHER ==
--- NOTE | 2021-09-09 12:20 | MR ---
EXAMINATION TYPE: MR lumbar spine wo/w con DATE OF EXAM: 09/09/2021 COMPARISON: Prior lumbar MRI 08/07/2014, CT lumbar spine 08/18/2021 HISTORY: M51.9 Lumbar disc disease R93.[address] scan , Chronic Right sided back pain x 20+ years TECHNIQUE: Multiplanar, multisequence images of the lumbar spine were acquired without and with 9 mL intravenous Gadavist gadolinium contrast. L1-L2: Normal disc appearance without desiccation. No herniation, protrusion or disc bulging. No ca nal stenosis is present. Foramina are patent bilaterally. There is facet arthropathy with hypertroph ic changes of the facets, ligamentum flavum causing posterior lateral mass effect on the thecal sac L2-L3: Facet arthropathy with hypertrophy ligamentum flavum causes posterior lateral mass effect on t he thecal sac. Only mild central stenosis. Circumferential disc bulge is present extending laterally into a bilobed fashion extending towards the foramina. L3-L4: Severe spinal stenosis is present. Posterior broad-based disc bulge is present which causes an terior mass effect on the thecal sac. There is facet arthropathy, hypertrophic changes encroach upon the lateral recesses and causes posterior lateral mass effect on the thecal sac. Circumferential exte nsion endplate disc complex results in bilateral foraminal encroachment. L4-L5: Circumferential extension endplate disc complex encroaches on the bilateral foramina right gre ater than left. Facet arthropathy present with encroachment on the lateral recesses, there is trefoil appearance of the thecal sac, moderate spinal stenosis. Posterior extension endplate disc complex, b road-based posterior disc bulge causes anterior mass effect on the thecal sac similar to prior exam. L5-S1: Posterior extension endplate disc complex causes anterior mass effect on the thecal sac. There is facet arthropathy with hypertrophy ligamentum flavum. Circumferential extension endplate disc com plex results in foraminal encroachment bilaterally. There is mild spinal stenosis. There is some encr oachment on the lateral recesses. Findings similar to prior exam. Lumbar segments are intact. No paraspinal masses are identified. Conus medullaris has a normal appe arance. Lumbar vertebral bodies show stable alignment, there is preservation of lumbar vertebral body height, there is multilevel spondylosis with extensive endplate discogenic marrow signal change. [place] s of disc height and signal is again seen greatest at L4-5 and L5-S1 but also present at L3-4, L2-3. Common bile duct is dilated. No abnormal enhancement following contrast administration. IMPRESSION: Degenerative disc disease, facet arthropathy, foraminal encroachment and spinal stenosis are similar to prior exam. Dilated common bile duct is noted incidentally.
== END | disposition home or self-care (01) ==
LOC: RADMRIMAIN 08:48
PROVIDERS: ATTEND Family Medicine
DX: M48.061 Spinal stenosis, lumbar region without neurogenic claudication (principal); M51.36 Other intervertebral disc degeneration, lumbar region; M47.816 Spondylosis without myelopathy or radiculopathy, lumbar region; K83.8 Other specified diseases of biliary tract
CPT/HCPCS: 72158; A9585

== ENCOUNTER → 2022-07-13 | Outpatient (CLI) | payer MEDICARE, OTHER ==
[2022-07-13 19:21] LABS: Basophils # (A) 0.06 X 10*3/uL (0.00-0.10); Basophils % (A) 0.8 %; Eosinophils # (A) 0.13 X 10*3/uL (0.04-0.35); Eosinophils % (A) 1.8 %; HCT 42.7 % (39.6-50.0); HGB 14.3 g/dL (13.0-17.0); Immature Grans, Automated 0.3 %; Lymphocytes # (A) 1.53 X 10*3/uL (0.90-5.00); Lymphocytes % (A) 21.1 %; MCH 30.6 pg (27.0-32.0); MCHC 33.5 g/dL (32.0-37.0); MCV 91.2 fL (80.0-97.0); Mean Platelet Volume 10.3 fL (9.5-12.2); Monocytes # (A) 0.41 X 10*3/uL (0.20-1.00); Monocytes % (A) 5.7 %; NRBC Per 100 WBC 0 /100 WBCS (0.0-0.0); Neutrophils # (A) 5.09 X 10*3/uL (1.80-7.70); Neutrophils % (A) 70.3 %; Platelet Count 182 X 10*3/uL (140-440); RBC 4.68 X 10*6/uL (4.40-5.60); WBC 7.24 X 10*3/uL (4.50-10.00)
[2022-07-13 20:27] LABS: Appearance,Urine Cloudy (Clear); Bilirubin,Urine Negative (Negative); Blood,Urine Large (Negative); Color,Urine Yellow (Yellow); Ketones,Urine Negative (Negative); Nitrite,Urine Positive (Negative); PH, Urine 8.5 (5.0-8.0); Specific Gravity,Urine 1.021 (1.001-1.030)
[2022-07-13 21:28] LABS: Bacteria,Urine 3+ /HPF (None Seen); Triple Phosphate Crystal,Urine Present /LPF (None Seen)
[2022-07-14 12:03] LABS: African American GFR (CKD) 109.9 (60.0-200.0); Anion Gap 12.6 mmol/L (10.00-18.00); BUN/Creat Ratio 17.5 Ratio (12.00-20.00); Blood Urea Nitrogen 12.3 mg/dL (9.0-27.0); Calcium 9.8 mg/dL (8.7-10.3); Carbon Dioxide 24.9 mmol/L (20.0-27.5); Non-African American GFR(CKD) 94.8 (60.0-200.0); Potassium 4.1 mmol/L (3.5-5.5)
== END | disposition home or self-care (01) ==
LOC: LABPAT 11:37
PROVIDERS: ATTEND Urology
DX: Z01.812 Encounter for preprocedural laboratory examination (principal); N40.1 Benign prostatic hyperplasia with lower urinary tract symptoms; R31.29 Other microscopic hematuria
CPT/HCPCS: 80048; 81001; 85025; 87086

== ENCOUNTER 2022-07-19 09:15 | Day surgery (SDC) | payer MEDICARE, OTHER ==
[2022-07-14 11:28] VITALS: BMI 23.0
--- NOTE | 2022-07-19 08:11 | P.HPIHPCON ---
History of Present Illness H&P Date: 07/19/22 Chief Complaint: BPH This is a 72-year-old male with history of urinary retention, has failed multiple trial of voids. Underwent a cystoscopy that showed evidence of an obstructive prostate. Option of a TURP was discussed with him. Discussed risks which includes but not limited to bleeding, infection, urinary incontinence, persistent retention, strictures, erectile dysfunction. Discussed also with him risk from anesthesia. He understood all the risk and agreed to proceed Consent for Procedure: I have explained the operation/procedure to the patient, including the risks, benefits, side effects, alternative therapies (including not receiving the proposed treatment or service), the likelihood of the patient achieving his/her goals, and potential recuperation problems for the procedure/sedation/analgesia, as well as any blood products, if indicated. I also explained to the patient the risks, benefits and side effects of the alternatives, as well as the risks related to not receiving the proposed procedure, care, treatment, or services. 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 Diet Controlled Diabetes. Chronic low back pain. History of alcohol abuse. Hx Hepatitis C, 2005, treated and resolved 2015. Neuropathy in legs. Enlarged prostate. History of Any Multi-Drug Resistant Organisms: None Reported Past Surgical History: Coronary Bypass/CABG Additional Past Surgical History / Comment(s): Cyst removed from under arm, "plaque removed from both legs", CABG 5 vessels in 08/2000. Past Anesthesia/Blood Transfusion Reactions: No Reported Reaction Past Psychological History: No Psychological Hx Reported Smoking Status: Current every day smoker Past Alcohol Use History: Daily, Heavy Additional Past Alcohol Use History / Comment(s): Started smoking at age 11 or 13, smokes 1/2 ppd. Admits to hx of alcohol abuse, states currently drinks 1/2 pint per week. States no alcohol since 07/10/22. Past Drug Use History: Cocaine, Heroin Additional Drug Use History / Comment(s): Last used cocaine 2 weeks ago. No Heroin in 10 yrs. States trying to stay off alcohol and cocaine until after surgery. Reinforced importance of doing that. - Past Family History Father Additional Family Medical History / Comment(s): sclorosis Medications and Allergies Home Medications Medication Instructions Recorded Confirmed Type Aspirin 81 mg PO DAILY chew 11/12/20 07/14/22 Rx Tamsulosin [Flomax] 0.4 mg PO DAILY 05/06/21 07/14/22 History Melatonin 5 mg PO HS 07/14/22 07/14/22 History Allergies Allergy/AdvReac Type Severity Reaction Status Date / Time No Known Allergies Allergy Verified 07/14/22 11:01 Surgical - Exam - General no distress, no pain - ENT normal nares, normal mucosa - Respiratory normal expansion, normal respiratory effort - Psychiatric oriented to time, oriented to person, oriented to place Assessment and Plan Assessment: OR for a TURP
[~2022-07-19 09:15] MED LIST changes: +GENTAMICIN 120 MG in SODIUM CHLORIDE 0.9% 100 ML IVPB PRN; -SODIUM CHLORIDE 0.9% 1,000 ML in EMPTY BAG 1 BAG IV ONE
[2022-07-19] MEDS ORDERED: DEXAMETHASONE SOD PHOSPHATE 4 MG/ML 1 ML VIAL IV ONE (09:48)
[2022-07-19] MEDS ORDERED: LACTATED RINGERS 1,000 ML IV SCH (09:48)
[2022-07-19] MEDS ORDERED: MIDAZOLAM 2 MG/2 ML VIAL IV PRN (09:48)
[2022-07-19] MEDS ORDERED: HYDROmorphone 0.5 MG/0.5 ML SYRINGE IVP PRN (09:48)
[2022-07-19] MEDS ORDERED: ONDANSETRON 4 MG/2 ML VIAL IVP ONE (09:48)
[2022-07-19 10:07] LABS: Glucose,Whole Blood 111 mg/dL (70-110)
--- NOTE | 2022-07-19 10:10 | XR ---
EXAMINATION TYPE: XR KUB DATE OF EXAM: 07/19/2022 CLINICAL HISTORY: Presurgical for prostate surgery TECHNIQUE: Supine KUB images of the abdomen are obtained. COMPARISON: 11/07/2020 FINDINGS: Moderate to large amount stool within the colon. Nonobstructive bowel gas pattern. No pneum operitoneum or visceromegaly. Extensive arterial vascular calcifications. Severe degenerative changes of the lower lumbosacral spine. Bilateral inguinal clips. IMPRESSION: Moderate stool throughout the colon. Nonobstructive bowel gas pattern. No acute abnormality.
[2022-07-19 10:40] LABS: African American GFR (CKD) >90 (>60 ml/min/1.73 sqM); Anion Gap 6 mmol/L; Blood Urea Nitrogen 10 mg/dL (9-20); Calcium 9.3 mg/dL (8.4-10.2); Carbon Dioxide 26 mmol/L (22-30); Chloride 110 mmol/L (98-107); Glucose 115 mg/dL (74-99); Non-African American GFR(CKD) >90 (>60 ml/min/1.73 sqM); Sodium 142 mmol/L (137-145)
[2022-07-19 10:44] LABS: African American GFR (CKD) >90 (>60 ml/min/1.73 sqM); Anion Gap 5 mmol/L; Blood Urea Nitrogen 9 mg/dL (9-20); Calcium 9.1 mg/dL (8.4-10.2); Carbon Dioxide 26 mmol/L (22-30); Chloride 109 mmol/L (98-107); Glucose 113 mg/dL (74-99); Non-African American GFR(CKD) >90 (>60 ml/min/1.73 sqM); Potassium 3.8 mmol/L (3.5-5.1); Sodium 140 mmol/L (137-145)
[2022-07-19 10:44] LABS: Potassium 4.2 mmol/L (3.5-5.1)
[2022-07-19] MEDS ORDERED: PROPOFOL 10 MG/ML 20 ML VIAL IV ONE (10:44)
[2022-07-19] MEDS ORDERED: LIDOCAINE 2% INJ 20 MG/ML (2 ML VIAL) ONE (10:44)
[2022-07-19] MEDS ORDERED: fentaNYL (PF) 50 MCG/ML 2 ML AMP ONE (10:44)
[2022-07-19] MEDS ORDERED: ePHEDrine 50 MG/ML 1 ML VIAL ONE (10:44)
[2022-07-19] MEDS ORDERED: PHENYLEPHRINE-0.9% NACL SYG 1,000 MCG/10 ML SYRINGE ONE (10:44)
[2022-07-19] MEDS ORDERED: GLYCOPYRROLATE 0.2 MG/ML 2 ML VIAL ONE (10:44)
[2022-07-19 12:12] VITALS: TEMP 97.5
[2022-07-19 12:55] VITALS: RESP 16
[2022-07-19 13:10] VITALS: BP 124/65; PULSE 92
--- NOTE | 2022-07-19 15:18 | P.OP ---
Date of Procedure: 07/19/22 Preoperative Diagnosis: BPH, urinary retention Postoperative Diagnosis: Same Procedure(s) Performed: TURP (bipolar) Implants: none Anesthesia: ADRIANAA Surgeon: Benjamin Macedo Estimated Blood Loss (ml): 50 Pathology: other (prostate adenoma) Condition: stable Disposition: PACU Indications for Procedure: This is a 72-year-old male with history of urinary retention, has failed multiple trial of voids. Underwent a cystoscopy that showed evidence of an ob structive prostate. Option of a TURP was discussed with him. Discussed risks which includes but not limited to bleeding, infection, urinary incontinence, persistent retention, strictures, erectile dysfunction. Discussed also with him risk from anesthesia. He understood all the risk and agreed to proceed Operative Findings: Bilateral structure lateral lobes Description of Procedure: Patient brought to the operating room, general anesthesia was induced. She was prepped and draped in sterile fashion and placed in dorsal lithotomy position. Resectoscope fitted with a 25-Italian sheath was inserted per urethra, cystoscopy was performed which showed bilateral obstructive lateral lobes. Using the bipolar resectoscope the prostate was resected down to the surgical capsule, resection was carried distal to the bladder neck, staying proximal to the Veru. Prostate chips were removed using the Ellik evacuator. Hemostasis was achieved using cautery. Repeat cystoscopy showed no evidence of prostate chips within the bladder or evidence of bleeding. Neither ureteral orifices were injured. The prostate fossa was wide open. At this time the resectoscope was withdrawn and a 22-Italian Morillo was placed with return of clear urine. The bladder was irrigated without difficulty. Patient tolerated procedure well was taken to recovery in stable condition
== END 2022-07-19 13:30 | disposition home or self-care (01) ==
LOC: OR 09:15
PROVIDERS: ATTEND Urology
DX: N40.1 Benign prostatic hyperplasia with lower urinary tract symptoms (principal); R33.8 Other retention of urine; N41.0 Acute prostatitis; I11.0 Hypertensive heart disease with heart failure; I50.9 Heart failure, unspecified; E11.9 Type 2 diabetes mellitus without complications; E78.5 Hyperlipidemia, unspecified; M19.90 Unspecified osteoarthritis, unspecified site; G89.29 Other chronic pain; F17.200 Nicotine dependence, unspecified, uncomplicated; Z79.899 Other long term (current) drug therapy
CPT/HCPCS: 80048; 74018; 52601; J1100; J0690; J2405; J3010; J1580; J2370; J2704; J2001; 88305

== ENCOUNTER 2023-07-03 20:17 | Emergency (ER) | payer MEDICARE, OTHER ==
--- NOTE | 2023-07-03 20:53 | ED ---
General Adult HPI - General Source: patient ('), RN notes reviewed Mode of arrival: wheelchair Limitations: no limitations <Judy Fatima - Last Filed: 07/03/23 20:52> - General Source: patient, RN notes reviewed Limitations: no limitations <Matthew Goodman - Last Filed: 07/03/23 23:17> - General Stated complaint: Mental Health Time Seen by Provider: 07/03/23 20:52 - History of Present Illness Initial comments: 73 year old male presents to the emergency department for drug abuse. Patient states that he would like help from his crack use. Last use about 2 hours ago. Denies suicidal ideation, (Judy Fatima) Patient is a pleasant 73-year-old male presenting to the emergency Department with depression. Patient states he is depressed because he has problems with crack use. He should states when uses crack he does not eat well and does not sleep well. Otherwise he does. Patient has been losing weight. Patient denies suicidal or homicidal thoughts. (Matthew Goodman) - Related Data Home Medications Medication Instructions Recorded Confirmed Tamsulosin [Flomax] 0.4 mg PO DAILY 05/06/21 07/14/22 Melatonin 5 mg PO HS 07/14/22 07/19/22 Previous Rx's Medication Instructions Recorded Aspirin 81 mg PO DAILY chew 11/12/20 Allergies Allergy/AdvReac Type Severity Reaction Status Date / Time No Known Allergies Allergy Verified 07/03/23 20:52 Review of Systems ROS Other: All systems not noted in ROS Statement are negative. <Judy Fatima - Last Filed: 07/03/23 20:52> ROS Other: All systems not noted in ROS Statement are negative. Constitutional: Denies: fever Eyes: Denies: eye pain ENT: Denies: ear pain Respiratory: Denies: cough Cardiovascular: Denies: chest pain Endocrine: Denies: fatigue <Matthew Goodman - Last Filed: 07/03/23 23:17> ROS Statement: Those systems with pertinent positive or pertinent negative responses have been documented in the HPI. 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 Diet Controlled Diabetes. Chronic low back pain. History of alcohol abuse. Hx Hepatitis C, 2005, treated and resolved 2016. Neuropathy in legs. Enlarged prostate. History of Any Multi-Drug Resistant Organisms: None Reported Past Surgical History: Coronary Bypass/CABG Additional Past Surgical History / Comment(s): Cyst removed from under arm, "plaque removed from both legs", CABG 5 vessels in 08/2000. Past Anesthesia/Blood Transfusion Reactions: No Reported Reaction Past Psychological History: No Psychological Hx Reported Smoking Status: Current every day smoker Past Alcohol Use History: Daily, Heavy Additional Past Alcohol Use History / Comment(s): Started smoking at age 11 or 13, smokes 1/2 ppd. Admits to hx of alcohol abuse, states currently drinks 1/2 pint per week. States no alcohol since 07/10/22. Past Drug Use History: Cocaine, Heroin Additional Drug Use History / Comment(s): Last used cocaine 2 weeks ago. No Heroin in 10 yrs. States trying to stay off alcohol and cocaine until after surgery. Reinforced importance of doing that. - Past Family History Father Additional Family Medical History / Comment(s): sclorosis <Judy Fatima - Last Filed: 07/03/23 20:52> General Exam <Judy Fatima - Last Filed: 07/03/23 20:52> Limitations: no limitations General appearance: alert, in no apparent distress Head exam: Present: normocephalic Eye exam: Present: normal appearance ENT exam: Present: normal oropharynx Neck exam: Present: normal inspection Respiratory exam: Present: normal lung sounds bilaterally Cardiovascular Exam: Present: regular rate, normal rhythm GI/Abdominal exam: Present: soft. Absent: tenderness Extremities exam: Present: normal inspection Neurological exam: Present: alert Psychiatric exam: Present: normal affect, normal mood Skin exam: Present: normal color <Matthew Goodman - Last Filed: 07/03/23 23:17> - General Exam Comments Initial Comments: Visual Physical Exam Vital signs reviewed General: Well-appearing, nontoxic, no acute distress. Head: Normocephalic, atraumatic Eyes: PERRLA, EOMI ENT: Airway patent Chest: Nonlabored breathing Skin: No visual rash, normal skin tone Neuro: Alert and oriented 3 Musculoskeletal: No gross abnormalities (Judy Fatima) Course Vital Signs 07/03/23 20:49 Temperature 97.9 F Pulse Rate 100 Respiratory 20 Rate Blood Pressure 147/83 O2 Sat by Pulse 96 Oximetry Medical Decision Making <Judy Fatima - Last Filed: 07/03/23 20:52> <Matthew Goodman - Last Filed: 07/03/23 23:17> - Medical Decision Making Quick note preformed by Judy Fatima PA-C (Judy Fatima) Was pt. sent in by a medical professional or institution (, PA, EARTH MOVING TECHNICIAN, urgent care, hospital, or alf...) When possible be specific @ -No Did you speak to anyone other than the patient for history (EMS, parent, family, police, friend...)? What history was obtained from this source @ -No Did you review nursing and triage notes (agree or disagree)? Why? @ -I reviewed and agree with nursing and triage notes Were old charts reviewed (outside hosp., previous admission, EMS record, old EKG, old radiological studies, urgent care reports/EKG's, alf records)? Report findings @ -No old charts were reviewed Differential Diagnosis (chest pain, altered mental status, abdominal pain women, abdominal pain men, vaginal bleeding, weakness, fever, dyspnea, syncope, headache, dizziness, GI bleed, back pain, seizure, CVA, palpatations, mental health, musculoskeletal)? @ -Differential Mental Health Depression, anxiety, bipolar, psychosis, schizophrenia, borderline personality, situational depression, adjustment disorder, behavioral disorder, brain tumor, malingering, substance abuse, encephalopathy, medication reaction, dementia, hypothyroidism, degenerative neurologic disorder, lupus.... This is not meant to be all-inclusive list EKG interpreted by me (3pts min.). @ -As above X-rays interpreted by me (1pt min.). @ -None done CT interpreted by me (1pt min.). @ -None done U/S interpreted by me (1pt. min.). @ -None done What testing was considered but not performed or refused? (CT, X-rays, U/S, labs)? Why? @ -None What meds were considered but not given or refused? Why? @ -None Did you discuss the management of the patient with other professionals (professionals i.e. , ERMELINDA, EARTH MOVING TECHNICIAN, lab, RT, psych nurse, social service coordinator, director agency & strategic partnerships, teacher, airport operations officer, pillowcase folder)? Give summary @ -Case discussed with mental health nurse Isela who did evaluate patient and recommendations for discharge Was smoking cessation discussed for >3mins.? @ -No Was critical care preformed (if so, how long)? @ -No Were there social determinants of health that impacted care today? How? (Homelessness, low income, unemployed, alcoholism, drug addiction, transportation, low edu. Level, literacy, decrease access to med. care, snf, rehab)? @ -No Was there de-escalation of care discussed even if they declined (Discuss DNR or withdrawal of care, Hospice)? DNR status @ -No What co-morbidities impacted this encounter? (DM, HTN, Smoking, COPD, CAD, Cancer, CVA, ARF, Chemo, Hep., AIDS, mental health diagnosis, sleep apnea, morbid obesity)? @ -None Was patient admitted / discharged? Hospital course, mention meds given and route, prescriptions, significant lab abnormalities, going to OR and other pertinent info. @ -Patient presents with depression associated with drug use. Patient has no suicidal or homicidal thoughts. No hallucinations. Patient will be discharged and advised to discontinue crack cocaine use. Patient is also advised follow-up with rehab facility. Undiagnosed new problem with uncertain prognosis? @ -No Drug Therapy requiring intensive monitoring for toxicity (Heparin, Nitro, Insulin, Cardizem)? @ -No Were any procedures done? @ -No Diagnosis/symptom? @ -Depression, cocaine abuse Acute, or Chronic, or Acute on Chronic? @ -Acute on chronic, chronic Uncomplicated (without systemic symptoms) or Complicated (systemic symptoms)? @ -default Side effects of treatment? @ -No Exacerbation, Progression, or Severe Exacerbation? @ -No Poses a threat to life or bodily function? How? (Chest pain, USA, [place], pneumonia, PE, COPD, DKA, ARF, appy, cholecystitis, CVA, Diverticulitis, Homicidal, Suicidal, threat to staff... and all critical care pts) @ -No (Matthew Goodman) Disposition <Judy Fatima - Last Filed: 07/03/23 20:52> Is patient prescribed a controlled substance at d/c from ED?: No Time of Disposition: 23:16 <Matthew Goodman - Last Filed: 07/03/23 23:17> Clinical Impression: Cocaine abuse, Depression Disposition: HOME SELF-CARE Condition: Stable Instructions (If sedation given, give patient instructions): Cocaine Abuse (ED), Depression (ED) Additional Instructions: Discontinue crack cocaine use. Please follow-up with primary care physician in the next couple days for recheck. Please follow-up with mental health services as directed. Return for thoughts of self-harm, worsening symptoms or other concerns. Consider rehab facility, number provided. Referrals: Simran Hill MD [Primary Care Provider] - 1-2 days Forms: Inp Substance Abuse Facilities, Outpatient Counseling
[2023-07-04 00:35] VITALS: BP 149/76; PULSE 88; RESP 18; TEMP 98.4
== END 2023-07-04 00:58 | disposition home or self-care (01) ==
LOC: EC 20:17
DX: F14.10 Cocaine abuse, uncomplicated (principal); F32.A Depression, unspecified; F15.90 Other stimulant use, unspecified, uncomplicated; I11.0 Hypertensive heart disease with heart failure; I50.9 Heart failure, unspecified; E11.9 Type 2 diabetes mellitus without complications; I10 Essential (primary) hypertension; F17.200 Nicotine dependence, unspecified, uncomplicated
CPT/HCPCS: 82075; 99285

== ENCOUNTER 2023-07-31 13:34 | Emergency (ER) | payer MEDICARE, OTHER ==
[2023-07-31 14:09] VITALS: BP 123/65; PULSE 92; RESP 20; TEMP 98.8
--- NOTE | 2023-07-31 15:33 | ED ---
URI HPI - General Chief Complaint: Upper Respiratory Infection Stated Complaint: Covid Exposure Time Seen by Provider: 07/31/23 15:11 Source: patient, RN notes reviewed Mode of arrival: ambulatory Limitations: no limitations - History of Present Illness Initial Comments: 73-year-old male presents emergency department with chief complaint of cough and cold-like symptoms. He has been exposed to COVID-19. Denies any chest pain reports possible fever, body aches. No GI symptoms. - Related Data Home Medications Medication Instructions Recorded Confirmed Tamsulosin [Flomax] 0.4 mg PO DAILY 05/06/21 07/14/22 Melatonin 5 mg PO HS 07/14/22 07/19/22 Previous Rx's Medication Instructions Recorded Aspirin 81 mg PO DAILY chew 11/12/20 Allergies Allergy/AdvReac Type Severity Reaction Status Date / Time No Known Allergies Allergy Verified 07/31/23 13:43 Review of Systems ROS Statement: Those systems with pertinent positive or pertinent negative responses have been documented in the HPI. ROS Other: All systems not noted in ROS Statement are negative. 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 Diet Controlled Diabetes. Chronic low back pain. History of alcohol abuse. Hx Hepatitis C, 2005, treated and resolved 2015. Neuropathy in legs. Enlarged prostate. History of Any Multi-Drug Resistant Organisms: None Reported Past Surgical History: Coronary Bypass/CABG Additional Past Surgical History / Comment(s): Cyst removed from under arm, "plaque removed from both legs", CABG 5 vessels in 08/2000. Past Anesthesia/Blood Transfusion Reactions: No Reported Reaction Past Psychological History: No Psychological Hx Reported Smoking Status: Current every day smoker Past Alcohol Use History: Daily, Heavy Past Drug Use History: Cocaine, Heroin - Past Family History Father Additional Family Medical History / Comment(s): sclorosis General Exam Limitations: no limitations General appearance: alert, in no apparent distress Head exam: Present: atraumatic, normocephalic, normal inspection Eye exam: Present: normal appearance, PERRL, EOMI. Absent: scleral icterus, conjunctival injection, periorbital swelling ENT exam: Present: normal exam, normal oropharynx, mucous membranes moist Neck exam: Present: normal inspection, full ROM. Absent: tenderness, meningismus, lymphadenopathy Respiratory exam: Present: normal lung sounds bilaterally. Absent: respiratory distress, wheezes, rales, rhonchi, stridor Cardiovascular Exam: Present: regular rate, normal rhythm, normal heart sounds. Absent: systolic murmur, diastolic murmur, rubs, gallop, clicks Course Vital Signs 07/31/23 13:41 Temperature 98.8 F Pulse Rate 92 Respiratory 20 Rate Blood Pressure 123/65 O2 Sat by Pulse 97 Oximetry Medical Decision Making - Medical Decision Making Was pt. sent in by a medical professional or institution (ERMELINDA Denise, CLINIC MANAGER, urgent care, hospital, or intermediate...) When possible be specific @ -No Did you speak to anyone other than the patient for history (EMS, parent, family, police, friend...)? What history was obtained from this source @ -No Did you review nursing and triage notes (agree or disagree)? Why? @ -I reviewed and agree with nursing and triage notes Were old charts reviewed (outside hosp., previous admission, EMS record, old EKG, old radiological studies, urgent care reports/EKG's, intermediate records)? Report findings @ -No old charts were reviewed Differential Diagnosis (chest pain, altered mental status, abdominal pain women, abdominal pain men, vaginal bleeding, weakness, fever, dyspnea, syncope, headache, dizziness, GI bleed, back pain, seizure, CVA, palpatations, mental health, musculoskeletal)? @ -COVID 19, RSV, influenza, pneumonia, acute bronchitis, URI, this list is not all inclusive EKG interpreted by me (3pts min.). @ -None X-rays interpreted by me (1pt min.). @ -None done CT interpreted by me (1pt min.). @ -None done U/S interpreted by me (1pt. min.). @ -None done What testing was considered but not performed or refused? (CT, X-rays, U/S, labs)? Why? @ -None What meds were considered but not given or refused? Why? @ -None Did you discuss the management of the patient with other professionals (professionals i.e. ERMELINDA Denise, CLINIC MANAGER, lab, RT, psych nurse, social worker clinical, groundman, teacher, customs and border protection officer, case management associate)? Give summary @ -No Was smoking cessation discussed for >3mins.? @ -No Was critical care preformed (if so, how long)? @ -No Were there social determinants of health that impacted care today? How? (Homelessness, low income, unemployed, alcoholism, drug addiction, transportation, low edu. Level, literacy, decrease access to med. care, halfway, rehab)? @ -No Was there de-escalation of care discussed even if they declined (Discuss DNR or withdrawal of care, Hospice)? DNR status @ -No What co-morbidities impacted this encounter? (DM, HTN, Smoking, COPD, CAD, Cancer, CVA, ARF, Chemo, Hep., AIDS, mental health diagnosis, sleep apnea, morbid obesity)? @ -None Was patient admitted / discharged? Hospital course, mention meds given and route, prescriptions, significant lab abnormalities, going to OR and other pertinent info. @ -[Discharge patient is COVID-19 positive patient with no signs distress will be discharged in stable condition return pressure discussed. Undiagnosed new problem with uncertain prognosis? @ -No Drug Therapy requiring intensive monitoring for toxicity (Heparin, Nitro, Insulin, Cardizem)? @ -No Were any procedures done? @ -No Diagnosis/symptom? @ -[COVID-19 Acute, or Chronic, or Acute on Chronic? @ -Acute Uncomplicated (without systemic symptoms) or Complicated (systemic symptoms)? @ -[Uncomplicated Side effects of treatment? @ -[No Exacerbation, Progression, or Severe Exacerbation? @ -No Poses a threat to life or bodily function? How? (Chest pain, USA, [place], pneumonia, PE, COPD, DKA, ARF, appy, cholecystitis, CVA, Diverticulitis, Homicidal, Suicidal, threat to staff... and all critical care pts) @ -No - Lab Data Lab Results 07/31/23 Range/Units 13:48 Influenza Type A (PCR) Not Detected (Not Detectd) Influenza Type B (PCR) Not Detected (Not Detectd) RSV (PCR) Not Detected (Not Detectd) SARS-CoV-2 (PCR) Detected A (Not Detectd) Disposition Clinical Impression: COVID-19 Disposition: HOME SELF-CARE Condition: Stable Instructions (If sedation given, give patient instructions): COVID-19 (Coron avirus Disease 2019) (ED) Additional Instructions: Please return to the Emergency Department if symptoms worsen or any other concerns. Is patient prescribed a controlled substance at d/c from ED?: No Referrals: Simran Hill MD [Primary Care Provider] - 1-2 days Time of Disposition: 15:33
== END 2023-07-31 15:50 | disposition home or self-care (01) ==
LOC: EC 13:34
DX: U07.1 COVID-19 (principal); I11.0 Hypertensive heart disease with heart failure; I50.9 Heart failure, unspecified; E11.9 Type 2 diabetes mellitus without complications; F17.200 Nicotine dependence, unspecified, uncomplicated; F14.90 Cocaine use, unspecified, uncomplicated
CPT/HCPCS: 87636; 99283

== ENCOUNTER 2023-07-31 23:16 | Emergency (ER) | payer MEDICARE, OTHER ==
[2023-07-31] MEDS ORDERED: ACETAMINOPHEN TAB 325 MG TAB PO STA (23:59)
--- NOTE | 2023-08-01 00:28 | XR ---
EXAMINATION TYPE: XR lumbar spine 2 or 3V DATE OF EXAM: 08/01/2023 CLINICAL HISTORY: Fall with pain TECHNIQUE: Frontal and lateral images of the lumbar spine are obtained. COMPARISON: CT lumbar spine August 18, 2021 FINDINGS: There are 5 lumbar type vertebral bodies redemonstrated. The lumbar spine shows stable an d satisfactory alignment without evidence of acute fracture or dislocation. Vertebral body heights ar e within normal limits. Mild to moderate multilevel disc space narrowing with more moderate multileve l anterior and lateral spurring is redemonstrated. Vascular calcification overlying soft tissue is ag ain seen. IMPRESSION: No acute fracture or dislocation is seen in the lumbar spine.
--- NOTE | 2023-08-01 00:33 | ED ---
Fall HPI - General Chief Complaint: Fall Stated Complaint: weakness, ulcers, covid Time Seen by Provider: 07/31/23 23:18 Source: patient Mode of arrival: EMS - History of Present Illness Initial Comments: 73-year-old male presenting to the ED secondary to his landlord. Patient was initially here today and was diagnosed with COVID. He was discharged home in stable condition. Today while at home, patient called EMS for lift assist due to slipping off the couch. Denied injury at this time. Denied head injury. However, states that his landlord would not allow him to return to his residence until he tested negative for COVID which is why he was brought to this facility. At this time patient notes some back pain which he notes is a little bit worse than usual. No incontinence or saddle anesthesia. No other complaints at this time. - Related Data Home Medications Medication Instructions Recorded Confirmed Tamsulosin [Flomax] 0.4 mg PO DAILY 05/06/21 07/14/22 Melatonin 5 mg PO HS 07/14/22 07/19/22 Previous Rx's Medication Instructions Recorded Aspirin 81 mg PO DAILY chew 11/12/20 Allergies Allergy/AdvReac Type Severity Reaction Status Date / Time No Known Allergies Allergy Verified 07/31/23 23:27 Review of Systems ROS Statement: Those systems with pertinent positive or pertinent negative responses have been documented in the HPI. ROS Other: All systems not noted in ROS Statement are negative. 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 Diet Controlled Diabetes. Chronic low back pain. History of alcohol abuse. Hx Hepatitis C, 2005, treated and resolved 2015. Neuropathy in legs. Enlarged prostate. History of Any Multi-Drug Resistant Organisms: None Reported Past Surgical History: Coronary Bypass/CABG Additional Past Surgical History / Comment(s): Cyst removed from under arm, "plaque removed from both legs", CABG 5 vessels in 08/2000. Past Anesthesia/Blood Transfusion Reactions: No Reported Reaction Past Psychological History: No Psychological Hx Reported Smoking Status: Current every day smoker Past Alcohol Use History: Heavy Past Drug Use History: Cocaine, Heroin - Past Family History Father Additional Family Medical History / Comment(s): sclorosis General Exam General appearance: alert, in no apparent distress Neck exam: Present: normal inspection Respiratory exam: Present: normal lung sounds bilaterally Cardiovascular Exam: Present: regular rate, normal rhythm GI/Abdominal exam: Present: soft Neurological exam: Present: alert, oriented X3 Skin exam: Present: warm, dry, other (Stage I pressure ulcer on the buttocks) Course Vital Signs 07/31/23 23:18 Temperature 98.9 F Pulse Rate 61 Respiratory 22 Rate Blood Pressure 137/77 O2 Sat by Pulse 96 Oximetry Medical Decision Making - Medical Decision Making Was pt. sent in by a medical professional or institution (, PA, CORE DRILL OPERATOR, urgent care, hospital, or [place] [facility]...) When possible be specific @ -No Did you speak to anyone other than the patient for history (EMS, parent, family, police, friend...)? What history was obtained from this source @ -No Did you review nursing and triage notes (agree or disagree)? Why? @ -I reviewed and agree with nursing and triage notes Were old charts reviewed (outside hosp., previous admission, EMS record, old EKG, old radiological studies, urgent care reports/EKG's, [place] [facility] facility records)? Report findings @ -Prior visit today reviewed showing patient diagnosed with COVID Differential Diagnosis (chest pain, altered mental status, abdominal pain women, abdominal pain men, vaginal bleeding, weakness, fever, dyspnea, syncope, headache, dizziness, GI bleed, back pain, seizure, CVA, palpatations, mental health, musculoskeletal)? @ -Differential Fever: Pneumonia, viral URI, endocarditis, myocarditis, pericarditis, otitis, sinusitis, peritonsillar Abscess, retropharyngeal Abscess, epiglottitis, peritonitis, appendicitis, Jeanette cystitis, diverticulitis, hepatitis, colitis, UTI, PID, TOA, pyelonephritis, prostatitis, epididymitis, meningitis, encephalitis, pulmonary embolism, CVA, thyroid storm, pancreatitis, adrenal crisis, cavernous sinus thrombosis, this is not meant to be an all-inclusive list. EKG interpreted by me (3pts min.). @ -As above X-rays interpreted by me (1pt min.). @ -None done CT interpreted by me (1pt min.). @ -None done U/S interpreted by me (1pt. min.). @ -None done What testing was considered but not performed or refused? (CT, X-rays, U/S, labs)? Why? @ -None What meds were considered but not given or refused? Why? @ -None Did you discuss the management of the patient with other professionals (professionals i.e. , PA, CORE DRILL OPERATOR, lab, RT, psych nurse, social services aide, ground defence officer, teacher, contact officer, rehabilitation caseworker)? Give summary @ -No Was smoking cessation discussed for >3mins.? @ -No Was critical care preformed (if so, how long)? @ -No Were there social determinants of health that impacted care today? How? (Homelessness, low income, unemployed, alcoholism, drug addiction, transportation, low edu. Level, literacy, decrease access to med. care, intermediate, rehab)? @ -No Was there de-escalation of care discussed even if they declined (Discuss DNR or withdrawal of care, Hospice)? DNR status @ -No What co-morbidities impacted this encounter? (DM, HTN, Smoking, COPD, CAD, Cancer, CVA, ARF, Chemo, Hep., AIDS, mental health diagnosis, sleep apnea, morbid obesity)? @ -None Was patient admitted / discharged? Hospital course, mention meds given and route, prescriptions, significant lab abnormalities, going to OR and other pertinent info. @ -Discharge 73-year-old male presenting to the ED primarily as his landlord kicked him out secondary to him having COVID. At this time patient also notes some increase in his chronic back pain. Imaging unremarkable at this time. No incontinence or saddle anesthesia. Patient discharged home. Advised contacting the police if landlord will not allow him back into his residence. At this time vital signs stable and afebrile. Discharged home stable condition. Discussed return precautions patient verbalized agreement. Undiagnosed new problem with uncertain prognosis? @ -No Drug Therapy requiring intensive monitoring for toxicity (Heparin, Nitro, Insulin, Cardizem)? @ -No Were any procedures done? @ -No Diagnosis/symptom? @ -COVID, Kicked out of house Acute, or Chronic, or Acute on Chronic? @ -Acute Uncomplicated (without systemic symptoms) or Complicated (systemic symptoms)? @ -Uncomplicated Side effects of treatment? @ -No Exacerbation, Progression, or Severe Exacerbation? @ -No Poses a threat to life or bodily function? How? (Chest pain, USA, PA, pneumonia, PE, COPD, DKA, ARF, appy, cholecystitis, CVA, Diverticulitis, Homicidal, Suicidal, threat to staff... and all critical care pts) @ -No Disposition Clinical Impression: Discord with neighbors, lodgers and landlord, COVID-19 Disposition: HOME SELF-CARE Condition: Good Additional Instructions: Please return to the Emergency Department if symptoms worsen or any other concerns. Is patient prescribed a controlled substance at d/c from ED?: No Referrals: None,Stated [Primary Care Provider] - 1-2 days Time of Disposition: 00:53
[2023-08-01 09:07] VITALS: BP 138/71; PULSE 74; RESP 20; TEMP 97.6
== END 2023-08-01 10:40 | disposition home or self-care (01) ==
LOC: EC 23:16
DX: U07.1 COVID-19 (principal); Z59.2 Discord with neighbors, lodgers and landlord; I11.0 Hypertensive heart disease with heart failure; E11.9 Type 2 diabetes mellitus without complications; I50.9 Heart failure, unspecified; F17.200 Nicotine dependence, unspecified, uncomplicated; Z79.899 Other long term (current) drug therapy; W18.30XA Fall on same level, unspecified, initial encounter
CPT/HCPCS: 72100; 99285

== ENCOUNTER 2023-08-15 11:37 | Inpatient (IN) | payer MEDICARE, OTHER ==
--- NOTE | 2023-08-15 12:49 | XR ---
EXAMINATION TYPE: XR chest 2V DATE OF EXAM: 08/15/2023 COMPARISON: 05/06/2021 HISTORY: 73-year-old male hypotension and fever TECHNIQUE: AP and lateral views FINDINGS: Median sternotomy wires are present with post-CABG clips. Heart normal size. Mild hyperinflation. No consolidation or pleural effusion. Degenerative changes right knee joint. IMPRESSION: Mild hyperinflation may relate to depth of inspiration or underlying emphysema. Clinically correlate. Otherwise, no acute process seen.
--- NOTE | 2023-08-15 12:54 | ED ---
General Adult HPI - General Chief complaint: Recheck/Abnormal Lab/Rx Stated complaint: Low Blood Pressure, sent by pcp Time Seen by Provider: 08/15/23 11:50 Source: patient, RN notes reviewed, old records reviewed Mode of arrival: ambulatory Limitations: no limitations - History of Present Illness Initial comments: This is a 73-year-old male who is niece brings him into the hospital. Patient has a decubitus ulcer which she believes is getting worse because she has been taking care of it. She went to see the primary medical care doctor today the ermelinda sawyer's blood pressure was low and they believe the patient has urinary tract infections they sent the patient to the emergency department. Patient himself only complains about the soreness to the sacral region. Patient has had no fever or chills per patient denies any cough patient has any difficulty breathing shortness of breath. Patient has any abdominal pain patient has nausea vomiting diarrhea. Patient according to the niece has been incontinent of urine and stool for about 2 weeks now. - Related Data Home Medications Medication Instructions Recorded Confirmed Melatonin 5 mg PO HS 07/14/22 08/15/23 Naproxen [Naprosyn] 500 mg PO BID PRN 08/15/23 08/15/23 Allergies Allergy/AdvReac Type Severity Reaction Status Date / Time No Known Allergies Allergy Verified 08/15/23 13:58 Review of Systems ROS Statement: Those systems with pertinent positive or pertinent negative responses have been documented in the HPI. ROS Other: All systems not noted in ROS Statement are negative. 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 Diet Controlled Diabetes. Chronic low back pain. History of alcohol abuse. Hx Hepatitis C, 2005, treated and resolved 2015. Neuropathy in legs. Enlarged prostate. History of Any Multi-Drug Resistant Organisms: None Reported Past Surgical History: Coronary Bypass/CABG Additional Past Surgical History / Comment(s): Cyst removed from under arm, "plaque removed from both legs", CABG 5 vessels in 08/2000. Past Anesthesia/Blood Transfusion Reactions: No Reported Reaction Past Psychological History: No Psychological Hx Reported Smoking Status: Current every day smoker Past Alcohol Use History: Heavy Past Drug Use History: Cocaine, Heroin - Past Family History Father Additional Family Medical History / Comment(s): sclorosis General Exam - General Exam Comments Initial Comments: GENERAL: Patient is well-developed and well-nourished. Patient is nontoxic and well- hydrated and is in mild distress. ENT: Neck is soft and supple. No significant lymphadenopathy is noted. Oropharynx is clear. Moist mucous membranes. Neck has full range of motion without eliciting any pain. EYES: The sclera were anicteric and conjunctiva were pink and moist. Extraocular movements were intact and pupils were equal round and reactive to light. Eyelids were unremarkable. PULMONARY: Unlabored respirations. Good breath sounds bilaterally. No audible rales rhonchi or wheezing was noted. CARDIOVASCULAR: There is a regular rate and rhythm without any murmurs gallops or rubs. Femoral pulses are equal bilaterally ABDOMEN: Soft and nontender with normal bowel sounds. No palpable organomegaly was noted. There is no palpable pulsatile mass. SKIN: Patient has skin breakdown in the sacral region there is an area that appears to be stage III decubitus ulcer. Cultures will be taken NEUROLOGIC: Patient is alert and oriented x3. Cranial nerves II through XII are grossly intact. Motor and sensory are also intact. Normal speech, volume and content. Symmetrical smile. MUSCULOSKELETAL: Normal extremities with adequate strength and full range of motion. No lower extremity swelling or edema. No calf tenderness. LYMPHATICS: No significant lymphadenopathy is noted PSYCHIATRIC: Normal psychiatric evaluation. Limitations: no limitations Course Vital Signs 08/15/23 08/15/23 11:45 13:54 Temperature 98.3 F Pulse Rate 80 76 Respiratory 18 16 Rate Blood Pressure 80/52 106/95 O2 Sat by Pulse 100 99 Oximetry Medical Decision Making - Medical Decision Making EKG is a poor quality however it does show sinus rhythm at 62 bpm MT interval is 121 QRS is 108 QT interval is 435 QTc is 439. Patient's EKG shows no significant ST segment elevation. Was pt. sent in by a medical professional or institution (, ERMELINDA, TAPE EDITOR, urgent care, hospital, or [facility]...) When possible be specific @ -Primary medical care doctor sent the patient in Did you speak to anyone other than the patient for history (EMS, parent, family, police, friend...)? What history was obtained from this source @ -Niece gave quite a bit of history Did you review nursing and triage notes (agree or disagree)? Why? @ -I reviewed and agree with nursing and triage notes Were old charts reviewed (outside hosp., previous admission, EMS record, old EKG, old radiological studies, urgent care reports/EKG's, [facility] records)? Report findings @ -I reviewed prior charts and lab work on this patient Differential Diagnosis (chest pain, altered mental status, abdominal pain women, abdominal pain men, vaginal bleeding, weakness, fever, dyspnea, syncope, headache, dizziness, GI bleed, back pain, seizure, CVA, palpatations, mental health, musculoskeletal)? @ -Sepsis, urinary tract infection, decubitus ulcer wound infected, this is not an all-inclusive list EKG interpreted by me (3pts min.). @ -As above X-rays interpreted by me (1pt min.). @ -Chest x-ray shows no acute abnormality CT interpreted by me (1pt min.). @ -None done U/S interpreted by me (1pt. min.). @ -None done What testing was considered but not performed or refused? (CT, X-rays, U/S, labs)? Why? @ -None What meds were considered but not given or refused? Why? @ -None Did you discuss the management of the patient with other professionals (professionals i.e. , PA, TAPE EDITOR, lab, RT, psych nurse, social services coordinator, instruction dean, teacher, chief security and safety officer, case packer and sealer)? Give summary @ -I spoke with Dr. Sousa he agreed to admit the patient to the patient wrote admitting orders Was smoking cessation discussed for >3mins.? @ -No Was critical care preformed (if so, how long)? @ -No Were there social determinants of health that impacted care today? How? (Homelessness, low income, unemployed, alcoholism, drug addiction, transportation, low edu. Level, literacy, decrease access to med. care, snf, rehab)? @ -No Was there de-escalation of care discussed even if they declined (Discuss DNR or withdrawal of care, Hospice)? DNR status @ -No What co-morbidities impacted this encounter? (DM, HTN, Smoking, COPD, CAD, Cancer, CVA, ARF, Chemo, Hep., AIDS, mental health diagnosis, sleep apnea, morbid obesity)? @ -None Was patient admitted / discharged? Hospital course, mention meds given and route, prescriptions, significant lab abnormalities, going to OR and other pertinent info. @ -Patient had a urinary tract infection and the patient was given 2 g of Rocephin. Patient also was somewhat hypotensive so he received 2 L of fluid his pressure came up nicely. Patient was feeling considerably better I spoke with Dr. Sousa he agreed to admit the patient to the patient wrote admitting orders Undiagnosed new problem with uncertain prognosis? @ -No Drug Therapy requiring intensive monitoring for toxicity (Heparin, Nitro, Insulin, Cardizem)? @ -No Were any procedures done? @ -No Diagnosis/symptom? @ -Urinary tract infection Acute, or Chronic, or Acute on Chronic? @ -Acute Uncomplicated (without systemic symptoms) or Complicated (systemic symptoms)? @ -Complicated Side effects of treatment? @ -No Exacerbation, Progression, or Severe Exacerbation? @ -No Poses a threat to life or bodily function? How? (Chest pain, USA, [place], pneumonia, PE, COPD, DKA, ARF, appy, cholecystitis, CVA, Diverticulitis, Homicidal, Suicidal, threat to staff... and all critical care pts) @ -Yes this can lead to sepsis and endorgan dysfunction Diagnosis/symptom? @ -Infected decubitus ulcer Acute, or Chronic, or Acute on Chronic? @ -Acute Uncomplicated (without systemic symptoms) or Complicated (systemic symptoms)? @ -Complicated Side effects of treatment? @ -None Exacerbation, Progression, or Severe Exacerbation] @ -No Poses a threat to life or bodily function? @ -No - Lab Data Result diagrams: 08/15/23 12:16 08/15/23 12:16 Lab Results 08/15/23 08/15/23 08/15/23 Range/Units 12:16 12:16 12:16 WBC 8.3 (3.8-10.6) k/uL RBC 4.27 L (4.30-5.90) m/uL Hgb 13.2 (13.0-17.5) gm/dL Hct 37.7 L (39.0-53.0) % MCV 88.3 (80.0-100.0) fL MCH 30.9 (25.0-35.0) pg MCHC 35.0 (31.0-37.0) g/dL RDW 13.3 (11.5-15.5) % Plt Count 220 (150-450) k/uL MPV 7.9 Neutrophils % 76 % Lymphocytes % 16 % Monocytes % 4 % Eosinophils % 2 % Basophils % 0 % Neutrophils # 6.3 (1.3-7.7) k/uL Lymphocytes # 1.3 (1.0-4.8) k/uL Monocytes # 0.4 (0-1.0) k/uL Eosinophils # 0.2 (0-0.7) k/uL Basophils # 0.0 (0-0.2) k/uL PT 11.6 (10.0-12.5) sec INR 1.1 (<1.2) APTT 27.6 (22.0-30.0) sec Sodium 142 (137-145) mmol/L Potassium 4.2 (3.5-5.1) mmol/L Chloride 112 H (98-107) mmol/L Carbon Dioxide 26 (22-30) mmol/L Anion Gap 4 mmol/L BUN 19 (9-20) mg/dL Creatinine 0.59 L (0.66-1.25) mg/dL Est GFR (CKD-EPI)AfAm >90 (>60 ml/min/1.73 sqM) Est GFR (CKD-EPI)NonAf >90 (>60 ml/min/1.73 sqM) Glucose 90 (74-99) mg/dL Plasma Lactic Acid Earl (0.7-2.0) mmol/L Calcium 9.4 (8.4-10.2) mg/dL Total Bilirubin 0.8 (0.2-1.3) mg/dL AST 29 (17-59) U/L ALT 20 (4-49) U/L Alkaline Phosphatase 116 (38-126) U/L Total Protein 6.6 (6.3-8.2) g/dL Albumin 3.5 (3.5-5.0) g/dL Urine Color Urine Appearance (Clear) Urine pH (5.0-8.0) Ur Specific [place] (1.001-1.035) Urine Protein (Negative) Urine Glucose (UA) (Negative) Urine Ketones (Negative) Urine Blood (Negative) Urine Nitrite (Negative) Urine Bilirubin (Negative) Urine Urobilinogen (<2.0) mg/dL Ur Leukocyte Esterase (Negative) Urine RBC (0-5) /hpf Urine WBC (0-5) /hpf Urine WBC Clumps (None) /hpf Urine Mucus (None) /hpf 08/15/23 08/15/23 Range/Units 12:16 12:16 WBC (3.8-10.6) k/uL RBC (4.30-5.90) m/uL Hgb (13.0-17.5) gm/dL Hct (39.0-53.0) % MCV (80.0-100.0) fL MCH (25.0-35.0) pg MCHC (31.0-37.0) g/dL RDW (11.5-15.5) % Plt Count (150-450) k/uL MPV Neutrophils % % Lymphocytes % % Monocytes % % Eosinophils % % Basophils % % Neutrophils # (1.3-7.7) k/uL Lymphocytes # (1.0-4.8) k/uL Monocytes # (0-1.0) k/uL Eosinophils # (0-0.7) k/uL Basophils # (0-0.2) k/uL PT (10.0-12.5) sec INR (<1.2) APTT (22.0-30.0) sec Sodium (137-145) mmol/L Potassium (3.5-5.1) mmol/L Chloride (98-107) mmol/L Carbon Dioxide (22-30) mmol/L Anion Gap mmol/L BUN (9-20) mg/dL Creatinine (0.66-1.25) mg/dL Est GFR (CKD-EPI)AfAm (>60 ml/min/1.73 sqM) Est GFR (CKD-EPI)NonAf (>60 ml/min/1.73 sqM) Glucose (74-99) mg/dL Plasma Lactic Acid Earl 1.3 (0.7-2.0) mmol/L Calcium (8.4-10.2) mg/dL Total Bilirubin (0.2-1.3) mg/dL AST (17-59) U/L ALT (4-49) U/L Alkaline Phosphatase (38-126) U/L Total Protein (6.3-8.2) g/dL Albumin (3.5-5.0) g/dL Urine Color Yellow Urine Appearance Cloudy (Clear) Urine pH 7.0 (5.0-8.0) Ur Specific [place] 1.023 (1.001-1.035) Urine Protein 1+ H (Negative) Urine Glucose (UA) Negative (Negative) Urine Ketones Negative (Negative) Urine Blood Moderate H (Negative) Urine Nitrite Positive (Negative) Urine Bilirubin Negative (Negative) Urine Urobilinogen 4.0 (<2.0) mg/dL Ur Leukocyte Esterase Large H (Negative) Urine RBC >182 H (0-5) /hpf Urine WBC 108 H (0-5) /hpf Urine WBC Clumps Moderate H (None) /hpf Urine Mucus Rare H (None) /hpf Disposition Clinical Impression: Urinary tract infection, Decubitus ulcer, infected Disposition: ADMITTED IP TO THIS HOSP Referrals: Simran Hill MD [Primary Care Provider] - 1-2 days Time of Disposition: 14:10
[2023-08-15] MEDS: SODIUM CHLORIDE 0.9% 500 ML 500 ML IV SCH (12:55)
[2023-08-15] MEDS: cefTRIAXone IN SWFI 1,000 MG/10 ML SYRINGE IVP STA ×2 (12:56→12:57)
[2023-08-15 13:06] LABS: Basophils % (A) 0 %; Eosinophils # (A) 0.2 k/uL (0-0.7); Eosinophils % (A) 2 %; HCT 37.7 % (39.0-53.0); HGB 13.2 gm/dL (13.0-17.5); Lymphocytes # (A) 1.3 k/uL (1.0-4.8); Lymphocytes % (A) 16 %; MCH 30.9 pg (25.0-35.0); MCV 88.3 fL (80.0-100.0); Mean Platelet Volume 7.9; Monocytes # (A) 0.4 k/uL (0-1.0); Monocytes % (A) 4 %; Neutrophils # (A) 6.3 k/uL (1.3-7.7); Neutrophils % (A) 76 %; Platelet Count 220 k/uL (150-450); RBC 4.27 m/uL (4.30-5.90); RDW 13.3 % (11.5-15.5); WBC 8.3 k/uL (3.8-10.6)
[2023-08-15 13:18] LABS: ALT 20 U/L (4-49); AST 29 U/L (17-59); African American GFR (CKD) >90 (>60 ml/min/1.73 sqM); Albumin 3.5 g/dL (3.5-5.0); Alkaline Phosphatase 116 U/L (38-126); Anion Gap 4 mmol/L; Blood Urea Nitrogen 19 mg/dL (9-20); Calcium 9.4 mg/dL (8.4-10.2); Carbon Dioxide 26 mmol/L (22-30); Chloride 112 mmol/L (98-107); Glucose 90 mg/dL (74-99); Non-African American GFR(CKD) >90 (>60 ml/min/1.73 sqM); Potassium 4.2 mmol/L (3.5-5.1); Sodium 142 mmol/L (137-145); Total Bilirubin 0.8 mg/dL (0.2-1.3); Total Protein 6.6 g/dL (6.3-8.2)
[2023-08-15 13:28] LABS: INR 1.1 (<1.2); Partial Thromboplastin Time 27.6 sec (22.0-30.0); Prothrombin Time 11.6 sec (10.0-12.5)
[2023-08-15 13:53] LABS: Appearance,Urine Cloudy (Clear); Bilirubin,Urine Negative (Negative); Blood,Urine Moderate (Negative); Color,Urine Yellow; Glucose,Urine (UA) Negative (Negative); Ketones,Urine Negative (Negative); Leukocyte Esterase,Urine Large (Negative); Mucus,Urine Rare /hpf; Nitrite,Urine Positive (Negative); Protein,Urine 1+ (Negative); RBC,Urine >182 /hpf (0-5); Specific Gravity,Urine 1.023 (1.001-1.035); WBC,Urine 108 /hpf (0-5)
[2023-08-15] MEDS: SODIUM CHLORIDE 0.9% 1,000 ML IV ONE (15:15)
[2023-08-15] MEDS: MELATONIN 5 MG TABLET PO PRN (22:11)
[2023-08-15] MEDS: ACETAMINOPHEN TAB 325 MG TAB PO PRN (22:11)
[2023-08-16 11:36] VITALS: BMI 20.9
[2023-08-16] MEDS: HEPARIN SODIUM,PORCINE 5,000 UNIT/ML 1 ML VIAL SQ SCH (15:40)
[2023-08-16] MEDS ORDERED: VANCOMYCIN IV PER PHARMACY 1 EACH MISC MISCELLANE PRN (22:25)
--- NOTE | 2023-08-16 22:34 | P.HPIM ---
History of Present Illness H&P Date: 08/16/23 Chief Complaint: Hypotension Patient is a 73-year-old male with a past medical history of hypertension, hyperlipidemia, coronary artery disease status post CABG in 2000, diet- controlled diabetes, chronic low back pain, history of hepatitis C treated in 2016, bilateral lower extremity neuropathy, history of heavy alcohol use and currently everyday smoking and prior history of cocaine and heroin use was brought to the hospital by his niece due to decub ulcers. According to the family also said getting worse. Patient is mainly bedbound and sometimes transferred to wheelchair. Patient went to see his primary care physician today and was found his blood pressure is also low and also for possible urinary tract infection was sent to ER for further evaluation. Otherwise patient denies any fever or chills. No dysuria or hematuria. No cough or sputum production. No chest pain or shortness of breath. Patient does complain of soreness in the sacral region. No complaints of abdominal pain. Currently his knees patient has been incontinent of urine and stool for the past 2 weeks. Patient had TURP on 07/19/2022. MRI of the lumbar spine done in August 2021 showed degenerative disc disease, facet arthropathy, foraminal encroachment and spinal stenosis are similar to p rior exam. Dilated common duct is noted incidentally. Chest x-ray on admission showed mild hyperinflation may relate to depth of inspiration or underlying emphysema. EKG showed left atrial enlargement borderline right axis deviation. Laboratory data showed WBC 8.3 hemoglobin 13.2 and platelets 220. Sodium 142 potassium 4.2 chloride 112 bicarb is 26 BUN 19 and creatinine 0.59. During the accident elevated. Urinalysis showed 1+ protein moderate blood nitrite positive large leukocyte esterase with elevated RBCs and WBCs. Patient was hypotensive on admission with blood pressure 80/52 Review of Systems Constitutional: Patient denies any fever or chills . Generalized weakness. Abdomen: Patient denied any nausea or vomiting or abd. pain Cardiovascular: Patient denies any chest pain or short of breath no palpitations. Respiratory: patient denied any cough . no sputum production. No shortness of breath Neurologic: Patient denied any numbness or tingling or headache. Musculoskeletal: Patient denies any complaints of joint swelling or deformity. Skin: Complains of soreness in the sacral region and pressure ulcers. Psychiatric: Negative Endocrine: No heat or cold intolerance. No recent weight gain. Genitourinary: No dysuria or hematuria. Urinary frequency and incontinence. All other 14 point ROS negative except the above Past Medical History Past Medical History: Heart Failure, Diabetes Mellitus, Hyperlipidemia, Hy pertension, Liver Disease, Neurologic Disorder, Osteoarthritis (OA), Prostate Disorder, Vascular Disorder Additional Past Medical History / Comment(s): "Overdosed and had 5 vessel CABG 08/2000". Diet Controlled Diabetes. Chronic low back pain. History of alcohol abuse. Hx Hepatitis C, 2005, treated and resolved 2015. Neuropathy in legs. Enlarged prostate. History of Any Multi-Drug Resistant Organisms: None Reported Past Surgical History: Coronary Bypass/CABG Additional Past Surgical History / Comment(s): Cyst removed from under arm, "plaque removed from both legs", CABG 5 vessels in 08/2000. Past Anesthesia/Blood Transfusion Reactions: No Reported Reaction Past Psychological History: No Psychological Hx Reported Smoking Status: Current every day smoker Past Alcohol Use History: Heavy Additional Past Alcohol Use History / Comment(s): Started smoking at age 11 or 13, smokes 4-5 cigs a day. Admits to hx of alcohol abuse, states currently drinks 1/2 pint per week. States no alcohol since 08/14/2023. Past Drug Use History: Cocaine, Heroin Additional Drug Use History / Comment(s): Last used cocaine 08/14/2023. No Heroin in 10 yrs. - Past Family History Father Additional Family Medical History / Comment(s): sclorosis Medications and Allergies Home Medications Medication Instructions Recorded Confirmed Type Melatonin 5 mg PO HS 07/14/22 08/15/23 History Naproxen [Naprosyn] 500 mg PO BID PRN 08/15/23 08/15/23 History Allergies Allergy/AdvReac Type Severity Reaction Status Date / Time No Known Allergies Allergy Verified 08/15/23 13:58 Physical Exam Vitals: Vital Signs Temp Pulse Pulse Resp BP BP Pulse Ox 08/16/23 08:05 97.3 F L 52 L 16 144/76 96 08/16/23 01:09 97.6 F 60 18 124/51 97 08/15/23 20:58 98.9 F 69 18 145/64 95 08/15/23 20:25 65 18 110/71 100 08/15/23 20:12 18 08/15/23 18:59 73 18 119/71 92 L 08/15/23 17:51 88 20 130/73 97 08/15/23 14:48 80 20 106/85 98 08/15/23 13:54 76 16 106/95 99 08/15/23 11:45 98.3 F 80 18 80/52 100 Intake and Output 08/15/23 08/16/23 08/16/23 22:59 06:59 14:59 Intake Total 240 Balance 240 Intake: Oral 240 Other: Voiding Method Diaper Diaper Incontinent Incontinent External Catheter # Voids 1 Weight 68.039 kg PHYSICAL EXAMINATION: Patient is lying in the bed comfortably, no acute distress, awake alert and oriented.. HEENT: Normocephalic. Neck is supple. Pupils reactive. Nostrils clear. Oral cavity is moist. Neck reveals no JVD, carotid bruits, or thyromegaly. CHEST EXAMINATION: Trachea is central. Symmetrical expansion. Lung mckinley clear to auscultation and percussion. CARDIAC: Normal S1, S2 with no gallops. No murmurs ABDOMEN: Soft. Bowel sounds present. Nontender. No organomegaly. No abdominal bruits. Extremities: reveal no edema. No clubbing or cyanosis Neurologically awake, alert, oriented x3. Cranial nerves intact. Loss of sensation bilateral lower extremities. Skin: Sacral decubitus ulcers unstageable. Psychiatric: Coperative. Nonsuicidal, Musculoskeletal: No joint swelling or deformity. Results CBC & Chem 7: 08/15/23 12:16 08/15/23 12:16 Labs: Abnormal Lab Results - Last 24 Hours (Table) 08/15/23 08/15/23 08/15/23 Range/Units 12:16 12:16 12:16 RBC 4.27 L (4.30-5.90) m/uL Hct 37.7 L (39.0-53.0) % Chloride 112 H (98-107) mmol/L Creatinine 0.59 L (0.66-1.25) mg/dL Urine Protein 1+ H (Negative) Urine Blood Moderate H (Negative) Ur Leukocyte Esterase Large H (Negative) Urine RBC >182 H (0-5) /hpf Urine WBC 108 H (0-5) /hpf Urine WBC Clumps Moderate H (None) /hpf Urine Mucus Rare H (None) /hpf Microbiology - Last 24 Hours (Table) 08/15/23 12:16 Gram Stain - Preliminary Buttock Thrombosis Risk Factor Assmnt - DVT/VTE Prophylaxis DVT/VTE Prophylaxis: Pharmacologic Prophylaxis ordered - Choose All That Apply Each Risk Factor Represents 3 Points: Age 75 years or older Thrombosis Risk Factor Assessment Total Risk Factor Score: 3 Thrombosis Risk Factor Assessment Level: Moderate Risk Assessment and Plan Assessment: Acute urinary tract infection Sacral decubitus ulcers wound infection Peripheral neuropathy. Patient is mostly bedridden Diet-controlled diabetes type 2 Hypertension Coronary artery disease history of CABG 2000 Chronic low back pain History of hepatitis C treated in 2015 BPH and recent history of TURP in June 2022 Currently everyday smoker Heavy alcohol use Prior history of cocaine and heroin use GI and DVT prophylaxis with Pepcid and heparin subcu Plan: Patient was given IV hydration with normal saline. Blood pressure did improve today. Continue with ceftriaxone and vancomycin was added due to Staph aureus noted in the wound cultures. ID consult for further evaluation. Wound care consult. Follow-up blood cultures and urine cultures. Continue to follow closely. Time with Patient: Greater than 30
[2023-08-16] MEDS: VANCOMYCIN 1,250 MG in SODIUM CHLORIDE 0.9% 250 ML IVPB SCH (23:21)
[2023-08-17] MEDS: FOLIC ACID 1 MG TAB PO SCH (09:31)
[2023-08-17] MEDS: FAMOTIDINE 20 MG TAB PO SCH (09:32)
[2023-08-17] MEDS: THIAMINE 100 MG TAB PO SCH (09:32)
[2023-08-17 10:46] LABS: Basophils # (A) 0.06 X 10*3/uL (0.00-0.10); Eosinophils # (A) 0.14 X 10*3/uL (0.04-0.35); Eosinophils % (A) 2.3 %; HCT 36.3 % (39.6-50.0); HGB 12.3 g/dL (13.0-17.0); Lymphocytes # (A) 1.32 X 10*3/uL (0.90-5.00); Lymphocytes % (A) 21.7 %; MCHC 33.9 g/dL (32.0-37.0); MCV 88.5 FL (80.0-97.0); Mean Platelet Volume 10.4 FL (9.5-12.2); Monocytes # (A) 0.48 X 10*3/uL (0.20-1.00); Monocytes % (A) 7.9 %; NRBC Per 100 WBC 0 X 10*3/uL (0.00-0.01); Neutrophils # (A) 4.07 X 10*3/uL (1.80-7.70); Neutrophils % (A) 66.9 %; Platelet Count 179 X 10*3/uL (140-440); RDW 12.7 % (11.5-14.5); WBC 6.08 X 10*3/uL (4.50-10.00)
[2023-08-17 11:03] LABS: BUN/Creat Ratio 26.71 Ratio (12.00-20.00); Blood Urea Nitrogen 18.7 mg/dL (9.0-27.0); Calcium 8.9 mg/dL (8.7-10.3); Carbon Dioxide 27.2 mmol/L (21.6-31.8); Chloride 110 mmol/L (96-109); Glucose 110 mg/dL (70-110); Potassium 4.8 mmol/L (3.5-5.5); Sodium 143 mmol/L (135-145)
--- NOTE | 2023-08-17 11:08 | P.CONS ---
History of Present Illness - Reason for Consult Consult date: 08/17/23 wound care - History of Present Illness Patient is a 73-year-old male with a past medical history of hypertension, hyperlipidemia, coronary artery disease status post CABG in 2000, diet- controlled diabetes, chronic low back pain, history of hepatitis C treated in 2016, bilateral lower extremity neuropathy, history of heavy alcohol use and currently everyday smoking and prior history of cocaine and heroin use was brought to the hospital by his niece due to decub ulcers. According to the family also said getting worse. Patient is mainly bedbound and sometimes transferred to wheelchair. Patient has a stage III pressure ulcer to the right buttocks and a stage II pressure ulcer to the left buttocks. Right buttocks m easures approximately 5 x 10 x 1.5 cm with slough and nonviable tissue present granulation seen throughout the wound bed. Wound edges are attached to the wound base. Left stage II pressure ulcer shows granulation throughout. Review Of Systems: Constitutional: No fever, no chills, no night sweats. No weight change. No weakness, fatigue or lethargy. No daytime sleepiness. Integumentary:reports wounds, no lesions. No rash or pruritus. No unusual bruising. No change in hair or nails. Physical exam: General Appearance: Alert, cooperative, no distress, appears stated age. Skin: See HPI all other Skin color, texture, tugor normal, no rashes or lesions. Neurologic: Alert oriented x3 Assessment: 1. Stage III pressure ulcer right buttocks 2. Stage II pressure left buttocks 3. Diabetes with skin ulceration Plan: 1. Apply honey gel and sacral border foam to the site. Change Monday. Turn patient every 2 hours. Utilize air-filled cushion when sitting. Patient would benefit from advanced wound care and wound care setting. Patient was reluctant to commit to coming to the wound care center. If patient changes his mind we will be happy to see him in the wound care center. Thank you for the consultation any questions please contact the wound care center. DNP note has been reviewed and discussed with Dr. Petersen and the impression and plan of care has been directed as dictated. 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 Diet Controlled Diabetes. Chronic low back pain. History of alcohol abuse. Hx Hepatitis C, 2005, treated and resolved 2015. Neuropathy in legs. Enlarged prostate. History of Any Multi-Drug Resistant Organisms: None Reported Past Surgical History: Coronary Bypass/CABG Additional Past Surgical History / Comment(s): Cyst removed from under arm, "plaque removed from both legs", CABG 5 vessels in 08/2000. Past Anesthesia/Blood Transfusion Reactions: No Reported Reaction Past Psychological History: No Psychological Hx Reported Smoking Status: Current every day smoker Past Alcohol Use History: Heavy Additional Past Alcohol Use History / Comment(s): Started smoking at age 11 or 13, smokes 4-5 cigs a day. Admits to hx of alcohol abuse, states currently drinks 1/2 pint per week. States no alcohol since 08/14/2023. Past Drug Use History: Cocaine, Heroin Additional Drug Use History / Comment(s): Last used cocaine 08/14/2023. No Heroin in 10 yrs. - Past Family History Father Additional Family Medical History / Comment(s): sclorosis Medications and Allergies Home Medications Medication Instructions Recorded Confirmed Type Melatonin 5 mg PO HS 07/14/22 08/15/23 History Naproxen [Naprosyn] 500 mg PO BID PRN 08/15/23 08/15/23 History Allergies Allergy/AdvReac Type Severity Reaction Status Date / Time No Known Allergies Allergy Verified 08/15/23 13:58 Physical Exam Vitals: Vital Signs Temp Pulse Resp BP Pulse Ox 08/17/23 08:00 97.7 F 62 17 132/72 97 08/17/23 02:13 97.7 F 59 L 17 119/67 98 08/16/23 19:29 97.8 F 66 18 112/62 97 08/16/23 11:52 98.6 F 55 L 16 109/56 96 Intake and Output 08/16/23 08/17/23 08/17/23 22:59 06:59 14:59 Output Total 100 750 Balance -100 -750 Output: Urine 100 750 Other: Voiding Method Diaper Diaper Incontinent Incontinent External Catheter External Catheter # Voids 1 Results CBC & Chem 7: 08/17/23 06:40 08/17/23 06:40 Labs: Abnormal Lab Results - Last 24 Hours (Table) 08/17/23 08/17/23 Range/Units 06:40 06:40 RBC 4.10 L (4.40-5.60) X 10*6/uL Hgb 12.3 L (13.0-17.0) g/dL Hct 36.3 L (39.6-50.0) % Chloride 110 H (96-109) mmol/L BUN/Creatinine Ratio 26.71 H (12.00-20.00) Ratio Microbiology - Last 24 Hours (Table) 08/15/23 12:16 Blood Culture - Preliminary Blood 08/15/23 12:16 Blood Culture - Preliminary Blood 08/15/23 12:16 Gram Stain - Preliminary Buttock Wound Culture - Preliminary Presumptive Staph aureus Gram Neg Bacilli Assessment and Plan (1) Stage III pressure ulcer of right buttock Current Visit: Yes Status: Acute Code(s): L89.313 - PRESSURE ULCER OF RIGHT BUTTOCK, STAGE 3 SNOMED Code(s): 32796051019372 (2) Type 2 diabetes mellitus with other skin ulcer Current Visit: Yes Status: Acute Code(s): E11.622 - TYPE 2 DIABETES MELLITUS WITH OTHER SKIN ULCER; L98.499 - NON-PRESSURE CHRONIC ULCER OF SKIN OF SITES W UNSP SEVERITY SNOMED Code(s): 498626135 (3) Pressure ulcer of left buttock, stage 2 Current Visit: No Status: Acute Code(s): L89.322 - PRESSURE ULCER OF LEFT BUTTOCK, STAGE 2 SNOMED Code(s): 54763037404641
[2023-08-17] MEDS: HYDROcodone/APAP 5-325MG 1 EACH TAB PO PRN (16:01)
--- NOTE | 2023-08-17 22:25 | P.CONS ---
History of Present Illness - Reason for Consult Consult date: 08/17/23 Sacral wound infection Requesting physician: Lilian Sousa - Chief Complaint Weakness and low blood pressure x 1 day - History of Present Illness Patient is a 73-year-old -[place] male with a past medical history significant for diabetes mellitus hypertension hyperlipidemia osteomyelitis prostate disorder patient has been brought into the hospital for evaluation of patient having a low blood pressure and with concern for possible UTI patient also have a soreness of the sacral region the patient did have a pressure ulcer that has been there for a while and has been taking care of at home by the caregiver patient denies having any high-grade fever or chills no headache no chest pain shortness breath or cough no nausea vomiting no abdominal pain or any diarrhea has been complaining of pain to the sacral wound to give moderate intensity sharp pain no radiation and denies any foul-smelling drainage from it on presentation the hospital the patient was afebrile and no fever has been already subsequently patient was not tachycardic hypotensive or hypoxic white count is 8.3 creatinine 0.59 patient did have a positive UA cultures has been obtained from the gluteal area patient has been empirically started on vancomycin and Rocephin infectious disease was consulted for further management of antibiotic therapy Review of Systems Positive point and negatives has been mentioned in the HPI, complete review of systems was performed and all other systems are negative Past Medical History Past Medical History: Heart Failure, Diabetes Mellitus, Hyperlipidemia, Hypertension, Liver Disease, Neurologic Disorder, Osteoarthritis (OA), Prostate Disorder, Vascular Disorder Additional Past Medical History / Comment(s): "Overdosed and had 5 vessel CABG 08/2000". Diet Controlled Diabetes. Chronic low back pain. History of alcohol abuse. Hx Hepatitis C, 2005, treated and resolved 2015. Neuropathy in legs. Enlarged prostate. History of Any Multi-Drug Resistant Organisms: None Reported Past Surgical History: Coronary Bypass/CABG Additional Past Surgical History / Comment(s): Cyst removed from under arm, "plaque removed from both legs", CABG 5 vessels in 08/2000. Past Anesthesia/Blood Transfusion Reactions: No Reported Reaction Past Psychological History: No Psychological Hx Reported Smoking Status: Current every day smoker Past Alcohol Use History: Heavy Additional Past Alcohol Use History / Comment(s): Started smoking at age 11 or 13, smokes 4-5 cigs a day. Admits to hx of alcohol abuse, states currently drinks 1/2 pint per week. States no alcohol since 08/14/2023. Past Drug Use History: Cocaine, Heroin Additional Drug Use History / Comment(s): Last used cocaine 08/14/2023. No Heroin in 10 yrs. - Past Family History Father Additional Family Medical History / Comment(s): sclorosis Medications and Allergies Home Medications Medication Instructions Recorded Confirmed Type Melatonin 5 mg PO HS 07/14/22 08/15/23 History Naproxen [Naprosyn] 500 mg PO BID PRN 08/15/23 08/15/23 History Folic Acid 1 mg PO DAILY #30 tab 08/21/23 Rx HYDROcodone/APAP 5-325MG [Moffat 1 each PO Q6HR PRN 3 Days #12 tab 08/21/23 Rx 5-325] Sulfamethox-Tmp 800-160Mg [Bactrim 1 tab PO Q12HR 7 Days #14 tab 08/21/23 Rx DS 800-160 mg] Thiamine [Vitamin B-1] 100 mg PO DAILY #30 tab 08/21/23 Rx Allergies Allergy/AdvReac Type Severity Reaction Status Date / Time No Known Allergies Allergy Verified 08/15/23 13:58 Physical Exam Vitals: Vital Signs Temp Pulse Resp BP Pulse Ox 08/17/23 08:00 97.7 F 62 17 132/72 97 08/17/23 02:13 97.7 F 59 L 17 119/67 98 08/16/23 19:29 97.8 F 66 18 112/62 97 08/16/23 11:52 98.6 F 55 L 16 109/56 96 Intake and Output 08/16/23 08/17/23 08/17/23 22:59 06:59 14:59 Output Total 100 750 Balance -100 -750 Output: Urine 100 750 Other: Voiding Method Diaper Incontinent External Catheter # Voids 1 GENERAL DESCRIPTION: Elderly male lying in bed, no distress. No tachypnea or accessory muscle of respiration use. HEENT: Shows Pallor , no scleral icterus. Oral mucous membrane is dry. No pharyngeal erythema or thrush NECK: Trachea central, no thyromegaly. LUNGS: Unlabored breathing. Clear to auscultation anteriorly. No wheeze or crackle. HEART: S1, S2, regular rate and rhythm. No loud murmur ABDOMEN: Soft, no tenderness , guarding or rigidity, no organomegaly EXTREMITIES: No edema of feet. SKIN: Patient did have a wound to the bilateral gluteal and sacral area with some slough tissue minimal foul-smelling NEUROLOGICAL: The patient is awake, alert, Results CBC & Chem 7: 08/21/23 08:42 08/21/23 08:42 Labs: Microbiology - Last 24 Hours (Table) 08/15/23 12:16 Blood Culture - Preliminary Blood 08/15/23 12:16 Blood Culture - Preliminary Blood 08/15/23 12:16 Gram Stain - Preliminary Buttock Wound Culture - Preliminary Presumptive Staph aureus Gram Neg Bacilli Assessment and Plan (1) Decubitus ulcer Status: Acute Code(s): L89.90 - PRESSURE ULCER OF UNSPECIFIED SITE, UNSPECIFIED STAGE SNOMED Code(s): 6684949386 (2) Decubitus ulcer, infected Status: Acute Code(s): L89.90 - PRESSURE ULCER OF UNSPECIFIED SITE, UNSPECIFIED STAGE; L08.9 - LOCAL INFECTION OF THE SKIN AND SUBCUTANEOUS TISSUE, UNSP SNOMED Code(s): 774278656 Plan: 1-1patient presented hospital with weakness low blood pressure some weak urinary symptoms positive UA high clinical suspicious for symptomatic urinary tract infection likely from intra-abdominal pathogen 2-patient also have a stage III sacral pressure ulcer also involving bilateral gluteal area however no significant surrounding swelling redness but did have some slough tissue clinical suspicion low for infected sacral pressure ulcer blood culture has been obtained and results will be followed 3-patient to continue with the vancomycin and Rocephin while waiting for the culture to finalize 4-local wound care with the Medihoney followed by moist dressing change daily keep the area of the pressure We will follow on clinical condition and cultures to further adjust medication if needed Thank you for this consultation we will follow the patient along with you Dictation was produced using [employer] dictation software. please excuse any grammatical, word or spelling errors. Time with Patient: Greater than 30
--- NOTE | 2023-08-17 23:18 | P.PN ---
Subjective Progress Note Date: 08/17/23 Patient is a 73-year-old male with a past medical history of hypertension, hyperlipidemia, coronary artery disease status post CABG in 2000, diet- controlled diabetes, chronic low back pain, history of hepatitis C treated in 2016, bilateral lower extremity neuropathy, history of heavy alcohol use and cur rently everyday smoking and prior history of cocaine and heroin use was brought to the hospital by his niece due to decub ulcers. According to the family also said getting worse. Patient is mainly bedbound and sometimes transferred to wheelchair. Patient went to see his primary care physician today and was found his blood pressure is also low and also for possible urinary tract infection was sent to ER for further evaluation. Otherwise patient denies any fever or chills. No dysuria or hematuria. No cough or sputum production. No chest pain or shortness of breath. Patient does complain of soreness in the sacral region. No complaints of abdominal pain. Currently his knees patient has been incontinent of urine and stool for the past 2 weeks. Patient had TURP on 07/19/2022. MRI of the lumbar spine done in August 2021 showed degenerative disc disease, facet arthropathy, foraminal encroachment and spinal stenosis are similar to prior exam. Dilated common duct is noted incidentally. Chest x-ray on admission showed mild hyperinflation may relate to depth of inspiration or underlying emphysema. EKG showed left atrial enlargement borderline right axis deviation. Laboratory data showed WBC 8.3 hemoglobin 13.2 and platelets 220. Sodium 142 potassium 4.2 chloride 112 bicarb is 26 BUN 19 and creatinine 0.59. During the accident elevated. Urinalysis showed 1+ protein moderate blood nitrite positive large leukocyte esterase with elevated RBCs and WBCs. Patient was hypotensive on admission with blood pressure 80/52 08/17/2023 Patient seen and evaluated in follow-up this morning being followed by infectious disease along with wound care as patient has decubitus ulcers noted on admission and continued on wound care. Culture showing MRSA with E. coli and is continued on ceftriaxone along with vancomycin. Will discuss further with infectious disease on discharge planning. Patient to be evaluated by PT/OT therapy with possible ECF being considered. Patient is reporting pain and Tylenol not helping. Patient reports he is eating with no reports of nausea or vomiting. Will await PT/OT therapy evaluation and discuss further with case management. Review of systems: Constitutional: No reports of fatigue, fever, or chills Cardiovascular: No reports of chest pain or palpitations Respiratory: No reports of shortness of breath or cough GI: No reports of nausea, vomiting, or diarrhea : No reports of dysuria or retention Neurovascular: reports of generalized weakness All medications have been reviewed PHYSICAL EXAMINATION: Patient is lying in the bed comfortably, no acute distress, awake alert and oriented.. Thin built, elderly appearing HEENT: Normocephalic. Neck is supple. Pupils reactive. Nostrils clear. Oral cavity is moist. Neck reveals no JVD, carotid bruits, or thyromegaly. CHEST EXAMINATION: Trachea is central. Symmetrical expansion. Lung mckinley clear to auscultation and percussion. CARDIAC: Normal S1, S2 with no gallops. No murmurs ABDOMEN: Soft. Bowel sounds present. Nontender. No organomegaly. No abdominal bruits. Extremities: reveal no edema. No clubbing or cyanosis Neurologically awake, alert, oriented x3. Cranial nerves intact. Loss of sensation bilateral lower extremities. Skin: Sacral decubitus ulcers noted with surrounding healing areas around the skin Psychiatric: Cooperative. Non-suicidal Musculoskeletal: No joint swelling or deformity. Assessment: Acute urinary tract infection, present on admission Stage III pressure ulcer on the right buttock, stage II pressure ulcer on the left buttock, present on admission sacral decubitus ulcers wound infection with cultures growing MRSA and E. coli Peripheral neuropathy. Patient is mostly bedridden Diet-controlled diabetes type 2 Hypertension Coronary artery disease history of CABG 2000 Chronic low back pain History of hepatitis C treated in 2015 BPH and recent history of TURP in June 2022 Currently everyday smoker Heavy alcohol use Prior history of cocaine and heroin use GI and DVT prophylaxis with Pepcid and heparin subcu Plan: Patient continued on IV hydration with normal saline. Pending a.m. labs. Continue with ceftriaxone and vancomycin with infectious disease following. Culture showing MRSA with the E. coli. Will discuss further with infectious disease on discharge planning Wound care consulted and recommendations made. Continue with frequent position changes and offloading Await PT/OT therapy evaluation and discussed with case management on discharge planning, possible ECF Possible discharge in next 24 to 48 hours The impression and plan of care has been dictated by Rosalva Schulz, Nurse Practitioner as directed. Dr. Lars MD I have performed a history and examination and MDM of this patient, discussed the same with the dictator, and agree with the dictator's assessment and plan as written ,documented as a scribe. Based on total visit time, I have performed more than 50% of the visit. Objective - Vital Signs Vital signs: Vital Signs Temp 97.8 F 08/17/23 15:52 Pulse 63 08/17/23 15:52 Resp 18 08/17/23 15:52 BP 118/70 08/17/23 15:52 Pulse Ox 100 08/17/23 15:52 FiO2 Intake & Output 08/16/23 08/17/23 08/17/23 18:59 06:59 18:59 Output Total 100 750 Balance -100 -750 Weight 68.039 kg Output: Urine 100 750 Other: Voiding Method Diaper Diaper Diaper Incontinent Incontinent Incontinent External Catheter External Catheter External Catheter # Voids 1 - Labs CBC & Chem 7: 08/17/23 06:40 08/17/23 06:40 Labs: Abnormal Lab Results - Last 24 Hours (Table) 08/17/23 08/17/23 Range/Units 06:40 06:40 RBC 4.10 L (4.40-5.60) X 10*6/uL Hgb 12.3 L (13.0-17.0) g/dL Hct 36.3 L (39.6-50.0) % Chloride 110 H (96-109) mmol/L BUN/Creatinine Ratio 26.71 H (12.00-20.00) Ratio Microbiology - Last 24 Hours (Table) 08/15/23 12:16 Gram Stain - Final Buttock Wound Culture - Final Methicillin resist S. aureus Escherichia coli 08/15/23 12:16 Blood Culture - Preliminary Blood 08/15/23 12:16 Blood Culture - Preliminary Blood
[2023-08-18 08:52] LABS: African American GFR (CKD) >90 (>60 ml/min/1.73 sqM); Anion Gap 3 mmol/L; Blood Urea Nitrogen 23 mg/dL (9-20); Calcium 8.7 mg/dL (8.4-10.2); Carbon Dioxide 26 mmol/L (22-30); Chloride 108 mmol/L (98-107); Glucose 105 mg/dL (74-99); Magnesium 1.6 mg/dL (1.6-2.3); Non-African American GFR(CKD) >90 (>60 ml/min/1.73 sqM); Potassium 4.2 mmol/L (3.5-5.1); Sodium 137 mmol/L (137-145)
[2023-08-18 10:53] LABS: Basophils # (A) 0.03 X 10*3/uL (0.00-0.10); Basophils % (A) 0.5 %; Eosinophils # (A) 0.13 X 10*3/uL (0.04-0.35); Eosinophils % (A) 2.1 %; HCT 34.2 % (39.6-50.0); HGB 12.1 g/dL (13.0-17.0); Lymphocytes # (A) 1.23 X 10*3/uL (0.90-5.00); Lymphocytes % (A) 20.1 %; MCH 30.4 pg (27.0-32.0); MCHC 35.4 g/dL (32.0-37.0); MCV 85.9 FL (80.0-97.0); Mean Platelet Volume 10.2 FL (9.5-12.2); Monocytes % (A) 6.5 %; NRBC Per 100 WBC 0 X 10*3/uL (0.00-0.01); Neutrophils # (A) 4.32 X 10*3/uL (1.80-7.70); Neutrophils % (A) 70.5 %; Platelet Count 170 X 10*3/uL (140-440); RBC 3.98 X 10*6/uL (4.40-5.60); RDW 12.6 % (11.5-14.5); WBC 6.13 X 10*3/uL (4.50-10.00)
--- NOTE | 2023-08-18 14:58 | P.PN ---
Subjective Progress Note Date: 08/18/23 Principal diagnosis: UTI and bilateral gluteal/sacral pressure ulcer Patient is a 73-year-old -[place] male with a past medical history significant for diabetes mellitus hypertension hyperlipidemia osteomyelitis prostate disorder patient has been brought into the hospital for evaluation of patient having a low blood pressure and with concern for possible UTI, vaginal p ositive he also noticed to have a pressure ulcer to the sacral area prompting this consultation. On today's evaluation that is 08/18/2023,the patient remains to be afebrile, patient is on room air not requiring 9supplemental oxygen and denies any shortness of breath no chest pain or cough.Patient denies having any nausea or vomiting, no abdominal pain and no diarrhea has been reported. Patient white count 6.13, creatinine 0.74 urine cultures negative gluteal wound showing MRSA and E. coli Objective - Vital Signs Vital signs: Vital Signs Temp 98.3 F 08/18/23 08:00 Pulse 55 L 08/18/23 08:00 Resp 17 08/18/23 08:00 BP 113/60 08/18/23 08:00 Pulse Ox 97 08/18/23 08:00 FiO2 Intake & Output 08/17/23 08/18/23 08/18/23 18:59 06:59 18:59 Intake Total 580 850 Output Total 1000 800 Balance -420 50 Weight 68.039 kg Intake: Intake, IV Titration 250 Amount Vancomycin 1,250 mg In 250 Sodium Chloride 0.9% 250 ml @ 125 mls/hr IVPB Q12H [facility] Rx#:[id number] Oral 580 600 Output: Urine 1000 800 Other: Voiding Method Diaper Diaper Incontinent Incontinent External Catheter External Catheter - Exam GENERAL DESCRIPTION: An elderly male lying in bed in no distress RESPIRATORY SYSTEM: Unlabored breathing , decreased breath sounds at bases HEART: S1 S2 regular rate and rhythm , ABDOMEN: Soft , no tenderness EXTREMITIES: No edema feet - Labs CBC & Chem 7: 08/18/23 07:36 08/18/23 07:36 Labs: Abnormal Lab Results - Last 24 Hours (Table) 08/18/23 08/18/23 Range/Units 07:36 07:36 RBC 3.98 L (4.40-5.60) X 10*6/uL Hgb 12.1 L (13.0-17.0) g/dL Hct 34.2 L (39.6-50.0) % Chloride 108 H (98-107) mmol/L BUN 23 H (9-20) mg/dL Glucose 105 H (74-99) mg/dL Microbiology - Last 24 Hours (Table) 08/15/23 14:52 Urine Culture - Final Urine,Catheterized 08/15/23 12:16 Blood Culture - Preliminary Blood 08/15/23 12:16 Blood Culture - Preliminary Blood 08/15/23 12:16 Gram Stain - Final Buttock Wound Culture - Final Methicillin resist S. aureus Escherichia coli Assessment and Plan (1) Decubitus ulcer, infected Current Visit: Yes Status: Acute Code(s): L89.90 - PRESSURE ULCER OF UNSPECIFIED SITE, UNSPECIFIED STAGE; L08.9 - LOCAL INFECTION OF THE SKIN AND SUBCUTANEOUS TISSUE, UNSP SNOMED Code(s): 646533156 (2) Urinary tract infection Current Visit: Yes Status: Acute Code(s): N39.0 - URINARY TRACT INFECTION, SITE NOT SPECIFIED SNOMED Code(s): 85432362 Plan: 1-1patient presented hospital with weakness low blood pressure some weak urinary symptoms positive UA high clinical suspicious for symptomatic urinary tract infection likely from intra-abdominal pathogen 2-patient also have a stage III sacral pressure ulcer also involving bilateral gluteal area however no significant surrounding swelling redness but did have some slough tissue clinical suspicion low for infected sacral pressure ulcer blood culture has been obtained and currently growing E. coli and MRSA possible mild cellulitis 3-patient to continue with the vancomycin and Rocephin while inpatient will be able to finish therapy with Bactrim DS x 7 days on discharge discussed with the nurse petitioner for debility working on discharge Dictation was produced using [employer] dictation software. please excuse any grammatical, word or spelling errors. Time with Patient: Less than 30
[2023-08-18] MEDS: HYDROcodone/APAP 5-325MG 1 EACH TAB PO PRN (15:25)
[2023-08-18] MEDS: polyethylene glycoL 3350 17 GM POWD.PACK PO PRN (17:41)
[2023-08-18] MEDS ORDERED: Magnesium Replacement Protocol 1 EACH MISC MISCELLANE PRN (19:11)
--- NOTE | 2023-08-18 19:15 | P.PN ---
Subjective Progress Note Date: 08/18/23 Patient is a 73-year-old male with a past medical history of hypertension, hyperlipidemia, coronary artery disease status post CABG in 2000, diet- controlled diabetes, chronic low back pain, history of hepatitis C treated in 2016, bilateral lower extremity neuropathy, history of heavy alcohol use and cur rently everyday smoking and prior history of cocaine and heroin use was brought to the hospital by his niece due to decub ulcers. According to the family also said getting worse. Patient is mainly bedbound and sometimes transferred to wheelchair. Patient went to see his primary care physician today and was found his blood pressure is also low and also for possible urinary tract infection was sent to ER for further evaluation. Otherwise patient denies any fever or chills. No dysuria or hematuria. No cough or sputum production. No chest pain or shortness of breath. Patient does complain of soreness in the sacral region. No complaints of abdominal pain. Currently his knees patient has been incontinent of urine and stool for the past 2 weeks. Patient had TURP on 07/19/2022. MRI of the lumbar spine done in August 2021 showed degenerative disc disease, facet arthropathy, foraminal encroachment and spinal stenosis are similar to prior exam. Dilated common duct is noted incidentally. Chest x-ray on admission showed mild hyperinflation may relate to depth of inspiration or underlying emphysema. EKG showed left atrial enlargement borderline right axis deviation. Laboratory data showed WBC 8.3 hemoglobin 13.2 and platelets 220. Sodium 142 potassium 4.2 chloride 112 bicarb is 26 BUN 19 and creatinine 0.59. During the accident elevated. Urinalysis showed 1+ protein moderate blood nitrite positive large leukocyte esterase with elevated RBCs and WBCs. Patient was hypotensive on admission with blood pressure 80/52 08/17/2023 Patient seen and evaluated in follow-up this morning being followed by infectious disease along with wound care as patient has decubitus ulcers noted on admission and continued on wound care. Culture showing MRSA with E. coli and is continued on ceftriaxone along with vancomycin. Will discuss further with infectious disease on discharge planning. Patient to be evaluated by PT/OT therapy with possible ECF being considered. Patient is reporting pain and Tylenol not helping. Patient reports he is eating with no reports of nausea or vomiting. Will await PT/OT therapy evaluation and discuss further with case management. 08/18/2023 Patient is seen in follow-up today and cultures have finalized showing MRSA with E. coli maintained on ceftriaxone along with vancomycin. Infectious disease following closely and patient will continue oral Bactrim on discharge. Patient with significant weakness working on EC and patient will be going to [facility]. Patient will require 3 night hospitalization secondary to Medicare guidelines and will be able to discharge on Monday. Patient reporting continued pain and back pain and will mildly increase Schofield's to 1 tablet every 6 hours. Encouraged increase activity as tolerated and frequent offloading of the buttock area with frequent position changes. Continue local wound care. Review of systems: Constitutional: No reports of fatigue, fever, or chills Cardiovascular: No reports of chest pain or palpitations Respiratory: No reports of shortness of breath or cough GI: No reports of nausea, vomiting, or diarrhea : No reports of dysuria or retention Neurovascular: reports of generalized weakness All medications have been reviewed PHYSICAL EXAMINATION: Patient is lying in the bed comfortably, no acute distress, awake alert and oriented.. Thin built, elderly appearing HEENT: Normocephalic. Neck is supple. Pupils reactive. Nostrils clear. Oral cavity is moist. Neck reveals no JVD, carotid bruits, or thyromegaly. CHEST EXAMINATION: Trachea is central. Symmetrical expansion. Lung mckinley clear to auscultation and percussion. CARDIAC: Normal S1, S2 with no gallops. No murmurs ABDOMEN: Soft. Bowel sounds present. Nontender. No organomegaly. No abdominal bruits. Extremities: reveal no edema. No clubbing or cyanosis Neurologically awake, alert, oriented x3. Cranial nerves intact. Loss of sensation bilateral lower extremities. Skin: Sacral decubitus ulcers noted with surrounding healing areas around the skin Psychiatric: Cooperative. Non-suicidal Musculoskeletal: No joint swelling or deformity. Assessment: Acute urinary tract infection, present on admission Stage III pressure ulcer on the right buttock, stage II pressure ulcer on the left buttock, present on admission sacral decubitus ulcers wound infection with cultures growing MRSA and E. coli Peripheral neuropathy. Patient is mostly bedridden Diet-controlled diabetes type 2 Hypertension Coronary artery disease history of CABG 2000 Chronic low back pain History of hepatitis C treated in 2016 BPH and recent history of TURP in June 2022 Currently everyday smoker Heavy alcohol use Prior history of cocaine and heroin use GI and DVT prophylaxis with Pepcid and heparin subcu Plan: Patient continued on IV hydration with normal saline. Continue with ceftriaxone and vancomycin with infectious disease following. Culture showing MRSA with the E. coli. Patient will continue on Bactrim for 7- day course on discharge Wound care evaluated the patient with recommendations made. Continue with frequent position changes and offloading Patient was evaluated by PT/OT therapy and case management following working on discharge planning. Patient will be going to [facility]. Patient will require 3 night hospitalization secondary to Medicare guidelines. Patient able to be discharged on Monday The impression and plan of care has been dictated by Rosalva Schluz, Nurse Practitioner as directed. Dr. Lars MD I have performed a history and examination and MDM of this patient, discussed the same with the dictator, and agree with the dictator's assessment and plan as written ,documented as a scribe. Based on total visit time, I have performed more than 50% of the visit. Objective - Vital Signs Vital signs: Vital Signs Temp 98.3 F 08/18/23 08:00 Pulse 55 L 08/18/23 08:00 Resp 17 08/18/23 08:00 BP 113/60 08/18/23 08:00 Pulse Ox 97 08/18/23 08:00 FiO2 Intake & Output 08/17/23 08/18/23 08/18/23 18:59 06:59 18:59 Intake Total 580 850 Output Total 1000 800 Balance -420 50 Weight 68.039 kg Intake: Intake, IV Titration 250 Amount Vancomycin 1,250 mg In 250 Sodium Chloride 0.9% 250 ml @ 125 mls/hr IVPB Q12H [facility] Rx#:[id number] Oral 580 600 Output: Urine 1000 800 Other: Voiding Method Diaper Diaper Incontinent Incontinent External Catheter External Catheter - Labs CBC & Chem 7: 08/18/23 07:36 08/18/23 07:36 Labs: Abnormal Lab Results - Last 24 Hours (Table) 08/17/23 08/17/23 08/18/23 Range/Units 06:40 06:40 07:36 RBC 4.10 L (4.40-5.60) X 10*6/uL Hgb 12.3 L (13.0-17.0) g/dL Hct 36.3 L (39.6-50.0) % Chloride 110 H 108 H (96-109) mmol/L BUN 23 H (9-20) mg/dL BUN/Creatinine Ratio 26.71 H (12.00-20.00) Ratio Glucose 105 H (74-99) mg/dL Microbiology - Last 24 Hours (Table) 08/15/23 14:52 Urine Culture - Final Urine,Catheterized 08/15/23 12:16 Blood Culture - Preliminary Blood 08/15/23 12:16 Blood Culture - Preliminary Blood 08/15/23 12:16 Gram Stain - Final Buttock Wound Culture - Final Methicillin resist S. aureus Escherichia coli
[2023-08-18] MEDS: SENNOSIDES 8.6 MG TAB PO SCH (20:26)
[2023-08-18] MEDS: DOCUSATE 100 MG CAP PO SCH (20:26)
[2023-08-18] MEDS: MAGNESIUM SULFATE-D5W PMX 1 GM in DEXTROSE/WATER 1 100ML.BAG IVPB SCH (20:52)
[2023-08-18] MEDS: VANCOMYCIN TROUGH DUE 1 EACH MISC MISCELLANE ONE (21:56)
[2023-08-19 07:14] LABS: African American GFR (CKD) >90 (>60 ml/min/1.73 sqM); Magnesium 1.8 mg/dL (1.6-2.3); Non-African American GFR(CKD) >90 (>60 ml/min/1.73 sqM)
[2023-08-19] MEDS: PANTOPRAZOLE 40 MG TABLET PO SCH (08:25)
[2023-08-19] MEDS: VANCOMYCIN 1,500 MG in SODIUM CHLORIDE 0.9% 500 ML 500 ML IVPB SCH (10:09)
--- NOTE | 2023-08-19 11:56 | P.PN ---
Subjective Progress Note Date: 08/19/23 Principal diagnosis: UTI and bilateral gluteal/sacral pressure ulcer Patient is a 73-year-old -Hungarian male with a past medical history significant for diabetes mellitus hypertension hyperlipidemia osteomyelitis prostate disorder patient has been brought into the hospital for evaluation of patient having a low blood pressure and with concern for possible UTI, vaginal p ositive he also noticed to have a pressure ulcer to the sacral area prompting this consultation. On today's evaluation that is 08/19/2023, the patient continues to be afebrile, the patient is on room air and breathing comfortably, the Pt denies having any chest pain or cough, the patient denies having any abdominal pain no vomiting or any diarrhea has been reported by the nursing staff, no new symptoms. Creatinine 0.68 urine culture negative Objective - Vital Signs Vital signs: Vital Signs Temp 98.7 F 08/19/23 07:45 Pulse 79 08/19/23 07:45 Resp 17 08/19/23 07:45 BP 128/79 08/19/23 07:45 Pulse Ox 98 08/19/23 08:12 FiO2 Intake & Output 08/18/23 08/19/23 08/19/23 18:59 06:59 18:59 Intake Total 550 750 Output Total 600 1400 Balance -50 -650 Weight 68.039 kg Intake: Intake, IV Titration 550 350 Amount Magnesium Sulfate-D5w Pmx 100 1 gm In Dextrose/Water 1 100ml.bag @ 100 mls/hr IVPB Q1H [facility] Rx#: [id number] Vancomycin 1,250 mg In 500 250 Sodium Chloride 0.9% 250 ml @ 125 mls/hr IVPB Q12H [facility] Rx#:[id number] cefTRIAXone 2 gm In 50 Sodium Chloride 0.9% 50 ml @ 100 mls/hr IVPB Q24HR [facility] Rx#:[id number] Oral 400 Output: Urine 600 1400 Other: Voiding Method Diaper Diaper Diaper Incontinent Incontinent Incontinent External Catheter External Catheter External Catheter - Exam GENERAL DESCRIPTION: An elderly male lying in bed in no distress RESPIRATORY SYSTEM: Unlabored breathing , decreased breath sounds at bases HEART: S1 S2 regular rate and rhythm , ABDOMEN: Soft , no tenderness EXTREMITIES: No edema feet - Labs CBC & Chem 7: 08/18/23 07:36 08/19/23 06:40 Labs: Microbiology - Last 24 Hours (Table) 08/15/23 12:16 Blood Culture - Preliminary Blood 08/15/23 12:16 Blood Culture - Preliminary Blood Assessment and Plan (1) Decubitus ulcer, infected Current Visit: Yes Status: Acute Code(s): L89.90 - PRESSURE ULCER OF UNSPECIFIED SITE, UNSPECIFIED STAGE; L08.9 - LOCAL INFECTION OF THE SKIN AND SUBCUTANEOUS TISSUE, UNSP SNOMED Code(s): 224754400 (2) Urinary tract infection Current Visit: Yes Status: Acute Code(s): N39.0 - URINARY TRACT INFECTION, SITE NOT SPECIFIED SNOMED Code(s): 23664186 Plan: 1-1patient presented hospital with weakness low blood pressure some weak urinary symptoms positive UA high clinical suspicious for symptomatic urinary tract infection likely from intra-abdominal pathogen 2-patient also have a stage III sacral pressure ulcer also involving bilateral gluteal area however no significant surrounding swelling redness but did have some slough tissue clinical suspicion low for infected sacral pressure ulcer blood culture has been obtained and currently growing E. coli and MRSA possible mild cellulitis 3-patient to continue with the vancomycin and Rocephin while inpatient however plan is for antibiotics on discharge already discussed with SYSTEMS SOFTWARE SPECIALIST yesterday Dictation was produced using [employer] dictation software. please excuse any grammatical, word or spelling errors. Time with Patient: Less than 30
--- NOTE | 2023-08-19 13:38 | P.PN ---
Subjective Progress Note Date: 08/19/23 Patient is a 73-year-old male with a past medical history of hypertension, hyperlipidemia, coronary artery disease status post CABG in 2000, diet- controlled diabetes, chronic low back pain, history of hepatitis C treated in 2016, bilateral lower extremity neuropathy, history of heavy alcohol use and currently everyday smoking and prior history of cocaine and heroin use was brought to the hospital by his niece due to decub ulcers. According to the family also said getting worse. Patient is mainly bedbound and sometimes transferred to wheelchair. Patient went to see his primary care physician today and was found his blood pressure is also low and also for possible urinary tract infection was sent to ER for further evaluation. Otherwise patient denies any fever or chills. No dysuria or hematuria. No cough or sputum production. No chest pain or shortness of breath. Patient does complain of soreness in the sacral region. No complaints of abdominal pain. Currently his knees patient has been incontinent of urine and stool for the past 2 weeks. Patient had TURP on 07/19/2022. MRI of the lumbar spine done in August 2021 showed degenerative disc disease, facet arthropathy, foraminal encroachment and spinal stenosis are similar to prior exam. Dilated common duct is noted incidentally. Chest x-ray on admission showed mild hyperinflation may relate to depth of inspiration or underlying emphysema. EKG showed left atrial enlargement borderline right axis deviation. Laboratory data showed WBC 8.3 hemoglobin 13.2 and platelets 220. Sodium 142 potassium 4.2 chloride 112 bicarb is 26 BUN 19 and creatinine 0.59. During the accident elevated. Urinalysis showed 1+ protein moderate blood nitrite positive large leukocyte esterase with elevated RBCs and WBCs. Patient was hypotensive on admission with blood pressure 80/52 08/17/2023 Patient seen and evaluated in follow-up this morning being followed by infectious disease along with wound care as patient has decubitus ulcers noted on admission and continued on wound care. Culture showing MRSA with E. coli and is continued on ceftriaxone along with vancomycin. Will discuss further with infectious disease on discharge planning. Patient to be evaluated by PT/OT therapy with possible ECF being considered. Patient is reporting pain and Tylenol not helping. Patient reports he is eating with no reports of nausea or vomiting. Will await PT/OT therapy evaluation and discuss further with case management. 08/18/2023 Patient is seen in follow-up today and cultures have finalized showing MRSA with E. coli maintained on ceftriaxone along with vancomycin. Infectious disease following closely and patient will continue oral Bactrim on discharge. Patient with significant weakness working on ECF and patient will be going to [facility]. Patient will require 3 night hospitalization secondary to Medicare guidelines and will be able to discharge on Monday. Patient reporting continued pain and back pain and will mildly increase [place]'s to 1 tablet every 6 hours. Encouraged increase activity as tolerated and frequent offloading of the buttock area with frequent position changes. Continue local wound care. 08/19. Patient seen and examined. Still complaining of pain in the sacral area. Denies any fever or chills. Tolerating diet. Vital signs stable REVIEW OF SYSTEMS: CONSTITUTIONAL: No fever, no malaise,. CARDIOVASCULAR: No chest pain, no palpitations, no syncope. PULMONARY: No shortness of breath, no cough, GASTROINTESTINAL: No diarrhea, no nausea, no vomiting, no abdominal pain. NEUROLOGICAL: No headaches, no weakness, PHYSICAL EXAMINATION: GENERAL: The patient is alert and oriented x3, not in any acute distress. Well developed, well nourished. HEENT: Pupils are round and equally reacting to light. EOMI. No scleral icterus. No conjunctival pallor. Normocephalic, atraumatic. No pharyngeal erythema. No thyromegaly. CARDIOVASCULAR: S1 and S2 present. No murmurs, rubs, or gallops. PULMONARY: Chest is clear to auscultation, no wheezing or crackles. ABDOMEN: Soft, nontender, nondistended, normoactive bowel sounds. No palpable organomegaly. MUSCULOSKELETAL: No joint swelling or deformity. EXTREMITIES: No cyanosis, clubbing, or pedal edema. NEUROLOGICAL: Gross neurological examination did not reveal any focal deficits. SKIN: Sacral decubitus ulcers noted with surrounding healing areas around the skin Assessment and plan Acute urinary tract infection, present on admission Stage III pressure ulcer on the right buttock, stage II pressure ulcer on the left buttock, present on admission sacral decubitus ulcers wound infection with cultures growing MRSA and E. coli Peripheral neuropathy. Patient is mostly bedridden Diet-controlled diabetes type 2 Hypertension Coronary artery disease history of CABG 2000 Chronic low back pain History of hepatitis C treated in 2016 BPH and recent history of TURP in June 2022 Currently everyday smoker Heavy alcohol use Prior history of cocaine and heroin use GI and DVT prophylaxis with Pepcid and heparin subcu Monitor vital signs Monitor CBC Monitor CMP IV hydration with normal saline. Continue with ceftriaxone and vancomycin with infectious disease following. Culture showing MRSA with the E. coli. Patient will continue on Bactrim for 7- day course on discharge Wound care evaluated the patient with recommendations made. Patient was evaluated by PT/OT therapy and case management following working on discharge planning. Patient will be going to [facility]. Patient will require 3 night hospitalization secondary to Medicare guidelines. Patient able to be discharged on Monday Labs and medication were reviewed.. Continue same treatment. Continue with symptomatic treatment. Resume home medication. Monitor labs and vitals. DVT and GI prophylaxis. Further recommendations as per clinical course of the patient Dictation was produced using [employer] dictation software. please excuse any grammatical, word or spelling errors. Objective - Vital Signs Vital signs: Vital Signs Temp 98.7 F 08/19/23 07:45 Pulse 79 08/19/23 07:45 Resp 17 08/19/23 07:45 BP 128/79 08/19/23 07:45 Pulse Ox 98 08/19/23 08:12 FiO2 Intake & Output 08/18/23 08/19/23 08/19/23 18:59 06:59 18:59 Intake Total 550 750 Output Total 600 1400 Balance -50 -650 Weight 68.039 kg Intake: Intake, IV Titration 550 350 Amount Magnesium Sulfate-D5w Pmx 100 1 gm In Dextrose/Water 1 100ml.bag @ 100 mls/hr IVPB Q1H [facility] Rx#: [id number] Vancomycin 1,250 mg In 500 250 Sodium Chloride 0.9% 250 ml @ 125 mls/hr IVPB Q12H [facility] Rx#:[id number] cefTRIAXone 2 gm In 50 Sodium Chloride 0.9% 50 ml @ 100 mls/hr IVPB Q24HR [facility] Rx#:[id number] Oral 400 Output: Urine 600 1400 Other: Voiding Method Diaper Diaper Diaper Incontinent Incontinent Incontinent External Catheter External Catheter External Catheter - Labs CBC & Chem 7: 08/18/23 07:36 08/19/23 06:40 Labs: Abnormal Lab Results - Last 24 Hours (Table) 08/18/23 Range/Units 07:36 RBC 3.98 L (4.40-5.60) X 10*6/uL Hgb 12.1 L (13.0-17.0) g/dL Hct 34.2 L (39.6-50.0) % Microbiology - Last 24 Hours (Table) 08/15/23 12:16 Blood Culture - Preliminary Blood 08/15/23 12:16 Blood Culture - Preliminary Blood
[2023-08-19] MEDS: MAGNESIUM SULFATE-D5W PMX 1 GM in DEXTROSE/WATER 1 100ML.BAG IVPB ONE (16:30)
[2023-08-20 08:05] LABS: African American GFR (CKD) >90 (>60 ml/min/1.73 sqM); Magnesium 1.8 mg/dL (1.6-2.3); Non-African American GFR(CKD) >90 (>60 ml/min/1.73 sqM)
[2023-08-20] MEDS: MAGNESIUM SULFATE-D5W PMX 1 GM in DEXTROSE/WATER 1 100ML.BAG IVPB ONE (08:18)
[2023-08-20] MEDS: NICOTINE 14MG/24HR PATCH TRANSDERM SCH (10:53)
--- NOTE | 2023-08-20 12:46 | P.PN ---
Subjective Progress Note Date: 08/20/23 Patient is a 73-year-old male with a past medical history of hypertension, hyperlipidemia, coronary artery disease status post CABG in 2000, diet- controlled diabetes, chronic low back pain, history of hepatitis C treated in 2016, bilateral lower extremity neuropathy, history of heavy alcohol use and currently everyday smoking and prior history of cocaine and heroin use was brought to the hospital by his niece due to decub ulcers. According to the family also said getting worse. Patient is mainly bedbound and sometimes transferred to wheelchair. Patient went to see his primary care physician today and was found his blood pressure is also low and also for possible urinary tract infection was sent to ER for further evaluation. Otherwise patient denies any fever or chills. No dysuria or hematuria. No cough or sputum production. No chest pain or shortness of breath. Patient does complain of soreness in the sacral region. No complaints of abdominal pain. Currently his knees patient has been incontinent of urine and stool for the past 2 weeks. Patient had TURP on 07/19/2022. MRI of the lumbar spine done in August 2021 showed degenerative disc disease, facet arthropathy, foraminal encroachment and spinal stenosis are similar to prior exam. Dilated common duct is noted incidentally. Chest x-ray on admission showed mild hyperinflation may relate to depth of inspiration or underlying emphysema. EKG showed left atrial enlargement borderline right axis deviation. Laboratory data showed WBC 8.3 hemoglobin 13.2 and platelets 220. Sodium 142 potassium 4.2 chloride 112 bicarb is 26 BUN 19 and creatinine 0.59. During the accident elevated. Urinalysis showed 1+ protein moderate blood nitrite positive large leukocyte esterase with elevated RBCs and WBCs. Patient was hypotensive on admission with blood pressure 80/52 08/17/2023 Patient seen and evaluated in follow-up this morning being followed by infectious disease along with wound care as patient has decubitus ulcers noted on admission and continued on wound care. Culture showing MRSA with E. coli and is continued on ceftriaxone along with vancomycin. Will discuss further with infectious disease on discharge planning. Patient to be evaluated by PT/OT therapy with possible ECF being considered. Patient is reporting pain and Tylenol not helping. Patient reports he is eating with no reports of nausea or vomiting. Will await PT/OT therapy evaluation and discuss further with case management. 08/18/2023 Patient is seen in follow-up today and cultures have finalized showing MRSA with E. coli maintained on ceftriaxone along with vancomycin. Infectious disease following closely and patient will continue oral Bactrim on discharge. Patient with significant weakness working on ECF and patient will be going to [facility]. Patient will require 3 night hospitalization secondary to Medicare guidelines and will be able to discharge on Monday. Patient reporting continued pain and back pain and will mildly increase [place]'s to 1 tablet every 6 hours. Encouraged increase activity as tolerated and frequent offloading of the buttock area with frequent position changes. Continue local wound care. 08/19. Patient seen and examined. Still complaining of pain in the sacral area. Denies any fever or chills. Tolerating diet. Vital signs stable 08/20. Patient seen and examined. vital signs stable. Laying comfortably in the bed. Denies any acute issues overnight. Complaining of poor appetite. REVIEW OF SYSTEMS: CONSTITUTIONAL: No fever, no malaise,. CARDIOVASCULAR: No chest pain, no palpitations, no syncope. PULMONARY: No shortness of breath, no cough, GASTROINTESTINAL: No diarrhea, no nausea, no vomiting, no abdominal pain. NEUROLOGICAL: No headaches, no weakness, PHYSICAL EXAMINATION: GENERAL: The patient is alert and oriented x3, not in any acute distress. Chronically ill looking HEENT: Pupils are round and equally reacting to light. EOMI. No scleral icterus. No conjunctival pallor. Normocephalic, atraumatic. No pharyngeal erythema. No thyromegaly. CARDIOVASCULAR: S1 and S2 present. No murmurs, rubs, or gallops. PULMONARY: Chest is clear to auscultation, no wheezing or crackles. ABDOMEN: Soft, nontender, nondistended, normoactive bowel sounds. No palpable organomegaly. MUSCULOSKELETAL: No joint swelling or deformity. EXTREMITIES: No cyanosis, clubbing, or pedal edema. NEUROLOGICAL: Gross neurological examination did not reveal any focal deficits. SKIN: Sacral decubitus ulcers noted with surrounding healing areas around the skin Assessment and plan Acute urinary tract infection, present on admission Stage III pressure ulcer on the right buttock, stage II pressure ulcer on the left buttock, present on admission sacral decubitus ulcers wound infection with cultures growing MRSA and E. coli Peripheral neuropathy. Patient is mostly bedridden Diet-controlled diabetes type 2 Hypertension Coronary artery disease history of CABG 2000 Chronic low back pain History of hepatitis C treated in 2016 BPH and recent history of TURP in June 2022 Currently everyday smoker Heavy alcohol use Prior history of cocaine and heroin use GI and DVT prophylaxis with Pepcid and heparin subcu Monitor vital signs Monitor CBC Monitor CMP IV hydration with normal saline. Continue with ceftriaxone and vancomycin Culture showing MRSA with the E. coli. Patient will continue on Bactrim for 7- day course on discharge Wound care evaluated the patient with recommendations made. Patient was evaluated by PT/OT therapy and case management following working on discharge planning. Patient will be going to [facility]. Patient will require 3 night hospitalization secondary to Medicare guidelines. Patient able to be discharged on Monday ID following Labs and medication were reviewed.. Continue same treatment. Continue with symptomatic treatment. Resume home medication. Monitor labs and vitals. DVT and GI prophylaxis. Further recommendations as per clinical course of the patient Dictation was produced using [employer] dictation software. please excuse any grammatical, word or spelling errors. Objective - Vital Signs Vital signs: Vital Signs Temp 98.6 F 08/20/23 07:54 Pulse 65 08/20/23 07:54 Resp 17 08/20/23 07:54 BP 110/62 08/20/23 07:54 Pulse Ox 94 L 08/20/23 08:52 FiO2 Intake & Output 08/19/23 08/20/23 08/20/23 18:59 06:59 18:59 Intake Total 660 1100 Output Total 600 900 Balance 60 200 Intake: Intake, IV Titration 500 Amount Vancomycin 1,500 mg In 500 Sodium Chloride 0.9% 500 ml 500 ml @ 167 mls/hr IVPB Q12H [facility] Rx#: [id number] Oral 660 600 Output: Urine 600 900 Other: Voiding Method Diaper Diaper Diaper Incontinent Incontinent Incontinent External Catheter External Catheter External Catheter - Labs CBC & Chem 7: 08/18/23 07:36 08/20/23 06:30 Labs: Abnormal Lab Results - Last 24 Hours (Table) 08/20/23 Range/Units 06:30 Creatinine 0.65 L (0.66-1.25) mg/dL
--- NOTE | 2023-08-20 14:49 | P.PN ---
Subjective Progress Note Date: 08/20/23 Principal diagnosis: UTI and bilateral gluteal/sacral pressure ulcer Patient is a 73-year-old -[place] male with a past medical history significant for diabetes mellitus hypertension hyperlipidemia osteomyelitis prostate disorder patient has been brought into the hospital for evaluation of patient having a low blood pressure and with concern for possible UTI, vaginal p ositive he also noticed to have a pressure ulcer to the sacral area prompting this consultation. On today's evaluation that is 08/20/2023, Patient is afebrile ,patient is currently on room air and denies having any shortness of breath, the patient denies any chest pain or cough, the patient denies any nausea vomiting did not have any abdominal pain and no diarrhea. Patient did have a creatinine 0.65, no CBC was done today Vanco trough was 13.9 Objective - Vital Signs Vital signs: Vital Signs Temp 98.1 F 08/20/23 12:47 Pulse 64 08/20/23 12:47 Resp 18 08/20/23 12:47 BP 112/65 08/20/23 12:47 Pulse Ox 97 08/20/23 12:47 FiO2 Intake & Output 08/19/23 08/20/23 08/20/23 18:59 06:59 18:59 Intake Total 660 1100 Output Total 600 900 Balance 60 200 Intake: Intake, IV Titration 500 Amount Vancomycin 1,500 mg In 500 Sodium Chloride 0.9% 500 ml 500 ml @ 167 mls/hr IVPB Q12H [facility] Rx#: [id number] Oral 660 600 Output: Urine 600 900 Other: Voiding Method Diaper Diaper Diaper Incontinent Incontinent Incontinent External Catheter External Catheter External Catheter - Exam GENERAL DESCRIPTION: An elderly male lying in bed in no distress RESPIRATORY SYSTEM: Unlabored breathing , decreased breath sounds at bases HEART: S1 S2 regular rate and rhythm , ABDOMEN: Soft , no tenderness EXTREMITIES: No edema feet - Labs CBC & Chem 7: 08/18/23 07:36 08/20/23 06:30 Labs: Abnormal Lab Results - Last 24 Hours (Table) 08/20/23 Range/Units 06:30 Creatinine 0.65 L (0.66-1.25) mg/dL Assessment and Plan (1) Decubitus ulcer, infected Current Visit: Yes Status: Acute Code(s): L89.90 - PRESSURE ULCER OF UNSPECIFIED SITE, UNSPECIFIED STAGE; L08.9 - LOCAL INFECTION OF THE SKIN AND SUBCUTANEOUS TISSUE, UNSP SNOMED Code(s): 652996317 (2) Urinary tract infection Current Visit: Yes Status: Acute Code(s): N39.0 - URINARY TRACT INFECTION, SITE NOT SPECIFIED SNOMED Code(s): 16951864 Plan: 1-1patient presented hospital with weakness low blood pressure some weak urinary symptoms positive UA high clinical suspicious for symptomatic urinary tract infection likely from intra-abdominal pathogen 2-patient also have a stage III sacral pressure ulcer also involving bilateral gluteal area however no significant surrounding swelling redness but did have some slough tissue clinical suspicion low for infected sacral pressure ulcer blood culture has been obtained and currently growing E. coli and MRSA possible mild cellulitis 3-patient to continue with the vancomycin and Rocephin while inpatient, will repeat his inflammatory markers and CBC with a.m. lab Dictation was produced using [employer] dictation software. please excuse any grammatical, word or spelling errors. Time with Patient: Less than 30
[2023-08-21 09:37] LABS: ALT 42 U/L (4-49); AST 49 U/L (17-59); African American GFR (CKD) >90 (>60 ml/min/1.73 sqM); Albumin 3.2 g/dL (3.5-5.0); Albumin/Globulin Ratio 1.1; Alkaline Phosphatase 134 U/L (38-126); Anion Gap 6 mmol/L; Blood Urea Nitrogen 19 mg/dL (9-20); Calcium 8.8 mg/dL (8.4-10.2); Carbon Dioxide 24 mmol/L (22-30); Chloride 106 mmol/L (98-107); Globulin 2.9 g/dL; Glucose 157 mg/dL (74-99); Magnesium 1.5 mg/dL (1.6-2.3); Non-African American GFR(CKD) >90 (>60 ml/min/1.73 sqM); Sodium 136 mmol/L (137-145); Total Bilirubin 0.3 mg/dL (0.2-1.3); Total Protein 6.1 g/dL (6.3-8.2)
[2023-08-21 09:40] LABS: Basophils % (A) 0 %; Eosinophils # (A) 0.1 k/uL (0-0.7); Eosinophils % (A) 2 %; HCT 35.4 % (39.0-53.0); HGB 12.1 gm/dL (13.0-17.5); Lymphocytes # (A) 0.4 k/uL (1.0-4.8); Lymphocytes % (A) 6 %; MCH 30.9 pg (25.0-35.0); MCHC 34.3 g/dL (31.0-37.0); MCV 89.9 fL (80.0-100.0); Mean Platelet Volume 9.8; Monocytes # (A) 0.4 k/uL (0-1.0); Monocytes % (A) 7 %; Neutrophils # (A) 5.1 k/uL (1.3-7.7); Neutrophils % (A) 84 %; Platelet Count 132 k/uL (150-450); RBC 3.94 m/uL (4.30-5.90); RDW 13.6 % (11.5-15.5); WBC 6.1 k/uL (3.8-10.6)
[2023-08-21] MEDS: VANCOMYCIN TROUGH DUE 1 EACH MISC MISCELLANE ONE (10:10)
--- NOTE | 2023-08-21 12:01 | P.DS ---
Providers Date of admission: 08/17/23 09:32 Expected date of discharge: 08/21/23 Attending physician: Lilian Sousa Consults: 08/16/23 22:26 Consult Physician Routine Consulting Provider: Jeyson Coulter Consult Reason/Comments: sacral wound infection Do you want consulting provider notified?: Yes, Notify in am Primary care physician: [facility] Course: Discharge diagnoses; Acute urinary tract infection, present on admission Stage III pressure ulcer on the right buttock, stage II pressure ulcer on the left buttock, present on admission sacral decubitus ulcers wound infection with cultures growing MRSA and E. coli Peripheral neuropathy. Patient is mostly bedridden Diet-controlled diabetes type 2 Hypertension Coronary artery disease history of CABG 2000 Chronic low back pain History of hepatitis C treated in 2015 BPH and recent history of TURP in June 2022 Currently everyday smoker Heavy alcohol use Prior history of cocaine and heroin use GI and DVT prophylaxis with Pepcid and heparin subcu Hospital course; Patient is a 73-year-old male with a past medical history of hypertension, hyperlipidemia, coronary artery disease status post CABG in 2000, diet- controlled diabetes, chronic low back pain, history of hepatitis C treated in 2015, bilateral lower extremity neuropathy, history of heavy alcohol use and currently everyday smoking and prior history of cocaine and heroin use was brought to the hospital by his niece due to decub ulcers. According to the family also said getting worse. Patient is mainly bedbound and sometimes transferred to wheelchair. Patient went to see his primary care physician today and was found his blood pressure is also low and also for possible urinary tract infection was sent to ER for further evaluation. Otherwise patient denies any fever or chills. No dysuria or hematuria. No cough or sputum production. No chest pain or shortness of breath. Patient does complain of soreness in the sacral region. No complaints of abdominal pain. Currently his knees patient has been incontinent of urine and stool for the past 2 weeks. Patient had TURP on 07/19/2022. MRI of the lumbar spine done in August 2021 showed degenerative disc disease, facet arthropathy, foraminal encroachment and spinal stenosis are similar to prior exam. Dilated common duct is noted incidentally. Chest x-ray on admission showed mild hyperinflation may relate to depth of inspiration or underlying emphysema. EKG showed left atrial enlargement borderline right axis deviation. Laboratory data showed WBC 8.3 hemoglobin 13.2 and platelets 220. Sodium 142 potassium 4.2 chloride 112 bicarb is 26 BUN 19 and creatinine 0.59. During the accident elevated. Urinalysis showed 1+ protein moderate blood nitrite positive large leukocyte e sterase with elevated RBCs and WBCs. Patient was hypotensive on admission with blood pressure 80/52 08/17/2023 Patient seen and evaluated in follow-up this morning being followed by infectious disease along with wound care as patient has decubitus ulcers noted on admission and continued on wound care. Culture showing MRSA with E. coli and is continued on ceftriaxone along with vancomycin. Will discuss further with infectious disease on discharge planning. Patient to be evaluated by PT/OT therapy with possible ECF being considered. Patient is reporting pain and Tylenol not helping. Patient reports he is eating with no reports of nausea or vomiting. Will await PT/OT therapy evaluation and discuss further with case management. 08/18/2023 Patient is seen in follow-up today and cultures have finalized showing MRSA with E. coli maintained on ceftriaxone along with vancomycin. Infectious disease following closely and patient will continue oral Bactrim on discharge. Patient with significant weakness working on ECF and patient will be going to [facility]. Patient will require 3 night hospitalization secondary to Medicare guidelines and will be able to discharge on Monday. Patient reporting continued pain and back pain and will mildly increase Deshler's to 1 tablet every 6 hours. Encouraged increase activity as tolerated and frequent offloading of the buttock area with frequent position changes. Continue local wound care. 08/19. Patient seen and examined. Still complaining of pain in the sacral area. Denies any fever or chills. Tolerating diet. Vital signs stable 08/20. Patient seen and examined. vital signs stable. Laying comfortably in the bed. Denies any acute issues overnight. Complaining of poor appetite. 08/21. Patient seen examined. Being discharged on oral Bactrim for 1 week per ID recommendations. PHYSICAL EXAMINATION: GENERAL: The patient is alert and oriented x3, not in any acute distress. Chronically ill looking HEENT: Pupils are round and equally reacting to light. EOMI. No scleral icterus. No conjunctival pallor. Normocephalic, atraumatic. No pharyngeal erythema. No thyromegaly. CARDIOVASCULAR: S1 and S2 present. No murmurs, rubs, or gallops. PULMONARY: Chest is clear to auscultation, no wheezing or crackles. ABDOMEN: Soft, nontender, nondistended, normoactive bowel sounds. No palpable organomegaly. MUSCULOSKELETAL: No joint swelling or deformity. EXTREMITIES: No cyanosis, clubbing, or pedal edema. NEUROLOGICAL: Gross neurological examination did not reveal any focal deficits. SKIN: Sacral decubitus ulcers noted with surrounding healing areas around the skin Dictation was produced using [employer] dictation software. please excuse any grammatical, word or spelling errors. Patient Condition at Discharge: Good Plan - Discharge Summary Discharge Rx Participant: No New Discharge Prescriptions: New Sulfamethox-Tmp 800-160Mg [Bactrim DS 800-160 mg] 1 tab PO Q12HR 7 Days #14 tab Folic Acid 1 mg PO DAILY #30 tab HYDROcodone/APAP 5-325MG [Deshler 5-325] 1 each PO Q6HR PRN 3 Days #12 tab PRN Reason: Pain Thiamine [Vitamin B-1] 100 mg PO DAILY #30 tab Continue Melatonin 5 mg PO HS Naproxen [Naprosyn] 500 mg PO BID PRN PRN Reason: Pain Discharge Medication List Melatonin 5 mg PO HS 07/14/22 [History] Naproxen [Naprosyn] 500 mg PO BID PRN 08/15/23 [History] Folic Acid 1 mg PO DAILY #30 tab 08/21/23 [Rx] HYDROcodone/APAP 5-325MG [Deshler 5-325] 1 each PO Q6HR PRN 3 Days #12 tab 08/21/23 [Rx] Sulfamethox-Tmp 800-160Mg [Bactrim DS 800-160 mg] 1 tab PO Q12HR 7 Days #14 tab 08/21/23 [Rx] Thiamine [Vitamin B-1] 100 mg PO DAILY #30 tab 08/21/23 [Rx] Follow up Appointment(s)/Referral(s): Simran Hill MD [Primary Care Provider] - 1-2 days Jeyson Coulter MD [STAFF PHYSICIAN] - 1 Week Discharge Disposition: TRANSFER TO SNF/ECF
[2023-08-21] MEDS: MAGNESIUM SULFATE-D5W PMX 1 GM in DEXTROSE/WATER 1 100ML.BAG IVPB SCH (12:16)
[2023-08-21 14:40] VITALS: RESP 16
[2023-08-22 13:31] VITALS: BP 116/66; PULSE 74; TEMP 99.3
--- NOTE | 2023-08-22 13:36 | P.PN ---
Subjective Progress Note Date: 08/22/23 Patient is a 73-year-old male with a past medical history of hypertension, hyperlipidemia, coronary artery disease status post CABG in 2000, diet- controlled diabetes, chronic low back pain, history of hepatitis C treated in 2016, bilateral lower extremity neuropathy, history of heavy alcohol use and currently everyday smoking and prior history of cocaine and heroin use was brought to the hospital by his niece due to decub ulcers. According to the family also said getting worse. Patient is mainly bedbound and sometimes transferred to wheelchair. Patient went to see his primary care physician today and was found his blood pressure is also low and also for possible urinary tract infection was sent to ER for further evaluation. Otherwise patient denies any fever or chills. No dysuria or hematuria. No cough or sputum production. No chest pain or shortness of breath. Patient does complain of soreness in the sacral region. No complaints of abdominal pain. Currently his knees patient has been incontinent of urine and stool for the past 2 weeks. Patient had TURP on 07/19/2022. MRI of the lumbar spine done in August 2021 showed degenerative disc disease, facet arthropathy, foraminal encroachment and spinal stenosis are similar to prior exam. Dilated common duct is noted incidentally. Chest x-ray on admission showed mild hyperinflation may relate to depth of inspiration or underlying emphysema. EKG showed left atrial enlargement borderline right axis deviation. Laboratory data showed WBC 8.3 hemoglobin 13.2 and platelets 220. Sodium 142 potassium 4.2 chloride 112 bicarb is 26 BUN 19 and creatinine 0.59. During the accident elevated. Urinalysis showed 1+ protein moderate blood nitrite positive large leukocyte esterase with elevated RBCs and WBCs. Patient was hypotensive on admission with blood pressure 80/52 08/17/2023 Patient seen and evaluated in follow-up this morning being followed by infectious disease along with wound care as patient has decubitus ulcers noted on admission and continued on wound care. Culture showing MRSA with E. coli and is continued on ceftriaxone along with vancomycin. Will discuss further with infectious disease on discharge planning. Patient to be evaluated by PT/OT therapy with possible ECF being considered. Patient is reporting pain and Tylenol not helping. Patient reports he is eating with no reports of nausea or vomiting. Will await PT/OT therapy evaluation and discuss further with case management. 08/18/2023 Patient is seen in follow-up today and cultures have finalized showing MRSA with E. coli maintained on ceftriaxone along with vancomycin. Infectious disease following closely and patient will continue oral Bactrim on discharge. Patient with significant weakness working on EC and patient will be going to [facility]. Patient will require 3 night hospitalization secondary to Medicare guidelines and will be able to discharge on Monday. Patient reporting continued pain and back pain and will mildly increase Dallas's to 1 tablet every 6 hours. Encouraged increase activity as tolerated and frequent offloading of the buttock area with frequent position changes. Continue local wound care. 08/19. Patient seen and examined. Still complaining of pain in the sacral area. Denies any fever or chills. Tolerating diet. Vital signs stable 08/20. Patient seen and examined. vital signs stable. Laying comfortably in the bed. Denies any acute issues overnight. Complaining of poor appetite. 08/22. Patient seen and examined. Patient is currently medically stable for discharge to rehab facility, currently waiting on authorization. REVIEW OF SYSTEMS: CONSTITUTIONAL: No fever, no malaise,. CARDIOVASCULAR: No chest pain, no palpitations, no syncope. PULMONARY: No shortness of breath, no cough, GASTROINTESTINAL: No diarrhea, no nausea, no vomiting, no abdominal pain. NEUROLOGICAL: No headaches, no weakness, PHYSICAL EXAMINATION: GENERAL: The patient is alert and oriented x3, not in any acute distress. Chronically ill looking HEENT: Pupils are round and equally reacting to light. EOMI. No scleral icterus. No conjunctival pallor. Normocephalic, atraumatic. No pharyngeal erythema. No thyromegaly. CARDIOVASCULAR: S1 and S2 present. No murmurs, rubs, or gallops. PULMONARY: Chest is clear to auscultation, no wheezing or crackles. ABDOMEN: Soft, nontender, nondistended, normoactive bowel sounds. No palpable organomegaly. MUSCULOSKELETAL: No joint swelling or deformity. EXTREMITIES: No cyanosis, clubbing, or pedal edema. NEUROLOGICAL: Gross neurological examination did not reveal any focal deficits. SKIN: Sacral decubitus ulcers noted with surrounding healing areas around the skin Assessment and plan Acute urinary tract infection, present on admission Stage III pressure ulcer on the right buttock, stage II pressure ulcer on the left buttock, present on admission sacral decubitus ulcers wound infection with cultures growing MRSA and E. coli Peripheral neuropathy. Patient is mostly bedridden Diet-controlled diabetes type 2 Hypertension Coronary artery disease history of CABG 2000 Chronic low back pain History of hepatitis C treated in 2015 BPH and recent history of TURP in June 2022 Currently everyday smoker Heavy alcohol use Prior history of cocaine and heroin use GI and DVT prophylaxis with Pepcid and heparin subcu Monitor vital signs Monitor CBC Monitor CMP Being discharged on Bactrim for 7-day course on discharge Continue current meds ID cleared the patient for discharge Objective - Vital Signs Vital signs: Vital Signs Temp 99.3 F 08/22/23 12:57 Pulse 74 08/22/23 12:57 Resp 16 08/22/23 12:57 BP 116/66 08/22/23 12:57 Pulse Ox 95 08/22/23 12:57 FiO2 Intake & Output 08/21/23 08/22/23 08/22/23 18:59 06:59 18:59 Intake Total 990 1100 Output Total 800 1200 Balance 190 -100 Intake: Intake, IV Titration 750 500 Amount Magnesium Sulfate-D5w Pmx 200 1 gm In Dextrose/Water 1 100ml.bag @ 100 mls/hr IVPB Q1H VALERIE Rx#: [id number] Vancomycin 1,500 mg In 500 500 Sodium Chloride 0.9% 500 ml 500 ml @ 167 mls/hr IVPB Q12H VALERIE Rx#: [id number] cefTRIAXone 2 gm In 50 Sodium Chloride 0.9% 50 ml @ 100 mls/hr IVPB Q24HR VALERIE Rx#:[id number] Oral 240 600 Output: Urine 800 1200 Other: Voiding Method Diaper Diaper External Catheter Incontinent Incontinent External Catheter External Catheter # Voids 1 # Bowel Movements 1 1 - Labs CBC & Chem 7: 08/21/23 08:42 08/21/23 08:42
--- NOTE | 2023-08-22 14:10 | P.PN ---
Subjective Progress Note Date: 08/21/23 Principal diagnosis: UTI and bilateral gluteal/sacral pressure ulcer Patient is a 73-year-old -Indian male with a past medical history significant for diabetes mellitus hypertension hyperlipidemia osteomyelitis prostate disorder patient has been brought into the hospital for evaluation of patient having a low blood pressure and with concern for possible UTI, vaginal p ositive he also noticed to have a pressure ulcer to the sacral area prompting this consultation. On today's evaluation that is 08/21/2023,the patient denies any fever or any chills, patient is breathing comfortably on room air, the patient denies chest pain shortness of breath and no significant cough, patient denies abdominal pain, no nausea vomiting or diarrhea.. Patient white count 6.1, creatinine 0.56 Objective - Vital Signs Vital signs: Vital Signs Temp 98.5 F 08/21/23 07:32 Pulse 76 08/21/23 07:32 Resp 17 08/21/23 07:32 BP 128/72 08/21/23 07:32 Pulse Ox 96 08/21/23 07:32 FiO2 Intake & Output 08/20/23 08/21/23 08/21/23 18:59 06:59 18:59 Output Total 1100 1700 Balance -1100 -1700 Output: Urine 1100 1700 Other: Voiding Method Diaper Diaper Diaper Incontinent Incontinent Incontinent External Catheter External Catheter External Catheter - Exam GENERAL DESCRIPTION: An elderly male lying in bed in no distress RESPIRATORY SYSTEM: Unlabored breathing , decreased breath sounds at bases HEART: S1 S2 regular rate and rhythm , ABDOMEN: Soft , no tenderness EXTREMITIES: No edema feet - Labs CBC & Chem 7: 08/21/23 08:42 08/21/23 08:42 Labs: Abnormal Lab Results - Last 24 Hours (Table) 08/21/23 08/21/23 Range/Units 08:42 08:42 RBC 3.94 L (4.30-5.90) m/uL Hgb 12.1 L (13.0-17.5) gm/dL Hct 35.4 L (39.0-53.0) % Plt Count 132 L (150-450) k/uL Lymphocytes # 0.4 L (1.0-4.8) k/uL Sodium 136 L (137-145) mmol/L Creatinine 0.56 L (0.66-1.25) mg/dL Glucose 157 H (74-99) mg/dL Magnesium 1.5 L (1.6-2.3) mg/dL Alkaline Phosphatase 134 H (38-126) U/L Total Protein 6.1 L (6.3-8.2) g/dL Albumin 3.2 L (3.5-5.0) g/dL Microbiology - Last 24 Hours (Table) 08/15/23 12:16 Blood Culture - Final Blood 08/15/23 12:16 Blood Culture - Final Blood Assessment and Plan (1) Decubitus ulcer, infected Current Visit: Yes Status: Acute Code(s): L89.90 - PRESSURE ULCER OF UNSPECIFIED SITE, UNSPECIFIED STAGE; L08.9 - LOCAL INFECTION OF THE SKIN AND SUBCUTANEOUS TISSUE, UNSP SNOMED Code(s): 085603834 (2) Urinary tract infection Current Visit: Yes Status: Acute Code(s): N39.0 - URINARY TRACT INFECTION, SITE NOT SPECIFIED SNOMED Code(s): 21249587 Plan: 1-1patient presented hospital with weakness low blood pressure some weak urinary symptoms positive UA high clinical suspicious for symptomatic urinary tract infection likely from intra-abdominal pathogen 2-patient also have a stage III sacral pressure ulcer also involving bilateral gluteal area however no significant surrounding swelling redness, blood culture has been obtained and currently growing E. coli and MRSA possible mild cellulitis 3-patient to continue with the vancomycin and Rocephin while inpatient, with a plan to finish therapy with oral Bactrim DS discussed with the admitting phys ician working on discharge Dictation was produced using [employer] dictation software. please excuse any grammatical, word or spelling errors. Time with Patient: Less than 30
--- NOTE | 2023-08-22 15:55 | P.PN ---
Subjective Progress Note Date: 08/22/23 Principal diagnosis: UTI and bilateral gluteal/sacral pressure ulcer Patient is a 73-year-old -French male with a past medical history significant for diabetes mellitus hypertension hyperlipidemia osteomyelitis prostate disorder patient has been brought into the hospital for evaluation of patient having a low blood pressure and with concern for possible UTI, vaginal p ositive he also noticed to have a pressure ulcer to the sacral area prompting this consultation. On today's evaluation that is 08/22/2023,the patient remains to be afebrile, patient is on room air not requiring supplemental oxygen and denies any shortness of breath no chest pain or cough.Patient denies having any nausea or vomiting, no abdominal pain and no diarrhea has been reported, pain to the gluteal wound has slightly decreased in intensity. Patient white count 6.1, creatinine 0.56 Objective - Vital Signs Vital signs: Vital Signs Temp 99.3 F 08/22/23 12:57 Pulse 74 08/22/23 12:57 Resp 16 08/22/23 12:57 BP 116/66 08/22/23 12:57 Pulse Ox 95 08/22/23 12:57 FiO2 Intake & Output 08/21/23 08/22/23 08/22/23 18:59 06:59 18:59 Intake Total 990 1100 Output Total 800 1200 Balance 190 -100 Intake: Intake, IV Titration 750 500 Amount Magnesium Sulfate-D5w Pmx 200 1 gm In Dextrose/Water 1 100ml.bag @ 100 mls/hr IVPB Q1H VALERIE Rx#: [id number] Vancomycin 1,500 mg In 500 500 Sodium Chloride 0.9% 500 ml 500 ml @ 167 mls/hr IVPB Q12H VALERIE Rx#: [id number] cefTRIAXone 2 gm In 50 Sodium Chloride 0.9% 50 ml @ 100 mls/hr IVPB Q24HR VALERIE Rx#:[id number] Oral 240 600 Output: Urine 800 1200 Other: Voiding Method Diaper Diaper External Catheter Incontinent Incontinent External Catheter External Catheter # Voids 1 # Bowel Movements 1 1 - Exam GENERAL DESCRIPTION: An elderly male lying in bed in no distress RESPIRATORY SYSTEM: Unlabored breathing , decreased breath sounds at bases HEART: S1 S2 regular rate and rhythm , ABDOMEN: Soft , no tenderness EXTREMITIES: No edema feet - Labs CBC & Chem 7: 08/21/23 08:42 08/21/23 08:42 Assessment and Plan (1) Decubitus ulcer, infected Status: Acute Code(s): L89.90 - PRESSURE ULCER OF UNSPECIFIED SITE, UNSPECIFIED STAGE; L08.9 - LOCAL INFECTION OF THE SKIN AND SUBCUTANEOUS TISSUE, UNSP SNOMED Code(s): 319549555 (2) Urinary tract infection Status: Acute Code(s): N39.0 - URINARY TRACT INFECTION, SITE NOT SPECIFIED SNOMED Code(s): 54182267 Plan: 1-1patient presented hospital with weakness low blood pressure some weak urinary symptoms positive UA high clinical suspicious for symptomatic urinary tract infection likely from intra-abdominal pathogen 2-patient also have a stage III sacral pressure ulcer also involving bilateral gluteal area however no significant surrounding swelling redness, blood culture has been obtained and currently growing E. coli and MRSA possible mild cellulitis 3-patient to finish therapy with oral Bactrim DS x 7 days and local wound care to continue as ordered advise offloading to help healing this wound Dictation was produced using [employer]ation software. please excuse any grammatical, word or spelling errors. Time with Patient: Less than 30
== END 2023-08-22 14:39 | DRG 689 ==
LOC: EC 11:37 → 5NMEDONC 14:10 → OBSVTOIN 08-17 09:32
PROVIDERS: ADMIT Internal Medicine; ATTEND Internal Medicine
DX: N39.0 Urinary tract infection, site not specified (principal); L89.153 Pressure ulcer of sacral region, stage 3; L89.313 Pressure ulcer of right buttock, stage 3; L03.317 Cellulitis of buttock; L89.322 Pressure ulcer of left buttock, stage 2; E11.41 Type 2 diabetes mellitus with diabetic mononeuropathy; E11.622 Type 2 diabetes mellitus with other skin ulcer; E11.69 Type 2 diabetes mellitus with other specified complication; F17.210 Nicotine dependence, cigarettes, uncomplicated; N40.0 Benign prostatic hyperplasia without lower urinary tract symptoms; Z74.01 Bed confinement status; B95.62 Methicillin resistant Staphylococcus aureus infection as the cause of diseases classified elsewhere; E78.5 Hyperlipidemia, unspecified; B96.20 Unspecified Escherichia coli [E. coli] as the cause of diseases classified elsewhere; G62.9 Polyneuropathy, unspecified; G89.29 Other chronic pain; I25.10 Atherosclerotic heart disease of native coronary artery without angina pectoris; B19.20 Unspecified viral hepatitis C without hepatic coma; I95.9 Hypotension, unspecified; M54.50 Low back pain, unspecified; I50.9 Heart failure, unspecified; I11.0 Hypertensive heart disease with heart failure; J43.9 Emphysema, unspecified; K83.8 Other specified diseases of biliary tract; M47.896 Other spondylosis, lumbar region; E11.628 Type 2 diabetes mellitus with other skin complications; M48.061 Spinal stenosis, lumbar region without neurogenic claudication; R32 Unspecified urinary incontinence; Z90.79 Acquired absence of other genital organ(s); E11.42 Type 2 diabetes mellitus with diabetic polyneuropathy; Z95.1 Presence of aortocoronary bypass graft; Z99.3 Dependence on wheelchair
CPT/HCPCS: 36415; 71046; 80048; 80053; 80202; 81001; 82565; 83605; 83735; 85025; 85610; 85730; 87040; 87070; 87077; 87086; 87186; 87205; 93005; 94760; 96361; 96374; 99285

== ENCOUNTER → 2024-06-24 | Outpatient (CLI) | payer MEDICARE, OTHER ==
--- NOTE | 2024-06-24 23:50 | US ---
EXAMINATION TYPE: US arterial UE single level DATE OF EXAM: 06/24/2024 1:30 PM CLINICAL INDICATION: Male, 74 years old with history of R531 WEAKNESS; exam done with pt sitting in w heelchair TECHNIQUE: Systolic pressures were taken of the upper extremity arteries with wrist brachial indices calculated. History of: Smoker: Current Smoker Hypertension: No Diabetic: Yes Hyperlipidemia: No TIA/CVA: No Previous Vascular Surgery: No CAD: No [place]: No Vascular Ulcers: No Claudication: No Gangrene: No FINDINGS: Doppler Waveforms: Right: Brachial: Multiphasic Radial: Multiphasic Ulnar: Multiphasic Left: Brachial: Multiphasic Radial: Multiphasic Ulnar: Multiphasic Wrist Brachial Indices: Right: 1.17 Left: 1.11 IMPRESSION: 1. No suspicious stenosis based on waveforms ensures [facility] Yovanny Colvin, , 06/24/2024 11:47 PM
--- NOTE | 2024-06-24 23:51 | US ---
EXAMINATION TYPE: US arterial LE single level DATE OF EXAM: 06/24/2024 1:44 PM COMPARISONS: None. CLINICAL INDICATION: Male, 74 years old with history of R531 WEAKNESS; exam done with pt in [facility] TECHNIQUE: Systolic pressures were taken of the upper and lower extremity arteries with ankle-brachia l indices and toe brachial indices calculated bilaterally. History of: Smoker: Current Smoker Hypertension: No Diabetic: Yes Hyperlipidemia: No TIA/CVA: No Previous Vascular Surgery: No CAD: No [place]: No Vascular Ulcers: No Claudication: No Gangrene: No FINDINGS: Doppler Waveforms: Right: Left: Brachial Artery systolic pressure: Right: 128 Left: 118 Posterior Tibial artery systolic pressure: Right: cno Left: 79 Dorsalis Pedis artery systolic pressure: Right: 59 Left: 80 Ankle-Brachial Indices: Right: 0.46 Left: 0.63 (Normal > 0.6; Mild 0.35 - 0.59, Moderate 0.12 - 0.34, Severe <0.12) IMPRESSION: RUDOLPH: Monophasic waveforms with low ratios suggestive for latter to severe lower extremity arterial st enosis. Consider follow-up CT runoff. [facility] Colvin, , 06/24/2024 11:49 PM
== END | disposition home or self-care (01) ==
LOC: RADUSWWP 12:36
PROVIDERS: ATTEND Surgery
DX: R53.1 Weakness (principal)
CPT/HCPCS: 93922

== ENCOUNTER → 2024-08-16 | Outpatient (CLI) | payer MEDICARE, OTHER ==
--- NOTE | 2024-08-16 11:29 | CT ---
EXAMINATION TYPE: CT cervical spine wo con CT DLP: 442.70 mGycm, Automated exposure control for dose reduction was used. DATE OF EXAM: 08/16/2024 11:00 AM COMPARISON: No direct comparisons. CLINICAL INDICATION:Male, 74 years old with history of M47.12; PHH, Cant walk, pain TECHNIQUE: Axial CT images from the skull base to the inferior aspect of T2 we obtained without intra venous contrast. Coronal and sagittal reformatted images were also reviewed. FINDINGS: Fracture: None. Osseous structures: Multilevel endplate sclerosis with disc space narrowing and anterior osteophytosi s. Median sternotomy wires. Vertebral alignment: No spondylolisthesis. Slight reversal of the normal cervical lordosis. Spinal canal/Neural Foramina: Narrow spinal canal from C2 through C7 measures grossly 6 to 7 mm in AP dimension. Posterior disc osteophyte complex with mild to moderate central canal stenosis at C2-C3. Incidental p neumorrhacis at this level from the disc. Uncovertebral joint hypertrophy and moderate bilateral neur al foraminal stenosis. Posterior disc osteophyte complex with moderate central canal stenosis at C3-C4. Uncovertebral joint hypertrophy and moderate bilateral neural foraminal stenosis. Posterior disc osteophyte complex with moderate central canal stenosis at C4-C5. Uncovertebral joint hypertrophy and moderate bilateral neural foraminal stenosis. Ossification of the ligamentum flavum. Posterior disc osteophyte complex with moderate central canal stenosis at C5-C6. Uncovertebral joint hypertrophy and moderate bilateral neural foraminal stenosis. Ossification of the ligamentum flavum. Posterior disc osteophyte complex with mild to moderate central canal stenosis at C6-C7. Uncovertebra l joint hypertrophy and moderate bilateral neural foraminal stenosis. Posterior disc osteophyte complex with mild central canal stenosis at C7-T1. No neuroforaminal stenos is. Neck soft tissues: Prevertebral soft tissues are within normal limits. Other: The airway is patent. The lung apices are clear. Atherosclerotic calcification of the intracra nial vasculature. Bilateral external auditory canal cerumen. Bilateral carotid bulb calcifications. P ost CABG changes. Centrilobular emphysematous changes. IMPRESSION: 1. No evidence of cervical spine fracture. 2. Moderate multilevel degenerative disc disease with moderate multilevel spinal canal stenosis. 3. COPD changes. [facility], , 08/16/2024 11:27 AM
== END | disposition home or self-care (01) ==
LOC: RADCTMAIN 09:55
PROVIDERS: ATTEND Orthopaedic Surgery
DX: M48.02 Spinal stenosis, cervical region (principal); M50.00 Cervical disc disorder with myelopathy, unspecified cervical region; M47.12 Other spondylosis with myelopathy, cervical region; J44.9 Chronic obstructive pulmonary disease, unspecified
CPT/HCPCS: 72125